=== PATIENT | male | born 1985 | race Caucasian/White ===

== ENCOUNTER → 2018-03-05 18:24 | Outpatient (CLI) | payer MEDICARE, MEDICAID, SELFPAY ==
[2018-03-05 19:29] LABS: Blood Urea Nitrogen 12 mg/dL (7-18); Creatinine,Serum 0.93 mg/dL (0.70-1.30); Estimated Glomerular Filt Rate 93 ml/min (>60); GFR (African American) 113 ML/MIN (>60)
== END ==
PROVIDERS: Visit Provider Internal Medicine
DX: C85.90 Non-Hodgkin lymphoma, unspecified, unspecified site (principal)
CPT/HCPCS: 36415; 82565; 84520

== ENCOUNTER → 2018-03-06 08:48 | Outpatient (CLI) | payer MEDICARE, MEDICAID, SELFPAY ==
--- NOTE | 2018-03-06 09:03 | CT_ITS ---
CT chest w con HISTORY: Follow-up lymphoma ITS.REASON: LYMPHOMA ORDERING PHYSICIAN: Bob Cunningham MD PATIENT AGE: 32 years COMPARISON: 03/22/2017 TECHNIQUE: Axial images obtained following the administration of 75 mL of Isovue 370 . Sagittal, and coronal reformatted images are also generated and reviewed. All CT scans at the facility use one or more dose reduction, viz: automated exposure control; ma/kV adjustment per patient size (including targeted exams where dose is matched to indication; i.e. head); or iterative reconstruction technique. FINDINGS: Right IJ Mediport catheter is in place. There are only a few small subcarinal lymph nodes are somewhat smaller when compared to the previous exam. No mediastinal or hilar mass or adenopathy is evident. No axillary adenopathy. There is mild bilateral gynecomastia. No suspicious pulmonary nodules are evident. There is a 3 mm stable nodule in the right upper lobe anteriorly may be related to a partially calcified granuloma no lobar consolidation. No infiltrates or effusions. No evidence of aortic aneurysm or central pulmonary embolus. No acute bony anomalies. IMPRESSION: Overall stable CT appearance of the chest. No CT evidence of recurrent lymphoma. Please see above for details
--- NOTE | 2018-03-06 09:04 | CT_ITS ---
CT abdomen pelvis w con CLINICAL INDICATION: Follow-up lymphoma ITS.REASON: LYMPHOMA ORDERING PHYSICIAN: Bob Cunningham MD PATIENT AGE: 32 years COMPARISON: 03/22/2017 TECHNIQUE: Axial images obtained with sagittal and coronal reformats. All CT scans at the facility use one or more dose reduction, viz: automated exposure control; ma/kV adjustment per patient size (including targeted exams where dose is matched to indication; i.e. head); or iterative reconstruction technique. PROCEDURE: Oral Contrast: Redicat IV Contrast: 75 mL's of Isovue-370. FINDINGS: The liver, spleen, adrenal glands, pancreas, gallbladder, and kidneys have an unremarkable appearance. No evidence of retroperitoneal or intraperitoneal adenopathy. No intestinal obstruction or free air. No evidence of appendicitis or diverticulitis. No pelvic mass or focal inflammatory change evident. No abnormal fluid collection. No acute bony anomalies IMPRESSION: Negative CT abdomen pelvis. No change with no evidence of recurrent lymphoma
== END ==
PROVIDERS: PCP Nurse Practitioner Family; Visit Provider Internal Medicine
DX: C85.83 Other specified types of non-Hodgkin lymphoma, intra-abdominal lymph nodes (principal)
CPT/HCPCS: 71260; 74177; Q9967

== ENCOUNTER → 2018-04-02 11:25 | Outpatient (CLI) | payer MEDICARE, MEDICAID, SELFPAY ==
[2018-04-02 11:55] LABS: Basophils % 0.6 % (0.1-2.0); Eosinophils # 0.2 K/mm3 (0.0-0.4); Eosinophils % 2.2 % (0.1-12.0); Hematocrit 45.2 % (42.0-52.0); Hemoglobin 14.5 g/dL (14.1-18.0); Lymphocytes # 1.8 K/mm3 (0.7-4.5); Mean Corpuscular HGB Conc 32.1 g/dL (31.8-35.4); Mean Corpuscular Hemoglobin 27.1 pg (27.0-31.2); Mean Corpuscular Volume 84.5 fl (80-94); Monocytes # 0.3 K/mm3 (0.1-1.0); Monocytes % 3.4 % (1.7-9.3); Neutrophils # 5.6 K/mm3 (1.8-7.8); Neutrophils % 70.8 % (37.0-80.0); Platelet Count 196 K/mm3 (142-424); Red Blood Count 5.35 M/mm3 (4.60-6.20); Red Cell Distribution Width 13.3 % (11.5-17.5); White Blood Count 7.9 K/mm3 (4.8-10.8)
[2018-04-02 13:12] LABS: Blood Urea Nitrogen 11 mg/dL (7-18); Calcium 9.2 mg/dL (8.5-10.1); Carbon Dioxide 29 mmol/L (21.0-32.0); Chloride 107 mmol/L (98-107); Creatinine,Serum 0.97 mg/dL (0.70-1.30); Estimated Glomerular Filt Rate 89 ml/min (>60); GFR (African American) 107 ML/MIN (>60); Glucose 157 mg/dL (74-106); Sodium 143 mmol/L (136-145)
== END ==
PROVIDERS: Visit Provider Surgery
DX: C85.91 Non-Hodgkin lymphoma, unspecified, lymph nodes of head, face, and neck (principal)
CPT/HCPCS: 36415; 80048; 85025

== ENCOUNTER 2018-04-16 23:18 | Observation (INO) ==
[2018-04-16 23:46] LABS: Basophils % 0.5 % (0.1-2.0); Eosinophils # 0.3 K/mm3 (0.0-0.4); Eosinophils % 2.6 % (0.1-12.0); Hematocrit 43.4 % (42.0-52.0); Hemoglobin 13.6 g/dL (14.1-18.0); Lymphocytes # 2.2 K/mm3 (0.7-4.5); Lymphocytes % 23.2 K/mm3 (10-50); Mean Corpuscular HGB Conc 31.3 g/dL (31.8-35.4); Mean Corpuscular Hemoglobin 26.4 pg (27.0-31.2); Mean Corpuscular Volume 84.2 fl (80-94); Mean Platelet Volume 6.9 fl (7.4-10.4); Monocytes # 0.3 K/mm3 (0.1-1.0); Monocytes % 3.4 % (1.7-9.3); Neutrophils # 6.7 K/mm3 (1.8-7.8); Neutrophils % 70.4 % (37.0-80.0); Platelet Count 211 K/mm3 (142-424); Red Blood Count 5.15 M/mm3 (4.60-6.20); Red Cell Distribution Width 13.6 % (11.5-17.5); White Blood Count 9.5 K/mm3 (4.8-10.8)
[2018-04-16 23:58] LABS: Albumin/Globulin Ratio 1.1 (1.1-1.8); Anion Gap 8.3 mEq/L (5-15); Bilirubin,Total 1.4 mg/dL (0.2-1.0); Calcium 9.1 mg/dL (8.5-10.1); Globulin 3.8 gm/dl (1.3-3.2); Potassium 3.3 mmoL/L (3.5-5.1); Total Protein,Serum 7.8 gm/dL (6.4-8.2)
--- NOTE | 2018-04-17 01:16 | Emergency Department Note ---
ED Disposition Clinical Impression: Abscess of skin or subcutaneous tissue Qualifiers: Site of cutaneous abscess: buttock Qualified Code(s): L02.31 - Cutaneous abscess of buttock Lymphoma Qualifiers: Lymphoma type: non-Hodgkin Non-Hodgkin lymphoma type: unspecified type Lymphoma site: unspecified region Qualified Code(s): C85.90 - Non-Hodgkin lymphoma, unspecified, unspecified site Disposition: Admitted as Observation Condition on Discharge: Good Instructions: DI for Skin Abscess Referrals: Yolette Isaac APRN [Primary Care Provider] - - Critical Care Critical Care Time: No Attestation: On 04/16/18, the high probability of a clinically significant, sudden or life threatening deterioration of the following system(s) required my full and direct attention, intervention and personal management. The time I documented below is in addition to time spent performing reported procedures but includes the following listed in this critical care notation. Medical Decision Making - Medical Records Medical records reviewed: Yes: I reviewed the patient's medical records. - [place] Inquiry Pt receiving controlled substance: No Vital Signs: 04/16/18 23:23 04/17/18 00:39 Temperature 97.5 F L Temperature Source Oral Pulse Rate [Right Radial] 92 H 94 H Respiratory Rate 20 18 Blood Pressure [Right Arm] 124/80 120/78 Blood Pressure Mean [Right Arm] 94 92 Blood Pressure Source [Right Arm] Automatic Cuff Blood Pressure Position [Right Arm] Sitting 02 Sat by Pulse Oximetry 96 96 - Lab Data Lab results reviewed: Yes: I reviewed the patient's lab results. Lab Results 04/16/18 23:35: WBC 9.5, RBC 5.15, Hgb 13.6 L, Hct 43.4, MCV 84.2, MCH 26.4 L, MCHC 31.3 L, RDW 13.6, Plt Count 211, MPV 6.9 L, Neut % (Auto) 70.4, Lymph % ( Auto) 23.2, [place] % (Auto) 3.4, Eos % (Auto) 2.6, Baso % (Auto) 0.5, Neut # (Auto ) 6.7, Lymph # (Auto) 2.2, [place] # (Auto) 0.3, Eos # (Auto) 0.3, Baso # (Auto) 0.0 04/16/18 23:35: Sodium 140, Potassium 3.3 L, Chloride 105, Carbon Dioxide 30, Anion Gap 8.3, BUN 13, Creatinine 1.20, Estimated Creat Clear 120, Estimated GFR 69, Est GFR ( Amer) 84, Glucose 146 H, Calcium 9.1, Total Bilirubin 1.4 H, AST 18, ALT 32, Alkaline Phosphatase 86, Total Protein 7.8, Albumin 4.0, Globulin 3.8 H, Albumin/Globulin Ratio 1.1 Result diagrams: 04/16/18 23:35 04/16/18 23:35 Orders (Tests/Meds): ORDERS Category Date Time Status Lactic Acid Stat Lab 04/17/18 01:12 Ordered Blood Culture Stat Micro 04/17/18 01:12 Ordered - Physician Consults Physician Consulted: eva Reason -: Admission Skin/Abscess/FB HPI - General Chief complaint: Skin/Abscess/Foreign Body Stated complaint: Abcess on back;feeling woozy Time Seen by Provider: 04/17/18 01:13 Mode of Arrival: Family Vehicle Source of Information: Patient, Significant Other, Medical Record Limitations: No Limitations Description of Symptoms (Recalled from ER Triage Doc. by RN): pt presents with possible abscess, swelling and redness, open wounds at mid lower back area. pt was seen in the ed recently for the same complaint and given antibiotics that he states he did not finish. pt states the site keeps getting worse. - History of Present Illness HPI narrative: progressive swelling and tenderness to rt upper gluteal region - pt with recent ed visit and was placed on septra - pt reports compliant- he has no fever but does c/o of pain and not feeling well - has nonhodgkins lymphoma but not on chemo but has port - complaint: abscess/boil Onset (ago): day(s) Tetanus up to date: unsure Location: buttocks Severity: moderate Context: recent antibiotic Associated symptoms: malaise Treatments prior to arrival: antibiotic - Related Data Home Medications Medication Instructions Recorded Confirmed oxycodone 5 mg capsule 5 mg PO Q6HP PRN cap 10/09/17 04/16/18 Allergies Allergy/AdvReac Type Severity Reaction Status Date / Time No Known Allergies Allergy Verified 04/16/18 23:27 [facility] History I have reviewed the patient's past medical history: Yes Medical History: Reports:: Cancer (LYMPHOMA) Denies:: Diabetes Mellitus Type 1, Diabetes Mellitus Type 2, MRSA Other Medical History: Reports: Chemotherapy, Radiation Therapy Laterality Cases: Right: Lumpectomy Other Surgeries: Yes: Other Amputation: No Fractures: No - Social History Smoking Status: Current every day smoker Tobacco Type: cigarettes # Packs/Day (cigarettes): 1 #Yrs smoked (if former smoker): 13 Alcohol Intake: never Alcohol Intake Frequency:: a few times a month Substance Use Type: denies use Occupational Status: employed Housing: house Household Members: none - Psychiatric History Expresses thoughts of harming self/others: None Suicide Plan Description: No Plan Pschychiatric History:: Reports:: Psychiatric Treatment Family Hx:: Cancer, Diabetes ROS Obtained: Yes All systems reviewed & no additional complaints - Constitutional Constitutional: Denies fever(s) - Eyes Eyes: Denies change in vision - ENT Ears, Nose, Mouth, and Throat: Denies sore throat - Cardiovascular Cardiovascular: Denies chest pain at rest - Respiratory Respiratory: No cough - Gastrointestinal Gastrointestingal: Denies: abdominal pain - Genitourinary Male Genitourinary: Denies hematuria - Musculoskeletal Musculoskeletal: Denies joint pain, Denies joint swelling - Integumentary/Breasts Skin/Breast: Reports as per HPI, Reports boil, Denies rash - Neurologic Neurologic: Denies headache(s), Denies seizure-like activity Physical Exam - General General appearance: in no apparent distress - Head Head exam: atraumatic - Eye Eye exam: Present: PERRL, EOMI - ENT ENT exam: Present: mucous membranes moist - Neck Neck exam: Present: trachea midline - Respiratory Respiratory exam: Absent: respiratory distress - Cardiovascular Cardiovascular exam: Present: regular rate - Abdominal Exam Abdominal exam: Present: soft - Extremities Exam Extremities exam: Absent: calf tenderness - Neurological Exam Neurological exam: Present: alert, oriented X3, CN II-XII intact - Psychiatric Psychiatric exam: Present: normal affect - Skin Skin exam: Present: other (tender reddened area ro gluteal area with induration and 2x3 abscess - no drainage )
[2018-04-17 06:11] LABS: Basophils % 0.5 % (0.1-2.0); Eosinophils # 0.2 K/mm3 (0.0-0.4); Eosinophils % 2.2 % (0.1-12.0); Hematocrit 41.1 % (42.0-52.0); Hemoglobin 13.1 g/dL (14.1-18.0); Lymphocytes % 22.6 K/mm3 (10-50); Mean Corpuscular HGB Conc 31.7 g/dL (31.8-35.4); Mean Corpuscular Volume 85.1 fl (80-94); Mean Platelet Volume 6.9 fl (7.4-10.4); Monocytes # 0.3 K/mm3 (0.1-1.0); Monocytes % 3.7 % (1.7-9.3); Neutrophils # 6.3 K/mm3 (1.8-7.8); Neutrophils % 70.9 % (37.0-80.0); Platelet Count 181 K/mm3 (142-424); Red Blood Count 4.84 M/mm3 (4.60-6.20); Red Cell Distribution Width 13.5 % (11.5-17.5); White Blood Count 8.8 K/mm3 (4.8-10.8)
[2018-04-17 06:54] LABS: Calcium 8.7 mg/dL (8.5-10.1)
--- NOTE | 2018-04-17 07:15 | Consult Report ---
*Admission Date: 04/17/18 *Chief complaint: abscess *History of present illness: 32yo male scheduled to undergo removal of port tomorrow. He presented overnight to the ED with complaints of increase pain/redness/swelling along the right lower back/superior buttock. Review of Systems - Constitutional Denies anorexia - Eyes Denies change in vision - ENT Denies change in voice - *Cardiovascular Denies chest pain - *Respiratory Denies cough - *Gastrointestinal Denies abdominal pain - *Neurologic Denies headache(s), Denies seizure-like activity - Hematologic/Lymphatic Denies easy bleeding H History Medical History: Reports:: Cancer (LYMPHOMA) Denies:: Diabetes Mellitus Type 1, Diabetes Mellitus Type 2, MRSA Other Medical History: Reports: Chemotherapy, Radiation Therapy Laterality Cases: Right: Lumpectomy Other Surgeries: Yes: Other Amputation: No Fractures: No - *Social History Educational Level: Attended College Smoking Status: Current every day smoker Tobacco Type: cigarettes # Packs/Day (cigarettes): 1 #Yrs smoked (if former smoker): 13 Alcohol Intake: never Alcohol Intake Frequency:: a few times a month Substance Use Type: denies use Occupational Status: employed Housing: house Household Members: none - Psychiatric History Expresses thoughts of harming self/others: None Suicide Plan Description: No Plan Pschychiatric History:: Reports:: Psychiatric Treatment *Family Hx:: Cancer, Diabetes Meds Home Medications Medication Instructions Recorded Confirmed Type oxycodone 5 mg capsule 5 mg PO Q6HP PRN cap 10/09/17 04/17/18 History Allergies Allergy/AdvReac Type Severity Reaction Status Date / Time No Known Allergies Allergy Verified 04/16/18 23:27 Exam Vital signs and Labs for Last 24 Hours: Temp Pulse Resp BP Pulse Ox 98.7 F 78 18 120/69 97 04/17/18 04:00 04/17/18 04:00 04/17/18 04:00 04/17/18 04:00 04/17/18 04:00 Laboratory Results - last 24 hr 04/16/18 23:35: WBC 9.5, RBC 5.15, Hgb 13.6 L, Hct 43.4, MCV 84.2, MCH 26.4 L, MCHC 31.3 L, RDW 13.6, Plt Count 211, MPV 6.9 L, Neut % (Auto) 70.4, Lymph % ( Auto) 23.2, [place] % (Auto) 3.4, Eos % (Auto) 2.6, Baso % (Auto) 0.5, Neut # (Auto ) 6.7, Lymph # (Auto) 2.2, [place] # (Auto) 0.3, Eos # (Auto) 0.3, Baso # (Auto) 0.0 04/16/18 23:35: Sodium 140, Potassium 3.3 L, Chloride 105, Carbon Dioxide 30, Anion Gap 8.3, BUN 13, Creatinine 1.20, Estimated Creat Clear 120, Estimated GFR 69, Est GFR ( Amer) 84, Glucose 146 H, Calcium 9.1, Total Bilirubin 1.4 H, AST 18, ALT 32, Alkaline Phosphatase 86, Total Protein 7.8, Albumin 4.0, Globulin 3.8 H, Albumin/Globulin Ratio 1.1 04/17/18 00:00: Lactic Acid 1.3 04/17/18 05:23: WBC 8.8, RBC 4.84, Hgb 13.1 L, Hct 41.1 L, MCV 85.1, MCH 27.0, MCHC 31.7 L, RDW 13.5, Plt Count 181, MPV 6.9 L, Neut % (Auto) 70.9, Lymph % ( Auto) 22.6, [place] % (Auto) 3.7, Eos % (Auto) 2.2, Baso % (Auto) 0.5, Neut # (Auto ) 6.3, Lymph # (Auto) 2.0, [place] # (Auto) 0.3, Eos # (Auto) 0.2, Baso # (Auto) 0.0 04/17/18 05:23: BUN 12, Creatinine 0.99, Estimated Creat Clear 142, Estimated GFR 87, Est GFR ( Amer) 105 D, Glucose 102 D, Calcium 8.7 I & O for Last 24 hours: Intake & Output 04/14/18 04/15/18 04/16/18 04/17/18 11:59 11:59 11:59 11:59 Intake Total 265 / 265 Balance 265 / 265 Weight 210 lb 8 oz - Constitutional no acute distress - *Routine Respiratory Exam Absent: respiratory distress - *Routine Cardiovascular Exam Present: RRR - *Routine Skin Exam Comments: right lower back/superior buttock abscess with induration and erythema Results - Labs 04/17/18 05:23 04/17/18 05:23 Laboratory Results - last 24 hr 04/16/18 23:35: WBC 9.5, RBC 5.15, Hgb 13.6 L, Hct 43.4, MCV 84.2, MCH 26.4 L, MCHC 31.3 L, RDW 13.6, Plt Count 211, MPV 6.9 L, Neut % (Auto) 70.4, Lymph % ( Auto) 23.2, [place] % (Auto) 3.4, Eos % (Auto) 2.6, Baso % (Auto) 0.5, Neut # (Auto ) 6.7, Lymph # (Auto) 2.2, [place] # (Auto) 0.3, Eos # (Auto) 0.3, Baso # (Auto) 0.0 04/16/18 23:35: Sodium 140, Potassium 3.3 L, Chloride 105, Carbon Dioxide 30, Anion Gap 8.3, BUN 13, Creatinine 1.20, Estimated Creat Clear 120, Estimated GFR 69, Est GFR ( Amer) 84, Glucose 146 H, Calcium 9.1, Total Bilirubin 1.4 H, AST 18, ALT 32, Alkaline Phosphatase 86, Total Protein 7.8, Albumin 4.0, Globulin 3.8 H, Albumin/Globulin Ratio 1.1 04/17/18 00:00: Lactic Acid 1.3 04/17/18 05:23: WBC 8.8, RBC 4.84, Hgb 13.1 L, Hct 41.1 L, MCV 85.1, MCH 27.0, MCHC 31.7 L, RDW 13.5, Plt Count 181, MPV 6.9 L, Neut % (Auto) 70.9, Lymph % ( Auto) 22.6, [place] % (Auto) 3.7, Eos % (Auto) 2.2, Baso % (Auto) 0.5, Neut # (Auto ) 6.3, Lymph # (Auto) 2.0, [place] # (Auto) 0.3, Eos # (Auto) 0.2, Baso # (Auto) 0.0 04/17/18 05:23: BUN 12, Creatinine 0.99, Estimated Creat Clear 142, Estimated GFR 87, Est GFR ( Amer) 105 D, Glucose 102 D, Calcium 8.7 Assessment and Plan (1) Abscess of skin or subcutaneous tissue Current visit: Yes Status: Acute Qualifiers: Site of cutaneous abscess: buttock Qualified Code(s): L02.31 - Cutaneous abscess of buttock Category: Medical Code(s): L02.91 - Cutaneous abscess, unspecified I&D right lower back/superior buttock abscess-I have discussed the risks and benefits and he agrees to proceed. Removal of port will be completed at time of incision and drainage.
[2018-04-17 07:18] LABS: Anion Gap 10.4 mEq/L (5-15); Potassium 3.4 mmoL/L (3.5-5.1)
--- NOTE | 2018-04-17 07:29 | Pharmacy Consult Notes ---
[facility] Pharmacy VTE Monitoring - Patient Demographics Admission date: 04/17/18 Report Date: 04/17/18 Time: 07:28 Allergies/Adverse Reactions: Patient Allergies No Known Allergies Allergy (Verified 04/16/18 23:27) Height: 1.88 m Weight: 95.481 kg Patient Problems: Current Active Problems Abscess of skin or subcutaneous tissue (Acute) Lymphoma (Acute) - VTE Risk Labs: VTE Related Lab Results Hgb 13.1 g/dL (14.1-18.0) L 04/17/18 05:23 Hct 41.1 % (42.0-52.0) L 04/17/18 05:23 Plt Count 181 K/mm3 (142-424) 04/17/18 05:23 BUN 12 mg/dL (7-18) 04/17/18 05:23 Creatinine 0.99 mg/dL (0.70-1.30) 04/17/18 05:23 Estimated Creat Clear 142 mL/min (0-300) 04/17/18 05:23 Was VTE Risk Assessment Performed: Yes VTE Score: 4 VTE Risk Level: Low Risk Clinical Trial Participant: No - Prophylaxis VTE Prophylaxis Ordered?: Yes Types of VTE Prophylaxis: TEDS Knee High
--- NOTE | 2018-04-17 08:40 | History & Physical Report ---
*Admission Date: 04/17/18 *History of present illness: Mr. Lara is a 32 yo male with a history of lymphoma who is followed by Dr. Cunningham. He was scheduled to undergo removal of his port tomorrow. Approximately a week ago he noticed what he thought was a mosquito bite on his lower right back. It became infected and he presented to the emergency room and was started on Bactrim. He states the antibiotics did not seem to work and the swelling and redness increased as did the pain. He presented to the emergency room last night and was admitted with a surgical consult. [facility] History Medical History: Reports:: Cancer (LYMPHOMA) Denies:: Diabetes Mellitus Type 1, Diabetes Mellitus Type 2, MRSA Other Medical History: Reports: Chemotherapy, Radiation Therapy Comment: Pancreatitis Laterality Cases: Right: Lumpectomy Other Surgeries: Yes: Other (Port placed, debridement of a decubitus ulcer) Amputation: No Fractures: No - *Social History Educational Level: Attended College Smoking Status: Current every day smoker Tobacco Type: cigarettes # Packs/Day (cigarettes): 1 #Yrs smoked (if former smoker): 13 Alcohol Intake: never Alcohol Intake Frequency:: a few times a month Substance Use Type: denies use Occupational Status: employed Housing: house Household Members: none - Psychiatric History Expresses thoughts of harming self/others: None Suicide Plan Description: No Plan Pschychiatric History:: Reports:: Psychiatric Treatment *Family Hx:: Cancer, Diabetes Review of Systems - Constitutional Reports fatigue, Reports fever(s), Reports weakness - Eyes Denies blurry vision, Denies double vision - ENT Denies nasal congestion, Denies sore throat - *Cardiovascular Denies chest pain, Denies shortness of breath - *Respiratory Denies chest congestion, Denies cough, Denies shortness of breath - *Gastrointestinal Denies abdominal pain, Denies loose stools, Denies nausea, Denies vomiting - *Genitourinary Denies difficulty urinating, Denies painful urination - *Musculoskeletal Denies joint pain, Denies body aches - Integumentary/Breasts Reports redness (right upper buttock) - *Neurologic Denies headache(s), Denies seizure-like activity, Denies dizziness, Denies weakness Meds Home Medications Medication Instructions Recorded Confirmed Type oxycodone 5 mg capsule 5 mg PO Q6HP PRN cap 10/09/17 04/17/18 History Allergies Allergy/AdvReac Type Severity Reaction Status Date / Time No Known Allergies Allergy Verified 04/16/18 23:27 Exam Vital signs and Labs for Last 24 Hours: Temp Pulse Resp BP Pulse Ox 99.6 F 78 18 117/59 95 04/17/18 07:37 04/17/18 07:37 04/17/18 07:37 04/17/18 07:37 04/17/18 07:37 Laboratory Results - last 24 hr 04/16/18 23:35: WBC 9.5, RBC 5.15, Hgb 13.6 L, Hct 43.4, MCV 84.2, MCH 26.4 L, MCHC 31.3 L, RDW 13.6, Plt Count 211, MPV 6.9 L, Neut % (Auto) 70.4, Lymph % ( Auto) 23.2, [place] % (Auto) 3.4, Eos % (Auto) 2.6, Baso % (Auto) 0.5, Neut # (Auto ) 6.7, Lymph # (Auto) 2.2, [place] # (Auto) 0.3, Eos # (Auto) 0.3, Baso # (Auto) 0.0 04/16/18 23:35: Sodium 140, Potassium 3.3 L, Chloride 105, Carbon Dioxide 30, Anion Gap 8.3, BUN 13, Creatinine 1.20, Estimated Creat Clear 120, Estimated GFR 69, Est GFR ( Amer) 84, Glucose 146 H, Calcium 9.1, Total Bilirubin 1.4 H, AST 18, ALT 32, Alkaline Phosphatase 86, Total Protein 7.8, Albumin 4.0, Globulin 3.8 H, Albumin/Globulin Ratio 1.1 04/17/18 00:00: Lactic Acid 1.3 04/17/18 05:23: WBC 8.8, RBC 4.84, Hgb 13.1 L, Hct 41.1 L, MCV 85.1, MCH 27.0, MCHC 31.7 L, RDW 13.5, Plt Count 181, MPV 6.9 L, Neut % (Auto) 70.9, Lymph % ( Auto) 22.6, [place] % (Auto) 3.7, Eos % (Auto) 2.2, Baso % (Auto) 0.5, Neut # (Auto ) 6.3, Lymph # (Auto) 2.0, [place] # (Auto) 0.3, Eos # (Auto) 0.2, Baso # (Auto) 0.0 04/17/18 05:23: Sodium 142, Potassium 3.4 L, Chloride 107, Carbon Dioxide 28, Anion Gap 10.4, BUN 12, Creatinine 0.99, Estimated Creat Clear 142, Estimated GFR 87, Est GFR ( Amer) 105 D, Glucose 102 D, Calcium 8.7 I & O for Last 24 hours: Intake & Output 04/14/18 04/15/18 04/16/18 04/17/18 11:59 11:59 11:59 11:59 Intake Total 265 / 265 Balance 265 / 265 Weight 210 lb 8 oz - Constitutional no acute distress - *Routine HEENT Exam Head: Present: normocephalic, atraumatic Eye: Present: EOMI, PERRL ENT: Present: mucous membranes moist - *Routine Neck Exam Present: supple, full ROM - *Routine Respiratory Exam Present: CTA bilaterally - *Routine Cardiovascular Exam Present: RRR - *Routine Abdominal Exam Present: soft, normoactive bowel sounds. Absent: tenderness - *Routine Extremities Exam Absent: edema - *Routine Skin Exam Comments: right lower back and upper buttock with an absess - no drainage, there area is hot to the touch and tender - *Routine Neurological Exam Present: alert, oriented X3 H&P: Result - Labs Labs: Assessment and Plan (1) Abscess of skin or subcutaneous tissue Current visit: Yes Status: Acute Qualifiers: Site of cutaneous abscess: buttock Qualified Code(s): L02.31 - Cutaneous abscess of buttock Category: Medical Code(s): L02.91 - Cutaneous abscess, unspecified (2) Lymphoma Current visit: Yes Status: Acute Qualifiers: Lymphoma type: non-Hodgkin Non-Hodgkin lymphoma type: unspecified type Lymphoma site: unspecified region Qualified Code(s): C85.90 - Non-Hodgkin lymphoma, unspecified, unspecified site Category: Medical Code(s): C85.90 - Non-Hodgkin lymphoma, unspecified, unspecified site - Assessment and plan all Dx Assessment and Plan for all problems:: Dr. Cunningham has seen the patient. He plans to take him to the OR to I&D the right lower back/superior buttock abscess.
--- NOTE | 2018-04-17 08:51 | Pharmacy Consult Notes ---
- Pharmacy Consult Date: 04/17/18 Time: 08:49 Referring provider: DR. BARON Reason for Consult:: VANCOMYCIN DOSING Allergies and ADEs:: Allergies Allergy/AdvReac Type Severity Reaction Status Date / Time No Known Allergies Allergy Verified 04/16/18 23:27 Home Medications:: Home Medications Medication Instructions Recorded Confirmed Type oxycodone 5 mg capsule 5 mg PO Q6HP PRN cap 10/09/17 04/17/18 History Height: 1.88 m Weight: 95.481 kg Laboratory Results:: Laboratory Results - last 24 hr 04/16/18 23:35: WBC 9.5, RBC 5.15, Hgb 13.6 L, Hct 43.4, MCV 84.2, MCH 26.4 L, MCHC 31.3 L, RDW 13.6, Plt Count 211, MPV 6.9 L, Neut % (Auto) 70.4, Lymph % ( Auto) 23.2, [place] % (Auto) 3.4, Eos % (Auto) 2.6, Baso % (Auto) 0.5, Neut # (Auto ) 6.7, Lymph # (Auto) 2.2, [place] # (Auto) 0.3, Eos # (Auto) 0.3, Baso # (Auto) 0.0 04/16/18 23:35: Sodium 140, Potassium 3.3 L, Chloride 105, Carbon Dioxide 30, Anion Gap 8.3, BUN 13, Creatinine 1.20, Estimated Creat Clear 120, Estimated GFR 69, Est GFR ( Amer) 84, Glucose 146 H, Calcium 9.1, Total Bilirubin 1.4 H, AST 18, ALT 32, Alkaline Phosphatase 86, Total Protein 7.8, Albumin 4.0, Globulin 3.8 H, Albumin/Globulin Ratio 1.1 04/17/18 00:00: Lactic Acid 1.3 04/17/18 05:23: WBC 8.8, RBC 4.84, Hgb 13.1 L, Hct 41.1 L, MCV 85.1, MCH 27.0, MCHC 31.7 L, RDW 13.5, Plt Count 181, MPV 6.9 L, Neut % (Auto) 70.9, Lymph % ( Auto) 22.6, [place] % (Auto) 3.7, Eos % (Auto) 2.2, Baso % (Auto) 0.5, Neut # (Auto ) 6.3, Lymph # (Auto) 2.0, [place] # (Auto) 0.3, Eos # (Auto) 0.2, Baso # (Auto) 0.0 04/17/18 05:23: Sodium 142, Potassium 3.4 L, Chloride 107, Carbon Dioxide 28, Anion Gap 10.4, BUN 12, Creatinine 0.99, Estimated Creat Clear 142, Estimated GFR 87, Est GFR ( Amer) 105 D, Glucose 102 D, Calcium 8.7 Medical History: Reports:: Cancer ([place]HOMA) Denies:: Diabetes Mellitus Type 1, Diabetes Mellitus Type 2, MRSA Assessment and Plan (1) Abscess of skin or subcutaneous tissue Current visit: Yes Status: Acute Qualifiers: Site of cutaneous abscess: buttock Qualified Code(s): L02.31 - Cutaneous abscess of buttock Category: Medical Code(s): L02.91 - Cutaneous abscess, unspecified (2) Lymphoma Current visit: Yes Status: Acute Qualifiers: Lymphoma type: non-Hodgkin Non-Hodgkin lymphoma type: unspecified type Lymphoma site: unspecified region Qualified Code(s): C85.90 - Non-Hodgkin lymphoma, unspecified, unspecified site Category: Medical Code(s): C85.90 - Non-Hodgkin lymphoma, unspecified, unspecified site - Assessment and plan all Dx Assessment and Plan for all problems:: BASED ON PATIENT FACTORS, RECOMMEND VANCOMYCIN 1,750MG IV Q12H. PATIENT RECEIVED 1,500MG ONCE IN ED. RENAL FUNCTION HAS IMPROVED SINCE ARRIVAL TO ED, THEREFORE WILL INCREASE DOSE. PHARMACY WILL OBTAIN TROUGH LEVEL PRIOR TO FOURTH DOSE AND WILL ADJUST DOSE APPROPRIATE. -JOSE GUADALUPE FERRER PHARMD
--- NOTE | 2018-04-17 12:41 | Progress Note ---
[facility] Anesthesia Checklist - Patient Identification Patient Identification: Arm Band, Verbal (Name & ) - Structural Data Admitted From: Home Planned Operative Procedure/s: port removal Consent for Planned Operative Procedure(s) Verified: Yes Verified Documents: Surgical Consent, History and Physical - NPO Status Verified Time NPO: 00:00 - Additional verifications Patient : No Anesthesia Reactions: No Hx Blood Transfusions: No Blood Transfusion Reaction: No Cephalosporin Allergy: No Previous Colonoscopy: No - Cardiovascular Assessment Heart Sounds: S1 & S2 Pulse Strength: Baseline Pulse Rhythm: Regular - Airway Assessment C-Spine Mobility Assessed: Yes TMJ Mobility Assessed: Yes Dentition: Good Dentition - Neurological Assessment Level of Consciousness: Awake, Alert, Appropriate Hx Seizures: No Numbness or tingling in extremities: No - Anesthesia Plan Anesthesia Risk discussed: Yes Anesthesia Plan: Verified ASA Class: II Anesthesia Type: MAC [facility] Anesthesia HX I have reviewed the patient's past medical history: Yes Medical History: Reports:: Cancer (LYMPHOMA) Denies:: Diabetes Mellitus Type 1, Diabetes Mellitus Type 2, MRSA Other Medical History: Reports: Chemotherapy, Radiation Therapy Laterality Cases: Right: Lumpectomy Other Surgeries: Yes: Other (Port placed, debridement of a decubitus ulcer) Amputation: No Fractures: No *Family Hx:: Cancer, Diabetes
--- NOTE | 2018-04-17 14:17 | Operative Note ---
Date of procedure: 04/17/18 Pre-op Diagnosis:: Right lower back/superior buttock abscess History of lymphoma Post-op Diagnosis:: Same Procedure performed:: 1) removal of Port-A-Cath (right internal jugular access) 2) incision and drainage of right lower back/superior buttock abscess Surgeon:: Bernard Cunningham MD ETHNOLOGY TEACHER:: Facundo Roxie Anesthesia: LMA Estimated blood loss (mL): 20 Operative findings:: Right chest (internal jugular access) port removed prior to incision and drainage of back abscess Incision and drainage site packed open with moistened Kerlix Operative note:: After informed consent was obtained, the patient was taken to the operating room and placed in the supine position. General anesthesia with laryngeal mask airway was achieved. The right upper chest and neck were prepped and draped in a sterile fashion. After infiltration with local anesthetic incision overlying the port was made. Combination of sharp dissection and blunt dissection was utilized to access the port hub. The port hub was elevated and careful traction revealed a small of area of catheter adhesion just superior to the clavicle. After infiltration of local anesthetic a counterincision was made at this site. The underlying tissue was carefully dissected bluntly. The catheter was freed from adherent tissue and then carefully removed without difficulty. The entire port hub with attached catheter was then easily removed. Direct pressure was utilized to achieve hemostasis. Skin was closed with interrupted 4-0 nylon and sterile dressings were applied. With sterile dressings in place the patient was transferred to a left lateral decubitus position and his lower back/superior buttock was prepped and draped in a sterile fashion. The 2.5 cm abscess was opened centrally with electrocautery. Tiny/early satellite abscesses (5) were opened with cautery. At the primary site a combination of electrocautery and blunt dissection was utilized to open up the entire abscess cavity and fluid was obtained for Gram stain and culture. Electrocautery was utilized to achieve hemostasis and the wound was packed with moistened Kerlix. 1% lidocaine was infiltrated throughout the Kerlix and dressings were applied. The patient was transferred to recovery in stable condition. Condition: stable Disposition: PACU Specimens:: Fluid for Gram stain/culture Complications:: No immediate
--- NOTE | 2018-04-17 14:18 | Progress Note ---
[facility] Anesthesia Record Part I Intake, IV Amount: 1,300 Estimated blood loss (mL): 0 Urine output (mL): 0 Blood Pressure: 134/78 SaO2: 98 Pulse Rate: 118 Respiratory Rate: 14 Temperature: 98.2 F Patient is:: Awake, Stable Stable to PACU at:: 14:15
--- NOTE | 2018-04-17 14:19 | Progress Note ---
[facility] Anesthesia Record Part II Discharge Time: 14:45 Destination: floor PACU nurse assessment reviewed?: Yes Patient Condition:: Good Anesthesia Complications:: None
--- NOTE | 2018-04-18 07:55 | Progress Note ---
Subjective Patient reports: no new complaints Exam Vital signs and Labs for Last 24 Hours: Temp Pulse Resp BP Pulse Ox 99.2 F 72 16 106/50 98 04/18/18 05:12 04/18/18 05:12 04/18/18 05:12 04/18/18 05:12 04/18/18 05:12 I & O for Last 24 hours: Intake & Output 04/15/18 04/16/18 04/17/18 04/18/18 11:59 11:59 11:59 11:59 Intake Total 265 / 265 2257 / 2257 Balance 265 / 265 2257 / 2257 Weight 210 lb 8 oz Microbiology Reports for the Last 24 Hours: Microbiology 04/17/18 Unknown Back Gram Stain - Final 04/17/18 Unknown Back Abscess Culture - Preliminary - Constitutional no acute distress - *Routine Skin Exam Comments: dressings intact Progress Note: A&P (1) Abscess of skin or subcutaneous tissue Status: Acute Assessment and plan: dressing changes Current Visit: Yes (2) Lymphoma Status: Acute Assessment and plan: stable s/p port removal Current Visit: Yes
[2018-04-18 08:20] VITALS: BP 140/72
--- NOTE | 2018-04-18 08:33 | Progress Note ---
<Lauren Cox - Last Filed: 04/18/18 08:31> Internal Medicine - PN: Subj *Date: 04/18/18 *Time: 08:31 Interval history: Patient is doing well status post I&D of his abscess. Culture is still pending. He states he has pain but it is controlled with the pain medication. He slept off and on throughout the night but was able to eat this morning. Exam Vital signs and Labs for Last 24 Hours: Temp Pulse Resp BP Pulse Ox 97.7 F 78 20 140/72 98 04/18/18 08:00 04/18/18 08:00 04/18/18 08:00 04/18/18 08:00 04/18/18 08:00 I & O for Last 24 hours: Intake & Output 04/15/18 04/16/18 04/17/18 04/18/18 11:59 11:59 11:59 11:59 Intake Total 265 / 265 2737 / 2737 Balance 265 / 265 2737 / 2737 Weight 210 lb 8 oz Microbiology Reports for the Last 24 Hours: Microbiology 04/17/18 Unknown Back Gram Stain - Final 04/17/18 Unknown Back Abscess Culture - Preliminary - Constitutional no acute distress - *Routine Respiratory Exam Present: CTA bilaterally - *Routine Cardiovascular Exam Present: RRR - *Routine Abdominal Exam Present: soft, normoactive bowel sounds. Absent: tenderness - *Routine Extremities Exam Absent: edema - *Routine Skin Exam Comments: dressing in placed on the right low back Assessment and Plan (1) Abscess of skin or subcutaneous tissue Current visit: Yes Status: Acute Qualifiers: Site of cutaneous abscess: buttock Qualified Code(s): L02.31 - Cutaneous abscess of buttock Category: Medical Code(s): L02.91 - Cutaneous abscess, unspecified (2) Lymphoma Current visit: Yes Status: Acute Qualifiers: Lymphoma type: non-Hodgkin Non-Hodgkin lymphoma type: unspecified type Lymphoma site: unspecified region Qualified Code(s): C85.90 - Non-Hodgkin lymphoma, unspecified, unspecified site Category: Medical Code(s): C85.90 - Non-Hodgkin lymphoma, unspecified, unspecified site (3) Status post incision and drainage Current visit: Yes Status: Acute Category: Surgical Code(s): Z98.890 - Other specified postprocedural states - Assessment and plan all Dx Assessment and Plan for all problems:: Will await culture results and continue antibiotics. Dressing changes are to be twice daily. <Sandee Yates - Last Filed: 04/18/18 08:58> Internal Medicine - PN: Subj *Date: 04/18/18 *Time: 08:54 Interval history: Patient doing well. No concerns this am. Prefers to go home. Exam Vital signs and Labs for Last 24 Hours: Temp Pulse Resp BP Pulse Ox 97.7 F 78 20 140/72 98 04/18/18 08:00 04/18/18 08:00 04/18/18 08:00 04/18/18 08:00 04/18/18 08:00 I & O for Last 24 hours: Intake & Output 04/15/18 04/16/18 04/17/18 04/18/18 11:59 11:59 11:59 11:59 Intake Total 265 / 265 2737 / 2737 Balance 265 / 265 2737 / 2737 Weight 210 lb 8 oz Microbiology Reports for the Last 24 Hours: Microbiology 04/17/18 Unknown Back Gram Stain - Final 04/17/18 Unknown Back Abscess Culture - Preliminary - *Routine HEENT Exam Head: Present: normocephalic - *Routine Respiratory Exam Present: accessory muscle use, CTA bilaterally - *Routine Cardiovascular Exam Present: RRR - *Routine Abdominal Exam Present: soft, normoactive bowel sounds - *Routine Skin Exam Present: intact Comments: dressing soaked with blood on the lower back, will change dressing after rounds per nursing. Dressing at upper trunk is intact and clean. Assessment and Plan (1) Abscess of skin or subcutaneous tissue Current visit: Yes Status: Acute Qualifiers: Site of cutaneous abscess: buttock Qualified Code(s): L02.31 - Cutaneous abscess of buttock Category: Medical Code(s): L02.91 - Cutaneous abscess, unspecified (2) Lymphoma Current visit: Yes Status: Acute Qualifiers: Lymphoma type: non-Hodgkin Non-Hodgkin lymphoma type: unspecified type Lymphoma site: unspecified region Qualified Code(s): C85.90 - Non-Hodgkin lymphoma, unspecified, unspecified site Category: Medical Code(s): C85.90 - Non-Hodgkin lymphoma, unspecified, unspecified site (3) Status post incision and drainage Current visit: Yes Status: Acute Category: Surgical Code(s): Z98.890 - Other specified postprocedural states - Assessment and plan all Dx Assessment and Plan for all problems:: Will start patient on PO abx, clindamycin 300 mg TID. Stop IV abx. Will follow culture outpatient in 2-3 days. Tylenol or Aleve OTC for pain control. Stop IV pain meds today. DC home today, patient is to come to hospital QD for dressing changes.
--- NOTE | 2018-04-20 22:30 | Discharge Summary ---
General - General Admission date:: 04/17/18 <Sandee Yates - 04/21/18 08:55> 04/17/18 <Lauren Cox - 04/20/18 22:30> Discharge date: 04/18/18 <Reed Coxa - 04/20/18 22:30> HPI HPI: Mr. Lara is a 32 yo male with a history of lymphoma who is followed by Dr. Cunningham. He was scheduled to undergo removal of his port tomorrow. Approximately a week ago he noticed what he thought was a mosquito bite on his lower right back. It became infected and he presented to the emergency room and was started on Bactrim. He states the antibiotics did not seem to work and the swelling and redness increased as did the pain. He presented to the emergency room last night and was admitted with a surgical consult. <BrookeReeda - 04/20/18 22:30> Hospital Course Hospital Course: Dr. Cunningham saw the patient and took him to the OR for an I&D of the abscess. He also removed his Port-A-Cath. The patient tolerated the procedure well. His pain was controlled with pain medication. The patient was stable to be discharged. He was discharged on PO abx, clindamycin 300 mg TID. His IV abx were stopped. He was instructed to change his dressing bid and take aleve or tylenol for pain. He will f/u in 2-3 day for culture results. His wound cx was positive for MRSA sensitive to clindamycin. <Lauren Cox - 04/20/18 22:30> Objective Vital signs: Temp Pulse Resp BP Pulse Ox 97.7 F 78 20 140/72 98 04/18/18 08:00 04/18/18 08:00 04/18/18 08:00 04/18/18 08:00 04/18/18 08:00 <Sandee Yates - 04/21/18 08:55> Temp Pulse Resp BP Pulse Ox 97.7 F 78 20 140/72 98 04/18/18 08:00 04/18/18 08:00 04/18/18 08:00 04/18/18 08:00 04/18/18 08:00 <BrookeReeda - 04/20/18 22:30> Narrative: - Constitutional no acute distress - *Routine HEENT Exam Head: Present: normocephalic, atraumatic Eye: Present: EOMI, PERRL ENT: Present: mucous membranes moist - *Routine Neck Exam Present: supple, full ROM - *Routine Respiratory Exam Present: CTA bilaterally - *Routine Cardiovascular Exam Present: RRR - *Routine Abdominal Exam Present: soft, normoactive bowel sounds. Absent: tenderness - *Routine Extremities Exam Absent: edema - *Routine Skin Exam Comments: right lower back and upper buttock with an absess - no drainage, there area is hot to the touch and tender - *Routine Neurological Exam Present: alert, oriented X3 <Lauren Cox 04/20/18 22:30> Results Labs on day of discharge: Preliminary micro results at discharge 04/17/18 00:00 Blood Culture - Preliminary Blood NO GROWTH AFTER 48 HOURS 04/17/18 00:00 Blood Culture - Preliminary Blood NO GROWTH AFTER 48 HOURS <Sandee Yates 04/21/18 08:55> Preliminary micro results at discharge 04/17/18 00:00 Blood Culture - Preliminary Blood NO GROWTH AFTER 48 HOURS 04/17/18 00:00 Blood Culture - Preliminary Blood NO GROWTH AFTER 48 HOURS <Lauren Cox 04/20/18 22:30> DS: Diagnosis - Discharge Diagnosis (1) Abscess of skin or subcutaneous tissue Status: Acute (2) MRSA (methicillin resistant staph aureus) culture positive Status: Acute (3) Lymphoma Status: Chronic (4) Status post incision and drainage Status: Acute <Lauren Cox 04/20/18 22:25> (1) Abscess of skin or subcutaneous tissue Status: Acute (2) MRSA (methicillin resistant staph aureus) culture positive Status: Acute (3) Lymphoma Status: Chronic (4) Status post incision and drainage Status: Acute <Sandee Yates 04/21/18 08:55> Discharge Plan - Patient Discharge Instructions ACTIVITY: Continue current activity <Lauren Cox 04/20/18 22:30> DIET: continue same diet <Lauren Cox 04/20/18 22:30> Additional Instructions: wet to dry dressing change to right lower back wound at least once per day (twice daily preferred), patient to come to hospital for dressing changes <Sandee Yates 04/21/18 08:55> Patient Instructions: Incision and Drainage of a Skin Abscess, Surgical Site Infection <Sandee Yates 04/21/18 08:55> Forms: <Sandee Yates 04/21/18 08:55> - Follow up Plan Follow up with: Sandee Yates MD [Staff Physician] - 1 week (please make an appt for 2-3 days) Bernard Cunningham MD [Staff Physician] - 04/23/18 <Sandee Yates 04/21/18 08:55> Disposition: Home, Self-Care <Sandee Yates 04/21/18 08:55> Home Medications: Home Medications Medication Instructions Recorded Confirmed Type oxycodone 5 mg capsule 5 mg PO Q6HP PRN cap 10/09/17 04/17/18 History <Sandee Yates 04/21/18 08:55> Prescriptions/Medication Reconciliation: New Nicotine [Nicoderm 21mg/24hr patch] 21 mg TD DAILY #30 patch.td24 Clindamycin HCl 300 mg PO TID #30 cap Continue oxycodone 5 mg capsule 5 mg PO Q6HP PRN cap PRN Reason: pain <Sandee Yates 04/21/18 08:55> - Additional Information Additional Information: I agree with above discharge plan of care. <Sandee Yates 04/21/18 08:55>
== END 2018-04-18 10:20 | disposition home or self-care (01) ==
LOC: 2ND 23:18 → ER 23:18 → 2ND 04-17 01:48
PROVIDERS: ADMIT Family Medicine; ATTEND Emergency Medicine

== ENCOUNTER → 2018-04-19 20:37 | Outpatient (CLI) | payer MEDICARE, MEDICAID, SELFPAY ==
[2018-04-19 21:08] VITALS: BP 145/79; PULSE 91; RESP 16; TEMP 37.3; O2SAT 96
--- NOTE | 2018-04-19 21:09 | PC.NURSE ---
Dressing changed to coccyx area. Slough noted w/ no signs of infection. Drsg packed w/ moist 4x4 gauze, covered w/ gauze and tegaderm. Pt tolerated well.
== END ==
PROVIDERS: PCP Nurse Practitioner Family; Visit Provider Surgery
DX: L02.31 Cutaneous abscess of buttock (principal); Z48.00 Encounter for change or removal of nonsurgical wound dressing
CPT/HCPCS: G0463

== ENCOUNTER → 2018-04-20 18:26 | Outpatient (CLI) | payer MEDICARE, MEDICAID, SELFPAY ==
[2018-04-20 19:17] VITALS: BP 112/70; PULSE 93; RESP 18; TEMP 36.8; O2SAT 100
== END ==
PROVIDERS: PCP Nurse Practitioner Family; Visit Provider Surgery
DX: Z48.00 Encounter for change or removal of nonsurgical wound dressing (principal); L02.31 Cutaneous abscess of buttock
CPT/HCPCS: G0463

== ENCOUNTER → 2018-04-21 20:40 | Outpatient (CLI) | payer MEDICARE, MEDICAID, SELFPAY ==
[2018-04-21 21:14] VITALS: BP 128/82; PULSE 84; RESP 18; TEMP 36.8; O2SAT 96; BMI 26.9
== END ==
PROVIDERS: PCP Nurse Practitioner Family; Visit Provider Surgery
DX: Z48.00 Encounter for change or removal of nonsurgical wound dressing (principal); L02.31 Cutaneous abscess of buttock
CPT/HCPCS: G0463

== ENCOUNTER 2018-04-22 17:54 | Outpatient (CLI) | payer MEDICARE, MEDICAID, SELFPAY ==
--- NOTE | 2018-04-22 18:23 | PC.NURSE ---
REMOVED OLD DSG. PATIENT REPORTS THAT DR. SANTORO WRAPPED AN MELL WRAP AROUND THE DSG TO HELP HOLD IT IN PLACE SINCE THE TAPE WAS IRRITATING HIS SKIN. MELL WRAP WAS FALLING OFF WHEN PATIENT ARRIVED AND HE STATED THAT HE DOESN'T WANT IT BACK ON. AREA CLEANSED WITH NS. PACKED WITH STERILE SALINE SOAKED KERLIX. COVERED WITH STERILE 4X4s AND MEDIPORE TAPE. 2 SKIN IRRITATIONS NOTED FROM TAPE - PLACED A NON ADHERANT PAD OVER THIS AREA. DSG CHANGE PERFORMED UNDER STERILE TECHNIQUE. PATIENT TOLERATED WELL.
== END 2018-04-22 18:22 | disposition home or self-care (01) ==
LOC: INF 17:56
PROVIDERS: PCP Nurse Practitioner Family; Visit Provider Surgery
DX: Z48.00 Encounter for change or removal of nonsurgical wound dressing (principal)

== ENCOUNTER 2018-04-23 11:48 | Outpatient (CLI) | payer MEDICARE, MEDICAID, SELFPAY ==
--- NOTE | 2018-04-23 12:08 | PC.NURSE ---
Right buttock has 2 areas of skin irritation from adhesive. Left open to air. Dressing packed with 1/2 of 4/4 damp with saline. Covered with large tegaderm.
== END 2018-04-23 12:00 | disposition home or self-care (01) ==
LOC: INF 11:48
PROVIDERS: PCP Nurse Practitioner Family; Visit Provider Surgery
DX: L02.31 Cutaneous abscess of buttock (principal); Z48.00 Encounter for change or removal of nonsurgical wound dressing
CPT/HCPCS: G0463

== ENCOUNTER 2018-04-25 19:15 | Outpatient (CLI) | payer MEDICARE, MEDICAID, SELFPAY ==
[2018-04-25 19:40] VITALS: BMI 26.9
[2018-04-25 19:47] VITALS: RESP 18; TEMP 36.7; O2SAT 98
--- NOTE | 2018-04-25 19:50 | PC.NURSE ---
Pt left the floor at 1945 on 04/25/18.
== END 2018-04-25 19:45 | disposition home or self-care (01) ==
LOC: INF 19:15
PROVIDERS: PCP Nurse Practitioner Family; Visit Provider Surgery
DX: L02.31 Cutaneous abscess of buttock (principal); Z48.00 Encounter for change or removal of nonsurgical wound dressing
CPT/HCPCS: G0463

== ENCOUNTER 2018-04-27 16:35 | Outpatient (CLI) | payer MEDICARE, MEDICAID, SELFPAY ==
--- NOTE | 2018-04-27 17:17 | PC.NURSE ---
Pt states to nurse that Dr Cunningham wanted them to take out his stitches from where his port was removed. Dr Cunningham was contacted and he states that it is ok to remove the 2 remaining stitches to pt upper right chest. area surrounding stitches is slightly reddened. area was cleaned with alcohol pad.
--- NOTE | 2018-04-27 17:20 | PC.NURSE ---
pt dressing to right upper buttock area was changed. pt dressing was dislodged upon arrival and no packing was noted. pt was reminded that he was scheduled daily for dressing changes. states he is aware and he had a friend change the dressing last night. wound bed at the inside edges of the wound was noted to have a generous amount of slough. pt indicated some mild discomfort during change, but tolerated well.
== END 2018-04-27 17:20 | disposition home or self-care (01) ==
LOC: INF 16:35
PROVIDERS: PCP Nurse Practitioner Family; Visit Provider Surgery
DX: L02.31 Cutaneous abscess of buttock (principal); Z48.00 Encounter for change or removal of nonsurgical wound dressing
CPT/HCPCS: G0463

== ENCOUNTER → 2018-04-30 19:33 | Outpatient (CLI) | payer MEDICARE, MEDICAID, SELFPAY ==
--- NOTE | 2018-04-30 20:15 | PC.NURSE ---
DRESSING CHANGED AT THIS TIME. SMALL AMOUNT OF YELLOW SLOUGH NOTED. TISSUE INSIDE WOUND IS BEEFY. PATIENT DIES ANY PAIN, HOWEVER STATES THAT HE HAS HAD SOME NAUSEA AND MALAISE TODAY. VSS.
[2018-04-30 20:59] VITALS: BP 123/76; PULSE 67; RESP 20; TEMP 36.7; O2SAT 96
== END ==
PROVIDERS: PCP Nurse Practitioner Family; Visit Provider Surgery
DX: L02.31 Cutaneous abscess of buttock (principal); Z48.00 Encounter for change or removal of nonsurgical wound dressing
CPT/HCPCS: 80053; 82150; 83690; 85025; 96365; 96366; 96375; 99283; G0463; J2405

== ENCOUNTER → 2018-05-04 14:57 | Outpatient (CLI) | payer MEDICARE, MEDICAID, SELFPAY ==
[2018-05-04 17:05] VITALS: BP 130/86; PULSE 89; RESP 18; TEMP 36.6; O2SAT 100
== END ==
PROVIDERS: PCP Nurse Practitioner Family; Visit Provider Surgery
DX: Z48.00 Encounter for change or removal of nonsurgical wound dressing (principal); L02.31 Cutaneous abscess of buttock
CPT/HCPCS: G0463

== ENCOUNTER → 2018-05-07 20:33 | Outpatient (CLI) | payer MEDICARE, MEDICAID, SELFPAY ==
[2018-05-07 20:50] VITALS: BP 125/82; PULSE 105; RESP 18; TEMP 36.6; O2SAT 96
== END ==
PROVIDERS: PCP Nurse Practitioner Family; Visit Provider Surgery
DX: L02.91 Cutaneous abscess, unspecified (principal); Z48.00 Encounter for change or removal of nonsurgical wound dressing

== ENCOUNTER 2018-05-14 11:45 | Outpatient (CLI) | payer MEDICARE, MEDICAID, SELFPAY | END 2018-05-14 12:40 | disposition home or self-care (01) | LOC: INF 11:45 | PROVIDERS: PCP Nurse Practitioner Family; Visit Provider Surgery | DX: Z48.00 Encounter for change or removal of nonsurgical wound dressing (principal); L02.31 Cutaneous abscess of buttock | CPT/HCPCS: G0463 ==

== ENCOUNTER 2020-07-18 22:14 | Observation (INO) | payer MEDICARE, MEDICAID, SELFPAY ==
[2020-07-18 22:56] VITALS: BP 143/83; PULSE 108; RESP 17; TEMP 37.1; O2SAT 98; BMI 28.2
[2020-07-18 23:07] VITALS: BP 124/81; PULSE 104; RESP 18; O2SAT 93
[2020-07-19] VITALS (24 sets, daily range): BP systolic 96–127; BP diastolic 54–78; PULSE 57–105; RESP 16–20; TEMP 36.2–37.1; O2SAT 92–99; BMI 27.1
--- NOTE | 2020-07-19 01:03 | HMH.EDSKAF ---
ED Disposition Clinical Impression: Perirectal abscess Diabetes mellitus Qualifiers: Diabetes mellitus type: type 1 Diabetes mellitus complication status: with other specified complication Qualified Code(s): E10.69 - Type 1 diabetes mellitus with other specified complication Disposition: Admitted as Observation Condition on Discharge: Good Instructions: DI for Skin Abscess Referrals: Anastacio Castillo [Primary Care Provider] - - Critical Care Critical Care Time: No Attestation: On 07/18/20, the high probability of a clinically significant, sudden or life threatening deterioration of the following system(s) required my full and direct attention, intervention and personal management. The time I documented below is in addition to time spent performing reported procedures but includes the following listed in this critical care notation. Medical Decision Making - Medical Records Medical records reviewed: Yes: I reviewed the patient's medical records. - Dylon Inquiry Pt receiving controlled substance: No Vital Signs: 07/18/20 22:56 07/18/20 23:07 07/19/20 00:08 Temperature 98.7 F Temperature Source Oral Pulse Rate [Right Brachial] 108 H 104 H 101 H Respiratory Rate 17 18 18 Blood Pressure [Right Arm] 143/83 H 124/81 121/66 Blood Pressure Mean [Right Arm] 103 95 84 Blood Pressure Source [Right Arm] Automatic Cuff Blood Pressure Position [Right Arm] Sitting 02 Sat by Pulse Oximetry 98 93 L 95 Oxygen Delivery Method Room Air Room Air Room Air 07/19/20 01:14 Temperature Temperature Source Pulse Rate [Right Brachial] 96 H Respiratory Rate 18 Blood Pressure [Right Arm] 127/72 Blood Pressure Mean [Right Arm] 90 Blood Pressure Source [Right Arm] Blood Pressure Position [Right Arm] 02 Sat by Pulse Oximetry 96 Oxygen Delivery Method Room Air - Lab Data Lab results reviewed: Yes: I reviewed the patient's lab results. Lab Results 07/19/20 01:15: SARS-CoV-2 IgG Ab (Rapid) Negative, SARS-CoV-2 IgM Ab (Rapid) Negative 07/19/20 01:15: WBC 8.7, RBC 4.82, Hgb 12.9 L, Hct 42.2, MCV 87.5, MCH 26.7 L, MCHC 30.5 L, RDW 14.9, Plt Count 251, MPV 6.9 L, Neut % (Auto) 68.6, Lymph % (Auto) 25.1, Sterling % (Auto) 3.3, Eos % (Auto) 2.2, Baso % (Auto) 0.8, Neut # (Auto) 6.0, Lymph # (Auto) 2.2, Sterling # (Auto) 0.3, Eos # (Auto) 0.2, Baso # (Auto) 0.1 07/19/20 01:15: Sodium 135 L, Potassium 3.9, Chloride 94 L, Carbon Dioxide 31 H, Anion Gap 13.9, BUN 14, Creatinine 1.00, Estimated Creat Clear 143, Estimated GFR 84, Est GFR ( Amer) 102, Glucose 470 H*, Calcium 9.9, Total Bilirubin 1.8 H, AST 27, ALT 31, Alkaline Phosphatase 158 H, Total Protein 8.2, Albumin 4.4, Globulin 3.8 H, Albumin/Globulin Ratio 1.2 07/19/20 01:15: Lactate 1.6 Result diagrams: 07/19/20 01:15 07/19/20 01:15 Orders (Tests/Meds): ED MEDICATIONS Generic Name Dose Route Start Last Admin Trade Name Freq PRN Reason Stop Dose Admin Vancomycin HCl 1,500 mg/ 250 mls @ 125 mls/hr 07/19/20 02:00 Sodium Chloride IV 08/02/20 01:59 Q24H TAMAR Protocol Vancomycin HCl 2,000 mg/ 250 mls @ 125 mls/hr 07/19/20 01:54 Sodium Chloride IV 07/19/20 03:49 ONCE ONE Protocol Miscellaneous 1 each 07/19/20 01:30 Vancomycin Consult Request * 08/18/20 01:29 CONSULT PHARMACY TAMAR Discontinued Medications Generic Name Dose Route Start Last Admin Trade Name Freq PRN Reason Stop Dose Admin Vancomycin HCl 2,000 mg/ 250 mls @ 125 mls/hr 07/19/20 02:00 Sodium Chloride IV 08/02/20 01:59 Q24H TAMAR Protocol ORDERS Category Date Time Status Blood Culture Stat Micro 07/19/20 01:15 Received - Physician Consults Physician Consulted: lexy Reason -: Admission Skin/Abscess/FB HPI - General Chief complaint: Skin/Abscess/Foreign Body Stated complaint: spot on lower back Time Seen by Provider: 07/19/20 00:00 Mode of Arrival: Ambulatory Source of Information: Patient, Medical Record Limitations:
[2020-07-19 01:30] LABS: Basophils # 0.1 K/mm3 (0-0.2); Basophils % 0.8 % (0.1-2.0); Eosinophils # 0.2 K/mm3 (0.0-0.4); Eosinophils % 2.2 % (0.1-12.0); Hematocrit 42.2 % (42.0-52.0); Hemoglobin 12.9 g/dL (14.1-18.0); Lymphocytes # 2.2 K/mm3 (0.7-4.5); Lymphocytes % 25.1 % (10-50); Mean Corpuscular HGB Conc 30.5 g/dL (31.8-35.4); Mean Corpuscular Hemoglobin 26.7 pg (27.0-31.2); Mean Corpuscular Volume 87.5 fl (80-94); Mean Platelet Volume 6.9 fl (7.4-10.4); Monocytes # 0.3 K/mm3 (0.1-1.0); Monocytes % 3.3 % (1.7-9.3); Neutrophils % 68.6 % (37.0-80.0); Platelet Count 251 K/mm3 (142-424); Red Blood Count 4.82 M/mm3 (4.60-6.20); Red Cell Distribution Width 14.9 % (11.5-17.5); White Blood Count 8.7 K/mm3 (4.8-10.8)
[2020-07-19 01:37] LABS: Lactic Acid 1.6 mmol/L (0.7-2.1)
[2020-07-19 01:38] LABS: Alanine Aminotransferase 31 U/L (12-78); Albumin Level 4.4 g/dl (3.5-5.0); Albumin/Globulin Ratio 1.2 (1.1-1.8); Alkaline Phosphatase 158 U/L (38-126); Anion Gap 13.9 mEq/L (5-15); Aspartate Amino Transferase 27 U/L (17-59); Bilirubin,Total 1.8 mg/dl (0.2-1.3); Blood Urea Nitrogen 14 mg/dl (9-20); Calcium 9.9 mg/dl (8.4-10.2); Carbon Dioxide 31 mmol/L (22.0-30.0); Chloride 94 mmol/L (98-107); Creatinine Clearance Estimated 143 mL/min (50-200); Estimated Glomerular Filt Rate 84 ml/min (>60); GFR (African American) 102 ML/MIN (>60); Globulin 3.8 g/dL (1.3-3.2); Potassium 3.9 mmoL/L (3.5-5.1); Sodium 135 mmol/L (136-145); Total Protein,Serum 8.2 g/dl (6.3-8.2)
[2020-07-19 01:42] LABS: Glucose 470 mg/dl (74-100)
[2020-07-19 01:54] LABS: Coronavirus 19 IgG Antibody Negative (Negative); Coronavirus 19 IgM Antibody Negative (Negative)
--- NOTE | 2020-07-19 02:37 | PC.NURSE ---
patient up to floor via wheelchair.
[2020-07-19 04:37] LABS: POC Glucose,Bedside 296 (70-110)
--- NOTE | 2020-07-19 04:42 | PC.NURSE ---
pt states that he ran out of metformin, but doctor is in [place] and they wouldn't call it in without him being seen
[2020-07-19 05:23] LABS: POC Glucose,Bedside 317 (70-110)
--- NOTE | 2020-07-19 06:14 | PC.NURSE ---
left buttocks, 1 cm x 1 cm, bloody and purulent drainage
[2020-07-19 06:20] LABS: Basophils # 0.1 K/mm3 (0-0.2); Basophils % 0.6 % (0.1-2.0); Eosinophils # 0.2 K/mm3 (0.0-0.4); Eosinophils % 2.2 % (0.1-12.0); Hemoglobin 12.7 g/dL (14.1-18.0); Lymphocytes # 2.9 K/mm3 (0.7-4.5); Lymphocytes % 29.5 % (10-50); Mean Corpuscular Hemoglobin 27.1 pg (27.0-31.2); Mean Corpuscular Volume 87.4 fl (80-94); Monocytes # 0.4 K/mm3 (0.1-1.0); Monocytes % 3.9 % (1.7-9.3); Neutrophils # 6.3 K/mm3 (1.8-7.8); Neutrophils % 63.9 % (37.0-80.0); Platelet Count 247 K/mm3 (142-424); Red Blood Count 4.69 M/mm3 (4.60-6.20); Red Cell Distribution Width 14.7 % (11.5-17.5); White Blood Count 9.8 K/mm3 (4.8-10.8)
--- NOTE | 2020-07-19 06:26 | PC.NURSE ---
shift summary, no acute changes since prior assessment, when pictures were taken of abscess, abscess started oozing blood and purulent drainage, culture of drainage sent to lab, and will be held for culture if needed
[2020-07-19 06:38] LABS: Chloride 99 mmol/L (98-107); Potassium 4.1 mmoL/L (3.5-5.1); Sodium 138 mmol/L (136-145)
[2020-07-19 06:41] LABS: Anion Gap 11.1 mEq/L (5-15); Blood Urea Nitrogen 13 mg/dl (9-20); Calcium 9.7 mg/dl (8.4-10.2); Carbon Dioxide 32 mmol/L (22.0-30.0); Creatinine Clearance Estimated 137 mL/min (50-200); Estimated Glomerular Filt Rate 84 ml/min (>60); GFR (African American) 102 ML/MIN (>60); Glucose 302 mg/dl (74-100)
--- NOTE | 2020-07-19 07:14 | PC.NURSE ---
Dr. Hughes notified about consult.
--- NOTE | 2020-07-19 07:54 | P.CONPHA_ITS ---
[facility] Pharmacy VTE Monitoring - Patient Demographics Admission date: 07/19/20 Report Date: 07/19/20 Time: 07:55 Allergies/Adverse Reactions: Patient Allergies No Known Allergies Allergy (Verified 07/19/20 04:40) Height: 1.88 m Weight: 95.821 kg Patient Problems: Current Active Problems Perirectal abscess (Acute) Diabetes mellitus (Acute) - VTE Risk Labs: VTE Related Lab Results Hgb 12.7 g/dL (14.1-18.0) L 07/19/20 06:05 Hct 41.0 % (42.0-52.0) L 07/19/20 06:05 Plt Count 247 K/mm3 (142-424) 07/19/20 06:05 BUN 13 mg/dl (9-20) 07/19/20 06:05 Creatinine 1.00 mg/dl (0.66-1.25) 07/19/20 06:05 Estimated Creat Clear 137 mL/min (50-200) 07/19/20 06:05 Was VTE Risk Assessment Performed: Yes VTE Score: 5 VTE Risk Level: Low Risk Clinical Trial Participant: No - Prophylaxis VTE Prophylaxis Ordered?: Yes Types of VTE Prophylaxis: TEDS Knee High
--- NOTE | 2020-07-19 08:12 | HMH.PHACONS ---
- Pharmacy Consult Date: 07/19/20 Time: 08:12 Referring provider: DR. SEPULVEDA Reason for Consult:: VANCOMYCIN DOSING Allergies and ADEs:: Allergies Allergy/AdvReac Type Severity Reaction Status Date / Time No Known Allergies Allergy Verified 07/19/20 04:40 Home Medications:: Home Medications Medication Instructions Recorded Confirmed Type Insulin Glargine,Hum.rec.anlog 15 units SQ DAILY 07/18/20 07/19/20 History [Lantus Insulin 100units/mL 10mL vial] Metformin HCl [Metformin 1000mg 1,000 mg PO BID 07/19/20 07/19/20 History Tablets] Height: 1.88 m Weight: 95.821 kg Laboratory Results:: Laboratory Results - last 24 hr 07/19/20 01:15: SARS-CoV-2 IgG Ab (Rapid) Negative, SARS-CoV-2 IgM Ab (Rapid) Negative 07/19/20 01:15: WBC 8.7, RBC 4.82, Hgb 12.9 L, Hct 42.2, MCV 87.5, MCH 26.7 L, MCHC 30.5 L, RDW 14.9, Plt Count 251, MPV 6.9 L, Neut % (Auto) 68.6, Lymph % (Auto) 25.1, [place] % (Auto) 3.3, Eos % (Auto) 2.2, Baso % (Auto) 0.8, Neut # (Auto) 6.0, Lymph # (Auto) 2.2, [place] # (Auto) 0.3, Eos # (Auto) 0.2, Baso # (Auto) 0.1 07/19/20 01:15: Sodium 135 L, Potassium 3.9, Chloride 94 L, Carbon Dioxide 31 H, Anion Gap 13.9, BUN 14, Creatinine 1.00, Estimated Creat Clear 143, Estimated GFR 84, Est GFR ( Amer) 102, Glucose 470 H*, Calcium 9.9, Total Bilirubin 1.8 H, AST 27, ALT 31, Alkaline Phosphatase 158 H, Total Protein 8.2, Albumin 4.4, Globulin 3.8 H, Albumin/Globulin Ratio 1.2 07/19/20 01:15: Lactate 1.6 07/19/20 04:24: POC Glucose 296 H 07/19/20 05:14: POC Glucose 317 H* 07/19/20 06:05: WBC 9.8, RBC 4.69, Hgb 12.7 L, Hct 41.0 L, MCV 87.4, MCH 27.1, MCHC 31.0 L, RDW 14.7, Plt Count 247, MPV 7.0 L, Neut % (Auto) 63.9, Lymph % (Auto) 29.5, [place] % (Auto) 3.9, Eos % (Auto) 2.2, Baso % (Auto) 0.6, Neut # (Auto) 6.3, Lymph # (Auto) 2.9, [place] # (Auto) 0.4, Eos # (Auto) 0.2, Baso # (Auto) 0.1 07/19/20 06:05: Sodium 138, Potassium 4.1, Chloride 99, Carbon Dioxide 32 H, Anion Gap 11.1, BUN 13, Creatinine 1.00, Estimated Creat Clear 137, Estimated GFR 84, Est GFR ( Amer) 102, Glucose 302 H D, Calcium 9.7 Medical History: Reports:: Cancer, Diabetes Mellitus Type 2 Denies:: Diabetes Mellitus Type 1, Internal Pacemaker, MRSA, Seizures Assessment and Plan - Assessment and plan all Dx Assessment and Plan for all problems:: BASED ON PATIENT FACTORS, RECOMMEND VANCOMYCIN 2 GM IV ONCE, FOLLOWED BY VANCOMYCIN 1500 MG IV Q8H. WILL OBTAIN VANCOMYCIN TROUGH LEVEL PRIOR TO 4TH DOSE. PHARMACY WILL FOLLOW DAILY AND ADJUST APPROPRIATE.
--- NOTE | 2020-07-19 08:27 | HMH.HP ---
*Admission Date: 07/19/20 <PhelpsInnaMarcia 07/19/20 08:49> *Chief complaint: Buttock pain <Marcia Phelps 07/19/20 08:49> *History of present illness: Mr. Lara is a 35-year-old male with a history of non-Hodgkin's lymphoma in remission, and diabetes mellitus who presented to [facility] emergency room with increased pain in the buttock area. He states he was unable to sit on his left side and thought he might have a fever. He describes problems for about a week. He states he noticed the place in the left buttock which was tender. He states it did drain very little. Patient does have a history of diabetes mellitus. He has been out of his metformin for a week. He was unable to see his physician in order to get refills. He has recently moved from [place], [place] and is now living in [place]. He does not have a PCP. He has had previous skin infections and has had a toe removed from the left foot. CBC with normal white blood cell count. Electrolytes are satisfactory. Blood sugars have run high and covered with sliding scale insulin. Kidney function is good. Franky is a little elevated at 1.8 and alkaline phosphatase elevated at 158. Patient continues to have some pain in the buttock area and has received morphine for this. Was up and took a shower earlier this a.m. and noted some drainage from this area. <Marcia Phelps 07/19/20 08:49> [facility] History Medical History: Reports:: Cancer (Non-Hodgkin's lymphoma), Diabetes Mellitus Type 2 Denies:: Diabetes Mellitus Type 1, Internal Pacemaker, MRSA, Seizures <Marcia Phelps 07/19/20 08:49> *Have you ever received a pneumonia vaccine?: No <Marcia Phelps 07/19/20 08:49> *Have you received a flu vaccine this season?: No <Marcia Phelps 07/19/20 08:49> Other Medical History: Reports: Chemotherapy, Radiation Therapy. Denies: Blood Transfusion Reaction <Marcia Phelps 07/19/20 08:49> Laterality Cases: Right: Lumpectomy, Other <Marcia Phelps 07/19/20 08:49> Other Surgeries: Yes: Other (4th toe amputation). No: Pacemaker <Marcia Phelps 07/19/20 08:49> Amputation: Yes (4th toe amputation) <Marcia Phelps 07/19/20 08:49> Fractures: No <Marcia Phelps 07/19/20 08:49> - *Social History Last grade of school completed: Some college <Marcia Phelps 07/19/20 08:49> Smoking Status: Current every day smoker <Marcia Phelps 07/19/20 08:49> Tobacco Type: cigarettes <Marcia Phelps 07/19/20 08:49> # Packs/Day (cigarettes): 1 <Marcia Phelps 07/19/20 08:49> #Yrs smoked (if former smoker): 13 <Marcia Phelps 07/19/20 08:49> Alcohol Intake: never <Marcia Phelps 07/19/20 08:49> Alcohol Intake Frequency:: holidays/special occasions only <Marcia Phelps 07/19/20 08:49> Substance Use Type: denies use <LeninMarcia 07/19/20 08:49> *Occupational Status:: disabled <Marcia Phelps 07/19/20 08:49> Housing: house <Marcia Phelps 07/19/20 08:49> Household Members: friend(s) <PhelpsMarcia stark 07/19/20 08:49> *Travel in the last 8 weeks: None <Marcia Phelps 07/19/20 08:49> - Psychiatric History Pschychiatric History:: Reports:: Psychiatric Treatment <Marcia Phelps 07/19/20 08:49> Family Hx:: Cancer, Coronary Artery Disease, Diabetes, Hypertension <Marcia Phelps 07/19/20 08:49> Review of Systems - Constitutional Denies chills, Denies headache(s), Denies weakness <Marcia Phelps 07/19/20 08:49> - Eyes Denies change in vision <Marcia Phelps 07/19/20 08:49> - ENT Denies abnormal hearing, Denies ear pain, Denies nasal congestion, Denies post nasal drip, Denies sore throat <Marcia Phelps 07/19/20 08:49> - *Cardiovascular Denies chest pain <Marcia Phelps 07/19/20 08:49> - *Respiratory Reports cough (Cigarette cough), Denies chest congestion, Denies shortness of breath <Marcia Phelps 07/19/20 08:49> - *Gastrointestinal Denies abdominal pain, Denies loose stools, Denies heartburn, Denies vomiting blood, Denies nausea, Denie
[2020-07-19 10:33] LABS: POC Glucose,Bedside 203 (70-110)
--- NOTE | 2020-07-19 10:40 | HMH.GSCON ---
*Admission Date: 07/19/20 *Reason for consult:: Abscess *History of present illness: Patient is a 35-year-old male with reported history of non-Hodgkin's lymphoma. He has diabetes. He has no primary care physician. He recently relocated to the area from [place]. He has had a several day history of a painful knot on the left upper gluteal region. Is become progressively more severe and he presented to the emergency department in the middle of the night. He was diagnosed with abscess and admitted for inpatient management. Surgical consultation was obtained today. He has had some drainage. Of note, he did present with blood sugar of 470. Patient gives a previous history of pancreatitis requiring hospitalization and he underwent debridement of post coccygeal tissue during that hospitalization. Is also had previous infection on his back requiring incision and drainage and healing by secondary intention. Review of Systems - Review of Systems Review of systems:: pertinent systems reviewed and negative unless documented below - *Neurologic Denies abnormal walking, Denies abnormal hearing, Denies localized weakness, Denies headache(s), Denies weakness [facility] History I have reviewed the patient's past medical history: Yes Medical History: Reports:: Cancer (Non-Hodgkin's lymphoma), Diabetes Mellitus Type 2 Denies:: Diabetes Mellitus Type 1, Internal Pacemaker, MRSA, Seizures *Have you ever received a pneumonia vaccine?: No *Have you received a flu vaccine this season?: No Other Medical History: Reports: Chemotherapy, Radiation Therapy. Denies: Blood Transfusion Reaction Laterality Cases: Right: Lumpectomy, Other Other Surgeries: Yes: Other (4th toe amputation). No: Pacemaker Amputation: Yes (4th toe amputation) Fractures: No - *Social History Last grade of school completed: Some college Smoking Status: Current every day smoker Tobacco Type: cigarettes # Packs/Day (cigarettes): 1 #Yrs smoked (if former smoker): 13 Alcohol Intake: never Alcohol Intake Frequency:: holidays/special occasions only Substance Use Type: denies use *Occupational Status:: disabled Housing: house Household Members: friend(s) *Travel in the last 8 weeks: None - Psychiatric History Pschychiatric History:: Reports:: Psychiatric Treatment Family Hx:: Cancer, Coronary Artery Disease, Diabetes, Hypertension Meds Home Medications Medication Instructions Recorded Confirmed Type Insulin Glargine,Hum.rec.anlog 15 units SQ HS 07/18/20 07/19/20 History [Lantus Insulin 100units/mL 10mL vial] Metformin HCl [Metformin 1000mg 1,000 mg PO BID 07/19/20 07/19/20 History Tablets] Allergies Allergy/AdvReac Type Severity Reaction Status Date / Time No Known Allergies Allergy Verified 07/19/20 04:40 Exam Vital signs and Labs for Last 24 Hours: Temp Pulse Resp BP Pulse Ox 97.8 F 85 17 104/77 L 95 07/19/20 07:56 07/19/20 07:56 07/19/20 07:56 07/19/20 07:56 07/19/20 07:56 Laboratory Results - last 24 hr 07/19/20 01:15: SARS-CoV-2 IgG Ab (Rapid) Negative, SARS-CoV-2 IgM Ab (Rapid) Negative 07/19/20 01:15: WBC 8.7, RBC 4.82, Hgb 12.9 L, Hct 42.2, MCV 87.5, MCH 26.7 L, MCHC 30.5 L, RDW 14.9, Plt Count 251, MPV 6.9 L, Neut % (Auto) 68.6, Lymph % (Auto) 25.1, [place] % (Auto) 3.3, Eos % (Auto) 2.2, Baso % (Auto) 0.8, Neut # (Auto) 6.0, Lymph # (Auto) 2.2, [place] # (Auto) 0.3, Eos # (Auto) 0.2, Baso # (Auto) 0.1 07/19/20 01:15: Sodium 135 L, Potassium 3.9, Chloride 94 L, Carbon Dioxide 31 H, Anion Gap 13.9, BUN 14, Creatinine 1.00, Estimated Creat Clear 143, Estimated GFR 84, Est GFR ( Amer) 102, Glucose 470 H*, Calcium 9.9, Total Bilirubin 1.8 H, AST 27, ALT 31, Alkaline Phosphatase 158 H, Total Protein 8.2, Albumin 4.4, Globulin 3.8 H, Albumin/Globulin Ratio 1.2 07/19/20 01:15: Lactate 1.6 07/19/20 04:24: POC Glucose 296 H 07/19/20 05:14: POC Glucose 317 H* 07/19/20 06:05: WBC 9.8, RBC 4.69, Hgb 12.7 L, Hct 41.0 L, MCV 87.4, MCH 2
--- NOTE | 2020-07-19 12:09 | PC.NURSE ---
Pt alert and oriented and able to make needs known. ACHS FS- SSI. CB in reach. VSS thus far. Went down for surgery at 1200 approx for perirectal abscess I&D. BS x 4. Lungs cta, s1,s2. PRN morphine per dec.
--- NOTE | 2020-07-19 13:03 | HMH.OPNOTE ---
Date of procedure: 07/19/20 Pre-op Diagnosis:: Gluteal abscess Post-op Diagnosis:: Same Procedure performed:: Incision and drainage of left gluteal abscess Surgeon:: Ezequiel Hughes MD ROADABILITY MACHINE OPERATOR:: Angel Smart Anesthesia: LMA Estimated blood loss (mL): 10 Operative findings:: He had subcutaneous abscess with some thick pus and some debris with minimal clotted blood Operative note:: Patient was taken to the operating room. He was positioned in a supine position. General anesthesia was induced via LMA. He was positioned in right lateral decubitus position. The area was prepped and draped in the standard surgical fashion. There is an area of exudative necrosis with some minor purulent drainage. This was probed with a hemostat. There was thick pus with some blood clots which exuded from the wound. This was sent for aerobic and anaerobic cultures. The wound was probed. There is abscess cavity tracking inferiorly. This was opened with electrocautery evacuating some purulence and somewhat necrotic material. This appeared less likely that it was a perirectal abscess and more of a soft tissue infection. Overall length of the incision was approximately 4 cm. Wound was thoroughly irrigated. Local anesthetic was infiltrated. Wound was packed with a saline moistened gauze and covered with clean dry sterile dressing. Condition: stable Disposition: PACU Specimens:: Cultures sent Complications:: None immediately apparent
--- NOTE | 2020-07-19 13:09 | HMH.ANESCL ---
[facility] Anesthesia Checklist - Patient Identification Patient Identification: Arm Band - Structural Data Admitted From: Home Planned Operative Procedure/s: I&D perirectal abscess Consent for Planned Operative Procedure(s) Verified: Yes Verified Documents: Surgical Consent, History and Physical - NPO Status Verified Time NPO: 00:00 - Additional verifications Anesthesia Reactions: No Hx Blood Transfusions: No Blood Transfusion Reaction: No - Airway Assessment C-Spine Mobility Assessed: Yes (mp2) TMJ Mobility Assessed: Yes Dentition: Good Dentition - Neurological Assessment Level of Consciousness: Awake, Alert - Anesthesia Plan Anesthesia Risk discussed: Yes Anesthesia Plan: Verified ASA Class: III Anesthesia Type: General [facility] History I have reviewed the patient's past medical history: Yes Medical History: Reports:: Cancer (Non-Hodgkin's lymphoma), Diabetes Mellitus Type 2 Denies:: Diabetes Mellitus Type 1, Internal Pacemaker, MRSA, Seizures *Have you ever received a pneumonia vaccine?: No *Have you received a flu vaccine this season?: No Other Medical History: Reports: Chemotherapy, Radiation Therapy. Denies: Blood Transfusion Reaction Anesthesia experience/problems:: nac Laterality Cases: Right: Lumpectomy, Other Other Surgeries: Yes: Other (4th toe amputation). No: Pacemaker Amputation: Yes (4th toe amputation) Fractures: No - *Social History Last grade of school completed: Some college Smoking Status: Current every day smoker Tobacco Type: cigarettes # Packs/Day (cigarettes): 1 #Yrs smoked (if former smoker): 13 Alcohol Intake: never Alcohol Intake Frequency:: holidays/special occasions only Substance Use Type: denies use *Occupational Status:: disabled Housing: house Household Members: friend(s) *Travel in the last 8 weeks: None - Psychiatric History Pschychiatric History:: Reports:: Psychiatric Treatment Family Hx:: Cancer, Coronary Artery Disease, Diabetes, Hypertension
--- NOTE | 2020-07-19 13:10 | P.PN_ITS ---
[facility] Anesthesia Record Part I Intake, IV Amount: 600 Estimated blood loss (mL): 10 Urine output (mL): 0 Blood Pressure: 103/54 SaO2: 92 Pulse Rate: 74 Respiratory Rate: 16 Temperature: 98.1 F Patient is:: Drowsy, Stable Stable to PACU at:: 13:05
[2020-07-19 13:28] LABS: POC Glucose,Bedside 189 (70-110)
--- NOTE | 2020-07-19 15:59 | PC.NURSE ---
1321-fsbs 189, notified Luz,[employer] 1334-detailed report given to TimothyRN 1337-pt transported to 2nd floor room 209 via hospital bed with jorge rails up per SHANIQUA Becker and SHANIQUA Kohler, vss, pt stable upon discharge from PACU
[2020-07-19 16:25] LABS: POC Glucose,Bedside 427 (70-110)
--- NOTE | 2020-07-19 16:30 | PC.NURSE ---
REASSESSMENT DONE AT THIS TIME. PT REPORTS PAIN A 5/10 IN BUTTOCKS. DRESSED NOTED TO BE C/D/I. LUNGS CTA AND BOWELS SOUNDS HYPOACTIVE X4. PT REPORTS NO BOWEL MOVEMENT OR PASSING GAS. ALERT ORIENTED X4. VITALS REMAIN STABLE. IV INFUSING WITHOUT DIFFICULTY. WILL CONTINUE TO MONITOR
[2020-07-19 23:35] LABS: POC Glucose,Bedside 436 (70-110)
[2020-07-20] VITALS (7 sets, daily range): BP systolic 108–133; BP diastolic 59–79; PULSE 65–83; RESP 16–20; TEMP 36.2–36.7; O2SAT 94–96; BMI 27.6; BMI 27.7
--- NOTE | 2020-07-20 00:26 | PC.NURSE ---
He is A&OX4. Has received PRN medication for pain. DSG on edu-rectum area is C/D/I. He refuses TEDS. States his last BM was on 07/18 but states that every other day is normal for him. Continues on RA. Ambulates independently to BR with steady gait.
--- NOTE | 2020-07-20 02:08 | PC.NURSE ---
IV changed per his request. Received PRN medication for pain. States he is going to attempt to go sleep at this time.
[2020-07-20 05:23] LABS: POC Glucose,Bedside 213 (70-110)
--- NOTE | 2020-07-20 08:04 | PC.NURSE ---
dr. raygoza office notified of lab order for anaerobic culture. dr. raygoza in OR.
--- NOTE | 2020-07-20 08:08 | PC.NURSE ---
dr. raygoza office notified of anaerobic culture order. he is in the OR at this time. message left with office.
--- NOTE | 2020-07-20 08:59 | HMH.GSPN ---
Subjective Patient reports: no new complaints Progress Note: A&P (1) Abscess of skin or subcutaneous tissue Status: Acute (2) History of non-Hodgkin's lymphoma Status: Chronic (3) Diabetes mellitus Status: Chronic Assessment and Plan for All Diagnoses:: Ultimately will need outpatient wound care and oral antibiotics. Exam Vital signs and Labs for Last 24 Hours: Temp Pulse Resp BP Pulse Ox 98.1 F 65 20 123/69 95 07/20/20 08:00 07/20/20 08:00 07/20/20 08:00 07/20/20 08:00 07/20/20 08:00 Laboratory Results - last 24 hr 07/19/20 10:26: POC Glucose 203 H 07/19/20 13:21: POC Glucose 189 H 07/19/20 16:17: POC Glucose 427 H* 07/19/20 20:13: POC Glucose 436 H* 07/20/20 05:13: POC Glucose 213 H I & O for Last 24 hours: Intake & Output 07/17/20 07/18/20 07/19/20 07/20/20 11:59 11:59 11:59 11:59 Intake Total 0 / 0 1992 Balance 0 / 0 1992 Weight 211 lb 4 oz 215 lb 3 oz Microbiology Reports for the Last 24 Hours: Microbiology 07/19/20 04:35 Anus Gram Stain - Final 07/19/20 04:35 Anus Wound Culture - Preliminary - *Routine Skin Exam Comments: Wound relatively clean with some serous drainage.
--- NOTE | 2020-07-20 10:18 | P.PN_ITS ---
[facility] Anesthesia Record Part II Discharge Time: 13:35 Destination: Medical Surgical Department PACU nurse assessment reviewed?: Yes Patient Condition:: Good Anesthesia Complications:: None Swallowing reflex intact?: Yes Cyanosis?: No Blood Pressure: 108/63 Pulse Rate: 72 Temperature: 97.2 F Mental Status: Alert & Oriented Pain level:: 0 Nausea and/or vomitting:: None Intake, IV Amount: 0
[2020-07-20 10:21] LABS: Vancomycin,Trough 12.3 ug/mL (5.0-10.0)
--- NOTE | 2020-07-20 10:24 | P.PN_ITS ---
Internal Medicine - PN: Subj *Date: 07/20/20 *Time: 10:24 Interval history: Rested better last night. Incision is sore . Exam Vital signs and Labs for Last 24 Hours: Temp Pulse Resp BP Pulse Ox 97.2 F L 72 20 108/63 L 95 07/20/20 10:19 07/20/20 10:19 07/20/20 08:00 07/20/20 10:19 07/20/20 08:00 Laboratory Results - last 24 hr 07/19/20 10:26: POC Glucose 203 H 07/19/20 13:21: POC Glucose 189 H 07/19/20 16:17: POC Glucose 427 H* 07/19/20 20:13: POC Glucose 436 H* 07/20/20 05:13: POC Glucose 213 H 07/20/20 09:28: Vancomycin Trough 12.3 H I & O for Last 24 hours: Intake & Output 07/17/20 07/18/20 07/19/20 07/20/20 11:59 11:59 11:59 11:59 Intake Total 0 / 0 2513 / 2513 Balance 0 / 0 2513 / 2513 Weight 211 lb 4 oz 215 lb 3 oz Microbiology Reports for the Last 24 Hours: Microbiology 07/19/20 04:35 Anus Gram Stain - Final 07/19/20 04:35 Anus Wound Culture - Preliminary - *Routine Respiratory Exam Present: CTA bilaterally - *Routine Cardiovascular Exam Present: RRR Assessment and Plan (1) Abscess of skin or subcutaneous tissue Status: Acute Qualifiers: Site of cutaneous abscess: trunk Site of cutaneous abscess of trunk: back Qualified Code(s): L02.212 - Cutaneous abscess of back [any part, except buttock] Category: Medical Code(s): L02.91 - Cutaneous abscess, unspecified (2) History of non-Hodgkin's lymphoma Status: Chronic Category: Medical Code(s): Z85.72 - Personal history of non- Hodgkin lymphomas (3) Diabetes mellitus Status: Chronic Qualifiers: Diabetes mellitus type: type 1 Diabetes mellitus complication status: with other specified complication Qualified Code(s): E10.69 - Type 1 diabetes mellitus with other specified complication Category: Medical Code(s): E11.9 - Type 2 diabetes mellitus without complications - Assessment and plan all Dx Assessment and Plan for all problems:: Continue current antibiotics pending OR cultures. Resumed on Lantus and Metformin.
--- NOTE | 2020-07-20 10:36 | P.CONPHA_ITS ---
- Pharmacy Consult Date: 07/20/20 Time: 10:36 Referring provider: DR. SEPULVEDA Reason for Consult:: VANCOMYCIN TROUGH LEVEL Allergies and ADEs:: Allergies Allergy/AdvReac Type Severity Reaction Status Date / Time No Known Allergies Allergy Verified 07/19/20 04:40 Home Medications:: Home Medications Medication Instructions Recorded Confirmed Type Insulin Glargine,Hum.rec.anlog 15 units SQ HS 07/18/20 07/19/20 History [Lantus Insulin 100units/mL 10mL vial] Metformin HCl [Metformin 1000mg 1,000 mg PO BID 07/19/20 07/19/20 History Tablets] Height: 1.88 m Weight: 97.607 kg Laboratory Results:: Laboratory Results - last 24 hr 07/19/20 13:21: POC Glucose 189 H 07/19/20 16:17: POC Glucose 427 H* 07/19/20 20:13: POC Glucose 436 H* 07/20/20 05:13: POC Glucose 213 H 07/20/20 09:28: Vancomycin Trough 12.3 H Medical History: Reports:: Cancer (Non-Hodgkin's lymphoma), Diabetes Mellitus Type 2 Denies:: Diabetes Mellitus Type 1, Internal Pacemaker, MRSA, Seizures Assessment and Plan (1) Abscess of skin or subcutaneous tissue Status: Acute Qualifiers: Site of cutaneous abscess: trunk Site of cutaneous abscess of trunk: back Qualified Code(s): L02.212 - Cutaneous abscess of back [any part, except buttock] Category: Medical Code(s): L02.91 - Cutaneous abscess, unspecified (2) History of non-Hodgkin's lymphoma Status: Chronic Category: Medical Code(s): Z85.72 - Personal history of non- Hodgkin lymphomas (3) Diabetes mellitus Status: Chronic Qualifiers: Diabetes mellitus type: type 1 Diabetes mellitus complication status: with other specified complication Qualified Code(s): E10.69 - Type 1 diabetes mellitus with other specified complication Category: Medical Code(s): E11.9 - Type 2 diabetes mellitus without complications - Assessment and plan all Dx Assessment and Plan for all problems:: BASED ON PATIENT FACTORS AND VANCOMYCIN TROUGH LEVEL, RECOMMEND CONTINUING VANCOMYCIN 1500 MG IV Q8H. PHARMACY WILL CONTINUE TO MONITOR DAILY AND ADJUST APPROPRIATE.
[2020-07-20 11:14] LABS: POC Glucose,Bedside 281 (70-110)
--- NOTE | 2020-07-20 11:50 | PC.NURSE ---
Pt alert and oriented. VSS. have given prn pain meds per dec. SSI per achs protocol. CB in reach. Lungs cta. Dr. Hughes in this am and changed dsg to perirectal abscess. Mx continues, pt remains safe.
[2020-07-20 12:58] LABS: Hep A Ab, IgM Negative (Negative); Hepatitis B Core Antibody IgM Negative (Negative); Hepatitis B Surface Antigen Negative (Negative)
[2020-07-20 15:39] LABS: POC Glucose,Bedside 236 (70-110)
--- NOTE | 2020-07-20 17:46 | PC.NURSE ---
New IV placed in MAC, fluids infusing as ordered per dec. RR even and unlabored. NAD. No complaints at this time. Has been sitting up in bed eating super. ACHS with ssi coverage. Pt has ambulated in clar[place] with sba and tolarated well this shift. Dsg in place to perirectal abscess.
--- NOTE | 2020-07-20 18:54 | PC.NURSE ---
Have paged Dr. Jackson in RE to ask for a nicotine patch. Awaiting cb at this time.
--- NOTE | 2020-07-20 19:04 | PC.NURSE ---
21 mg nicotine patch applied, received order from Dr. Jackson.
--- NOTE | 2020-07-20 19:17 | PC.NURSE ---
report given to etienne
[2020-07-20 21:43] LABS: POC Glucose,Bedside 262 (70-110)
[2020-07-21] VITALS (7 sets, daily range): BP systolic 122–140; BP diastolic 57–85; PULSE 64–72; RESP 14–22; TEMP 36.5–36.9; O2SAT 93–97
--- NOTE | 2020-07-21 03:09 | PC.NURSE ---
Perirectaal abscess noted on Lt buttocks, dressing change completed at 0300 see wound care intervention, Pt reported mild pain during dressing change, but did not want PRN pain meds at this time, Pt complained of pain 7/10 x1 this shift, Pt medicated per DEC, Effectiveness noted, No complaints of N/V/D, No complaints of SOA or dizziness, ambulated by self independently in room and tolerates well.
[2020-07-21 06:11] LABS: POC Glucose,Bedside 264 (70-110)
--- NOTE | 2020-07-21 06:26 | HMH.GSPN ---
Subjective Patient reports: feels better Progress Note: A&P (1) Abscess of skin or subcutaneous tissue Status: Acute Assessment and plan: Overall, doing well status post incision and drainage. Okay from surgical standpoint for discharge home with outpatient follow-up. Completion of course of PO antibiotics. Continue dressing changes. (2) History of non-Hodgkin's lymphoma Status: Chronic (3) Diabetes mellitus Status: Chronic Exam Vital signs and Labs for Last 24 Hours: Temp Pulse Resp BP Pulse Ox 98.3 F 68 16 132/79 94 L 07/21/20 04:00 07/21/20 04:00 07/21/20 04:00 07/21/20 04:00 07/21/20 04:00 Laboratory Results - last 24 hr 07/20/20 09:28: Vancomycin Trough 12.3 H 07/20/20 11:07: POC Glucose 281 H 07/20/20 15:30: POC Glucose 236 H 07/20/20 20:40: POC Glucose 262 H 07/21/20 06:04: POC Glucose 264 H I & O for Last 24 hours: Intake & Output 07/18/20 07/19/20 07/20/20 07/21/20 11:59 11:59 11:59 11:59 Intake Total 0 / 0 2513 / 2513 2778 / 2778 Balance 0 / 0 2513 / 2513 2778 / 2778 Weight 211 lb 4 oz 215 lb 3 oz 216 lb 0.848 oz Microbiology Reports for the Last 24 Hours: Microbiology 07/19/20 01:15 Blood Blood Culture - Preliminary NO GROWTH AFTER 48 HOURS 07/19/20 01:15 Blood Blood Culture - Preliminary NO GROWTH AFTER 48 HOURS 07/19/20 04:35 Anus Gram Stain - Final 07/19/20 04:35 Anus Wound Culture - Preliminary - Constitutional no acute distress - *Routine Respiratory Exam Absent: respiratory distress - *Routine Cardiovascular Exam Present: RRR - *Routine Skin Exam Comments: Dressing intact. Wound margin without spreading cellulitis.
--- NOTE | 2020-07-21 08:48 | HMH.ACPN2 ---
<Miriam Schultz - Last Filed: 07/21/20 08:48> Internal Medicine - PN: Subj *Date: 07/21/20 *Time: 07:45 Interval history: Pt rested well overnight. He reports pain after dressing changes and with repositioning. He is eating well and voiding qshift. Exam Vital signs and Labs for Last 24 Hours: Temp Pulse Resp BP Pulse Ox 98.4 F 69 18 139/57 L 95 07/21/20 07:30 07/21/20 07:30 07/21/20 07:30 07/21/20 07:30 07/21/20 07:30 Laboratory Results - last 24 hr 07/20/20 09:28: Vancomycin Trough 12.3 H 07/20/20 11:07: POC Glucose 281 H 07/20/20 15:30: POC Glucose 236 H 07/20/20 20:40: POC Glucose 262 H 07/21/20 06:04: POC Glucose 264 H I & O for Last 24 hours: Intake & Output 07/18/20 07/19/20 07/20/20 07/21/20 11:59 11:59 11:59 11:59 Intake Total 0 / 0 2513 / 2513 2778 / 2778 Balance 0 / 0 2513 / 2513 2778 / 2778 Weight 211 lb 4 oz 215 lb 3 oz 216 lb 0.848 oz Microbiology Reports for the Last 24 Hours: Microbiology 07/19/20 04:35 Anus Gram Stain - Final 07/19/20 04:35 Anus Wound Culture - Preliminary 07/19/20 01:15 Blood Blood Culture - Preliminary NO GROWTH AFTER 48 HOURS 07/19/20 01:15 Blood Blood Culture - Preliminary NO GROWTH AFTER 48 HOURS - Constitutional no acute distress - *Routine HEENT Exam Head: Present: normocephalic ENT: Present: mucous membranes moist - *Routine Respiratory Exam Present: CTA bilaterally - *Routine Cardiovascular Exam Present: RRR - *Routine Abdominal Exam Present: soft, normoactive bowel sounds. Absent: tenderness, distended, guarding, firm, rigid - *Routine Extremities Exam Present: full ROM, pulses intact. Absent: edema, calf tenderness - *Routine Neurological Exam Present: alert, oriented X3, normal speech Assessment and Plan (1) Abscess of skin or subcutaneous tissue Status: Acute Qualifiers: Site of cutaneous abscess: trunk Site of cutaneous abscess of trunk: back Qualified Code(s): L02.212 - Cutaneous abscess of back [any part, except buttock] Category: Medical Code(s): L02.91 - Cutaneous abscess, unspecified (2) History of non-Hodgkin's lymphoma Status: Chronic Category: Medical Code(s): Z85.72 - Personal history of non-Hodgkin lymphomas (3) Diabetes mellitus Status: Chronic Qualifiers: Diabetes mellitus type: type 1 Diabetes mellitus complication status: with other specified complication Qualified Code(s): E10.69 - Type 1 diabetes mellitus with other specified complication Category: Medical Code(s): E11.9 - Type 2 diabetes mellitus without complications - Assessment and plan all Dx Assessment and Plan for all problems:: Per Dr. Martinez. <Sriram Martinez - Last Filed: 07/21/20 13:47> Internal Medicine - PN: Subj *Date: 07/21/20 *Time: 13:46 Exam Vital signs and Labs for Last 24 Hours: Temp Pulse Resp BP Pulse Ox 97.7 F 68 20 123/66 96 07/21/20 12:00 07/21/20 12:00 07/21/20 12:00 07/21/20 12:00 07/21/20 12:00 Laboratory Results - last 24 hr 07/19/20 06:05: Hepatitis A IgM Ab Negative, Hep Bs Antigen Negative, Hep B Core IgM Ab Negative, Hepatitis C Antibody 0.1 07/20/20 15:30: POC Glucose 236 H 07/20/20 20:40: POC Glucose 262 H 07/21/20 06:04: POC Glucose 264 H 07/21/20 11:34: POC Glucose 337 H* I & O for Last 24 hours: Intake & Output 07/19/20 07/20/20 07/21/20 07/22/20 11:59 11:59 11:59 11:59 Intake Total 0 / 0 2513 / 2513 3258 / 3258 Balance 0 / 0 2512 / 2512 3258 / 3258 Weight 211 lb 4 oz 215 lb 3 oz 216 lb 0.848 oz Microbiology Reports for the Last 24 Hours: Microbiology 07/19/20 04:35 Anus Gram Stain - Final 07/19/20 04:35 Anus Wound Culture - Preliminary Gram Positive Cocci Gram Positive Cocci#2 Gram Positive Cocci#3 07/19/20 01:15 Blood Blood
[2020-07-21 10:17] LABS: Hepatitis C Antibody 0.1 s/co ratio (0.0-0.9)
--- NOTE | 2020-07-21 10:42 | SW/DCPLANNER ---
Addendum entered by Raisa Ferraro 07/22/20 11:07: Patient will return to [facility] outpatient for dressing changes. Patient will discharge home today. Original Note: I have spoke with this patient regarding dressing changes at time of discharge. This patient will need daily dressing changes at time of discharge. I have explained options of home health vs outpatient dressing changes at [facility]. Patient has stated that he would prefer to return back to [facility] for daily dressing changes. Patient stated that he will have transportation at time of discharge for dressing changes. Patient could potentially discharge home tomorrow.
[2020-07-21 11:47] LABS: POC Glucose,Bedside 337 (70-110)
--- NOTE | 2020-07-21 14:43 | PC.NURSE ---
left buttock dressing changed. Wet to dry 2x2 gauze, covered with 1 4x4 folded in half and then perforated tape.
[2020-07-21 17:08] LABS: POC Glucose,Bedside 197 (70-110)
--- NOTE | 2020-07-21 18:48 | PC.NURSE ---
Pt has done well this shift. He has requested Morphine x2 for pain. Dressing changed to left buttock. NO s/s infection noted. Pt is ambulatory in room without assistance.
[2020-07-21 21:18] LABS: POC Glucose,Bedside 273 (70-110)
[2020-07-22 04:00] VITALS: BP 131/75; PULSE 65; RESP 21; TEMP 36.5; O2SAT 95
[2020-07-22 05:18] VITALS: BMI 28.5
--- NOTE | 2020-07-22 06:13 | PC.NURSE ---
Addendum entered by Yolette Sanchez RN 07/22/20 06:16: no acute changes since prior assessment Original Note: shift summary, pt has rested well t/o shift, has remained afebrile, dressing change done at 0130, pt has requested morphine 3 X this shift, pt has ambulated to bathroom independently this shift
[2020-07-22 06:19] LABS: POC Glucose,Bedside 188 (70-110)
--- NOTE | 2020-07-22 06:43 | HMH.GSPN ---
Subjective Narrative: Resting without complaint this morning. He states that his dressing change was done around 1:00 in the morning . Per nursing staff the patient's wound and surrounding tissue looked fine . Progress Note: A&P (1) Abscess of skin or subcutaneous tissue Status: Acute Assessment and plan: Overall, doing well status post incision and drainage Continue dressing changes Reevaluate wound prior to discharge Likely discharge soon (awaiting cultures to tailor antibiotics) (2) History of non-Hodgkin's lymphoma Status: Chronic (3) Diabetes mellitus Status: Chronic Exam Vital signs and Labs for Last 24 Hours: Temp Pulse Resp BP Pulse Ox 97.7 F 65 21 131/75 95 07/22/20 04:00 07/22/20 04:00 07/22/20 04:00 07/22/20 04:00 07/22/20 04:00 Laboratory Results - last 24 hr 07/19/20 06:05: Hepatitis A IgM Ab Negative, Hep Bs Antigen Negative, Hep B Core IgM Ab Negative, Hepatitis C Antibody 0.1 07/21/20 11:34: POC Glucose 337 H* 07/21/20 16:45: POC Glucose 197 H 07/21/20 20:54: POC Glucose 273 H 07/22/20 05:46: POC Glucose 188 H I & O for Last 24 hours: Intake & Output 07/19/20 07/20/20 07/21/20 07/22/20 11:59 11:59 11:59 11:59 Intake Total 0 / 0 2513 / 2513 3258 / 3258 2152 / 2152 Balance 0 / 0 2513 / 2513 3258 / 3258 2152 / 2152 Weight 211 lb 4 oz 215 lb 3 oz 216 lb 0.848 oz 222 lb 0.005 oz Microbiology Reports for the Last 24 Hours: Microbiology 07/19/20 12:50 Buttock - Abscess Gram Stain - Final 07/19/20 04:35 Anus Gram Stain - Final 07/19/20 04:35 Anus Wound Culture - Preliminary Gram Positive Cocci Gram Positive Cocci#2 Gram Positive Cocci#3 - Constitutional no acute distress - *Routine Respiratory Exam Absent: respiratory distress - *Routine Cardiovascular Exam Present: RRR - *Routine Skin Exam Comments: Dressing intact. No cellulitis noted outside of the dressing margin. Patient requests to not pull everything down now .
--- NOTE | 2020-07-22 07:57 | P.PN_ITS ---
Internal Medicine - PN: Subj *Date: 07/22/20 *Time: 07:57 Exam Vital signs and Labs for Last 24 Hours: Temp Pulse Resp BP Pulse Ox 97.7 F 65 21 131/75 95 07/22/20 04:00 07/22/20 04:00 07/22/20 04:00 07/22/20 04:00 07/22/20 04:00 Laboratory Results - last 24 hr 07/19/20 06:05: Hepatitis A IgM Ab Negative, Hep Bs Antigen Negative, Hep B Core IgM Ab Negative, Hepatitis C Antibody 0.1 07/21/20 11:34: POC Glucose 337 H* 07/21/20 16:45: POC Glucose 197 H 07/21/20 20:54: POC Glucose 273 H 07/22/20 05:46: POC Glucose 188 H I & O for Last 24 hours: Intake & Output 07/19/20 07/20/20 07/21/20 07/22/20 23:59 23:59 23:59 23:59 Intake Total 960 / 970 2933 / 2933 3670 / 4030 360 / 360 Balance 960 / 970 2933 / 2933 3670 / 4030 360 / 360 Weight 95.821 kg 98 kg 100.698 kg Microbiology Reports for the Last 24 Hours: Microbiology 07/19/20 04:35 Anus Gram Stain - Final 07/19/20 04:35 Anus Wound Culture - Preliminary Staphylococcus aureus Staphylococcus capitis Streptococcus anginosus 07/19/20 12:50 Buttock - Abscess Gram Stain - Final Assessment and Plan (1) Abscess of skin or subcutaneous tissue Status: Acute Qualifiers: Site of cutaneous abscess: trunk Site of cutaneous abscess of trunk: back Qualified Code(s): L02.212 - Cutaneous abscess of back [any part, except buttock] Category: Medical Code(s): L02.91 - Cutaneous abscess, unspecified (2) History of non-Hodgkin's lymphoma Status: Chronic Category: Medical Code(s): Z85.72 - Personal history of non- Hodgkin lymphomas (3) Diabetes mellitus Status: Chronic Qualifiers: Diabetes mellitus type: type 1 Diabetes mellitus complication status: with other specified complication Qualified Code(s): E10.69 - Type 1 diabetes mellitus with other specified complication Category: Medical Code(s): E11.9 - Type 2 diabetes mellitus without complications The patient's infection will respond to the chosen ABx?: Yes Is the patient receiving the right drug, dose, and route?: Yes Could a more targeted ABx be ordered?: No (WOUND-MRSA, STAPH CAPITIS, AND STREP ANGINOSUS. ALL SENSITVE TO VANCOMYCIN)
[2020-07-22 08:00] VITALS: BP 130/71; PULSE 72; RESP 18; TEMP 36.9; O2SAT 96
--- NOTE | 2020-07-22 08:54 | HMH.ACPN2 ---
<Miriam Schultz - Last Filed: 07/22/20 08:54> Internal Medicine - PN: Subj *Date: 07/22/20 *Time: 07:45 Interval history: Patient is doing well this morning. He is eating well and voiding qshift. He reports discomfort with dressing changes and position changes which seems to be improving overall. Exam Vital signs and Labs for Last 24 Hours: Temp Pulse Resp BP Pulse Ox 98.4 F 72 18 130/71 96 07/22/20 08:00 07/22/20 08:00 07/22/20 08:00 07/22/20 08:00 07/22/20 08:00 Laboratory Results - last 24 hr 07/19/20 06:05: Hepatitis A IgM Ab Negative, Hep Bs Antigen Negative, Hep B Core IgM Ab Negative, Hepatitis C Antibody 0.1 07/21/20 11:34: POC Glucose 337 H* 07/21/20 16:45: POC Glucose 197 H 07/21/20 20:54: POC Glucose 273 H 07/22/20 05:46: POC Glucose 188 H I & O for Last 24 hours: Intake & Output 07/19/20 07/20/20 07/21/20 07/22/20 11:59 11:59 11:59 11:59 Intake Total 0 / 0 2513 / 2513 3258 / 3258 2512 / 2512 Balance 0 / 0 2513 / 2513 3258 / 3258 2512 / 2512 Weight 211 lb 4 oz 215 lb 3 oz 216 lb 0.848 oz 222 lb 0.005 oz Microbiology Reports for the Last 24 Hours: Microbiology 07/19/20 04:35 Anus Gram Stain - Final 07/19/20 04:35 Anus Wound Culture - Preliminary Staphylococcus aureus Staphylococcus capitis Streptococcus anginosus 07/19/20 12:50 Buttock - Abscess Gram Stain - Final - Constitutional no acute distress - *Routine HEENT Exam Head: Present: normocephalic ENT: Present: mucous membranes moist - *Routine Respiratory Exam Present: CTA bilaterally - *Routine Cardiovascular Exam Present: RRR - *Routine Abdominal Exam Present: soft, normoactive bowel sounds. Absent: tenderness, distended, guarding, firm, rigid - *Routine Extremities Exam Present: full ROM, pulses intact. Absent: edema, calf tenderness - *Routine Neurological Exam Present: alert, oriented X3, normal speech Assessment and Plan (1) Abscess of skin or subcutaneous tissue Status: Acute Qualifiers: Site of cutaneous abscess: trunk Site of cutaneous abscess of trunk: back Qualified Code(s): L02.212 - Cutaneous abscess of back [any part, except buttock] Category: Medical Code(s): L02.91 - Cutaneous abscess, unspecified (2) History of non-Hodgkin's lymphoma Status: Chronic Category: Medical Code(s): Z85.72 - Personal history of non-Hodgkin lymphomas (3) Diabetes mellitus Status: Chronic Qualifiers: Diabetes mellitus type: type 1 Diabetes mellitus complication status: with other specified complication Qualified Code(s): E10.69 - Type 1 diabetes mellitus with other specified complication Category: Medical Code(s): E11.9 - Type 2 diabetes mellitus without complications - Assessment and plan all Dx Assessment and Plan for all problems:: Plan for discharge home today. <Sriram Martinez - Last Filed: 07/22/20 13:24> Internal Medicine - PN: Subj *Date: 07/22/20 *Time: 13:23 Exam Vital signs and Labs for Last 24 Hours: Temp Pulse Resp BP Pulse Ox 98.4 F 72 18 130/71 96 07/22/20 08:00 07/22/20 08:00 07/22/20 08:00 07/22/20 08:00 07/22/20 08:00 Laboratory Results - last 24 hr 07/21/20 16:45: POC Glucose 197 H 07/21/20 20:54: POC Glucose 273 H 07/22/20 05:46: POC Glucose 188 H I & O for Last 24 hours: Intake & Output 07/20/20 07/21/20 07/22/20 07/23/20 11:59 11:59 11:59 11:59 Intake Total 3 / 3 3258 / 3258 2512 / 2512 Balance 2513 / 2513 3258 / 3258 2512 / 2512 Weight 215 lb 3 oz 216 lb 0.848 oz 222 lb 0.005 oz Microbiology Reports for the Last 24 Hours: Microbiology 07/19/20 04:35 Anus Gram Stain - Final 07/19/20 04:35 Anus Wound Culture - Final Staphylococcus aureus Staphylococcus capitis Streptococcus anginosus
[2020-07-22 09:00] VITALS: O2SAT 96
--- NOTE | 2020-07-22 11:40 | PC.NURSE ---
A&OX4. PT TOLERATED ROOM AIR WELL THROUGHOUT SHIFT. RESPIRATIONS REGULAR AND UNLABORED. LUNG SOUNDS BILTERALLY CLEAR. NO COUGH NOTED. NO EDEMA NOTED. +2 PULSES NOTED THROUGHOUT. PT REPORTED PAIN TWICE THIS SHIFT. HE RECEIVED TYLENOL ONCE AND 4MG MORPHINE ONCE. DRESSING CHANGE WAS DONE ONCE THIS SHIFT AND PT TOLERATED FAIRLY WELL. DRESSING NOTED TO BUTTOCK AREA. CDI. ACTIVE BOWEL SOUNDS HEARD IN ALL 4 QUADRANTS. SOFT AND NONTENDER ABDOMEN. NO BM THUS FAR. PT VOIDS INDEPENDENTLY PER BATHROOM. PT IS BEING DISCHARGED. PRESCRIPTIONS GIVEN TO PATIENT. IV REMOVED W CATHETER INTACT. KOBAN AND 4X4S APPLIED. PHARMACY EDUCATED PT ON MEDICATIONS. PT GIVEN DISCHARGE INSTRUCTIONS. TOLD TO COME BACK EVERY DAY AT 10AM FOR DRESSING CHANGES. PT VERBALIZED UNDERSTANDING. PT CURRENTLY GETTING DRESSED AND GETTING READY TO LEAVE. BED IN LOWEST POSITION. CALL LIGHT WITHIN REACH. VSS. WILL CONTINUE TO MONITOR.
--- NOTE | 2020-07-28 07:38 | HMH.DCSUM ---
General - General Admission date:: 07/19/20 <Sriram Martinez - 07/30/20 08:56> 07/19/20 <LeninMarcia - 07/28/20 08:03> Discharge date: 07/22/20 <LeninMarcia - 07/28/20 08:03> HPI HPI: Mr. Lara is a 35-year-old male with a history of non-Hodgkin's lymphoma in remission, and diabetes mellitus who presented to [facility] emergency room with increased pain in the buttock area. He stated he was unable to sit on his left side and thought he might have a fever. He described problems for about a week. He stated he noticed the place in the left buttock which was tender. He stated it did drain very little. Patient was noted to have a history of diabetes mellitus. He had been out of his metformin for a week. He was unable to see his physician in order to get refills. He recently moved from [place], [place] to [place]. He stated that he did not have a PCP. He noted previous skin infections and had a toe removed from the left foot. CBC with normal white blood cell count. Electrolytes were satisfactory. Blood sugar were high and covered with sliding scale insulin. Kidney function was good. Totalilirubin was a little elevated at 1.8 and alkaline phosphatase elevated at 158. Patient continued to have some pain in the buttock area and received morphine for this. He was able to take a shower earlier in AM and noted some drainage from this area. <Marcia Phelps - 07/28/20 08:03> Hospital Course Hospital Course: Patient was seen by surgeon, Dr. Hughes, who took patient to surgery on 07/19/2020 and performed an I&D of the gluteal abscess. Patient was placed on vancomycin and Zosyn. He received morphine for pain. Patient had incisional soreness. He had dressing changes with wound packing daily. Patient was resting well. He was eating well and voiding without difficulty. Wound cultures eventually grew 3 species of staph, one of which was MRSA. On 07/22/2020 patient was stable to be discharged home on antibiotic, Zyvox. Arrangements were made for patient to return to [facility] for daily dressing changes. He was to follow-up with Dr. Hughes on 07/29/2020. Activity was to be limited. <LeninMarcia - 07/28/20 08:03> Objective Vital signs: Temp Pulse Resp BP Pulse Ox 98.4 F 72 18 130/71 96 07/22/20 08:00 07/22/20 08:00 07/22/20 08:00 07/22/20 08:00 07/22/20 09:00 <Sriram Martinez - 07/30/20 08:56> Temp Pulse Resp BP Pulse Ox 98.4 F 72 18 130/71 96 07/22/20 08:00 07/22/20 08:00 07/22/20 08:00 07/22/20 08:00 07/22/20 09:00 <Marcia Phelps - 07/28/20 08:03> Narrative: Exam Vital signs and Labs for Last 24 Hours: Temp Pulse Resp BP Pulse Ox 98.4 F 72 18 130/71 96 07/22/20 08:00 07/22/20 08:00 07/22/20 08:00 07/22/20 08:00 07/22/20 08:00 Laboratory Results - last 24 hr 07/19/20 06:05: Hepatitis A IgM Ab Negative, Hep Bs Antigen Negative, Hep B Core IgM Ab Negative, Hepatitis C Antibody 0.1 07/21/20 11:34: POC Glucose 337 H* 07/21/20 16:45: POC Glucose 197 H 07/21/20 20:54: POC Glucose 273 H 07/22/20 05:46: POC Glucose 188 H I & O for Last 24 hours: Intake & Output 07/19/20 07/20/20 07/21/20 07/22/20 11:59 11:59 11:59 11:59 Intake Total 0 / 0 2513 / 2513 3258 / 3258 2512 / 2512 Balance 0 / 0 2513 / 2513 3258 / 3258 2512 / 2512 Weight 211 lb 4 oz 215 lb 3 oz 216 lb 0.848 oz 222 lb 0.005 oz Microbiology Reports for the Last 24 Hours: Microbiology 07/19/20 04:35 Anus Gram Stain - Final 07/19/20 04:35 Anus Wound Culture - Preliminary Staphylococcus aureus Staphylococcus capitis Streptococcus anginosus 07/19/20 12:50 Buttock - Abscess Gram Stain - Final - Constitutional no acute distress - *Routine HEENT Exam Head: Present: normocephalic ENT: Present: mucous membranes moist
== END 2020-07-22 11:43 | disposition home or self-care (01) ==
LOC: ER 07-19 01:14 → 2ND 07-19 02:56
PROVIDERS: Surgery; Admitting Provider Family Medicine; Emergency Provider Emergency Medicine; PCP Family Medicine; Visit Provider Family Medicine
PROC: (CPT 10061; principal; 2020-07-19 12:30)
DX: L02.31 Cutaneous abscess of buttock (principal); B95.62 Methicillin resistant Staphylococcus aureus infection as the cause of diseases classified elsewhere; E11.9 Type 2 diabetes mellitus without complications; Z72.0 Tobacco use; C85.90 Non-Hodgkin lymphoma, unspecified, unspecified site; Z79.4 Long term (current) use of insulin; R94.5 Abnormal results of liver function studies
CPT/HCPCS: 10061; 36415; 80048; 80053; 80074; 80202; 82962; 83605; 85025; 86328; 87040; 87070; 87077; 87186; 87205; 96365; 96375; 99284; G0378; J2405; J2543; J3370

== ENCOUNTER 2020-07-25 10:25 | Outpatient (CLI) | payer MEDICARE, MEDICAID, SELFPAY | END 2020-07-25 10:45 | disposition home or self-care (01) | LOC: INF 10:41 | PROVIDERS: Visit Provider Family Medicine | DX: K61.1 Rectal abscess (principal); Z48.00 Encounter for change or removal of nonsurgical wound dressing | CPT/HCPCS: G0463 ==

== ENCOUNTER 2020-07-26 09:59 | Outpatient (CLI) | payer MEDICARE, MEDICAID, SELFPAY | END 2020-07-26 10:15 | disposition home or self-care (01) | LOC: INF 09:59 | PROVIDERS: Visit Provider Family Medicine | DX: K61.1 Rectal abscess (principal) | CPT/HCPCS: G0463 ==

== ENCOUNTER 2020-07-27 12:45 | Outpatient (CLI) | payer MEDICARE, MEDICAID, SELFPAY | END 2020-07-27 12:55 | disposition home or self-care (01) | LOC: INF 12:45 | PROVIDERS: PCP Family Medicine; Visit Provider Family Medicine | DX: K61.1 Rectal abscess (principal); Z48.00 Encounter for change or removal of nonsurgical wound dressing | CPT/HCPCS: G0463 ==

== ENCOUNTER 2020-07-28 13:32 | Outpatient (CLI) | payer MEDICARE, MEDICAID, SELFPAY | END 2020-07-28 13:35 | disposition home or self-care (01) | LOC: INF 13:32 | PROVIDERS: Visit Provider Family Medicine | DX: K61.1 Rectal abscess (principal); Z48.00 Encounter for change or removal of nonsurgical wound dressing | CPT/HCPCS: G0463 ==

== ENCOUNTER → 2020-07-31 12:10 | Outpatient (CLI) | payer MEDICARE, MEDICAID, SELFPAY ==
[2020-07-31 12:10] VITALS: BP 133/78; PULSE 99; RESP 16; TEMP 37; O2SAT 100
== END ==
PROVIDERS: PCP Family Medicine; Visit Provider Family Medicine
DX: K61.1 Rectal abscess (principal); Z48.00 Encounter for change or removal of nonsurgical wound dressing
CPT/HCPCS: G0463

== ENCOUNTER 2020-08-01 13:10 | Outpatient (CLI) | payer MEDICARE, MEDICAID, SELFPAY | END 2020-08-01 13:30 | disposition home or self-care (01) | LOC: INF 13:10 | PROVIDERS: Visit Provider Family Medicine | DX: K61.1 Rectal abscess (principal); Z48.00 Encounter for change or removal of nonsurgical wound dressing | CPT/HCPCS: G0463 ==

== ENCOUNTER 2020-08-02 12:52 | Outpatient (CLI) | payer MEDICARE, MEDICAID, SELFPAY | END 2020-08-02 13:09 | disposition home or self-care (01) | LOC: INF 12:52 | PROVIDERS: Visit Provider Surgery | DX: K61.1 Rectal abscess (principal); Z48.00 Encounter for change or removal of nonsurgical wound dressing | CPT/HCPCS: G0463 ==

== ENCOUNTER 2020-08-03 12:39 | Outpatient (CLI) | payer MEDICARE, MEDICAID, SELFPAY | END 2020-08-03 12:49 | disposition home or self-care (01) | LOC: INF 12:39 | PROVIDERS: Visit Provider Family Medicine | DX: K61.1 Rectal abscess (principal); Z48.00 Encounter for change or removal of nonsurgical wound dressing | CPT/HCPCS: G0463 ==

== ENCOUNTER 2020-08-04 13:20 | Outpatient (CLI) | payer MEDICARE, MEDICAID, SELFPAY | END 2020-08-04 13:30 | disposition home or self-care (01) | LOC: INF 13:23 | PROVIDERS: Visit Provider Family Medicine | DX: K61.1 Rectal abscess (principal); Z48.00 Encounter for change or removal of nonsurgical wound dressing | CPT/HCPCS: G0463 ==

== ENCOUNTER 2020-08-05 13:10 | Outpatient (CLI) | payer MEDICARE, MEDICAID, SELFPAY | END 2020-08-05 15:15 | disposition home or self-care (01) | LOC: INF 13:23 | PROVIDERS: Visit Provider Family Medicine | DX: K61.1 Rectal abscess (principal); Z45.2 Encounter for adjustment and management of vascular access device | CPT/HCPCS: G0463 ==

== ENCOUNTER → 2020-08-06 11:36 | Outpatient (CLI) | payer MEDICARE, MEDICAID, SELFPAY ==
[2020-08-06 11:42] VITALS: BP 136/82; PULSE 84; RESP 16; TEMP 36.7; O2SAT 95
== END ==
PROVIDERS: PCP Family Medicine; Visit Provider Family Medicine
DX: K61.1 Rectal abscess (principal); Z48.00 Encounter for change or removal of nonsurgical wound dressing
CPT/HCPCS: G0463

== ENCOUNTER → 2020-08-07 12:18 | Outpatient (CLI) | payer MEDICARE, MEDICAID, SELFPAY ==
[2020-08-07 13:20] VITALS: BP 116/69; PULSE 70; RESP 16; TEMP 36.7; O2SAT 99
== END ==
PROVIDERS: PCP Family Medicine; Visit Provider Family Medicine
DX: K61.1 Rectal abscess (principal); Z48.00 Encounter for change or removal of nonsurgical wound dressing
CPT/HCPCS: G0463

== ENCOUNTER 2020-08-09 11:55 | Outpatient (CLI) | payer MEDICARE, MEDICAID, SELFPAY | END 2020-08-09 12:03 | disposition home or self-care (01) | LOC: INF 11:56 | PROVIDERS: Visit Provider Family Medicine | DX: K61.1 Rectal abscess (principal); Z48.00 Encounter for change or removal of nonsurgical wound dressing | CPT/HCPCS: G0463 ==

== ENCOUNTER 2020-08-10 10:54 | Outpatient (CLI) | payer MEDICARE, MEDICAID, SELFPAY | END 2020-08-10 11:05 | disposition home or self-care (01) | LOC: INF 10:55 | PROVIDERS: Visit Provider Family Medicine | DX: K61.1 Rectal abscess (principal); Z48.00 Encounter for change or removal of nonsurgical wound dressing | CPT/HCPCS: G0463 ==

== ENCOUNTER 2020-08-11 14:03 | Outpatient (CLI) | payer MEDICARE, MEDICAID, SELFPAY | END 2020-08-11 14:20 | disposition home or self-care (01) | LOC: INF 14:03 | PROVIDERS: Visit Provider Family Medicine | DX: K61.1 Rectal abscess (principal); Z48.00 Encounter for change or removal of nonsurgical wound dressing | CPT/HCPCS: G0463 ==

== ENCOUNTER 2020-08-12 13:22 | Outpatient (CLI) | payer MEDICARE, MEDICAID, SELFPAY | END 2020-08-12 13:32 | disposition home or self-care (01) | LOC: INF 13:22 | PROVIDERS: Visit Provider Family Medicine | DX: K61.1 Rectal abscess (principal); Z48.00 Encounter for change or removal of nonsurgical wound dressing | CPT/HCPCS: G0463 ==

== ENCOUNTER 2020-08-13 13:04 | Outpatient (CLI) | payer MEDICARE, MEDICAID, SELFPAY ==
[2020-08-13 13:30] VITALS: BP 127/73; PULSE 76; RESP 18; TEMP 36.8; O2SAT 97
== END 2020-08-13 13:33 | disposition home or self-care (01) ==
LOC: INF 13:05
PROVIDERS: PCP Family Medicine; Visit Provider Family Medicine
DX: K61.1 Rectal abscess (principal); Z48.00 Encounter for change or removal of nonsurgical wound dressing
CPT/HCPCS: G0463

== ENCOUNTER 2020-08-15 10:36 | Outpatient (CLI) | payer MEDICARE, MEDICAID, SELFPAY | END 2020-08-15 10:45 | disposition home or self-care (01) | LOC: INF 10:36 | PROVIDERS: Visit Provider Family Medicine | DX: K61.1 Rectal abscess (principal); Z48.00 Encounter for change or removal of nonsurgical wound dressing | CPT/HCPCS: G0463 ==

== ENCOUNTER 2020-08-16 12:10 | Outpatient (CLI) | payer MEDICARE, MEDICAID, SELFPAY | END 2020-08-16 12:26 | disposition home or self-care (01) | LOC: INF 12:10 | PROVIDERS: Visit Provider Family Medicine | DX: K61.1 Rectal abscess (principal); Z48.00 Encounter for change or removal of nonsurgical wound dressing | CPT/HCPCS: G0463 ==

== ENCOUNTER 2020-08-17 11:00 | Outpatient (CLI) | payer MEDICARE, MEDICAID, SELFPAY | END 2020-08-17 11:10 | disposition home or self-care (01) | LOC: INF 11:01 | PROVIDERS: Visit Provider Family Medicine | DX: K61.1 Rectal abscess (principal); Z48.00 Encounter for change or removal of nonsurgical wound dressing | CPT/HCPCS: G0463 ==

== ENCOUNTER 2020-08-18 12:25 | Outpatient (CLI) | payer MEDICARE, MEDICAID, SELFPAY | END 2020-08-18 12:40 | disposition home or self-care (01) | LOC: INF 12:25 | PROVIDERS: Visit Provider Surgery | DX: K61.1 Rectal abscess (principal); Z48.00 Encounter for change or removal of nonsurgical wound dressing | CPT/HCPCS: G0463 ==

== ENCOUNTER 2020-09-05 20:51 | Emergency (ER) | payer MEDICARE, MEDICAID, SELFPAY ==
[2020-09-05 20:58] VITALS: BP 136/96; PULSE 116; RESP 18; TEMP 36.6; O2SAT 98; BMI 28.2
[2020-09-05 21:28] LABS: Basophils # 0.1 K/mm3 (0-0.2); Basophils % 0.6 % (0.1-2.0); Eosinophils # 0.2 K/mm3 (0.0-0.4); Eosinophils % 1.6 % (0.1-12.0); Hematocrit 48.4 % (42.0-52.0); Hemoglobin 15.7 g/dL (14.1-18.0); Lymphocytes # 2.7 K/mm3 (0.7-4.5); Lymphocytes % 26.7 % (10-50); Mean Corpuscular HGB Conc 32.5 g/dL (31.8-35.4); Mean Corpuscular Hemoglobin 26.9 pg (27.0-31.2); Mean Corpuscular Volume 82.9 fl (80-94); Mean Platelet Volume 9.9 fl (7.4-10.4); Monocytes # 0.4 K/mm3 (0.1-1.0); Monocytes % 3.9 % (1.7-9.3); Neutrophils # 6.7 K/mm3 (1.8-7.8); Neutrophils % 67.2 % (37.0-80.0); Platelet Count 209 K/mm3 (142-424); Red Blood Count 5.84 M/mm3 (4.60-6.20); Red Cell Distribution Width 15.4 % (11.5-17.5)
[2020-09-05 21:29] LABS: Chloride 97 mmol/L (98-107); Potassium 4.2 mmoL/L (3.5-5.1); Sodium 133 mmol/L (136-145)
[2020-09-05 21:32] LABS: Alanine Aminotransferase 36 U/L (12-78); Albumin Level 4.5 g/dl (3.5-5.0); Albumin/Globulin Ratio 1.3 (1.1-1.8); Alkaline Phosphatase 117 U/L (38-126); Anion Gap 15.2 mEq/L (5-15); Aspartate Amino Transferase 28 U/L (17-59); Bilirubin,Total 0.9 mg/dl (0.2-1.3); Blood Urea Nitrogen 15 mg/dl (9-20); Carbon Dioxide 25 mmol/L (22.0-30.0); Creatinine Clearance Estimated 119 mL/min (50-200); Estimated Glomerular Filt Rate 68 ml/min (>60); GFR (African American) 82 ML/MIN (>60); Globulin 3.6 g/dL (1.3-3.2); Total Protein,Serum 8.1 g/dl (6.3-8.2)
[2020-09-05 21:33] LABS: Calcium 9.8 mg/dl (8.4-10.2)
[2020-09-05 21:35] LABS: Glucose 459 mg/dl (74-100)
[2020-09-05 21:38] LABS: C-Reactive Protein 30.4 mg/L (0-4)
[2020-09-05 21:39] LABS: Lactic Acid 1.9 mmol/L (0.7-2.1)
[2020-09-05 22:00] LABS: Procalcitonin 0.142 ng/mL (0.0-2.0)
[2020-09-05 22:01] LABS: Erythrocyte Sedimentation Rate 23 mm/hr (0-15)
[2020-09-05 22:09] LABS: Acetone, Serum (Rapid) None Detected (None Detect)
[2020-09-05 22:24] LABS: Hemoglobin A1C 11.1 % (4.0-6.0)
--- NOTE | 2020-09-05 22:35 | HMH.EDSKAF ---
ED Disposition Clinical Impression: Facial cellulitis Diabetes mellitus Qualifiers: Diabetes mellitus type: type 2 Diabetes mellitus long filler cigar roller machine insulin use: unspecified long filler cigar roller machine insulin use status Diabetes mellitus complication status: with other specified complication Qualified Code(s): E11.69 - Type 2 diabetes mellitus with other specified complication Disposition: Home, Self-Care Condition on Discharge: Good Instructions: DI for Skin Abscess Additional Instructions: warm compresses and use meds and see pcp this week Prescriptions: Minocycline HCl [Minocycline HCl 100mg Tab*] 100 mg PO BID #20 tab Transmission Status: Pending to [facility] #[id number] Referrals: Clive Ward APRN [Primary Care Provider] - - Critical Care Critical Care Time: No Attestation: On 09/05/20, the high probability of a clinically significant, sudden or life threatening deterioration of the following system(s) required my full and direct attention, intervention and personal management. The time I documented below is in addition to time spent performing reported procedures but includes the following listed in this critical care notation. Medical Decision Making - Medical Records Medical records reviewed: Yes: I reviewed the patient's medical records. - [place] Inquiry Pt receiving controlled substance: No Vital Signs: 09/05/20 20:58 Temperature 97.9 F Temperature Source Oral Pulse Rate [Right] 116 H Respiratory Rate 18 Blood Pressure [Right Arm] 136/96 H Blood Pressure Mean [Right Arm] 109 Blood Pressure Source [Right Arm] Automatic Cuff Blood Pressure Position [Right Arm] Sitting 02 Sat by Pulse Oximetry 98 Oxygen Delivery Method Room Air - Lab Data Lab results reviewed: Yes: I reviewed the patient's lab results. Lab Results 09/05/20 21:10: WBC 10.0, RBC 5.84, Hgb 15.7, Hct 48.4, MCV 82.9, MCH 26.9 L, MCHC 32.5, RDW 15.4, Plt Count 209, MPV 9.9, Neut % (Auto) 67.2, Lymph % (Auto) 26.7, Gordon % (Auto) 3.9, Eos % (Auto) 1.6, Baso % (Auto) 0.6, Neut # (Auto) 6.7, Lymph # (Auto) 2.7, Gordon # (Auto) 0.4, Eos # (Auto) 0.2, Baso # (Auto) 0.1, ESR 23 H 09/05/20 21:10: Sodium 133 L, Potassium 4.2, Chloride 97 L, Carbon Dioxide 25, Anion Gap 15.2 H, BUN 15, Creatinine 1.20, Estimated Creat Clear 119, Estimated GFR 68, Est GFR ( Amer) 82, Glucose 459 H*, Calcium 9.8, Total Bilirubin 0.9, AST 28, ALT 36, Alkaline Phosphatase 117, C-Reactive Protein 30.4 H, Total Protein 8.1, Albumin 4.5, Globulin 3.6 H, Albumin/Globulin Ratio 1.3 09/05/20 21:10: Lactate 1.9 09/05/20 21:10: Procalcitonin 0.142 09/05/20 21:10: Hemoglobin A1c 11.1 H 09/05/20 21:10: Acetone Level None detected Result diagrams: 09/05/20 21:10 09/05/20 21:10 Orders (Tests/Meds): ED MEDICATIONS Generic Name Dose Route Start Last Admin Trade Name Freq PRN Reason Stop Dose Admin Sodium Chloride 1,000 mls @ 999 mls/hr 09/05/20 21:15 09/05/20 21:15 Sod Chlor 0.9% 1000ml Bag IV 09/05/20 22:15 999 mls/hr .[id number] TAMAR Administration Discontinued Medications Generic Name Dose Route Start Last Admin Trade Name Freq PRN Reason Stop Dose Admin Ketorolac Tromethamine 30 mg 09/05/20 21:07 09/05/20 21:16 Ketorolac 30mg/Ml Vial IV 09/05/20 21:08 30 mg ONCE ONE Administration ORDERS Category Date Time Status Blood Culture Stat Micro 09/05/20 21:10 Received Skin/Abscess/FB HPI - General Chief complaint: Skin/Abscess/Foreign Body Stated complaint: redness/swelling on R side of face Time Seen by Provider: 09/05/20 21:15 Mode of Arrival: Ambulatory Source of Information: Patient, Medical Record Limitations: No Limitations Description of Symptoms (Recalled from ER Triage Doc. by RN): Pt has a red swollen area to the right upper lip area for 4-5 days. - History of Present Illness HPI narrative: pt is diabetic and has rt facial lesion over the last few days - has hx of mrsa - MD complaint: abscess/boil Onset (ag
[2020-09-05 23:34] VITALS: BP 132/84; PULSE 94; RESP 16; TEMP 36.6; O2SAT 99
== END 2020-09-05 23:38 | disposition home or self-care (01) ==
PROVIDERS: Emergency Provider Emergency Medicine; PCP Nurse Practitioner Family
DX: L03.211 Cellulitis of face (principal); E11.65 Type 2 diabetes mellitus with hyperglycemia; F17.210 Nicotine dependence, cigarettes, uncomplicated; F12.10 Cannabis abuse, uncomplicated
CPT/HCPCS: 80053; 82009; 83036; 83605; 84145; 85025; 85651; 86140; 87040; 96365; 96367; 96375; 99283

== ENCOUNTER 2020-10-10 20:47 | Inpatient (IN) | payer MEDICARE, MEDICAID, SELFPAY ==
[2020-10-10 21:00] VITALS: BP 122/81; PULSE 119; RESP 20; TEMP 37.7; O2SAT 97; BMI 28.5
--- NOTE | 2020-10-10 21:21 | HMH.EDGENADL ---
ED Disposition Clinical Impression: Hyperglycemia Cellulitis Qualifiers: Site of cellulitis: extremity Site of cellulitis of extremity: lower extremity Laterality: left Qualified Code(s): L03.116 - Cellulitis of left lower limb Disposition: Admitted As Inpatient Condition on Discharge: Fair - Critical Care Critical Care Time: No Attestation: On , the high probability of a clinically significant, sudden or life threatening deterioration of the following system(s) required my full and direct attention, intervention and personal management. The time I documented below is in addition to time spent performing reported procedures but includes the following listed in this critical care notation. Medical Decision Making - Medical Records Medical records reviewed: Yes: I reviewed the patient's medical records. - Dylon Inquiry Pt receiving controlled substance: No Vital Signs: 10/10/20 21:00 Temperature 99.8 F H Temperature Source Oral Pulse Rate [Left Brachial] 119 H Respiratory Rate 20 Blood Pressure [Left Arm] 122/81 Blood Pressure Mean [Left Arm] 94 Blood Pressure Source [Left Arm] Automatic Cuff Blood Pressure Position [Left Arm] Sitting 02 Sat by Pulse Oximetry 97 Oxygen Delivery Method Room Air - Lab Data Lab Results 10/10/20 21:15: VBG pH 7.31, VBG pCO2 59.6 H, VBG pO2 33.1, VBG HCO3 29.0, VBG Total CO2 30.8 H, VBG O2 Saturation 65.1, VBG Base Excess 2.7 H 10/10/20 21:30: WBC 13.1 H, RBC 5.66, Hgb 15.2, Hct 45.9, MCV 81.0, MCH 26.9 L, MCHC 33.2, RDW 15.8, Plt Count 224, MPV 7.4, Neut % (Auto) 83.3 H, Lymph % (Auto) 12.5, [place] % (Auto) 2.5, Eos % (Auto) 1.5, Baso % (Auto) 0.3, Neut # (Auto) 10.9 H, Lymph # (Auto) 1.6, [place] # (Auto) 0.3, Eos # (Auto) 0.2, Baso # (Auto) 0.0 10/10/20 21:30: Sodium 138, Potassium 4.4, Chloride 97 L, Carbon Dioxide 31 H, Anion Gap 14.4, BUN 19, Creatinine 1.20, Estimated Creat Clear 122, Estimated GFR 68, Est GFR ( Amer) 82, Glucose 432 H*, Calcium 10.7 H, Total Bilirubin 1.3, AST 35, ALT 56, Alkaline Phosphatase 125, Total Protein 8.8 H, Albumin 4.8, Globulin 4.0 H, Albumin/Globulin Ratio 1.2, Lipase 98 10/10/20 21:30: Lactate 2.4 H 10/10/20 21:30: Acetone Level None detected 10/10/20 21:30: SARS-CoV-2 IgG Ab (Rapid) Negative, SARS-CoV-2 IgM Ab (Rapid) Negative Result diagrams: 10/10/20 21:30 10/10/20 21:30 Orders (Tests/Meds): ED MEDICATIONS Generic Name Dose Route Start Last Admin Trade Name Freq PRN Reason Stop Dose Admin Lactated Ringer's 1,000 mls @ 999 mls/hr 10/10/20 21:15 10/10/20 21:36 Lactated Ringer's 1000 Ml Bag IV 10/10/20 22:15 999 mls/hr .Q1H1M TAMAR Administration Vancomycin HCl 2,000 mg/ 250 mls @ 125 mls/hr 10/10/20 22:15 10/10/20 22:58 Sodium Chloride IV 10/24/20 22:14 Not Given Q24H TAMAR Protocol Vancomycin HCl 2,000 mg/ 250 mls @ 125 mls/hr 10/10/20 22:56 10/10/20 23:14 Sodium Chloride IV 10/11/20 00:55 125 mls/hr ONCE ONE Administration Protocol Vancomycin HCl 1,500 mg/ 250 mls @ 125 mls/hr 10/11/20 09:00 Sodium Chloride IV 10/25/20 08:59 Q12 TAMRA Protocol Nicotine 14 mg 10/11/20 09:00 Nicotine 14mg/24hrs Patch TD 11/10/20 08:59 DAILY TAMAR Discontinued Medications Generic Name Dose Route Start Last Admin Trade Name Freq PRN Reason Stop Dose Admin Insulin Human Lispro 0 unit 10/10/20 22:10 10/10/20 23:01 Humalog 100 Units/Ml 3ml Vial (Ssi) SQ 10/10/20 22:11 15 unit ONCE ONE Administration Protocol Ondansetron HCl 4 mg 10/10/20 21:15 10/10/20 21:37 Ondansetron 4mg/2ml Vial IV 10/10/20 21:16 4 mg ONCE ONE Administration ORDERS Category Date Time Status US extremity LT limited Stat Exams 10/10/20 22:07 Ordered Urinalysis and Microscopic Stat Lab 10/10/20 21:15 Ordered ECG Request by /Jacob Stat Y 10/10/20 21:15 Ordered Medical Decision Narrative: The patient is a 35 year old male who presents to the ED with left leg pain
[2020-10-10 21:38] LABS: Basophils % 0.3 % (0.1-2.0); Eosinophils # 0.2 K/mm3 (0.0-0.4); Eosinophils % 1.5 % (0.1-12.0); Hematocrit 45.9 % (42.0-52.0); Hemoglobin 15.2 g/dL (14.1-18.0); Lymphocytes # 1.6 K/mm3 (0.7-4.5); Lymphocytes % 12.5 % (10-50); Mean Corpuscular HGB Conc 33.2 g/dL (31.8-35.4); Mean Corpuscular Hemoglobin 26.9 pg (27.0-31.2); Mean Platelet Volume 7.4 fl (7.4-10.4); Monocytes # 0.3 K/mm3 (0.1-1.0); Monocytes % 2.5 % (1.7-9.3); Neutrophils # 10.9 K/mm3 (1.8-7.8); Neutrophils % 83.3 % (37.0-80.0); Platelet Count 224 K/mm3 (142-424); Red Blood Count 5.66 M/mm3 (4.60-6.20); Red Cell Distribution Width 15.8 % (11.5-17.5); White Blood Count 13.1 K/mm3 (4.8-10.8)
[2020-10-10 21:41] LABS: VBG Base Excess 2.7 mmol/L (-2.4-2.3); VBG Oxygen Saturation 65.1 % (50-70); VBG PCO2 59.6 mmol/L (35-51); VBG PH 7.31 mmol/L (7.31-7.41); VBG PO2 33.1 mmol/L (28-40); VBG Total CO2 30.8 mmol/L (23-27)
[2020-10-10 21:44] LABS: Chloride 97 mmol/L (98-107); Potassium 4.4 mmoL/L (3.5-5.1); Sodium 138 mmol/L (136-145)
[2020-10-10 21:47] LABS: Alanine Aminotransferase 56 U/L (12-78); Albumin Level 4.8 g/dl (3.5-5.0); Alkaline Phosphatase 125 U/L (38-126); Anion Gap 14.4 mEq/L (5-15); Aspartate Amino Transferase 35 U/L (17-59); Bilirubin,Total 1.3 mg/dl (0.2-1.3); Blood Urea Nitrogen 19 mg/dl (9-20); Calcium 10.7 mg/dl (8.4-10.2); Carbon Dioxide 31 mmol/L (22.0-30.0); Creatinine Clearance Estimated 122 mL/min (50-200); Estimated Glomerular Filt Rate 68 ml/min (>60); GFR (African American) 82 ML/MIN (>60); Lipase 98 U/L (23-300)
[2020-10-10 21:48] LABS: Albumin/Globulin Ratio 1.2 (1.1-1.8); Lactic Acid 2.4 mmol/L (0.7-2.1); Total Protein,Serum 8.8 g/dl (6.3-8.2)
[2020-10-10 21:49] LABS: Glucose 432 mg/dl (74-100)
[2020-10-10 21:52] LABS: Acetone, Serum (Rapid) None Detected (None Detect)
[2020-10-10 22:19] VITALS: BP 123/73; PULSE 121; RESP 16; O2SAT 98
--- NOTE | 2020-10-10 22:45 | PC.NURSE ---
Patient assigned to [id number]
--- NOTE | 2020-10-10 22:52 | PC.NURSE ---
[facility]; VERNON,RN; GAVE FOLLOWING INFO: OBS, CELLULITIS, ANITA
--- NOTE | 2020-10-10 22:55 | PC.NURSE ---
KRISTIRN SPEAKING WITH ZONIA VALDIVIAD; [facility]
--- NOTE | 2020-10-10 22:58 | PC.NURSE ---
per Mervin pt vanc dose should be 2G now and 1500mg Q12h on admission
[2020-10-10 23:19] VITALS: BP 117/79; PULSE 119; RESP 15; O2SAT 97
[2020-10-10 23:20] LABS: Coronavirus 19 IgG Antibody Negative (Negative); Coronavirus 19 IgM Antibody Negative (Negative)
--- NOTE | 2020-10-10 23:27 | PC.NURSE ---
CALLED AND ADVISED 2ND [id number] ARE READY TO ADMIT THIS PATIENT. STATES SHE WILL LET RECEIVING NURSE KNOW.
[2020-10-11] VITALS (23 sets, daily range): BP systolic 108–157; BP diastolic 67–84; PULSE 69–126; RESP 12–18; TEMP 36.4–37.7; O2SAT 94–100; BMI 29.4
--- NOTE | 2020-10-11 00:19 | PC.NURSE ---
PT ARRIVED TO THE FLOOR VIA WHEELCHAIR @ [id number]
[2020-10-11 00:56] LABS: POC Glucose,Bedside 350 (70-110)
[2020-10-11 01:34] LABS: Reflex Lactic Add Lactic Reflex
[2020-10-11 02:02] LABS: Lactic Acid Follow Up (RFLX 1) 1.7 mmol/L (0.7-2.1)
--- NOTE | 2020-10-11 02:13 | PC.WOUNDNOTE ---
Wound Location: Length: 1.5 cm Width: 1 cm Depth: Undermining Y/N: n Tunneling cm: Granulation %: Slough/necrotic tissue %: Inflammation/swelling Y/N:n Pain and/or tenderness Y/N:y Exudate: Serosanguinous Sanguinous Serosanguinous Seropurulent Purulent Color: Clear [place] Cloudy/milky [place] y Red y Green Yellow y Brown [place]rig[place] Blue Consistency: Thick Thin Amount: None y Scant Small Moderate Large Odor Y/N: n ulcer on bottom left foot, no drainage noted
--- NOTE | 2020-10-11 04:48 | PC.NURSE ---
no acute changes since pt arrived to floor, has complained of pain one time and was treated per DEC, pt was tachy when arriving to floor, HR at 0400 was 69, has had no complaints of chest pain or SOA
[2020-10-11 05:55] LABS: POC Glucose,Bedside 295 (70-110)
--- NOTE | 2020-10-11 06:00 | CA_ITS ---
APPROVED REPORT Left Lower Extremity Venous Study for DVT. [employer]: MARINA Indications Lower Extremity Pain: Left Lower Extremity Edema: Left Current Smoker Left leg swelling and redness, evaluate for DVT. History of lymphoma x 2 years. Risk Factors Current Smoker Vein Imaging CFV (L): compressive, spontaneous, phasic, augmentation FEM (L): compressive, spontaneous, phasic, augmentation POP (L): compressive, spontaneous, phasic, augmentation PTV (L): Compressible GSV (L): compressive, spontaneous, phasic, augmentation SSV (L): Compressible Peroneals (L):Compressible GAS (L): Compressible Findings No evidence of DVT or superficial thrombophlebitis in the veins scanned of the left lower extremity. B-Mode imaging of the left groin suggests prominent lymph nodes measuring approximately 5 x 1.3 cm. Conclusion No evidence of DVT or superficial thrombophlebitis in the veins scanned of the left lower extremity. B-Mode imaging of the left groin suggests prominent lymph nodes measuring approximately 5 x 1.3 cm. Electronically signed by : Brayan Welch MD 10/11/2020 18:48:50
[2020-10-11 06:21] LABS: Basophils % 0.2 % (0.1-2.0); Eosinophils # 0.1 K/mm3 (0.0-0.4); Eosinophils % 0.6 % (0.1-12.0); Hematocrit 38.8 % (42.0-52.0); Lymphocytes # 1.5 K/mm3 (0.7-4.5); Mean Corpuscular HGB Conc 34.5 g/dL (31.8-35.4); Mean Corpuscular Hemoglobin 28.2 pg (27.0-31.2); Mean Corpuscular Volume 81.8 fl (80-94); Mean Platelet Volume 7.4 fl (7.4-10.4); Monocytes # 0.6 K/mm3 (0.1-1.0); Monocytes % 3.8 % (1.7-9.3); Neutrophils # 12.5 K/mm3 (1.8-7.8); Neutrophils % 85.3 % (37.0-80.0); Platelet Count 189 K/mm3 (142-424); Red Blood Count 4.74 M/mm3 (4.60-6.20); Red Cell Distribution Width 16.2 % (11.5-17.5); White Blood Count 14.6 K/mm3 (4.8-10.8)
[2020-10-11 06:29] LABS: Anion Gap 11.5 mEq/L (5-15); Blood Urea Nitrogen 16 mg/dl (9-20); Calcium 9.9 mg/dl (8.4-10.2); Carbon Dioxide 29 mmol/L (22.0-30.0); Chloride 99 mmol/L (98-107); Creatinine Clearance Estimated 135 mL/min (50-200); Estimated Glomerular Filt Rate 75 ml/min (>60); GFR (African American) 91 ML/MIN (>60); Glucose 301 mg/dl (74-100); Potassium 4.5 mmoL/L (3.5-5.1); Sodium 135 mmol/L (136-145)
[2020-10-11 06:44] LABS: MANUAL DIFFERENTIAL MANUAL DIFFERENTIAL (MANUAL DIFF)
[2020-10-11 06:46] LABS: Hemoglobin 13.4 g/dL (14.1-18.0)
--- NOTE | 2020-10-11 08:37 | HMH.PHACONS ---
- Pharmacy Consult Date: 10/11/20 Time: 08:37 Referring provider: DR. MESA Reason for Consult:: VANCOMYCIN DOSING Allergies and ADEs:: Allergies Allergy/AdvReac Type Severity Reaction Status Date / Time No Known Allergies Allergy Verified 10/11/20 00:18 Home Medications:: Home Medications Medication Instructions Recorded Confirmed Type Insulin Glargine,Hum.rec.anlog 25 units SQ HS #0 07/22/20 10/11/20 Rx [Lantus Insulin 100units/mL 10mL vial] Metformin HCl [Glucophage] 1,000 mg PO BID 10/11/20 10/11/20 History Height: 1.88 m Weight: 103.958 kg Laboratory Results:: Laboratory Results - last 24 hr 10/10/20 21:15: VBG pH 7.31, VBG pCO2 59.6 H, VBG pO2 33.1, VBG HCO3 29.0, VBG Total CO2 30.8 H, VBG O2 Saturation 65.1, VBG Base Excess 2.7 H 10/10/20 21:30: WBC 13.1 H, RBC 5.66, Hgb 15.2, Hct 45.9, MCV 81.0, MCH 26.9 L, MCHC 33.2, RDW 15.8, Plt Count 224, MPV 7.4, Neut % (Auto) 83.3 H, Lymph % (Auto) 12.5, [place] % (Auto) 2.5, Eos % (Auto) 1.5, Baso % (Auto) 0.3, Neut # (Auto) 10.9 H, Lymph # (Auto) 1.6, [place] # (Auto) 0.3, Eos # (Auto) 0.2, Baso # (Auto) 0.0 10/10/20 21:30: Sodium 138, Potassium 4.4, Chloride 97 L, Carbon Dioxide 31 H, Anion Gap 14.4, BUN 19, Creatinine 1.20, Estimated Creat Clear 122, Estimated GFR 68, Est GFR ( Amer) 82, Glucose 432 H*, Calcium 10.7 H, Total Bilirubin 1.3, AST 35, ALT 56, Alkaline Phosphatase 125, Total Protein 8.8 H, Albumin 4.8, Globulin 4.0 H, Albumin/Globulin Ratio 1.2, Lipase 98 10/10/20 21:30: Lactate 2.4 H 10/10/20 21:30: Acetone Level None detected 10/10/20 21:30: SARS-CoV-2 IgG Ab (Rapid) Negative, SARS-CoV-2 IgM Ab (Rapid) Negative 10/11/20 00:41: POC Glucose 350 H* 10/11/20 01:45: Lactate 1.7 10/11/20 05:45: POC Glucose 295 H 10/11/20 06:05: WBC 14.6 H, RBC 4.74, Hgb 13.4 L D, Hct 38.8 L, MCV 81.8, MCH 28.2, MCHC 34.5, RDW 16.2, Plt Count 189, MPV 7.4, Neut % (Auto) 85.3 H, Lymph % (Auto) 10.0, [place] % (Auto) 3.8, Eos % (Auto) 0.6, Baso % (Auto) 0.2, Neut # (Auto) 12.5 H, Lymph # (Auto) 1.5, [place] # (Auto) 0.6, Eos # (Auto) 0.1, Baso # (Auto) 0.0 10/11/20 06:05: Sodium 135 L, Potassium 4.5, Chloride 99, Carbon Dioxide 29, Anion Gap 11.5, BUN 16, Creatinine 1.10, Estimated Creat Clear 135, Estimated GFR 75, Est GFR ( Amer) 91, Glucose 301 H D, Calcium 9.9 Medical History: Reports:: Cancer, Diabetes Mellitus Type 2, MRSA Denies:: Diabetes Mellitus Type 1, Internal Pacemaker, Seizures Assessment and Plan - Assessment and plan all Dx Assessment and Plan for all problems:: BASED ON PATIENT FACTORS, RECOMMEND VANCOMYCIN 2 GM IV Q12H. PHARMACY WILL FOLLOW DAILY AND ADJUST APPROPRIATE.
[2020-10-11 09:02] LABS: Lymphocytes % 17 % (10-50); Monocytes % 3 % (2-9); Neutrophils % 77 % (42-76); Platelet Estimate Normal; RBC Morphology Normal; Total Cells Counted 100
--- NOTE | 2020-10-11 09:51 | HMH.HP ---
*Admission Date: 10/10/20 *Chief complaint: lower leg infection /pain *History of present illness: this patient presented to [facility] with reddness and pain to lt foot and lower leg with hx of diabetes mellitus -e patient is a 35 year old male with a history of poorly controlled diabetes and remote non hodgkins lymphoma who presents to the ED with nausea, vomiting and left leg pain. Patient states his left thigh started hurting today and it radiates down to his foot. He has poor sensation in his feet due to neuropathy. He also notes this evening he developed nausea and vomiting. Denies any abdominal pain. No dysuria or hematuria. No recent travel or immobilization. he patient is a 35 year old male who presents to the ED with left leg pain, erythema and swelling. On arrival he is normotensive but tachycardic to the 140s. He appears uncomfortable. Abdomen is benign. He has tenderness to the medial left thigh without obvious abnormality but does have swelling, erythema and warmth to the medial left foot and ankle. No concern for septic joint in the ankle. Labs including CBC, CMP, lipase, lactate, VBG, serum acetone, UA were obtained. WBC 13. glucose in the 400s however pH is normal as well as anion gap - no concern for DKA just hyperglycemia. Discussed with Dr. Atkinson who will admit for Dr. Christopher for lower leg cellulitis in the setting of uncontrolled diabetes and neuropathy. Due to pain radiating to thigh and mild swelling with history of lymphoma, US DVT was ordered as well however not performed on admission. pt admitted for ivf and abx and podiatry eval [facility] History I have reviewed the patient's past medical history: Yes Medical History: Reports:: Cancer, Diabetes Mellitus Type 2, MRSA Denies:: Diabetes Mellitus Type 1, Internal Pacemaker, Seizures *Have you ever received a pneumonia vaccine?: No *Have you received a flu vaccine this season?: No Other Medical History: Reports: Chemotherapy, Radiation Therapy. Denies: Blood Transfusion Reaction Laterality Cases: Right: Lumpectomy, Other Other Surgeries: Yes: Other. No: Pacemaker Amputation: Yes (lrft foot fourth toe) Fractures: No - *Social History Last grade of school completed: High school graduate Smoking Status: Current every day smoker Tobacco Type: cigarettes # Packs/Day (cigarettes): 1 #Yrs smoked (if former smoker): 13 Alcohol Intake: never Alcohol Intake Frequency:: 0-2 drinks per day Substance Use Type: marijuana *Occupational Status:: unemployed Housing: house Household Members: friend(s) *Travel in the last 8 weeks: None - Psychiatric History Pschychiatric History:: Reports:: Psychiatric Treatment Family Hx:: Cancer, Coronary Artery Disease, Diabetes, Kidney Disease Review of Systems - Review of Systems Review of systems:: pertinent systems reviewed and negative unless documented below - Constitutional Denies fatigue, Denies fever(s) - Eyes Denies change in vision - ENT Denies sore throat - *Cardiovascular Denies chest pain at rest - *Respiratory Denies cough - *Gastrointestinal Denies abdominal pain - *Genitourinary Denies blood in urine - *Musculoskeletal Denies joint pain - Integumentary/Breasts Reports other (tender lower ext ), Denies rash - *Neurologic Denies seizure-like activity - Psychiatric Denies confusion Meds Home Medications Medication Instructions Recorded Confirmed Type Insulin Glargine,Hum.rec.anlog 25 units SQ HS #0 07/22/20 10/11/20 Rx [Lantus Insulin 100units/mL 10mL vial] Metformin HCl [Glucophage] 1,000 mg PO BID 10/11/20 10/11/20 History Allergies Allergy/AdvReac Type Severity Reaction Status Date / Time No Known Allergies Allergy Verified 10/11/20 00:18 Exam Vital signs and Labs for Last 24 Hours: Temp Pulse Resp BP Pulse Ox 98.5 F 109 H 18 113/67 98 10/11/20 08:00 10/11/20 08:00 10/11/20 08:00 10/11/20 08:00 10/11/20 08:00 Laboratory Results - last 24 hr
--- NOTE | 2020-10-11 10:03 | XR_ITS ---
PROCEDURE: XR FOOT LT MIN 3V CLINICAL INDICATION: cellulitis Pain and swelling COMPARISON: No exams were available for comparison FINDINGS: There are no previous exams available for comparison. There has been amputation at the distal aspect of the 4th metatarsal. Soft tissue swelling with soft tissue gas is present at the 5th metatarsophalangeal junction along the plantar surface of the foot. No underlying bony destruction evident. Other findings:None. IMPRESSION: 1. 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 2. Soft tissue swelling with focal soft tissue gas which may be within a soft tissue ulcer at the lateral and plantar aspect of the 5th metatarsophalangeal junction without obvious bony erosive change. Dictated by: Brayan Welch MD 10/11/2020 12:05 Brayan Welch MD in [place] 10/11/2020 12:05
--- NOTE | 2020-10-11 10:31 | HMH.ORTHOCON ---
*Admission Date: 10/10/20 <Yisel Mcghee - 10/11/20 10:41> *Reason for consult:: Left sub 5th callus/ DM ulcer and cellulitis <Yisel Mcghee - 10/11/20 10:41> *History of present illness: *Admission Date: 10/10/20 *Chief complaint: lower leg infection /pain *History of present illness: This patient presented to [facility] ed with reddness and pain to lt foot and lower leg with hx of diabetes mellitus -e patient is a 35 year old male with a history of poorly controlled diabetes and remote non hodgkins lymphoma who presents to the ED with nausea, vomiting and left leg pain. Patient states his left thigh started hurting today and it radiates down to his foot. He has poor sensation in his feet due to neuropathy. He also notes this evening he developed nausea and vomiting. Denies any abdominal pain. No dysuria or hematuria. No recent travel or immobilization. he patient is a 35 year old male who presents to the ED with left leg pain, erythema and swelling. On arrival he is normotensive but tachycardic to the 140s. He appears uncomfortable. Abdomen is benign. He has tenderness to the medial left thigh without obvious abnormality but does have swelling, erythema and warmth to the medial left foot and ankle. No concern for septic joint in the ankle. Labs including CBC, CMP, lipase, lactate, VBG, serum acetone, UA were obtained. WBC 13. glucose in the 400s however pH is normal as well as anion gap - no concern for DKA just hyperglycemia. Discussed with Dr. Atkinson who will admit for Dr. Christopher for lower leg cellulitis in the setting of uncontrolled diabetes and neuropathy. Due to pain radiating to thigh and mild swelling with history of lymphoma, US DVT was ordered as well however not performed on admission. pt admitted for ivf and abx and podiatry eval. *Podiatry consult 35-year-old male patient resting in bed was admitted with a lower leg infection. Patient appears to have a left subfifth callus on the plantar surface of the foot that has resulted from pressure from the metatarsal heads creating which could be a diabetic ulcer once we get in and debride the area. There is dark shadowing around the callus. There appears to be no drainage at the present time. The patient has a fourth amputated toe patient states has been a couple years ago did not mention the surgeon who did the operation. The patient does have long nails 1 through 9 on both feet he has calluses on the right foot as well on the plantar surface that appears from pressure again from the metatarsal heads does not appear to be any infection on the right foot. The foot is warm to touch, the patient does have good bounding pulses bilaterally DP/PT noted. The color appears to be normal limits pink in color. Patient does have what looked like a red streak running from the calf up through the thigh to mid groin area he has a swollen lymph node he stated PCP Dr. Christopher is already assessed the swollen lymph node area. There is warmth on the entire leg and tenderness noted at the swollen lymph node. Patient did have a DVT scan and Doppler was negative for any DVT. Patient states he is a type II diabetic but as of here lately he has been using insulin at home. He is not controlled with his diabetes. The last recorded A1c was 11%. Sugars were in the upper 400s when he was admitted. His ESR and CRP appear to be elevated as well. We will order new labs and trend the infection panel as well as get a stat left foot 3 view weightbearing x-ray to evaluate for underlying osteomyelitis. We will make the patient n.p.o. at current time will be back up at lunch to do debridement and reevaluate the wound and dress the site. Once the x-rays are read will then determine if he needs to go to the operating room for I&D today. [facility] History I have reviewed the patient's past medical history: Yes Medical History: Reports:: Cancer, Diabetes Mellitus Type 2, MRSA Denies:: Diabetes Mellitus Type 1, Internal Pacemaker, Seizures *Have you
[2020-10-11 10:50] LABS: C-Reactive Protein 55.2 mg/L (0-4)
[2020-10-11 11:19] LABS: Hemoglobin A1C 11.2 % (4.0-6.0)
[2020-10-11 11:48] LABS: Erythrocyte Sedimentation Rate 47 mm/hr (0-15)
--- NOTE | 2020-10-11 12:25 | ECG_ITS ---
APPROVED REPORT Exam: Resting ECG HR:114 bpm ECG Measurements Heart Rate 114 AXES MI 164 P 47 QRSd 82 QRS -3 QT 320 T 60 QTc 441 Conclusion Sinus tachycardia Otherwise normal ECG Electronically signed by : Facundo Ponce, 10/11/2020 19:54:55
--- NOTE | 2020-10-11 13:49 | HMH.PHAINT ---
MEDICATION RECONCILIATION COMPLETED ON PATIENT USING EXTERNAL FILL HISTORY FROM PHARMACY AND LIST FROM MD OFFICE. -ZONIA CAMEJOD
[2020-10-11 15:12] LABS: POC Glucose,Bedside 294 (70-110)
--- NOTE | 2020-10-11 16:00 | P.PN_ITS ---
[facility] Anesthesia Checklist - Structural Data Admitted From: Inpatient Planned Operative Procedure/s: i/d foot abcess Consent for Planned Operative Procedure(s) Verified: Yes - Additional verifications Anesthesia Reactions: No Hx Blood Transfusions: No Blood Transfusion Reaction: No - Airway Assessment C-Spine Mobility Assessed: Yes TMJ Mobility Assessed: Yes Dentition: Poor Dentition - Neurological Assessment Level of Consciousness: Awake, Alert, Appropriate - Anesthesia Plan Anesthesia Risk discussed: Yes Anesthesia Plan: Verified ASA Class: III Anesthesia Type: General [facility] History I have reviewed the patient's past medical history: Yes Medical History: Reports:: Cancer, Diabetes Mellitus Type 2, MRSA Denies:: Diabetes Mellitus Type 1, Internal Pacemaker, Seizures *Have you ever received a pneumonia vaccine?: No *Have you received a flu vaccine this season?: No Other Medical History: Reports: Chemotherapy, Radiation Therapy. Denies: Blood Transfusion Reaction Anesthesia experience/problems:: none Laterality Cases: Right: Lumpectomy, Other Other Surgeries: Yes: Other. No: Pacemaker Amputation: Yes (lrft foot fourth toe) Fractures: No - *Social History Last grade of school completed: High school graduate Smoking Status: Current every day smoker Tobacco Type: cigarettes # Packs/Day (cigarettes): 1 #Yrs smoked (if former smoker): 13 Alcohol Intake: never Alcohol Intake Frequency:: 0-2 drinks per day Substance Use Type: marijuana *Occupational Status:: unemployed Housing: house Household Members: friend(s) *Travel in the last 8 weeks: None - Psychiatric History Pschychiatric History:: Reports:: Psychiatric Treatment Family Hx:: Cancer, Coronary Artery Disease, Diabetes, Kidney Disease
--- NOTE | 2020-10-11 16:42 | P.PN_ITS ---
[facility] Anesthesia Record Part I Intake, IV Amount: 1,000 Estimated blood loss (mL): 0 Urine output (mL): 0 Blood Pressure: 117/74 SaO2: 94 Pulse Rate: 94 Respiratory Rate: 12 Temperature: 98.1 F Patient is:: Awake, Stable Stable to PACU at:: 16:40
--- NOTE | 2020-10-11 16:44 | HMH.OPNOTE ---
Date of procedure: 10/11/20 Pre-op Diagnosis:: 1. Left foot gas gangrene 2. Left foot diabetic ulcer 3. Left diabetic foot infection Post-op Diagnosis:: Same Procedure performed:: 1. Left foot incision and drainage 2. Left subfifth metatarsal ulcer debridement/excision with delayed primary closure Surgeon:: Essence Benavides DPM CANVAS CUTTER MACHINE:: Chava Knight Anesthesia: GETA Estimated blood loss (mL): 10 Clinical Note:: Patient is a 35-year-old diabetic male who was admitted 10/10/2020 for left lower extremity cellulitis. Patient had a subfifth metatarsal ulcer with periwound callus and gangrenous changes localized to the plantar lateral foot. Erythema with palpable lymph node to the groin. X-rays 3 views left foot taken 10/11/2020 evaluated by myself. Report noted. FINDINGS: There are no previous exams available for comparison. There has been amputation at the distal aspect of the 4th metatarsal. Soft tissue swelling with soft tissue gas is present at the 5th metatarsophalangeal junction along the plantar surface of the foot. No underlying bony destruction evident. Other findings: None. IMPRESSION: 1. 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 2. Soft tissue swelling with focal soft tissue gas which may be within a soft tissue ulcer at the lateral and plantar aspect of the 5th metatarsophalangeal junction without obvious bony erosive change. We discussed conservative versus surgical treatment options. Conservative treatment options include local wound care, oral and IV antibiotics, change in shoe wear, taping/padding, and off-loading. We discussed surgical intervention for incision and drainage of gas with ulcer debridement. Patient understands there is a chance he may need an amputation in the future. Patient also understands that they could have wound healing complications including delayed healing and infection. We discussed that if the wound does not heal, it is possible that they may need a more proximal amputation and could result in further loss of digits, loss of partial foot or loss of leg. We discussed the risks and benefits in great detail. Other surgical risks include: prolonged pain and swelling, further infection requiring oral or IV antibiotics, delay in healing of soft tissue or bone, nerve or blood vessel damage, CRPS/RSD, DVT, anesthesia complications, and even . All questions answered. Patient verbalized understanding. Consent obtained. Pre-op labs: WBC 14.6, ESR 47, CRP 55.2, Ha1c 11.2%, glucose 301. Operative findings:: Left foot plantar subfifth metatarsal ulcer with gangrenous changes. Upon initial incision 5cc of thick creamy yellow purulent drainage expressed, wound culture taken. Ulcer debrided, there was gangrenous tissue which was sharply excisionally debrided with a 15 blade and forceps. Periwound maceration noted. The nonviable tissue was debrided. There was some tunneling noted. Wound did not probe to the bone fifth metatarsal. There was no tracking noted. Operative note:: On this date and time the patient was deemed an appropriate surgical candidate. With informed consent time patient was transferred from the preoperative holding area to the operating theater placed on table in a normal supine position. Left lower extremities prepped and draped in normal sterile fashion. No tourniquet utilized. Left foot incision and drainage: Attention was directed to the left plantar foot where edema and erythema was noted along with a diabetic sub 5th metatarsal ulcer wound. Utilizing a 15 blade, a linear incision was made over the proximal extending distally over wound site. There was creamy thick milky purulent drainage noted, 5cc expressed. Rhvu-or-yucc pressure was applied to the incision and immediately 2-3 more cc of purulent drainage was expressed. Wound culture taken. Next hemostat used to explore the area. There was some tunneling noted to the soft periwound macerated and gangrenous tissue areas. Left wound/ulcer debridement with excisio
[2020-10-11 16:55] LABS: POC Glucose,Bedside 241 (70-110)
--- NOTE | 2020-10-11 16:59 | PC.NURSE ---
1644-checked fsbs with results of 241, notified farshad mathis , no further orders
--- NOTE | 2020-10-11 17:33 | PC.NURSE ---
171-detailed report called to SHANIQUA Aguirre 171-pt transported to 2nd floor room 214 via hospital bed and left in care of SHANIQUA Aguirre with bed locked in lowest position, vss, pt stable
--- NOTE | 2020-10-11 19:25 | PC.NURSE ---
PT HAS DONE WELL SINCE ARRIVAL TO FLOOR/POST OP. PT HAS NOT C/O ANY PAIN SINCE ARRIVING TO FLOOR. VITALS HAVE REMAINED WNL. DRESSING TO LLE IS CDI. WILL CONT. TO MONITOR.
[2020-10-11 21:59] LABS: POC Glucose,Bedside 292 (70-110)
[2020-10-12] VITALS: BP 125/75; PULSE 112; RESP 16; TEMP 37.3; O2SAT 95
[2020-10-12 04:00] VITALS: BP 139/79; PULSE 100; RESP 16; TEMP 36.7; O2SAT 96
[2020-10-12 05:29] VITALS: BMI 30.2
--- NOTE | 2020-10-12 06:35 | PC.NURSE ---
pt has rested well this shift, has complained of pain 3 times this shift and was treated per MAR, remains on room air with O2 sats 97-100%, lungs remain CTA, IS at bedside and pt has been educated on the use of it, pt has been tachycardic with rates 92-112, using urinal independently with clear dark yellow urine noted
--- NOTE | 2020-10-12 07:14 | HMH.PHAVTE ---
[facility] Pharmacy VTE Monitoring - Patient Demographics Admission date: 10/11/20 Report Date: 10/12/20 Time: 07:14 Allergies/Adverse Reactions: Patient Allergies No Known Allergies Allergy (Verified 10/11/20 00:18) Height: 1.88 m Weight: 106.708 kg Patient Problems: Current Active Problems Cellulitis (Acute) Diabetes mellitus (Chronic) History of non-Hodgkin's lymphoma (Chronic) Hyperglycemia (Acute) Overweight (BMI 25.0-29.9) (Acute) Severe sepsis with acute organ dysfunction (Acute) Ulcer of left foot due to type 2 diabetes mellitus (Acute) Gas gangrene (Acute) - VTE Risk Labs: VTE Related Lab Results Hgb 13.4 g/dL (14.1-18.0) L D 10/11/20 06:05 Hct 38.8 % (42.0-52.0) L 10/11/20 06:05 Plt Count 189 K/mm3 (142-424) 10/11/20 06:05 BUN 16 mg/dl (9-20) 10/11/20 06:05 Creatinine 1.10 mg/dl (0.66-1.25) 10/11/20 06:05 Estimated Creat Clear 135 mL/min (50-200) 10/11/20 06:05 Was VTE Risk Assessment Performed: Yes VTE Score: 5 VTE Risk Level: Low Risk Clinical Trial Participant: No - Prophylaxis VTE Prophylaxis Ordered?: Yes Types of VTE Prophylaxis: TEDS Knee High, Pharmacological Pharmacologic Type: Enoxaparin
[2020-10-12 07:52] LABS: Basophils % 0.3 % (0.1-2.0); Eosinophils # 0.1 K/mm3 (0.0-0.4); Eosinophils % 0.9 % (0.1-12.0); Hematocrit 35.1 % (42.0-52.0); Hemoglobin 11.6 g/dL (14.1-18.0); Lymphocytes # 1.8 K/mm3 (0.7-4.5); Lymphocytes % 23.2 % (10-50); Mean Corpuscular HGB Conc 32.9 g/dL (31.8-35.4); Mean Corpuscular Hemoglobin 27.3 pg (27.0-31.2); Mean Corpuscular Volume 82.7 fl (80-94); Mean Platelet Volume 7.8 fl (7.4-10.4); Monocytes # 0.3 K/mm3 (0.1-1.0); Monocytes % 4.3 % (1.7-9.3); Neutrophils # 5.6 K/mm3 (1.8-7.8); Neutrophils % 71.3 % (37.0-80.0); Platelet Count 157 K/mm3 (142-424); Red Blood Count 4.25 M/mm3 (4.60-6.20); Red Cell Distribution Width 15.6 % (11.5-17.5); White Blood Count 7.8 K/mm3 (4.8-10.8)
[2020-10-12 08:00] VITALS: BP 135/80; PULSE 90; RESP 18; TEMP 36.8; O2SAT 95
[2020-10-12 08:00] LABS: Alanine Aminotransferase 33 U/L (12-78); Albumin Level 3.3 g/dl (3.5-5.0); Alkaline Phosphatase 87 U/L (38-126); Anion Gap 9.2 mEq/L (5-15); Aspartate Amino Transferase 32 U/L (17-59); Bilirubin,Total 1.4 mg/dl (0.2-1.3); Blood Urea Nitrogen 14 mg/dl (9-20); Calcium 9.1 mg/dl (8.4-10.2); Carbon Dioxide 29 mmol/L (22.0-30.0); Chloride 100 mmol/L (98-107); Creatinine Clearance Estimated 139 mL/min (50-200); Estimated Glomerular Filt Rate 75 ml/min (>60); GFR (African American) 91 ML/MIN (>60); Globulin 3.2 g/dL (1.3-3.2); Glucose 383 mg/dl (74-100); Potassium 4.2 mmoL/L (3.5-5.1); Sodium 134 mmol/L (136-145); Total Protein,Serum 6.5 g/dl (6.3-8.2)
[2020-10-12 08:05] LABS: C-Reactive Protein 120.6 mg/L (0-4)
[2020-10-12 08:08] LABS: Erythrocyte Sedimentation Rate 91 mm/hr (0-15)
--- NOTE | 2020-10-12 08:12 | P.PN_ITS ---
[facility] Anesthesia Record Part II Discharge Time: 17:10 Destination: Medical Surgical Department PACU nurse assessment reviewed?: Yes Patient Condition:: Good Anesthesia Complications:: None Swallowing reflex intact?: Yes Cyanosis?: No Blood Pressure: 132/77 Pulse Rate: 91 Temperature: 97.6 F Mental Status: Alert & Oriented Pain level:: 4 Nausea and/or vomitting:: None Intake, IV Amount: 0
[2020-10-12 08:13] VITALS: BP 132/77; PULSE 91; TEMP 36.4
--- NOTE | 2020-10-12 09:21 | HMH.ORTHPN ---
Subjective Date: 10/12/20 <Yisel Mcghee - 10/12/20 09:29> Time: 07:55 <Yisel Mcghee - 10/12/20 09:29> Principal diagnosis: Left sub 5th DM ulcer, S/P I&D <Yisel Mcghee - 10/12/20 09:29> Interval history: Patient is resting in bed and doing well, states he had a good night. Patient had Left foot gas gangrene, Left foot diabetic ulcer, Left diabetic foot infection and was taken to the OR for I&D. Patient is POD # 1 Date of procedure: 10/11/20 for Procedure performed:: 1. Left foot incision and drainage 2. Left subfifth metatarsal ulcer debridement/excision with delayed primary closure Dressing was clean dry,and intact. I will change this dressing with Xeroform to the sutures and cover with 4x4's and tramaine wrap and memo bandage. The patient will not need to change his dressing until we see him in the office on Saturday10/18/20@ 1:20pm. We have brought the patient up a short fracture boot for him to use on the surgical site with crutches or a walker. Patient is still to remain nonweightbearing. Patient's labs were drawn this morning 10/12/2020; WBC 7.8, ESR 91, CRP 120.6 glucose 383, hemoglobin 11.6. The recommendation is if the patient is discharged today that he be discharged with Clinda 300mg po tid and Cipro 500mg po bid for 2 weeks, the wound culture is still pending. We would like for the PCP to prescribe the antibiotics on discharge when he is ready to go home. <Yisel Mcghee - 10/12/20 12:08> PN: Obj Ex Vital signs: Temp Pulse Resp BP Pulse Ox 97.6 F 91 H 18 132/77 95 10/12/20 08:13 10/12/20 08:13 10/12/20 08:00 10/12/20 08:13 10/12/20 08:00 <Essence Benavides - 10/14/20 07:24> Temp Pulse Resp BP Pulse Ox 97.6 F 91 H 16 132/77 96 10/12/20 08:13 10/12/20 08:13 10/12/20 04:00 10/12/20 08:13 10/12/20 04:00 <Yisel Mcghee 10/12/20 09:29> - Constitutional no acute distress <Yisel Mcghee 10/12/20 12:06> - Routine HEENT Exam Head: Present: normocephalic <Yisel Mcghee 10/12/20 12:06> Eye: Present: EOMI <Yisel Mcghee 10/12/20 12:06> ENT: Present: mucous membranes moist <Yisel Mcghee 10/12/20 12:06> - Routine Neck Exam Present: supple, full ROM, trachea midline <Yisel Mcghee 10/12/20 12:06> - Routine Chest/Breast/Axilla Exam Chest wall: Absent: tenderness <Yisel Mcghee 10/12/20 12:06> - Routine Respiratory Exam Absent: accessory muscle use, respiratory distress <Yisel Mcghee 10/12/20 12:06> - Routine Cardiovascular Exam Present: RRR <Yisel Mcghee 10/12/20 12:06> - Routine Abdominal Exam Present: soft <Yisel Mcghee 10/12/20 12:06> - Routine Extremities Exam Present: pulses intact, normal capillary refill. Absent: calf tenderness <Yisel Mcghee 10/12/20 12:06> - Detailed Lower Extremity Exam Foot/Toes: Left amputation (4th toe previous amp.site 2 yrs. ago. ) <Yisel Mcghee 10/12/20 12:06> Bottom foot image: 1 - s/p Left wound/ulcer debridement with excision and delayed primary closure POD#1, sutures are in place without any drainage or signs of dehiscence. Area cleaned with normal saline then dressed with Xeroform over the suture line, dry 4 x 4, Tramaine wrap, Memo wrap. <Yisel Mcghee 10/12/20 12:06> - Routine Back/Spine/Pelvis Exam Back/Spine: Present: full ROM <Yisel Mcghee 10/12/20 12:06> - Routine Skin Exam Present: intact, dry, wounds <Yisel Mcghee 10/12/20 12:06> - Routine Neurological Exam Present: oriented X3, vision grossly intact, hearing grossly intact, normal speech <Yisel Mcghee 10/12/20 12:06> - Routine Psychiatric Exam Present: normal affect, cooperative <Yisel Mcghee 10/12/20 12:06> Progress Note: A&P (1) Cellulitis Status: Acute (2) Diabetes mellitus Status: Chronic (3) History of non-Hodgkin's lymphoma Status: Chronic (4) Overweigh
--- NOTE | 2020-10-12 09:36 | HMH.DCSUM ---
General - General Admission date:: 10/11/20 Discharge date: 10/12/20 HPI HPI: this patient presented to [facility] ed with reddness and pain to lt foot and lower leg with hx of diabetes mellitus -e patient is a 35 year old male with a history of poorly controlled diabetes and remote non hodgkins lymphoma who presents to the ED with nausea, vomiting and left leg pain. Patient states his left thigh started hurting today and it radiates down to his foot. He has poor sensation in his feet due to neuropathy. He also notes this evening he developed nausea and vomiting. Denies any abdominal pain. No dysuria or hematuria. No recent travel or immobilization. he patient is a 35 year old male who presents to the ED with left leg pain, erythema and swelling. On arrival he is normotensive but tachycardic to the 140s. He appears uncomfortable. Abdomen is benign. He has tenderness to the medial left thigh without obvious abnormality but does have swelling, erythema and warmth to the medial left foot and ankle. No concern for septic joint in the ankle. Labs including CBC, CMP, lipase, lactate, VBG, serum acetone, UA were obtained. WBC 13. glucose in the 400s however pH is normal as well as anion gap - no concern for DKA just hyperglycemia. Discussed with Dr. Atkinson who will admit for Dr. Christopher for lower leg cellulitis in the setting of uncontrolled diabetes and neuropathy. Due to pain radiating to thigh and mild swelling with history of lymphoma, US DVT was ordered as well however not performed on admission. pt admitted for ivf and abx and podiatry eval Hospital Course Hospital Course: 35-year-old male patient presents to the emergency department with complaints of nausea/vomiting and left leg pain. He does have a history of poorly controlled diabetes and none Hodgkin's lymphoma in the past. He reports his left lower extremity began hurting in his thigh and radiated down to his foot he also reports decreased sensation due to neuropathy he denies fever/chills/body aches, abdominal pain, or recent travel. He does have redness, edema, and warmth, to his medial left foot and ankle White blood cell count was 13.1, blood glucose was 432, pH was normal, ion gap was normal, lactate was 2.4. pt admitted for ivf and abx and podiatry eval 10/11/20 L Foot XR: IMPRESSION: 1. 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 2. Soft tissue swelling with focal soft tissue gas which may be within a soft tissue ulcer at the lateral and plantar aspect of the 5th metatarsophalangeal junction without obvious bony erosive change. Dictated by: Yuri, 10/11/20 Venous Dop[pler: Findings No evidence of DVT or superficial thrombophlebitis in the veins scanned of the left lower extremity. B-Mode imaging of the left groin suggests prominent lymph nodes measuring approximately 5 x 1.3 cm. Conclusion No evidence of DVT or superficial thrombophlebitis in the veins scanned of the left lower extremity. B-Mode imaging of the left groin suggests prominent lymph nodes measuring approximately 5 x 1.3 cm. Electronically signed by : Brayan Welch 10/11/20 Podiatry Surgery: 1. Left foot incision and drainage 2. Left subfifth metatarsal ulcer debridement/excision with delayed primary closure Operative findings:: Left foot plantar subfifth metatarsal ulcer with gangrenous changes. Upon initial incision 5cc of thick creamy yellow purulent drainage expressed, wound culture taken. Ulcer debrided, there was gangrenous tissue which was sharply excisionally debrided with a 15 blade and forceps. Periwound maceration noted. The nonviable tissue was debrided. There was some tunneling noted. Wound did not probe to the bone fifth metatarsal. There was no tracking noted. Operative note:: On this date and time the patient was deemed an appropriate surgical candidate. With informed consent time patient was transferred from the preoperative holding area to the operating theater placed on
[2020-10-12 10:05] VITALS: BMI 30.2
--- NOTE | 2020-10-12 12:00 | SW/DCPLANNER ---
RECEIVED REFERRAL FOR SHORT FRACTURE BOOT AND CRUTCHES.... FRACTURE BOOT WAS PROVIDED BY DR VELASQUEZ'S OFFICE AND I ORDERED CRUTCHES AND THEY HAVE BEEN FITTED PRIOR TO DISCHARGE...PATIENT IS LEAVING ONCE SOMEONE IS HERE TO PICK HIM UP..
[2020-10-12 12:42] LABS: Vancomycin,Trough 8.7 ug/mL (5.0-10.0)
--- NOTE | 2020-10-12 14:51 | HMH.PHACONS ---
- Pharmacy Consult Date: 10/12/20 Time: 11:00 Referring provider: DR. MESA Reason for Consult:: VANCOMYCIN TROUGH LEVEL Allergies and ADEs:: Allergies Allergy/AdvReac Type Severity Reaction Status Date / Time No Known Allergies Allergy Verified 10/11/20 00:18 Home Medications:: Home Medications Medication Instructions Recorded Confirmed Type Insulin Glargine,Hum.rec.anlog 25 units SQ HS #0 07/22/20 10/11/20 Rx [Lantus Insulin 100units/mL 10mL vial] Metformin HCl [Glucophage] 1,000 mg PO BID 10/11/20 10/11/20 History Ciprofloxacin HCl [Cipro 500mg 500 mg PO BID 14 Days #28 tab 10/12/20 Rx Tab] Hydrocodone/Acetaminophen [[place] 1 each PO Q6 PRN 3 Days #12 tab 10/12/20 Rx 5-325 Tablet] clindamycin HCL [Clindamycin HCl] 300 mg PO TID 14 Days #42 cap 10/12/20 Rx Height: 1.88 m Weight: 106.7 kg Laboratory Results:: Laboratory Results - last 24 hr 10/11/20 15:05: POC Glucose 294 H 10/11/20 16:44: POC Glucose 241 H 10/11/20 21:08: POC Glucose 292 H 10/12/20 06:12: ESR 91 H 10/12/20 06:12: C-Reactive Protein 120.6 H 10/12/20 06:12: WBC 7.8 D, RBC 4.25 L, Hgb 11.6 L, Hct 35.1 L, MCV 82.7, MCH 27.3, MCHC 32.9, RDW 15.6, Plt Count 157, MPV 7.8, Neut % (Auto) 71.3, Lymph % (Auto) 23.2, Allen % (Auto) 4.3, Eos % (Auto) 0.9, Baso % (Auto) 0.3, Neut # (Auto) 5.6, Lymph # (Auto) 1.8, Allen # (Auto) 0.3, Eos # (Auto) 0.1, Baso # (Auto) 0.0 10/12/20 06:12: Sodium 134 L, Potassium 4.2, Chloride 100, Carbon Dioxide 29, Anion Gap 9.2, BUN 14, Creatinine 1.10, Estimated Creat Clear 139, Estimated GFR 75, Est GFR ( Amer) 91, Glucose 383 H, Calcium 9.1, Total Bilirubin 1.4 H, AST 32, ALT 33 D, Alkaline Phosphatase 87, Total Protein 6.5 D, Albumin 3.3 L D, Globulin 3.2, Albumin/Globulin Ratio 1.0 L 10/12/20 10:25: Vancomycin Trough 8.7 Medical History: Reports:: Cancer, Diabetes Mellitus Type 2, MRSA Denies:: Diabetes Mellitus Type 1, Internal Pacemaker, Seizures Assessment and Plan (1) Cellulitis Start date: 10/11/20 Status: Acute Qualifiers: Site of cellulitis: extremity Site of cellulitis of extremity: lower extremity Laterality: left Qualified Code(s): L03.116 - Cellulitis of left lower limb Category: Medical Code(s): L03.90 - Cellulitis, unspecified (2) Diabetes mellitus Start date: 10/11/20 Status: Chronic Qualifiers: Diabetes mellitus type: type 2 Diabetes mellitus intermodal dispatcher insulin use: unspecified intermodal dispatcher insulin use status Diabetes mellitus complication status: with other specified complication Qualified Code(s): E11.69 - Type 2 diabetes mellitus with other specified complication Category: Medical Code(s): E11.9 - Type 2 diabetes mellitus without complications (3) History of non-Hodgkin's lymphoma Start date: 10/11/20 Status: Chronic Category: Medical Code(s): Z85.72 - Personal history of non-Hodgkin lymphomas (4) Overweight (BMI 25.0-29.9) Start date: 10/11/20 Status: Acute Category: Medical Code(s): E66.3 - Overweight (5) Severe sepsis with acute organ dysfunction Start date: 10/11/20 Status: Acute Category: Medical Code(s): A41.9 - Sepsis, unspecified organism; R65.20 - Severe sepsis without septic shock (6) Ulcer of left foot due to type 2 diabetes mellitus Start date: 10/11/20 Status: Acute Category: Medical Code(s): E11.621 - Type 2 diabetes mellitus with foot ulcer; L97.529 - Non-pressure chronic ulcer of other part of left foot with unspecified severity (7) Gas gangrene Start date: 10/11/20 Status: Acute Category: Medical Code(s): A48.0 - Gas gangrene - Assessment and plan all Dx Assessment and Plan for all problems:: BASED ON VANCOMYCIN TROUGH LEVEL AND PATIENT FACTORS, RECOMMEND CHANGING DOSE AND INTERVAL OF VANCOMYCIN. HOWEVER, PATIENT WILL BE DISCHARGED HOME TODAY ON CLINDAMYCIN AND CIPROFLOXACIN.
== END 2020-10-12 13:05 | disposition home or self-care (01) | DRG 622 ==
LOC: ER 22:16 → 2ND 23:25
PROVIDERS: Podiatrist; Admitting Provider Family Medicine; Emergency Provider Emergency Medicine; PCP Emergency Medicine; Visit Provider Emergency Medicine
PROC: 0JBR0ZZ Excision of Left Foot Subcutaneous Tissue and Fascia, Open Approach (ICD-10-PCS; CPT 11042; principal; 2020-10-11 15:00)
DX: E11.621 Type 2 diabetes mellitus with foot ulcer (principal); A48.0 Gas gangrene; L03.116 Cellulitis of left lower limb; E11.52 Type 2 diabetes mellitus with diabetic peripheral angiopathy with gangrene; L97.422 Non-pressure chronic ulcer of left heel and midfoot with fat layer exposed; C85.90 Non-Hodgkin lymphoma, unspecified, unspecified site; E11.65 Type 2 diabetes mellitus with hyperglycemia; Z72.0 Tobacco use; Z79.4 Long term (current) use of insulin; B95.62 Methicillin resistant Staphylococcus aureus infection as the cause of diseases classified elsewhere
CPT/HCPCS: 11042; 36415; 73630; 80048; 80053; 80202; 82009; 82803; 82962; 83036; 83605; 83690; 85007; 85025; 85651; 86140; 86328; 87070; 87075; 87077; 87186; 87205; 93005; 93971; 96365; 96367; 96372; 96375; 97760; 99284; J2405; J3370

== ENCOUNTER → 2020-10-18 20:31 | Outpatient (CLI) | payer MEDICAID, SELFPAY | PROVIDERS: Visit Provider Podiatrist | DX: L03.116 Cellulitis of left lower limb (principal); E11.69 Type 2 diabetes mellitus with other specified complication; Z98.890 Other specified postprocedural states | CPT/HCPCS: 87070; 87077; 87186; 87205 ==

== ENCOUNTER → 2020-10-27 13:03 | Outpatient (CLI) | payer MEDICARE, MEDICAID, SELFPAY ==
[2020-10-27 13:23] LABS: Basophils # 0.1 K/mm3 (0-0.2); Basophils % 0.7 % (0.1-2.0); Eosinophils # 0.2 K/mm3 (0.0-0.4); Eosinophils % 2.8 % (0.1-12.0); Hematocrit 42.5 % (42.0-52.0); Hemoglobin 14.1 g/dL (14.1-18.0); Lymphocytes # 2.4 K/mm3 (0.7-4.5); Lymphocytes % 32.3 % (10-50); Mean Corpuscular HGB Conc 33.1 g/dL (31.8-35.4); Mean Corpuscular Hemoglobin 27.1 pg (27.0-31.2); Mean Corpuscular Volume 81.9 fl (80-94); Mean Platelet Volume 7.3 fl (7.4-10.4); Monocytes # 0.3 K/mm3 (0.1-1.0); Monocytes % 4.7 % (1.7-9.3); Neutrophils # 4.4 K/mm3 (1.8-7.8); Neutrophils % 59.6 % (37.0-80.0); Platelet Count 281 K/mm3 (142-424); Red Blood Count 5.19 M/mm3 (4.60-6.20); Red Cell Distribution Width 15.5 % (11.5-17.5); White Blood Count 7.3 K/mm3 (4.8-10.8)
[2020-10-27 14:20] LABS: Chloride 101 mmol/L (98-107)
[2020-10-27 14:21] LABS: Erythrocyte Sedimentation Rate 55 mm/hr (0-15); Potassium 4.9 mmoL/L (3.5-5.1); Sodium 139 mmol/L (136-145)
[2020-10-27 14:23] LABS: Alanine Aminotransferase 30 U/L (12-78); Aspartate Amino Transferase 25 U/L (17-59); Bilirubin,Total 0.8 mg/dl (0.2-1.3); Blood Urea Nitrogen 21 mg/dl (9-20); Estimated Glomerular Filt Rate 84 ml/min (>60); GFR (African American) 102 ML/MIN (>60)
[2020-10-27 14:24] LABS: Albumin Level 4.4 g/dl (3.5-5.0); Albumin/Globulin Ratio 1.3 (1.1-1.8); Alkaline Phosphatase 142 U/L (38-126); Anion Gap 13.9 mEq/L (5-15); Calcium 11.1 mg/dl (8.4-10.2); Carbon Dioxide 29 mmol/L (22.0-30.0); Globulin 3.4 g/dL (1.3-3.2); Glucose 311 mg/dl (74-100); Total Protein,Serum 7.8 g/dl (6.3-8.2)
[2020-10-27 14:29] LABS: C-Reactive Protein 12.1 mg/L (0-4)
[2020-10-27 15:27] LABS: Hemoglobin A1C 10.7 % (4.0-6.0)
== END ==
PROVIDERS: Visit Provider Nurse Practitioner
DX: Z98.890 Other specified postprocedural states; M25.559 Pain in unspecified hip; E11.621 Type 2 diabetes mellitus with foot ulcer; L97.529 Non-pressure chronic ulcer of other part of left foot with unspecified severity; Z79.4 Long term (current) use of insulin
CPT/HCPCS: 36415; 80053; 83036; 85025; 85651; 86140; 87070; 87077; 87186; 87205

== ENCOUNTER → 2020-10-28 18:00 | Outpatient (CLI) | payer MEDICARE, MEDICAID, SELFPAY ==
[2020-10-28 18:26] LABS: Creatinine,Urine Random 88 mg/dL (Not Estab.)
[2020-10-28 18:49] LABS: Microalbumin/Creatinine Ratio 234.2
[2020-10-28 19:58] LABS: Chol/HDL Ratio 7.7 (1-3.5); Cholesterol 193 mg/dl (140-200); HDL Cholesterol 25 mg/dl (40-60)
[2020-10-28 20:09] LABS: Direct LDL Cholesterol 65.69 mg/dL (100-129)
[2020-10-28 20:11] LABS: Triglycerides 753 mg/dl (30-150)
[2020-10-31 11:14] LABS: C-Peptide 5.6 ng/mL (1.1-4.4)
== END ==
PROVIDERS: Visit Provider Nurse Practitioner Family
DX: E11.9 Type 2 diabetes mellitus without complications (principal); Z79.4 Long term (current) use of insulin
CPT/HCPCS: 80061; 82043; 82570; 84681

== ENCOUNTER → 2020-11-29 10:51 | Outpatient (CLI) | payer MEDICARE, MEDICAID, SELFPAY ==
[2020-11-29 11:41] LABS: Basophils % 0.4 % (0.1-2.0); Eosinophils # 0.2 K/mm3 (0.0-0.4); Eosinophils % 2.9 % (0.1-12.0); Hemoglobin 13.4 g/dL (14.1-18.0); Lymphocytes # 2.4 K/mm3 (0.7-4.5); Lymphocytes % 40.6 % (10-50); Mean Corpuscular HGB Conc 32.6 g/dL (31.8-35.4); Mean Corpuscular Hemoglobin 26.9 pg (27.0-31.2); Mean Corpuscular Volume 82.6 fl (80-94); Mean Platelet Volume 7.2 fl (7.4-10.4); Monocytes # 0.2 K/mm3 (0.1-1.0); Monocytes % 4.1 % (1.7-9.3); Neutrophils # 3.1 K/mm3 (1.8-7.8); Neutrophils % 51.9 % (37.0-80.0); Platelet Count 195 K/mm3 (142-424); Red Blood Count 4.96 M/mm3 (4.60-6.20); Red Cell Distribution Width 15.8 % (11.5-17.5); White Blood Count 5.9 K/mm3 (4.8-10.8)
[2020-11-29 12:05] LABS: Chloride 104 mmol/L (98-107)
[2020-11-29 12:06] LABS: Potassium 4.6 mmoL/L (3.5-5.1); Sodium 140 mmol/L (136-145)
[2020-11-29 12:08] LABS: Alanine Aminotransferase 62 U/L (12-78); Anion Gap 10.6 mEq/L (5-15); Aspartate Amino Transferase 41 U/L (17-59); Blood Urea Nitrogen 14 mg/dl (9-20); Carbon Dioxide 30 mmol/L (22.0-30.0); Estimated Glomerular Filt Rate 84 ml/min (>60); GFR (African American) 102 ML/MIN (>60)
[2020-11-29 12:09] LABS: Albumin Level 4.4 g/dl (3.5-5.0); Albumin/Globulin Ratio 1.2 (1.1-1.8); Alkaline Phosphatase 108 U/L (38-126); Bilirubin,Total 0.9 mg/dl (0.2-1.3); Globulin 3.7 g/dL (1.3-3.2); Glucose 239 mg/dl (74-100); Total Protein,Serum 8.1 g/dl (6.3-8.2)
[2020-11-29 12:14] LABS: C-Reactive Protein 3.5 mg/L (0-4)
[2020-11-29 12:27] LABS: Erythrocyte Sedimentation Rate 19 mm/hr (0-15)
== END ==
PROVIDERS: Visit Provider Podiatrist
DX: Z98.890 Other specified postprocedural states (principal); M25.559 Pain in unspecified hip
CPT/HCPCS: 36415; 80053; 85025; 85651; 86140

== ENCOUNTER → 2020-12-15 11:38 | Outpatient (CLI) | payer MEDICARE, MEDICAID, SELFPAY ==
--- NOTE | 2020-12-15 11:46 | XR_ITS ---
PROCEDURE: XR FOOT WT BEARING LT 3V CLINICAL INDICATION: wounds, pain COMPARISON: CR XR FOOT LT MIN 3V from 10/11/2020 FINDINGS: Prior amputation at the distal aspect of the 4th metatarsal. Bony margins are sharp at the amputation site. Bandage artifact is present at the 1st 2nd and 3rd toes. No obvious bony erosive process evident. The joint spaces are well-preserved. No significant degenerative/arthritic changes. No erosive changes evident. Other findings:None. IMPRESSION: No acute findings. Dictated by: Brayan Welch MD 12/15/2020 16:57 Brayan Welch MD in [place] 12/15/2020 16:57
--- NOTE | 2020-12-15 11:46 | XR_ITS ---
PROCEDURE: XR FOOT WT BEARING RT 3V CLINICAL INDICATION: pain, wounds COMPARISON: CR XR FOOT LT MIN 3V from 10/11/2020 FINDINGS: No fracture or dislocation. No lytic or blastic change. There is normal mineralization. The joint spaces are well-preserved. No significant degenerative/arthritic changes. No erosive changes evident. Other findings:Bandage artifact is present at the tarsal metatarsal junction medially. No bony erosive process. Mild hypertrophic changes are present at the dorsal aspect of the navicular IMPRESSION: No acute findings. Dictated by: Brayan Welch MD 12/15/2020 16:56 Brayan Welch MD in [place] 12/15/2020 16:56
[2020-12-15 12:33] LABS: Basophils % 0.4 % (0.1-2.0); Eosinophils # 0.2 K/mm3 (0.0-0.4); Hematocrit 43.8 % (42.0-52.0); Hemoglobin 13.4 g/dL (14.1-18.0); Lymphocytes # 2.2 K/mm3 (0.7-4.5); Mean Corpuscular HGB Conc 30.5 g/dL (31.8-35.4); Mean Corpuscular Hemoglobin 26.9 pg (27.0-31.2); Mean Platelet Volume 7.2 fl (7.4-10.4); Monocytes # 0.3 K/mm3 (0.1-1.0); Monocytes % 3.3 % (1.7-9.3); Neutrophils # 5.3 K/mm3 (1.8-7.8); Neutrophils % 66.4 % (37.0-80.0); Platelet Count 222 K/mm3 (142-424); Red Blood Count 4.98 M/mm3 (4.60-6.20); Red Cell Distribution Width 16.4 % (11.5-17.5)
[2020-12-15 13:18] LABS: Alanine Aminotransferase 43 U/L (12-78); Albumin Level 4.4 g/dl (3.5-5.0); Albumin/Globulin Ratio 1.2 (1.1-1.8); Alkaline Phosphatase 107 U/L (38-126); Anion Gap 13.9 mEq/L (5-15); Aspartate Amino Transferase 28 U/L (17-59); Blood Urea Nitrogen 16 mg/dl (9-20); Calcium 10.6 mg/dl (8.4-10.2); Carbon Dioxide 28 mmol/L (22.0-30.0); Chloride 101 mmol/L (98-107); Estimated Glomerular Filt Rate 84 ml/min (>60); GFR (African American) 102 ML/MIN (>60); Globulin 3.6 g/dL (1.3-3.2); Glucose 349 mg/dl (74-100); Potassium 4.9 mmoL/L (3.5-5.1); Sodium 138 mmol/L (136-145)
[2020-12-15 13:22] LABS: Hemoglobin A1C 10.4 % (4.0-6.0)
[2020-12-15 13:24] LABS: C-Reactive Protein 5.3 mg/L (0-4)
[2020-12-15 14:45] LABS: Erythrocyte Sedimentation Rate 16 mm/hr (0-15)
== END ==
PROVIDERS: PCP Nurse Practitioner Family; Visit Provider Podiatrist
DX: E11.42 Type 2 diabetes mellitus with diabetic polyneuropathy (principal); E11.621 Type 2 diabetes mellitus with foot ulcer; L97.509 Non-pressure chronic ulcer of other part of unspecified foot with unspecified severity; Z98.890 Other specified postprocedural states; Z79.4 Long term (current) use of insulin
CPT/HCPCS: 36415; 73630; 80053; 83036; 85025; 85651; 86140; 87070; 87077; 87186; 87205

== ENCOUNTER 2020-12-26 15:00 | Outpatient (RCR) | payer MEDICARE, MEDICAID, SELFPAY ==
--- NOTE | 2020-12-20 18:02 | HMH.PTOPWND ---
Rehab Outpt Wound Evaluation Rehab OP Wound Evaluation Start: 12/20/20 16:01 Freq: Status: Active Protocol: Document 12/20/20 17:37 [email or web address] (Rec: 12/20/20 18:02 [email or web address] [id number]) Electronically Signed By Bob Hernández PT 12/20/20 17:37 Subjective/History History History This is the initial physical therapy wound care clinic evaluation for Wyatt Lara. Pt is a 35 y/o male referrred to PT wound clinic for non- healing diabetic foot ulcers. PT reports original wound began in January of 2019 as pinhole in bottom of L foot . Pt reports unable to heal wound and eventual infection set up. Pt reports he went to ED in Oct 2020 for infxn and eventually had 4th toe amputation. Pt reprots healing well and he decided to go to [facility] to [facility] . Pt reports when he came home he had blisters on R and L feet Subjective Subjective Pt reports diabetic w/ BS in 150-200 range, and neuropathy in B feet Wound Eval Wound Left Distal Toe - 3rd Digit Wound Type Diabetic Foot Ulcer Is This a Chronic Wound Yes Wound Length (cm) 1.5 Wound Width (cm) 1.5 Wound Bed Appearance Beefy Red,Eschar Percentage Granulated (%) 50 Percentage of Eschar (Black) (%) 50 Wound Margins Description Indistinct Drainage Description Serosanguineous Drainage Amount Small Drainage Odor No Odor Dressing Status Dry & Intact,Soiled Wound Topical Solution/Irrigant Saline Irrigant Primary Dressing Non-Adherent Gauze Pad Comment medihoney Wound Secondary Dressing Type Gauze Roll/Wrap Wound Debridement Method Sharps Wound Debridement Amount of Tissue Minimal Removed Wound Debridement Result Healthy Tissue Revealed Left Distal Toe - 2nd Digit Wound Type Diabetic Foot Ulcer Wound Length (cm) 2.0 Wound Width (cm) 2.0 Wound Bed Appearance Beefy Red,Eschar Percentage Granulated (%) 50 Percentage of Eschar (Black) (%) 50 Wound Margins Description Indistinct Surrounding Tiss
== END 2020-12-26 15:05 | disposition home or self-care (01) ==
LOC: PT 15:00
PROVIDERS: PCP Nurse Practitioner Family; Visit Provider Podiatrist
DX: E11.621 Type 2 diabetes mellitus with foot ulcer (principal); L97.529 Non-pressure chronic ulcer of other part of left foot with unspecified severity; L97.519 Non-pressure chronic ulcer of other part of right foot with unspecified severity; Z98.890 Other specified postprocedural states
CPT/HCPCS: 97161; 97597

== ENCOUNTER → 2020-12-29 12:20 | Outpatient (CLI) | payer MEDICARE, MEDICAID, SELFPAY ==
--- NOTE | 2020-12-29 | ECG_ITS ---
APPROVED REPORT Exam: Resting ECG HR:85 bpm ECG Measurements Heart Rate 85 AXES AZ 152 P 69 QRSd 82 QRS 88 QT 366 T 32 QTc 435 Conclusion Normal sinus rhythm Normal ECG Electronically signed by : Facundo Ponce, 12/29/2020 17:38:29
[2020-12-29 12:37] LABS: Basophils # 0.1 K/mm3 (0-0.2); Basophils % 0.6 % (0.1-2.0); Eosinophils # 0.3 K/mm3 (0.0-0.4); Eosinophils % 2.4 % (0.1-12.0); Hematocrit 42.4 % (42.0-52.0); Hemoglobin 13.6 g/dL (14.1-18.0); Lymphocytes # 2.9 K/mm3 (0.7-4.5); Lymphocytes % 28.1 % (10-50); Mean Corpuscular HGB Conc 32.1 g/dL (31.8-35.4); Mean Corpuscular Hemoglobin 26.8 pg (27.0-31.2); Mean Corpuscular Volume 83.5 fl (80-94); Mean Platelet Volume 7.5 fl (7.4-10.4); Monocytes # 0.3 K/mm3 (0.1-1.0); Monocytes % 3.1 % (1.7-9.3); Neutrophils # 6.8 K/mm3 (1.8-7.8); Neutrophils % 65.7 % (37.0-80.0); Platelet Count 281 K/mm3 (142-424); Red Blood Count 5.08 M/mm3 (4.60-6.20); Red Cell Distribution Width 16.2 % (11.5-17.5); White Blood Count 10.4 K/mm3 (4.8-10.8)
--- NOTE | 2020-12-29 12:38 | XR_ITS ---
PROCEDURE: XR FOOT WT BEARING LT 3V CLINICAL INDICATION: ulcer of left 3rd toe with bone exposure COMPARISON: CR XR FOOT LT MIN 3V from 10/11/2020 CR XR FOOT WT BEARING LT 3V from 12/15/2020 CR XR FOOT WT BEARING RT 3V from 12/15/2020 FINDINGS: Bandage artifact at the distal aspect the distal phalanges of the 2nd and 3rd toe. This does obscure bony detail this region. Cannot confirm the presence of a lytic process. There has been prior amputation at the distal shaft of the 4th metatarsal. The joint spaces are well-preserved. No significant degenerative/arthritic changes. No erosive changes evident. Other findings:None. IMPRESSION: Artifact at the distal aspect of the 2nd and 3rd toes. Cannot confirm the presence of the lytic lesion. Prior amputation distal aspect 4th metatarsal Dictated by: Brayan Welch MD 12/29/2020 14:13 Brayan Welch MD in [place] 12/29/2020 14:13
[2020-12-29 13:07] LABS: Erythrocyte Sedimentation Rate 15 mm/hr (0-15)
[2020-12-29 13:16] LABS: Chloride 103 mmol/L (98-107)
[2020-12-29 13:17] LABS: Potassium 5.1 mmoL/L (3.5-5.1); Sodium 139 mmol/L (136-145)
[2020-12-29 13:19] LABS: Alanine Aminotransferase 31 U/L (12-78); Aspartate Amino Transferase 29 U/L (17-59); Blood Urea Nitrogen 33 mg/dl (9-20); Estimated Glomerular Filt Rate 46 ml/min (>60); GFR (African American) 55 ML/MIN (>60)
[2020-12-29 13:20] LABS: Albumin Level 4.8 g/dl (3.5-5.0); Albumin/Globulin Ratio 1.4 (1.1-1.8); Alkaline Phosphatase 101 U/L (38-126); Anion Gap 16.1 mEq/L (5-15); Bilirubin,Total 1.1 mg/dl (0.2-1.3); Carbon Dioxide 25 mmol/L (22.0-30.0); Globulin 3.5 g/dL (1.3-3.2); Glucose 279 mg/dl (74-100); Total Protein,Serum 8.3 g/dl (6.3-8.2)
[2020-12-29 13:27] LABS: C-Reactive Protein 4.5 mg/L (0-4)
== END ==
PROVIDERS: Visit Provider Nurse Practitioner
DX: Z51.89 Encounter for other specified aftercare (principal); E11.621 Type 2 diabetes mellitus with foot ulcer; L97.529 Non-pressure chronic ulcer of other part of left foot with unspecified severity; L97.519 Non-pressure chronic ulcer of other part of right foot with unspecified severity; Z79.4 Long term (current) use of insulin
CPT/HCPCS: 36415; 73630; 80053; 85025; 85651; 86140; 87070; 87077; 87186; 87205; 93005

== ENCOUNTER → 2021-01-02 12:45 | Outpatient (CLI) | payer MEDICARE, MEDICAID, SELFPAY ==
--- NOTE | 2021-01-02 12:45 | MR_ITS ---
PROCEDURE: MR FOOT LT WO/W CON CLINICAL INDICATION: Diabetic ulcer COMPARISON: CR XR FOOT WT BEARING LT 3V from 12/15/2020 TECHNIQUE: Routine multiplanar multi echo sequences are performed without gadolinium enhancement. FINDINGS: Slightly limited study due to inadequate fat suppression. Amputation of the proximal phalanx of the 4th digit is noted. There is evidence of associated soft tissue T2 hyperintensity noted at the site of amputation. Post-contrast images demonstrate minor heterogeneous enhancement at the surgical site. There is minor T2 and STIR hyperintensity noted in the distal phalanges of the 2nd and 3rd digits. Post-contrast images demonstrate enhancement of the distal phalanx of the 3rd digit, raises the concern for osteomyelitis. There is no significant enhancement of the 2nd distal phalanx is noted. There is evidence of heterogeneous soft tissue density noted on the dorsal aspect of the distal phalanges of the no focal rim enhancing collections are noted. 2nd and 3rd digits. IMPRESSION: Findings are suggestive of osteomyelitis of the distal phalanx of the 3rd digit. T2 and STIR hyperintensity of the distal phalanx of the 2nd digit is noted without significant enhancement. This may be reactive in nature. Fourth digit amputation is noted. Minor heterogeneous soft tissue signal intensity is noted at the surgical site likely postsurgical. No focal fluid collections are noted. Dictated by: Radha Garg 01/03/2021 08:00 Radha Garg in OV 01/03/2021 08:00
== END ==
PROVIDERS: PCP Nurse Practitioner Family; Visit Provider Podiatrist
DX: E11.621 Type 2 diabetes mellitus with foot ulcer (principal); L97.529 Non-pressure chronic ulcer of other part of left foot with unspecified severity; Z79.84 Long term (current) use of oral hypoglycemic drugs
CPT/HCPCS: 73720; A9576

== ENCOUNTER 2021-01-03 13:37 | Emergency (ER) | payer MEDICARE, MEDICAID, SELFPAY ==
[2021-01-03 13:44] VITALS: BP 124/79; PULSE 102; RESP 18; TEMP 36.7; O2SAT 96; BMI 28.2
[2021-01-03 13:49] VITALS: BP 124/79; PULSE 60; RESP 20; O2SAT 100
--- NOTE | 2021-01-03 14:21 | HMH.EDGENADL ---
ED Disposition Clinical Impression: Osteomyelitis due to secondary diabetes, Hyperglycemia due to diabetes mellitus, Diabetic foot infection Disposition: Home, Self-Care Condition on Discharge: Fair Instructions: DI for Osteomyelitis, DI for Hyperglycemia -- Adult Additional Instructions: Please take all your medications as prescribed and follow-up for surgery tomorrow as scheduled. Referrals: Clive Ward APRN [Primary Care Provider] - - Critical Care Critical Care Time: No Attestation: On 01/03/21, the high probability of a clinically significant, sudden or life threatening deterioration of the following system(s) required my full and direct attention, intervention and personal management. The time I documented below is in addition to time spent performing reported procedures but includes the following listed in this critical care notation. Medical Decision Making - Dylon Inquiry Pt receiving controlled substance: No Vital Signs: 01/03/21 13:44 01/03/21 13:49 Temperature 98.1 F Temperature Source Oral Pulse Rate 60 Pulse Rate [Right Brachial] 102 H Respiratory Rate 18 20 Blood Pressure 124/79 Blood Pressure [Right Arm] 124/79 Blood Pressure Mean [Right Arm] 94 Blood Pressure Source [Right Arm] Automatic Cuff Blood Pressure Position [Right Arm] Sitting 02 Sat by Pulse Oximetry 96 100 Oxygen Delivery Method Room Air Room Air - Lab Data Lab Results 01/03/21 14:25: WBC 7.8, RBC 4.55 L, Hgb 12.2 L, Hct 38.2 L, MCV 83.9, MCH 26.9 L, MCHC 32.1, RDW 16.7, Plt Count 245, MPV 7.6, Neut % (Auto) 64.9, Lymph % (Auto) 29.6, [place] % (Auto) 3.6, Eos % (Auto) 1.5, Baso % (Auto) 0.4, Neut # (Auto) 5.0, Lymph # (Auto) 2.3, [place] # (Auto) 0.3, Eos # (Auto) 0.1, Baso # (Auto) 0.0 01/03/21 14:25: Sodium 132 L, Potassium 4.5, Chloride 97 L, Carbon Dioxide 22, Anion Gap 17.5 H, BUN 21 H, Creatinine 1.20, Estimated Creat Clear 119, Estimated GFR 68, Est GFR ( Amer) 82, Glucose 474 H*, Calcium 9.2 01/03/21 16:36: POC Glucose 431 H* Result diagrams: 01/03/21 14:25 01/03/21 14:25 Orders (Tests/Meds): ED MEDICATIONS Discontinued Medications Generic Name Dose Route Start Last Admin Trade Name Kelley PRN Reason Stop Dose Admin Insulin Human Regular 15 unit 01/03/21 15:14 01/03/21 15:22 Insulin Human Regular 100 Units/Ml 10ml Vial SQ 01/03/21 15:15 15 unit ONCE ONE Administration Medical Decision Narrative: The patient presents to the emergency department complaining of general malaise. He has known osteomyelitis of his left foot secondary to a diabetic foot infection. He had an MRI performed yesterday and is scheduled for surgery tomorrow. He was advised to come to the emergency department should he feel bad. When I asked the patient whether he took his medications today he answered that he did not take any of his diabetic medications because he woke up late. On physical examination the patient has obvious foot ulcers on the distal toes. There is no evidence of ischemic foot. There is no lymphangina. There is no extensive erythema consistent with severe cellulitis. The patient is afebrile. The patient's white blood cell count is only mildly elevated. The patient does take antibiotics for his osteomyelitis. The patient's glucose was significantly elevated. Therefore, subcutaneous regular insulin was administered. The patient's glucose will be rechecked 1 hour after his insulin dose and as long as the glucose level is closer to 300 he will be discharged with instructions to follow-up for his surgery appointment as scheduled tomorrow. The patient's work-up in the emergency department not reveal any life-threatening or dangerous causes requiring admission at this time. General Adult HPI - General Chief complaint: Weakness Stated complaint: possible Lt toe infection, third digit Time Seen by Provider: 01/03/21 14:26 Mode of Arrival: Ambulatory Source of Information: Patient Limita
[2021-01-03 14:44] LABS: Basophils % 0.4 % (0.1-2.0); Eosinophils # 0.1 K/mm3 (0.0-0.4); Eosinophils % 1.5 % (0.1-12.0); Hematocrit 38.2 % (42.0-52.0); Hemoglobin 12.2 g/dL (14.1-18.0); Lymphocytes # 2.3 K/mm3 (0.7-4.5); Lymphocytes % 29.6 % (10-50); Mean Corpuscular HGB Conc 32.1 g/dL (31.8-35.4); Mean Corpuscular Hemoglobin 26.9 pg (27.0-31.2); Mean Corpuscular Volume 83.9 fl (80-94); Mean Platelet Volume 7.6 fl (7.4-10.4); Monocytes # 0.3 K/mm3 (0.1-1.0); Monocytes % 3.6 % (1.7-9.3); Neutrophils % 64.9 % (37.0-80.0); Platelet Count 245 K/mm3 (142-424); Red Blood Count 4.55 M/mm3 (4.60-6.20); Red Cell Distribution Width 16.7 % (11.5-17.5); White Blood Count 7.8 K/mm3 (4.8-10.8)
[2021-01-03 15:08] LABS: Anion Gap 17.5 mEq/L (5-15); Blood Urea Nitrogen 21 mg/dl (9-20); Calcium 9.2 mg/dl (8.4-10.2); Carbon Dioxide 22 mmol/L (22.0-30.0); Chloride 97 mmol/L (98-107); Creatinine Clearance Estimated 119 mL/min (50-200); Estimated Glomerular Filt Rate 68 ml/min (>60); GFR (African American) 82 ML/MIN (>60); Potassium 4.5 mmoL/L (3.5-5.1); Sodium 132 mmol/L (136-145)
[2021-01-03 15:14] LABS: Glucose 474 mg/dl (74-100)
[2021-01-03 16:43] LABS: POC Glucose,Bedside 431 (70-110)
[2021-01-03 17:08] VITALS: BP 124/79; PULSE 102; RESP 20; TEMP 36.7; O2SAT 100
== END 2021-01-03 17:10 | disposition home or self-care (01) ==
PROVIDERS: Emergency Provider Emergency Medicine; PCP Nurse Practitioner Family
DX: E13.69 Other specified diabetes mellitus with other specified complication (principal); E11.65 Type 2 diabetes mellitus with hyperglycemia; M86.172 Other acute osteomyelitis, left ankle and foot; Z79.899 Other long term (current) drug therapy; Z79.84 Long term (current) use of oral hypoglycemic drugs; Z79.4 Long term (current) use of insulin; Z89.422 Acquired absence of other left toe(s); F17.210 Nicotine dependence, cigarettes, uncomplicated
CPT/HCPCS: 36415; 80048; 82962; 85025; 86328; 96372; 99282

== ENCOUNTER → 2021-01-03 17:25 | Outpatient (CLI) | payer MEDICARE, MEDICAID, SELFPAY ==
[2021-01-03 19:22] LABS: Coronavirus 19 IgG Antibody Negative (Negative); Coronavirus 19 IgM Antibody Negative (Negative)
== END ==
PROVIDERS: Visit Provider Nurse Practitioner
DX: L97.511 Non-pressure chronic ulcer of other part of right foot limited to breakdown of skin (principal)
CPT/HCPCS: 36415; 86328

== ENCOUNTER 2021-01-04 09:14 | Day surgery (SDC) | payer MEDICARE, MEDICAID, SELFPAY ==
[2021-01-04] VITALS (10 sets, daily range): BP systolic 107–127; BP diastolic 67–88; PULSE 74–96; RESP 12–18; TEMP 36.2–42.7; O2SAT 91–96; BMI 27.6
[2021-01-04 09:47] LABS: POC Glucose,Bedside 231 (70-110)
--- NOTE | 2021-01-04 12:17 | P.PN_ITS ---
[facility] Anesthesia Checklist - Structural Data Admitted From: Home Planned Operative Procedure/s: l foot amp Consent for Planned Operative Procedure(s) Verified: Yes - Additional verifications Anesthesia Reactions: No Hx Blood Transfusions: Yes Blood Transfusion Reaction: No - Airway Assessment C-Spine Mobility Assessed: Yes TMJ Mobility Assessed: Yes Dentition: Poor Dentition - Neurological Assessment Level of Consciousness: Awake, Alert, Appropriate - Anesthesia Plan Anesthesia Risk discussed: Yes Anesthesia Plan: Verified ASA Class: III Anesthesia Type: General [facility] History I have reviewed the patient's past medical history: Yes Medical History: Reports:: Cancer (nonhodgkins lymphoma), Diabetes Mellitus Type 2 Denies:: Diabetes Mellitus Type 1, Internal Pacemaker, MRSA, Seizures *Have you ever received a pneumonia vaccine?: No *Have you received a flu vaccine this season?: No Other Medical History: Reports: Chemotherapy, Radiation Therapy. Denies: Blood Transfusion Reaction Anesthesia experience/problems:: none Laterality Cases: Right: Lumpectomy, Other Other Surgeries: Yes: Other. No: Pacemaker Amputation: Yes (lrft foot fourth toe) Fractures: No - *Social History Smoking Status: Current every day smoker Tobacco Type: cigarettes # Packs/Day (cigarettes): 1 #Yrs smoked (if former smoker): 13 Alcohol Intake: never Alcohol Intake Frequency:: 0-2 drinks per day Substance Use Type: marijuana *Occupational Status:: disabled Housing: house Household Members: friend(s) *Travel in the last 8 weeks: None - Psychiatric History Pschychiatric History:: Reports:: Psychiatric Treatment Family Hx:: Cancer, Coronary Artery Disease, Diabetes, Kidney Disease
[2021-01-04 13:55] LABS: Adenovirus,PCR Not Detected (NotDetected); Bordetella Pertussis Not Detected (NotDetected); Chlamydophila Pneumoniae, PCR Not Detected (NotDetected); Coronavirus 19, PCR Not Detected (NotDetected); Coronavirus 229E Not Detected (NotDetected); Coronavirus NL63 Not Detected (NotDetected); Coronavirus OC43 Not Detected (NotDetected); Coronovirus HKU1,PCR Not Detected (NotDetected); Human Metapneumovirus Not Detected (NotDetected); Influenza A, PCR Not Detected (NotDetected); Influenza AH1, 2009 Not Detected (NotDetected); Influenza AH1, PCR Not Detected (NotDetected); Influenza AH3,PCR Not Detected (NotDetected); Influenza B, PCR Not Detected (NotDetected); Mycoplasma Pneumoniae, PCR Not Detected (NotDetected); Parainfluenza 1, PCR Not Detected (NotDetected); Parainfluenza 2, PCR Not Detected (NotDetected); Parainfluenza 3, PCR Not Detected (NotDetected); Parainfluenza 4, PCR Not Detected (NotDetected); Respiratory Syncytial Virus Not Detected (NotDetected); Rhinovirus/Enterovirus Not Detected (NotDetected)
--- NOTE | 2021-01-04 14:38 | P.PN_ITS ---
[facility] Anesthesia Checklist - Patient Identification Patient Identification: Arm Band - Structural Data Admitted From: Home Planned Operative Procedure/s: Left metatarsal amputation Consent for Planned Operative Procedure(s) Verified: Yes Verified Documents: Surgical Consent, History and Physical - Additional verifications Anesthesia Reactions: No Hx Blood Transfusions: Yes Blood Transfusion Reaction: No - Airway Assessment C-Spine Mobility Assessed: Yes TMJ Mobility Assessed: Yes Dentition: Good Dentition - Anesthesia Plan Anesthesia Risk discussed: Yes Anesthesia Plan: Verified ASA Class: II Anesthesia Type: General [facility] History Medical History: Reports:: Cancer (nonhodgkins lymphoma), Diabetes Mellitus Type 2 Denies:: Diabetes Mellitus Type 1, Internal Pacemaker, MRSA, Seizures *Have you ever received a pneumonia vaccine?: No *Have you received a flu vaccine this season?: No Other Medical History: Reports: Chemotherapy, Radiation Therapy. Denies: Blood Transfusion Reaction Anesthesia experience/problems:: none Laterality Cases: Right: Lumpectomy, Other Other Surgeries: Yes: Other. No: Pacemaker Amputation: Yes (lrft foot fourth toe) Fractures: No - *Social History Smoking Status: Current every day smoker Tobacco Type: cigarettes # Packs/Day (cigarettes): 1 #Yrs smoked (if former smoker): 13 Alcohol Intake: never Alcohol Intake Frequency:: 0-2 drinks per day Substance Use Type: marijuana *Occupational Status:: disabled Housing: house Household Members: friend(s) *Travel in the last 8 weeks: None - Psychiatric History Pschychiatric History:: Reports:: Psychiatric Treatment Family Hx:: Cancer, Coronary Artery Disease, Diabetes, Kidney Disease
--- NOTE | 2021-01-04 15:24 | XR_ITS ---
PROCEDURE: XR FOOT LT MIN 3V CLINICAL INDICATION: Post op amp COMPARISON: CR XR FOOT LT MIN 3V from 10/11/2020 CR XR FOOT WT BEARING LT 3V from 12/15/2020 CR XR FOOT WT BEARING RT 3V from 12/15/2020 CR XR FOOT WT BEARING LT 3V from 12/29/2020 FINDINGS: Transmetatarsal amputation is noted. Presence of drain is noted at the site of amputation. Multiple foci of air are noted within the soft tissues consistent with recent surgery. The visualized tarsals, and ankle joint are unremarkable. IMPRESSION: Transmetatarsal amputation. Postsurgical changes. Dictated by: Radha Garg 01/04/2021 16:55 Radha Garg in [place] 01/04/2021 16:55
--- NOTE | 2021-01-04 15:26 | HMH.OPNOTE ---
Date of procedure: 01/04/21 Pre-op Diagnosis:: 1. Left foot osteomyelitis 2. Left foot diabetic infection 3. Left equinus contracture Post-op Diagnosis:: Same Procedure performed:: 1. Left transmetatarsal amputation 2. Left tendo Achilles lengthening 3. Left foot irrigation and debridement Surgeon:: Essence Benavides DPM DISTILLATION OPERATOR HELPER:: Other (Shravan Bower) Anesthesia: GETA, local (30cc 0.5% marcaine plain) Estimated blood loss (mL): 20 Clinical Note:: Patient is a 35-year-old uncontrolled diabetic male who went hiking in an appropriate shoe gear and developed blisters and new diabetic foot ulcers. Patient was given antibiotics. He admits to not picking up the Levaquin. He did take minocycline and Bactrim in the past. Patient had an MRI 01/02/2021 which showed osteomyelitis. Patient presented to the [facility] ED 01/03/2021 due to general malaise and glucose of 484. He admits to not taking his insulin and DM medications. He was given insulin stabilized and discharged home. Patient has a history of diabetic foot infection, cellulitis and osteomyelitis. We discussed in detail compliance. He does not live alone. He has a roommate who drives him to appts and does assist with dressing changes. He was set up with [facility] wound care clinic, but no showed/missed several wound care/office visits. We discussed conservative versus surgical treatment options. Conservative treatment options include local wound care, oral and IV antibiotics, change in shoe wear, taping/padding, and off-loading. Discussed that patient would benefit from a wider and deeper shoe wear to accommodate the deformity. Discussed compliance with shoe gear. We discussed surgical intervention for amputation of the toes vs transmetatarsal area due to osteomyelitis. We discussed trying to recreate a normal parabola so we can obtain a custom toe filler. Patient understands that there is a chance that the toes can migrate to fill the gap or the foot may change shape after surgery. Patient also understands that they could have wound healing complications including delayed healing and infection. We discussed that if the wound does not heal, it is possible that they may need a more proximal amputation and could result in further loss of partial foot or loss of leg. We discussed the risks and benefits in great detail. Other surgical risks include: prolonged pain and swelling, further infection requiring oral or IV antibiotics, delay in healing of soft tissue or bone, nerve or blood vessel damage, CRPS/RSD, DVT/PE, anesthesia complications, and even . All questions answered. Patient verbalized understanding. Consent obtained. Medical clearance per Dr. Christopher. Patient has a follow-up outpatient with his PCP for his diabetic management. Operative findings:: Left foot dirty with animal hair, dried blood and skin blistered with some sloughing noted. There was a callus noted to the subfourth metatarsal area. The left distal phalanx hallux was soft and crumbly. There is purulent drainage from the soft tissue and bone of the left second and third toes. Cellulitis noted to the distal toes. There was some malodor noted to the second and third toes. The fifth toe had fluid around the joint, likely from the previous fourth metatarsal ray partial amputation surgery. There was scar tissue and synovitis noted around the fourth ray amp site. Adequate bleeding noted. The metatarsals 1-2 did have cortical erosions. There was no evidence of osteomyelitis extending to the proximal metatarsals. No tracking up the extensor or flexor tendons. Poor to fair prognosis, given the patient's history of infection, amputation and non-compliance. Operative note:: On this date and time patient was deemed an appropriate surgical candidate. With informed consent signed, the patient was taken to the operating theater. The patient was positioned supine. General anesthesia was induced. Left mid-calf tourniquet used @225mmHg. Pre-op
[2021-01-04 15:39] LABS: POC Glucose,Bedside 191 (70-110)
--- NOTE | 2021-01-04 15:41 | HMH.ANESI ---
[facility] Anesthesia Record Part I Intake, IV Amount: 1,000 Estimated blood loss (mL): 5 Urine output (mL): 0 Blood Products used (#): none Blood Pressure: 123/79 SaO2: 93 Pulse Rate: 89 Respiratory Rate: 12 Temperature: 98.8 F Patient is:: Drowsy, Stable Stable to PACU at:: 15:33
--- NOTE | 2021-01-05 13:12 | HMH.ANESII ---
[facility] Anesthesia Record Part II Discharge Time: 15:53 Destination: [facility] PACU nurse assessment reviewed?: Yes Patient Condition:: Good Anesthesia Complications:: None Swallowing reflex intact?: Yes Cyanosis?: No Blood Pressure: 124/68 Pulse Rate: 89 Temperature: 97.5 F Mental Status: Alert & Oriented Pain level:: 0 Nausea and/or vomitting:: None Intake, IV Amount: 1,000
[2021-01-05 13:14] VITALS: BP 124/68; PULSE 89; TEMP 36.4
== END 2021-01-04 16:45 | disposition home or self-care (01) ==
PROVIDERS: PCP Nurse Practitioner Family; Visit Provider Podiatrist
DX: E11.621 Type 2 diabetes mellitus with foot ulcer (principal); L97.526 Non-pressure chronic ulcer of other part of left foot with bone involvement without evidence of necrosis; Z89.422 Acquired absence of other left toe(s); E11.42 Type 2 diabetes mellitus with diabetic polyneuropathy; M67.02 Short Achilles tendon (acquired), left ankle; M24.572 Contracture, left ankle; E11.65 Type 2 diabetes mellitus with hyperglycemia; Z91.19 Patient's noncompliance with other medical treatment and regimen; Z72.0 Tobacco use; Z79.4 Long term (current) use of insulin
CPT/HCPCS: 28805; 27606; 73630; 82962; 87070; 87077; 87186; 87205; 87581; 87633; 87798; 88305; 88311; 96374; J0692; J2405; J3370

== ENCOUNTER → 2021-01-24 12:10 | Outpatient (CLI) | payer MEDICARE, MEDICAID, SELFPAY ==
[2021-01-24 13:05] LABS: Basophils % 0.4 % (0.1-2.0); Eosinophils # 0.3 K/mm3 (0.0-0.4); Eosinophils % 3.4 % (0.1-12.0); Hematocrit 34.3 % (42.0-52.0); Hemoglobin 10.6 g/dL (14.1-18.0); Lymphocytes # 2.7 K/mm3 (0.7-4.5); Lymphocytes % 36.4 % (10-50); Mean Corpuscular HGB Conc 30.9 g/dL (31.8-35.4); Mean Corpuscular Hemoglobin 26.6 pg (27.0-31.2); Mean Platelet Volume 6.9 fl (7.4-10.4); Monocytes # 0.3 K/mm3 (0.1-1.0); Monocytes % 3.4 % (1.7-9.3); Neutrophils # 4.2 K/mm3 (1.8-7.8); Neutrophils % 56.5 % (37.0-80.0); Platelet Count 246 K/mm3 (142-424); Red Blood Count 3.99 M/mm3 (4.60-6.20); Red Cell Distribution Width 15.9 % (11.5-17.5); White Blood Count 7.4 K/mm3 (4.8-10.8)
[2021-01-24 13:11] LABS: Hemoglobin A1C 7.5 % (4.0-6.0)
[2021-01-24 13:29] LABS: Chloride 108 mmol/L (98-107); Sodium 141 mmol/L (136-145)
[2021-01-24 13:31] LABS: Blood Urea Nitrogen 16 mg/dl (9-20); Estimated Glomerular Filt Rate 84 ml/min (>60); GFR (African American) 102 ML/MIN (>60)
[2021-01-24 13:32] LABS: Alanine Aminotransferase 26 U/L (12-78); Albumin Level 4.4 g/dl (3.5-5.0); Albumin/Globulin Ratio 1.5 (1.1-1.8); Alkaline Phosphatase 84 U/L (38-126); Aspartate Amino Transferase 25 U/L (17-59); Bilirubin,Total 0.5 mg/dl (0.2-1.3); Calcium 10.1 mg/dl (8.4-10.2); Carbon Dioxide 25 mmol/L (22.0-30.0); Glucose 180 mg/dl (74-100); Total Protein,Serum 7.4 g/dl (6.3-8.2)
[2021-01-24 13:43] LABS: C-Reactive Protein 1.4 mg/L (0-4)
[2021-01-24 15:35] LABS: Erythrocyte Sedimentation Rate 66 mm/hr (0-15)
== END ==
PROVIDERS: Visit Provider Nurse Practitioner
DX: Z98.890 Other specified postprocedural states (principal); M25.559 Pain in unspecified hip; E11.9 Type 2 diabetes mellitus without complications
CPT/HCPCS: 36415; 80053; 83036; 85025; 85651; 86140

== ENCOUNTER 2021-02-10 08:00 | Outpatient (RCR) | payer MEDICARE, MEDICAID, SELFPAY ==
--- NOTE | 2021-01-16 11:51 | HMH.PTOPWND ---
Rehab Outpt Wound Evaluation Rehab OP Wound Evaluation Start: 01/16/21 11:30 Freq: Status: Active Protocol: Document 01/16/21 11:30 [email or web address] (Rec: 01/16/21 11:51 [email or web address] [id number]) Electronically Signed By Bobarnol Hernández, PT 01/16/21 11:30 Subjective/History History History This is the initial wound clinic evaluation for Wyatt Lara. Pt is a 35 y/o male referred to wound clinic s/p L TMA and R 1st met head wound, for wound care. Pt originally began having issues w/ L foot in January of 2019. Pt had wound that would not heal, which eventually caaused a blister w/ infxn. Pt ended up having L foot 4th toe removed. Pt continued to ambulate on foot and decreased healing allowing new infxn and osteomylitis. Pt had L TMA 01/04/21. Wound Eval Wound Left Distal Foot Wound Type Incision Wound Length (cm) 12 Wound Width (cm) 1.0 Number of Sutures 12 Percentage Granulated (%) 100 Wound Margins Description Well Defined Drainage Description Sanguineous Drainage Amount Moderate Drainage Odor No Odor Dressing Status Dry & Intact Primary Dressing vaseline gauze Wound Secondary Dressing Type Medicated Gauze Pad Comment iodophore Wound Debridement Amount of Tissue None Removed Dressing Change Date 01/16/21 Dressing Change Patient Tolerance Tolerated Well Right Medial Distal Foot Wound Type Diabetic Foot Ulcer Wound Length (cm) 1.5 Wound Width (cm) 1.0 Wound Bed Appearance [place] Percentage Granulated (%) 100 Primary Dressing medihoney Wound Secondary Dressing Type Absorbant Pad Comment optifoam lite Wound Debridement Method Sharps Wound Debridement Amount of Tissue Minimal Removed Wound Debridement Result Healthy Tissue Revealed, Stopped Due to Bleeding Wound Problems/Impairments Impairments Problems/Impairmments Impaired Gait Pattern,Impaired Walking,Impaired Standing, Impaired Household Care, Impaired Stair
== END 2021-04-19 14:37 | disposition home or self-care (01) ==
LOC: PT 08:00
PROVIDERS: PCP Nurse Practitioner Family; Visit Provider Podiatrist
DX: E11.621 Type 2 diabetes mellitus with foot ulcer (principal); L97.529 Non-pressure chronic ulcer of other part of left foot with unspecified severity; L97.519 Non-pressure chronic ulcer of other part of right foot with unspecified severity; E11.628 Type 2 diabetes mellitus with other skin complications; L08.9 Local infection of the skin and subcutaneous tissue, unspecified; Z79.4 Long term (current) use of insulin
CPT/HCPCS: 29580; 97162; 97597

== ENCOUNTER 2021-02-13 20:33 | Inpatient (IN) | payer MEDICARE, MEDICAID, SELFPAY ==
[2021-02-13 20:37] VITALS: BP 121/79; PULSE 110; RESP 16; TEMP 37.1; O2SAT 97; BMI 27.6
--- NOTE | 2021-02-13 20:55 | CT_ITS ---
PROCEDURE INFORMATION: Exam: CT Left Lower Extremity Without Contrast, Foot Exam date and time: 02/13/2021 8:55 PM Age: 35 years old Clinical indication: Prior surgery; Surgery date: 1-6 months; Surgery type: Left toes amputated 01/04/2021, missed wound care visit. Pain in remaining part of foot. TECHNIQUE: Imaging protocol: CT of the Left lower extremity without contrast was performed. Exam focused on the foot. 3D rendering (Not supervised by radiologist): MIP and/or 3D reconstructed images were created by the technologist. Radiation optimization: All CT scans at this facility use at least one of these dose optimization techniques: automated exposure control; mA and/or kV adjustment per patient size (includes targeted exams where dose is matched to clinical indication); or iterative reconstruction. COMPARISON: MR FOOT LT WO/W CON 01/02/2021 12:59 PM FINDINGS: Bones/joints: Transmetatarsal head amputation. The resected end of the distal 1st metatarsal is mildly indistinct compared to the other levels with small areas of bony resorption suspicious for osteomyelitis. Soft tissues: Infiltration and swelling soft tissues distal to the amputation, most pronounced around the 1st metatarsal head, probably active inflammation and infection. IMPRESSION: 1. Transmetatarsal head amputation. The resected end of the distal 1st metatarsal is mildly indistinct compared to the other levels with small areas of bony resorption suspicious for osteomyelitis. 2. Infiltration and swelling soft tissues distal to the amputation, most pronounced around the 1st metatarsal head, probably active inflammation and infection.
--- NOTE | 2021-02-13 21:09 | HMH.EDSKAF ---
ED Disposition Clinical Impression: Overweight (BMI 25.0-29.9), Tobacco use Osteomyelitis Qualifiers: Osteomyelitis type: unspecified type Osteomyelitis location: foot Laterality: left Qualified Code(s): M86.9 - Osteomyelitis, unspecified Type 2 diabetes mellitus Qualifiers: Diabetes mellitus parts counterman insulin use: with snf use Diabetes mellitus complication status: with other specified complication Qualified Code(s): E11.69 - Type 2 diabetes mellitus with other specified complication; Z79.4 - alf (current) use of insulin Disposition: Admitted as Observation Condition on Discharge: Serious - Critical Care Critical Care Time: No Attestation: On 02/13/21, the high probability of a clinically significant, sudden or life threatening deterioration of the following system(s) required my full and direct attention, intervention and personal management. The time I documented below is in addition to time spent performing reported procedures but includes the following listed in this critical care notation. Medical Decision Making - Medical Records Medical records reviewed: Yes: I reviewed the patient's medical records. - Dylon Inquiry Pt receiving controlled substance: No Vital Signs: 02/13/21 20:37 Temperature 98.7 F Temperature Source Oral Pulse Rate [Right] 110 H Respiratory Rate 16 Blood Pressure [Right Arm] 121/79 Blood Pressure Mean [Right Arm] 93 02 Sat by Pulse Oximetry 97 - Lab Data Lab results reviewed: Yes: I reviewed the patient's lab results. Lab Results 02/13/21 21:32: WBC 5.5, RBC 4.39 L, Hgb 11.6 L, Hct 36.7 L, MCV 83.7, MCH 26.5 L, MCHC 31.7 L, RDW 14.9, Plt Count 194, MPV 7.5, Neut % (Auto) 53.9, Lymph % (Auto) 37.9, [place] % (Auto) 4.7, Eos % (Auto) 3.1, Baso % (Auto) 0.5, Neut # (Auto) 2.9, Lymph # (Auto) 2.1, [place] # (Auto) 0.3, Eos # (Auto) 0.2, Baso # (Auto) 0.0, ESR 38 H 02/13/21 21:32: Sodium 136, Potassium 4.2, Chloride 101, Carbon Dioxide 31 H, Anion Gap 8.2, BUN 11, Creatinine 1.00, Estimated Creat Clear 140, Estimated GFR 84, Est GFR ( Amer) 102, Glucose 311 H, Calcium 9.6, Total Bilirubin 1.0, AST 33, ALT 28, Alkaline Phosphatase 108, C-Reactive Protein 6.0 H, Total Protein 7.4, Albumin 4.1, Globulin 3.3 H, Albumin/Globulin Ratio 1.2, Procalcitonin 0.079 02/13/21 21:32: Hemoglobin A1c 7.5 H Result diagrams: 02/13/21 21:32 02/13/21 21:32 Orders (Tests/Meds): ED MEDICATIONS Generic Name Dose Route Start Last Admin Trade Name Freq PRN Reason Stop Dose Admin Vancomycin HCl 1,500 mg/ 250 mls @ 125 mls/hr 02/13/21 22:30 02/13/21 22:35 Sodium Chloride IV 02/27/21 22:29 125 mls/hr Q12 TAMAR Administration Protocol ORDERS Category Date Time Status Full Resp Panel w/COVID ([facility]) Routine Lab 02/13/21 22:22 Received Lactic Acid Stat Lab 02/13/21 22:36 Received Blood Culture Stat Micro 02/13/21 22:36 Received - CT Data CT Scan: Other (foot ) Time Received: 22:[address] Reviewed: Yes: I have viewed the radiologist's interpretation Preliminary Findings: Abnormal (see report ) Medical Decision Narrative: will need iv abx and admit for infection and podiatry eval Skin/Abscess/FB HPI - General Chief complaint: Wound/Laceration Stated complaint: Surg L foot alot of pain Time Seen by Provider: 02/13/21 20:45 Mode of Arrival: Ambulatory Source of Information: Patient, Medical Record Limitations: No Limitations Description of Symptoms (Recalled from ER Triage Doc. by RN): pt have surgery on january 04 to remove remaining 4 toes on lt foot. pt states he went out of town and missed 2 wound care appointments. pt c/o of foot pain - History of Present Illness HPI narrative: pt has hx of lt foot surg -0n 01/04/21-pt has been followed by podiatry but missed op appts for wd care - pt reports he has been compliant with abx - over the last few days has reddness and inc pain to lt foot MD complaint: abscess/boil Onset (ago): day(s) Tetanus up to da
[2021-02-13 21:41] LABS: Basophils % 0.5 % (0.1-2.0); Eosinophils # 0.2 K/mm3 (0.0-0.4); Eosinophils % 3.1 % (0.1-12.0); Hematocrit 36.7 % (42.0-52.0); Hemoglobin 11.6 g/dL (14.1-18.0); Lymphocytes # 2.1 K/mm3 (0.7-4.5); Lymphocytes % 37.9 % (10-50); Mean Corpuscular HGB Conc 31.7 g/dL (31.8-35.4); Mean Corpuscular Hemoglobin 26.5 pg (27.0-31.2); Mean Corpuscular Volume 83.7 fl (80-94); Mean Platelet Volume 7.5 fl (7.4-10.4); Monocytes # 0.3 K/mm3 (0.1-1.0); Monocytes % 4.7 % (1.7-9.3); Neutrophils # 2.9 K/mm3 (1.8-7.8); Neutrophils % 53.9 % (37.0-80.0); Platelet Count 194 K/mm3 (142-424); Red Blood Count 4.39 M/mm3 (4.60-6.20); Red Cell Distribution Width 14.9 % (11.5-17.5); White Blood Count 5.5 K/mm3 (4.8-10.8)
[2021-02-13 21:55] LABS: Alanine Aminotransferase 28 U/L (12-78); Albumin Level 4.1 g/dl (3.5-5.0); Albumin/Globulin Ratio 1.2 (1.1-1.8); Alkaline Phosphatase 108 U/L (38-126); Anion Gap 8.2 mEq/L (5-15); Aspartate Amino Transferase 33 U/L (17-59); Blood Urea Nitrogen 11 mg/dl (9-20); Calcium 9.6 mg/dl (8.4-10.2); Carbon Dioxide 31 mmol/L (22.0-30.0); Chloride 101 mmol/L (98-107); Creatinine Clearance Estimated 140 mL/min (50-200); Estimated Glomerular Filt Rate 84 ml/min (>60); GFR (African American) 102 ML/MIN (>60); Globulin 3.3 g/dL (1.3-3.2); Glucose 311 mg/dl (74-100); Potassium 4.2 mmoL/L (3.5-5.1); Sodium 136 mmol/L (136-145); Total Protein,Serum 7.4 g/dl (6.3-8.2)
[2021-02-13 21:59] LABS: Hemoglobin A1C 7.5 % (4.0-6.0)
[2021-02-13 22:08] LABS: Erythrocyte Sedimentation Rate 38 mm/hr (0-15)
[2021-02-13 22:14] LABS: Procalcitonin 0.079 ng/mL (0.0-2.0)
[2021-02-13 22:26] LABS: Adenovirus,PCR Not Detected (NotDetected); Bordetella Pertussis Not Detected (NotDetected); Chlamydophila Pneumoniae, PCR Not Detected (NotDetected); Coronavirus 19, PCR Not Detected (NotDetected); Coronavirus 229E Not Detected (NotDetected); Coronavirus NL63 Not Detected (NotDetected); Coronavirus OC43 Not Detected (NotDetected); Coronovirus HKU1,PCR Not Detected (NotDetected); Human Metapneumovirus Not Detected (NotDetected); Influenza A, PCR Not Detected (NotDetected); Influenza AH1, 2009 Not Detected (NotDetected); Influenza AH1, PCR Not Detected (NotDetected); Influenza AH3,PCR Not Detected (NotDetected); Influenza B, PCR Not Detected (NotDetected); Mycoplasma Pneumoniae, PCR Not Detected (NotDetected); Parainfluenza 1, PCR Not Detected (NotDetected); Parainfluenza 2, PCR Not Detected (NotDetected); Parainfluenza 3, PCR Not Detected (NotDetected); Parainfluenza 4, PCR Not Detected (NotDetected); Respiratory Syncytial Virus Not Detected (NotDetected); Rhinovirus/Enterovirus Not Detected (NotDetected)
--- NOTE | 2021-02-13 22:28 | PC.NURSE ---
call placed nightwatch for vancomycin dosage secondary to dx: osteomyelitis. verbally received vancomycin 1500 q12h. notified.
[2021-02-13 22:52] LABS: Lactic Acid 1.9 mmol/L (0.7-2.1)
[2021-02-13 23:37] VITALS: BP 127/85; PULSE 87; O2SAT 98
[2021-02-14] VITALS (23 sets, daily range): BP systolic 106–143; BP diastolic 57–86; PULSE 75–95; RESP 15–18; TEMP 36.3–43; O2SAT 94–100; BMI 28.8
--- NOTE | 2021-02-14 01:32 | PC.NURSE ---
patient arrived to floor @ 01:03am.
--- NOTE | 2021-02-14 01:54 | PC.NURSE ---
pt does not know home meds and dosages, unable to do med rec at this time.
--- NOTE | 2021-02-14 01:54 | PC.WOUNDNOTE ---
Left foot, no drainage or odor.
--- NOTE | 2021-02-14 01:56 | PC.WOUNDNOTE ---
back of left foot, no drainage noted.
--- NOTE | 2021-02-14 01:56 | PC.WOUNDNOTE ---
Right foot, no drainage noted.
[2021-02-14 05:41] LABS: POC Glucose,Bedside 246 (70-110)
--- NOTE | 2021-02-14 06:07 | XR_ITS ---
PROCEDURE: XR FOOT RT MIN 3V CLINICAL INDICATION: DM ulcer COMPARISON: CR XR FOOT WT BEARING LT 3V from 12/15/2020 CR XR FOOT WT BEARING RT 3V from 12/15/2020 CR XR FOOT WT BEARING LT 3V from 12/29/2020 CR XR FOOT LT MIN 3V from 01/04/2021 FINDINGS: No acute fractures or dislocations. Bone density is normal. The tarsals, metatarsals and phalanges are unremarkable. There is minimal lucency noted on at the head of the proximal phalanx of the 1st digit. There is evidence of soft tissue swelling on the plantar aspect of the foot, predominantly at 1st and 2nd digits. No other focal erosive changes are noted. IMPRESSION: Soft tissue swelling adjacent to the 1st and 2nd metatarsophalangeal joints. Cellulitis is suspected. Minor lucency noted at the medial aspect of the head of the proximal phalanx of the 1st digit. Osteomyelitis should be considered. If clinically indicated, nuclear medicine bone scan or MRI of the foot without and with contrast should be considered for further evaluation. Dictated by: Radha Garg 02/14/2021 09:11 Radha Garg in OV 02/14/2021 09:11
[2021-02-14 06:40] LABS: Basophils % 0.4 % (0.1-2.0); Eosinophils # 0.2 K/mm3 (0.0-0.4); Eosinophils % 3.1 % (0.1-12.0); Hematocrit 33.7 % (42.0-52.0); Hemoglobin 10.7 g/dL (14.1-18.0); Lymphocytes # 2.3 K/mm3 (0.7-4.5); Lymphocytes % 42.6 % (10-50); Mean Corpuscular HGB Conc 31.9 g/dL (31.8-35.4); Mean Corpuscular Hemoglobin 26.7 pg (27.0-31.2); Mean Corpuscular Volume 83.7 fl (80-94); Mean Platelet Volume 7.4 fl (7.4-10.4); Monocytes # 0.2 K/mm3 (0.1-1.0); Monocytes % 4.3 % (1.7-9.3); Neutrophils # 2.6 K/mm3 (1.8-7.8); Neutrophils % 49.5 % (37.0-80.0); Platelet Count 198 K/mm3 (142-424); Red Blood Count 4.02 M/mm3 (4.60-6.20); Red Cell Distribution Width 14.8 % (11.5-17.5); White Blood Count 5.3 K/mm3 (4.8-10.8)
[2021-02-14 06:54] LABS: Anion Gap 5.4 mEq/L (5-15); Blood Urea Nitrogen 9 mg/dl (9-20); Carbon Dioxide 33 mmol/L (22.0-30.0); Chloride 104 mmol/L (98-107); Creatinine Clearance Estimated 162 mL/min (50-200); Estimated Glomerular Filt Rate 95 ml/min (>60); GFR (African American) 115 ML/MIN (>60); Glucose 192 mg/dl (74-100); Potassium 4.4 mmoL/L (3.5-5.1); Sodium 138 mmol/L (136-145)
--- NOTE | 2021-02-14 07:26 | P.CONPHA_ITS ---
[facility] Pharmacy VTE Monitoring - Patient Demographics Admission date: 02/14/21 Report Date: 02/14/21 Time: 07:26 Allergies/Adverse Reactions: Patient Allergies No Known Allergies Allergy (Verified 01/30/21 09:16) Height: 1.88 m Weight: 101.605 kg Patient Problems: Current Active Problems Overweight (BMI 25.0-29.9) (Acute) Osteomyelitis (Acute) Tobacco use (Acute) Type 2 diabetes mellitus (Acute) - VTE Risk Labs: VTE Related Lab Results Hgb 10.7 g/dL (14.1-18.0) L 02/14/21 06:07 Hct 33.7 % (42.0-52.0) L 02/14/21 06:07 Plt Count 198 K/mm3 (142-424) 02/14/21 06:07 BUN 9 mg/dl (9-20) 02/14/21 06:07 Creatinine 0.90 mg/dl (0.66-1.25) 02/14/21 06:07 Estimated Creat Clear 162 mL/min (50-200) 02/14/21 06:07 VTE Score: 2 VTE Risk Level: Low Risk - Prophylaxis VTE Prophylaxis Ordered?: Yes Types of VTE Prophylaxis: TEDS Knee High Location of Applied Device: Right Leg
--- NOTE | 2021-02-14 08:18 | HMH.PHACONS ---
- Pharmacy Consult Date: 02/14/21 Time: 08:18 Referring provider: DR. MESA Reason for Consult:: VANCOMYCIN DOSING Allergies and ADEs:: Allergies Allergy/AdvReac Type Severity Reaction Status Date / Time No Known Allergies Allergy Verified 01/30/21 09:16 Home Medications:: Home Medications Medication Instructions Recorded Confirmed Type insulin glargine 100 unit/mL 20 unit SQ HS ml 10/18/20 02/13/21 History subcutaneous solution Aspirin [Low Dose Aspirin EC] 81 mg PO DAILY 01/03/21 02/13/21 History minocycline 100 mg capsule 100 mg PO BID 14 Days #28 cap 01/04/21 02/13/21 Rx metformin 1,000 mg tablet 1,000 mg PO BID #180 tab 01/23/21 02/13/21 Rx clindamycin HCl 300 mg capsule 300 mg PO TID 14 Days #42 cap 01/27/21 02/13/21 Rx Simvastatin See Rx Instructions .ROUTE .COMPLEX 02/13/21 02/13/21 History glipiZIDE [Glucotrol 5mg tablet] See Rx Instructions .ROUTE BID 02/13/21 02/14/21 History lisinopriL [Lisinopril 2.5mg Tab] See Rx Instructions .ROUTE .COMPLEX 02/13/21 02/13/21 History Height: 1.88 m Weight: 101.605 kg Laboratory Results:: Laboratory Results - last 24 hr 02/13/21 21:32: WBC 5.5, RBC 4.39 L, Hgb 11.6 L, Hct 36.7 L, MCV 83.7, MCH 26.5 L, MCHC 31.7 L, RDW 14.9, Plt Count 194, MPV 7.5, Neut % (Auto) 53.9, Lymph % (Auto) 37.9, [place] % (Auto) 4.7, Eos % (Auto) 3.1, Baso % (Auto) 0.5, Neut # (Auto) 2.9, Lymph # (Auto) 2.1, [place] # (Auto) 0.3, Eos # (Auto) 0.2, Baso # (Auto) 0.0, ESR 38 H 02/13/21 21:32: Sodium 136, Potassium 4.2, Chloride 101, Carbon Dioxide 31 H, Anion Gap 8.2, BUN 11, Creatinine 1.00, Estimated Creat Clear 140, Estimated GFR 84, Est GFR ( Amer) 102, Glucose 311 H, Calcium 9.6, Total Bilirubin 1.0, AST 33, ALT 28, Alkaline Phosphatase 108, C-Reactive Protein 6.0 H, Total Protein 7.4, Albumin 4.1, Globulin 3.3 H, Albumin/Globulin Ratio 1.2, Procalcitonin 0.079 02/13/21 21:32: Hemoglobin A1c 7.5 H 02/13/21 22:22: Chlamy pneumoniae PCR Not detected, Adenovirus (PCR) Not detected, B. pertussis DNA (PCR) Not detected, Coronavirus OC43 (PCR) Not detected, Coronavirus HKU1 (PCR) Not detected, Coronavirus 229E (PCR) Not detected, SARS-CoV-2 (PCR) Not detected, Coronavirus NL63 (PCR) Not detected, Human Metapneumovir PCR Not detected, Influenza A (H1) PCR Not detected, Influ A (H1N1/09) PCR Not detected, Influenza A (H3) PCR Not detected, Influenza Type A (PCR) Not detected, Influenza Type B (PCR) Not detected, M. pneumoniae (PCR) Not detected, Parainfluenza 1 (PCR) Not detected, Parainfluenza 2 (PCR) Not detected, Parainfluenza 3 (PCR) Not detected, Parainfluenza 4 (PCR) Not detected, RSV (PCR) Not detected, Entero/Rhino (PCR) Not detected 02/13/21 22:36: Lactate 1.9 02/14/21 05:24: POC Glucose 246 H 02/14/21 06:07: WBC 5.3, RBC 4.02 L, Hgb 10.7 L, Hct 33.7 L, MCV 83.7, MCH 26.7 L, MCHC 31.9, RDW 14.8, Plt Count 198, MPV 7.4, Neut % (Auto) 49.5, Lymph % (Auto) 42.6, [place] % (Auto) 4.3, Eos % (Auto) 3.1, Baso % (Auto) 0.4, Neut # (Auto) 2.6, Lymph # (Auto) 2.3, [place] # (Auto) 0.2, Eos # (Auto) 0.2, Baso # (Auto) 0.0 02/14/21 06:07: Sodium 138, Potassium 4.4, Chloride 104, Carbon Dioxide 33 H, Anion Gap 5.4, BUN 9, Creatinine 0.90, Estimated Creat Clear 162, Estimated GFR 95, Est GFR ( Amer) 115, Glucose 192 H D, Calcium 9.0 Medical History: Reports:: Cancer, Diabetes Mellitus Type 2 Denies:: Diabetes Mellitus Type 1, Internal Pacemaker, MRSA, Seizures Assessment and Plan - Assessment and plan all Dx Assessment and Plan for all problems:: Age: 35 yo Serum creatinine: 0.9 mg/dL Height: 74.0 Inches Weight (kg): 101.6 Assessment: IBW (kg): 82.20 Dosing wt(kg): 101.6 Estimated Creatinine clearance (ml/min): 130 Clearance limited to 130 ml/min to reduce risk of overdosing. CRCL method: Cockcroft and Gault using ibw(default). Drug selected: Vancomycin Loading dose (mg): 0 Vd (liters): 81.3 (factor used: 0.8 L/kg) Cody (hr-1): 0.112 Half life (
--- NOTE | 2021-02-14 08:31 | HMH.ORTHOCON ---
*Admission Date: 02/14/21 *Reason for consult:: Left foot osteomyelitis *History of present illness: Patient is a 35-year-old diabetic male who underwent a left transmetatarsal amputation on 01/04/2021. Patient went out of town this past week and missed several wound care appointments. He reports swelling. States he did not change the dressing and over week. He presented to the ED 02/13/2021 with complaints of increased swelling and concern of infection. Patient denies nausea vomiting, fever chills, shortness of breath or chest pain. [facility] History I have reviewed the patient's past medical history: Yes Medical History: Reports:: Cancer, Diabetes Mellitus Type 2 Denies:: Diabetes Mellitus Type 1, Internal Pacemaker, MRSA, Seizures *Have you ever received a pneumonia vaccine?: No *Have you received a flu vaccine this season?: No Other Medical History: Reports: Chemotherapy, Radiation Therapy. Denies: Blood Transfusion Reaction Laterality Cases: Right: Lumpectomy, Other Other Surgeries: Yes: Other. No: Pacemaker Amputation: Yes (lrft foot fourth toe) Fractures: No - *Social History Last grade of school completed: Some college Smoking Status: Current every day smoker Tobacco Type: cigarettes # Packs/Day (cigarettes): 1 #Yrs smoked (if former smoker): 13 Alcohol Intake: current Alcohol Intake Frequency:: holidays/special occasions only Substance Use Type: marijuana *Occupational Status:: disabled Housing: house Household Members: friend(s) *Travel in the last 8 weeks: Inside the [facility] ([place]) - Psychiatric History Pschychiatric History:: Reports:: Psychiatric Treatment Family Hx:: Coronary Artery Disease Review of Systems - Review of Systems Review of systems:: pertinent systems reviewed and negative unless documented below - Constitutional Denies chills, Denies fever(s) - Eyes Denies blurry vision - ENT Reports dry mouth - *Cardiovascular Denies chest pain, Denies shortness of breath - *Respiratory Denies shortness of breath - *Gastrointestinal Denies nausea, Denies vomiting - *Musculoskeletal Reports joint swelling, Reports numbness, Reports tingling - Integumentary/Breasts Reports hair loss, Reports nail changes, Reports dry skin, Reports skin ulcer, Reports wounds - *Neurologic Reports tingling/numbness/burning sensations, Denies abnormal walking - Psychiatric Denies abnormal sleep pattern - Endocrine Reports cold intolerance - Hematologic/Lymphatic Reports easy bruising - Allergic/Immunologic Reports GI upset with certain foods Meds Home Medications Medication Instructions Recorded Confirmed Type insulin glargine 100 unit/mL 20 unit SQ HS ml 10/18/20 02/13/21 History subcutaneous solution Aspirin [Low Dose Aspirin EC] 81 mg PO DAILY 01/03/21 02/13/21 History minocycline 100 mg capsule 100 mg PO BID 14 Days #28 cap 01/04/21 02/13/21 Rx metformin 1,000 mg tablet 1,000 mg PO BID #180 tab 01/23/21 02/13/21 Rx clindamycin HCl 300 mg capsule 300 mg PO TID 14 Days #42 cap 01/27/21 02/13/21 Rx Simvastatin See Rx Instructions .ROUTE .COMPLEX 02/13/21 02/13/21 History glipiZIDE [Glucotrol 5mg tablet] See Rx Instructions .ROUTE BID 02/13/21 02/14/21 History lisinopriL [Lisinopril 2.5mg Tab] See Rx Instructions .ROUTE .COMPLEX 02/13/21 02/13/21 History Allergies Allergy/AdvReac Type Severity Reaction Status Date / Time No Known Allergies Allergy Verified 01/30/21 09:16 Exam Vital signs and Labs for Last 24 Hours: Temp Pulse Resp BP Pulse Ox 98.1 F 83 18 120/70 99 02/14/21 07:31 02/14/21 07:31 02/14/21 07:31 02/14/21 07:31 02/14/21 07:31 Laboratory Results - last 24 hr 02/13/21 21:32: WBC 5.5, RBC 4.39 L, Hgb 11.6 L, Hct 36.7 L, MCV 83.7, MCH 26.5 L, MCHC 31.7 L, RDW 14.9, Plt Count 194, MPV 7.5, Neut % (Auto) 53.9, Lymph % (Auto) 37.9, [place] % (Auto) 4.7, Eos % (Auto) 3.1, Baso % (Auto) 0.5, Neut # (Auto) 2.9, Lymph # (Auto) 2.1, [place] # (Auto) 0.3, Eos #
--- NOTE | 2021-02-14 09:42 | CT_ITS ---
PROCEDURE: CT FOOT RT WO CON CLINICAL HISTORY: DM ulcer, r/o Osteomyelitis 1st metatarsal COMPARISON: X-ray of the right foot dated January 05, 2012. TECHNIQUE: Axial images obtained with sagittal and coronal reformats. All CT scans at the facility use one or more dose reduction, viz: automated exposure control, ma/kV adjustment per patient size (including targeted exams where dose is matched to indication, i.e. head), or iterative reconstruction technique. FINDINGS: Significant plantar soft tissue edema and skin thickening is noted at the 1st, 2nd and 3rd MTP joints, worse at the 1st MTP joint. There is minor cortical irregularity without evidence of disruption at the head of the 1st metatarsal. No evidence of bony erosive changes noted in the metatarsal heads or proximal phalanges. There is minor sclerosis of the ossicles noted at the head of the 1st metatarsal. Soft tissue swelling of the 1st digit is noted. There is a subcutaneous soft tissue and skin defect noted at the plantar soft tissues of the 1st MTP joint, consistent with known ulcer. Soft tissue swelling encases the flexor hallucis longus. Otherwise the rest of the flexor tendons are unremarkable. The extensor tendons appear unremarkable. There is minor heterogeneous soft tissue edema is noted on the plantar and lateral aspect of the 5th MTP joint. IMPRESSION: Findings are consistent with cellulitis, predominantly at the 1st MTP joint. There is minimal cortical thinning with irregularity of base of the 1st metatarsal. No evidence of erosions or destruction. This may be reactive secondary to cellulitis but early osteomyelitis should be considered. Dictated by: Radha Garg 02/14/2021 10:46 Radha Garg in OV 02/14/2021 10:46
--- NOTE | 2021-02-14 11:10 | HMH.HP ---
*Admission Date: 02/14/21 *Chief complaint: foot pain *History of present illness: 35-year-old male presented to ed with c/o of increase in swelling and concerns of infection. Pt states he had a left transmetatarsal amputation on 01/04/2021. Patient states he was out of town this past week and missed several wound care appointments. Patient states he did not change the dressing and over week. Patient denies nausea vomiting, fever chills, shortness of breath or chest pain. Pt admitted for eval, iv antibiotics and podiotry consult [facility] History I have reviewed the patient's past medical history: Yes Medical History: Reports:: Cancer, Diabetes Mellitus Type 2 Denies:: Diabetes Mellitus Type 1, Internal Pacemaker, MRSA, Seizures *Have you ever received a pneumonia vaccine?: No *Have you received a flu vaccine this season?: No Other Medical History: Reports: Chemotherapy, Radiation Therapy. Denies: Blood Transfusion Reaction Laterality Cases: Right: Lumpectomy, Other Other Surgeries: Yes: Other. No: Pacemaker Amputation: Yes (lrft foot fourth toe) Fractures: No - *Social History Last grade of school completed: Some college Smoking Status: Current every day smoker Tobacco Type: cigarettes # Packs/Day (cigarettes): 1 #Yrs smoked (if former smoker): 13 Alcohol Intake: current Alcohol Intake Frequency:: holidays/special occasions only Substance Use Type: marijuana *Occupational Status:: disabled Housing: house Household Members: friend(s) *Travel in the last 8 weeks: Inside the [facility] ([place]) - Psychiatric History Pschychiatric History:: Reports:: Psychiatric Treatment Family Hx:: Coronary Artery Disease Review of Systems - Review of Systems Review of systems:: pertinent systems reviewed and negative unless documented below - Constitutional Denies body ache(s), Denies fever(s) - Eyes Denies change in vision, Denies pain - ENT Denies nasal discharge - *Cardiovascular Denies chest pain at rest - *Respiratory Denies chest congestion - *Gastrointestinal Denies nausea, Denies vomiting - *Genitourinary Denies urinary frequency - *Musculoskeletal Denies joint pain, Denies back pain - Integumentary/Breasts Reports sores, Reports other - *Neurologic Reports numbness, Reports tingling/numbness/burning sensations, Reports tingling, Denies abnormal walking - Psychiatric Denies lack of enjoyment, Denies hopelessness - Endocrine Denies flushing - Hematologic/Lymphatic Denies enlarged lymph nodes - Allergic/Immunologic Denies lip swelling Meds Home Medications Medication Instructions Recorded Confirmed Type insulin glargine 100 unit/mL 20 unit SQ HS ml 10/18/20 02/13/21 History subcutaneous solution Aspirin [Low Dose Aspirin EC] 81 mg PO DAILY 01/03/21 02/13/21 History metformin 1,000 mg tablet 1,000 mg PO BID #180 tab 01/23/21 02/13/21 Rx Simvastatin 5 mg PO HS 02/13/21 02/14/21 History glipiZIDE [Glucotrol 5mg tablet] 5 mg PO DAILY 02/13/21 02/14/21 History lisinopriL [Lisinopril 2.5mg Tab] 2.5 mg PO DAILY 02/13/21 02/14/21 History clindamycin HCL [Clindamycin HCl] 300 mg PO TID 02/14/21 02/14/21 History Allergies Allergy/AdvReac Type Severity Reaction Status Date / Time No Known Allergies Allergy Verified 01/30/21 09:16 Exam Vital signs and Labs for Last 24 Hours: Temp Pulse Resp BP Pulse Ox 98.1 F 83 18 120/70 99 02/14/21 07:31 02/14/21 07:31 02/14/21 07:31 02/14/21 07:31 02/14/21 07:31 Laboratory Results - last 24 hr 02/13/21 21:32: WBC 5.5, RBC 4.39 L, Hgb 11.6 L, Hct 36.7 L, MCV 83.7, MCH 26.5 L, MCHC 31.7 L, RDW 14.9, Plt Count 194, MPV 7.5, Neut % (Auto) 53.9, Lymph % (Auto) 37.9, [place] % (Auto) 4.7, Eos % (Auto) 3.1, Baso % (Auto) 0.5, Neut # (Auto) 2.9, Lymph # (Auto) 2.1, [place] # (Auto) 0.3, Eos # (Auto) 0.2, Baso # (Auto) 0.0, ESR 38 H 02/13/21 21:32: Sodium 136, Potassium 4.2, Chloride 101, Carbon Dioxide 31 H, Anion Gap 8.2, BUN 11, Creatinine 1.
[2021-02-14 11:57] LABS: POC Glucose,Bedside 121 (70-110)
--- NOTE | 2021-02-14 13:20 | HMH.PHAINT ---
MEDICATION RECONCILIATION COMPLETED ON PATIENT USING EXTERNAL FILL HISTORY FROM PHARMACY AND LIST FROM MD OFFICE. -ZONIA CAMEJOD
--- NOTE | 2021-02-14 14:19 | P.PN_ITS ---
[facility] Anesthesia Checklist - Patient Identification Patient Identification: Arm Band - Structural Data Admitted From: Home Planned Operative Procedure/s: Left Revision of Transmetatarsal Amputation, Right Foot Ulcer Debridement Consent for Planned Operative Procedure(s) Verified: Yes Verified Documents: Surgical Consent, History and Physical - NPO Status Verified Time NPO: 00:00 - Additional verifications Anesthesia Reactions: No Hx Blood Transfusions: Yes Blood Transfusion Reaction: No - Airway Assessment C-Spine Mobility Assessed: Yes (mp2) TMJ Mobility Assessed: Yes Dentition: Good Dentition - Neurological Assessment Level of Consciousness: Awake, Alert - Anesthesia Plan Anesthesia Risk discussed: Yes Anesthesia Plan: Verified ASA Class: III Anesthesia Type: General [facility] History I have reviewed the patient's past medical history: Yes Medical History: Reports:: Cancer, Diabetes Mellitus Type 2 Denies:: Diabetes Mellitus Type 1, Internal Pacemaker, MRSA, Seizures *Have you ever received a pneumonia vaccine?: No *Have you received a flu vaccine this season?: No Other Medical History: Reports: Chemotherapy, Radiation Therapy. Denies: Blood Transfusion Reaction Anesthesia experience/problems:: nac Laterality Cases: Right: Lumpectomy, Other Other Surgeries: Yes: Other. No: Pacemaker Amputation: Yes (lrft foot fourth toe) Fractures: No - *Social History Last grade of school completed: Some college Smoking Status: Current every day smoker Tobacco Type: cigarettes # Packs/Day (cigarettes): 1 #Yrs smoked (if former smoker): 13 Alcohol Intake: current Alcohol Intake Frequency:: holidays/special occasions only Substance Use Type: marijuana *Occupational Status:: disabled Housing: house Household Members: friend(s) *Travel in the last 8 weeks: Inside the [facility] ([place]) - Psychiatric History Pschychiatric History:: Reports:: Psychiatric Treatment Family Hx:: Coronary Artery Disease
--- NOTE | 2021-02-14 15:40 | P.PN_ITS ---
[facility] Anesthesia Record Part I Intake, IV Amount: 1,000 Estimated blood loss (mL): 10 Urine output (mL): 0 Blood Pressure: 124/70 SaO2: 94 Pulse Rate: 95 Respiratory Rate: 16 Temperature: 98.7 F Patient is:: Drowsy, Stable Stable to PACU at:: 15:35
--- NOTE | 2021-02-14 15:44 | XR_ITS ---
PROCEDURE: XR FOOT RT MIN 3V CLINICAL INDICATION: Post op biospy COMPARISON: CR XR FOOT WT BEARING LT 3V from 12/15/2020 CR XR FOOT WT BEARING LT 3V from 12/29/2020 CR XR FOOT LT MIN 3V from 01/04/2021 CR XR FOOT RT MIN 3V from 02/14/2021 FINDINGS: No acute fractures or dislocations. Bone density is normal. The tarsals, metatarsals and phalanges are unremarkable. Soft tissue soft tissue swelling on the plantar aspect of the foot. IMPRESSION: Soft tissue swelling on the plantar aspect of the right foot adjacent to the 1st MTP joint. Dictated by: Radha Garg 02/14/2021 16:45 Radha Garg in OV 02/14/2021 16:45
--- NOTE | 2021-02-14 15:44 | XR_ITS ---
PROCEDURE: XR FOOT LT MIN 3V CLINICAL INDICATION: Post op TMA COMPARISON: CR XR FOOT WT BEARING LT 3V from 12/15/2020 CR XR FOOT WT BEARING LT 3V from 12/29/2020 CR XR FOOT LT MIN 3V from 01/04/2021 CR XR FOOT RT MIN 3V from 02/14/2021 FINDINGS: Transmetatarsal amputation of the left foot is noted with multiple surgical janie and drain placement. Bone density is normal. The visualized tarsals are unremarkable. Soft tissue swelling adjacent to the surgical site, likely postsurgical changes. IMPRESSION: Postsurgical changes with transmetatarsal amputation. Dictated by: Radha Garg 02/14/2021 16:46 Radha Garg in OV 02/14/2021 16:46
--- NOTE | 2021-02-14 15:48 | HMH.OPNOTE ---
Date of procedure: 02/14/21 Pre-op Diagnosis:: 1. Left foot osteomyelitis 2. Left TMA on 01/04/21 with wound dehiscence 3. Right foot/sub 1st metatarsal diabetic ulcer 4. Right foot osteomyelitis 5. Right toenail dystrophy, onychomycosis Post-op Diagnosis:: Same Procedure performed:: 1. Left foot revision of TMA 2. Left foot irrigation and debridement 3. Left foot/metatarsal bone biopsy 4. Left foot application of VIDHYA drain 5. Right excision of ulcer, delayed primary closure 6. Right 1st metatarsal bone biospy 7. Right toenail debridement x5 Surgeon:: Essence Benavides DPM CHAIRMAN & [employer]IE[employer] EXECUTIVE OFFICER:: Angel Smart Anesthesia: GETA, local (30cc 0.5% marcaine plain) Estimated blood loss (mL): 30 Clinical Note:: LEFT TMA on 01/04/21, Recurrent OM, RIGHT DM sub 1st metatarsal ulcer: Patient is a 35-year-old male who was admitted 02/13/2021 for left foot osteomyelitis. Patient was out of town and no showed several wound care and office visits. Patient has a history of noncompliance with multiple surgeries and amputations. New imaging of the left foot showed osteomyelitis. New right foot x-rays and a CT scan was obtained 02/14/2021 which showed some cellulitis but consider early osteomyelitis. We discussed conservative versus surgical treatment options. We discussed compliance with antibiotics and showing up to appointments. We discussed surgical intervention for revision of the left transmetatarsal amputation site and debridement of the right diabetic ulcer. Patient understands that there is a chance that the foot may change shape after surgery. Patient also understands that they could have wound healing complications including delayed healing and infection. We discussed that if the wound does not heal, it is possible that they may need a more proximal amputation and could result in further loss of digits, loss of partial foot or loss of leg. We discussed the risks and benefits in great detail. Other surgical risks include: prolonged pain and swelling, further infection requiring oral or IV antibiotics, delay in healing of soft tissue or bone, nerve or blood vessel damage, CRPS/RSD, DVT, anesthesia complications, and even . All questions answered. Patient verbalized understanding. Consent obtained. PCP Dr. Christopher granted medical clearance. 10/11/20, s/p left foot incision and drainage, left sub 5th metatarsal ulcer debridement/excision with delayed primary closure WCx, right sub 1st met 12/15/20: Staph epi WCx, left hallux 12/15/20: Enterobacter cloacae Left 3rd toe bone culture, 12/29/20: Pseudomonas aeruginosa, Enterobacter cloacae Intra-op specimens: 01/04/21, left TMA, SHILO, I&D Left toes bone culture: Bacillus cereus, metatarsal bone culture: Pseudomonas aeruginosa Left toes pathology: Grossly necrotic soft tissue with focal ulcer and underlying bone without acute osteomyelitis. Skin and soft tissue margins viable Left metatarsal proximal margin pathology: Viable soft tissue and bone without acute osteomyelitis. Operative findings:: Both feet were dirty with some questionable animal hair noted to the plantar aspect of the feet. The right subfirst metatarsal had a diabetic ulcer which was sharply excisionally debrided with a 15 blade and forceps. Post debridement wound was 100% granular and extended from skin into/involving subcutaneous tissue. It did not extend into the deep fascia or to the bone. Post debridement the wound was 100% granular and measured 1.0 x 0.6 x 0.1 cm, healthy bleeding noted. No purulence malodor or signs of infection to the right ulcer. Right first metatarsal was soft but no obvious evidence of purulence from the metatarsal biopsy site. Previous left transmetatarsal amputation with central TMA wound dehiscence. The wound dehiscence was 100% fibrotic and measured 0.5 x 0.5 x 0.2 cm. Wound excised full thickness thru skin, subq, deep fascia down to the level of the bone, 1.5cm deep. There was scar tissue and synovitis noted around the first metatarsal amp site
[2021-02-14 16:00] LABS: POC Glucose,Bedside 164 (70-110)
[2021-02-14 17:00] LABS: POC Glucose,Bedside 175 (70-110)
--- NOTE | 2021-02-14 17:54 | PC.NURSE ---
THIS RN RECEIVED A PHONE CALL FROM CRISSY IN LAB. PER CRISSY, ORDERS FOR WOUND CULTURES NEED TO BE CHANGED TO TISSUE CULTURES AND EACH SPECIMEN NEEDS ITS OWN ORDER. THIS RN SPOKE WITH DR. LUCAS, DR. LUCAS WILL CALL CRISSY IN LAB.
[2021-02-14 21:15] LABS: POC Glucose,Bedside 345 (70-110)
--- NOTE | 2021-02-15 03:37 | PC.NURSE ---
pt AxOx4, remains on room air, IS placed at bedside, pt educated on the use, and verbalized understanding, dressings to BLE, C/D/I, VIDHYA drain in place to LLE with sanguineous drainage noted, pt has required IV pain medications 2 x this shift
[2021-02-15 04:00] VITALS: BP 128/68; PULSE 83; RESP 16; TEMP 36.8; O2SAT 98
[2021-02-15 04:57] VITALS: BMI 29.0
[2021-02-15 05:22] LABS: POC Glucose,Bedside 219 (70-110)
[2021-02-15 06:36] LABS: Basophils % 0.3 % (0.1-2.0); Eosinophils # 0.1 K/mm3 (0.0-0.4); Eosinophils % 0.9 % (0.1-12.0); Lymphocytes # 1.9 K/mm3 (0.7-4.5); Lymphocytes % 21.8 % (10-50); Mean Corpuscular HGB Conc 31.5 g/dL (31.8-35.4); Mean Corpuscular Hemoglobin 26.5 pg (27.0-31.2); Mean Corpuscular Volume 84.1 fl (80-94); Mean Platelet Volume 7.9 fl (7.4-10.4); Monocytes # 0.3 K/mm3 (0.1-1.0); Monocytes % 3.6 % (1.7-9.3); Neutrophils # 6.4 K/mm3 (1.8-7.8); Neutrophils % 73.4 % (37.0-80.0); Platelet Count 219 K/mm3 (142-424); Red Blood Count 4.16 M/mm3 (4.60-6.20); White Blood Count 8.7 K/mm3 (4.8-10.8)
[2021-02-15 06:51] LABS: Erythrocyte Sedimentation Rate 60 mm/hr (0-15)
[2021-02-15 06:58] LABS: Alanine Aminotransferase 28 U/L (12-78); Albumin Level 3.7 g/dl (3.5-5.0); Albumin/Globulin Ratio 1.2 (1.1-1.8); Alkaline Phosphatase 98 U/L (38-126); Anion Gap 7.2 mEq/L (5-15); Aspartate Amino Transferase 29 U/L (17-59); Bilirubin,Total 0.6 mg/dl (0.2-1.3); Blood Urea Nitrogen 11 mg/dl (9-20); Calcium 9.2 mg/dl (8.4-10.2); Carbon Dioxide 29 mmol/L (22.0-30.0); Chloride 103 mmol/L (98-107); Creatinine Clearance Estimated 147 mL/min (50-200); Estimated Glomerular Filt Rate 84 ml/min (>60); GFR (African American) 102 ML/MIN (>60); Globulin 3.1 g/dL (1.3-3.2); Glucose 246 mg/dl (74-100); Potassium 4.2 mmoL/L (3.5-5.1); Sodium 135 mmol/L (136-145); Total Protein,Serum 6.8 g/dl (6.3-8.2)
[2021-02-15 07:03] LABS: C-Reactive Protein 8.8 mg/L (0-4)
[2021-02-15 08:00] VITALS: BP 134/86; PULSE 95; RESP 18; TEMP 36.8; O2SAT 97
--- NOTE | 2021-02-15 08:21 | HMH.ORTHPN ---
Subjective Date: 02/15/21 <Yisel Mcghee - 02/15/21 08:24> Time: 08:21 <Yisel Mcghee - 02/15/21 08:24> Principal diagnosis: L foot cellulitis (TMA), RF DM ulcer <Yisel Mcghee - 02/15/21 08:24> Interval history: POD#1 Date of procedure 02/14/2021 S/P::Left foot revision of TMA, Left foot irrigation and debridement, Left foot/metatarsal bone biopsy , Left foot application of VIDHYA drain Right excision of ulcer, delayed primary closure, Right 1st metatarsal bone biospy, Right toenail debridement x5. Patient resting in bed this morning, just finished breakfast doing very well denies any pain to bilateral feet denies any N/V/D/F. The edema has improved this morning as well as the erythema. Left TMA site, Sutures and janie are intact. VIDHYA draining well, RN stated that he had 20-25ml out over night. The Right foot DM ulcer has been excised and sutures are intact. No edema but mild erythema noted. I cleaned the sites well with betadine and used vaseline gauze over the sutures, Betadine soaked 4 x 4, dry 4 x 4, Kerlix and Memo wrap to both feet. Patient states he is tolerating IV antibiotics well with no GI disturbance. <Yisel Mcghee - 02/15/21 09:07> PN: Obj Ex Vital signs: Temp Pulse Resp BP Pulse Ox 98.7 F 95 H 18 138/69 97 02/15/21 10:25 02/15/21 10:25 02/15/21 08:00 02/15/21 10:25 02/15/21 08:00 <Essence Benavides - 02/15/21 11:37> Temp Pulse Resp BP Pulse Ox 98.2 F 83 16 128/68 98 02/15/21 04:00 02/15/21 04:00 02/15/21 04:00 02/15/21 04:00 02/15/21 04:00 <Yisel Mcghee - 02/15/21 08:24> - Constitutional no acute distress <Yisel Mcghee - 02/15/21 10:25> - Routine HEENT Exam Head: Present: normocephalic <Yisel Mcghee - 02/15/21 10:25> Eye: Present: EOMI <Yisel Mcghee - 02/15/21 10:25> ENT: Present: mucous membranes moist <Yisel Mcghee - 02/15/21 10:25> - Routine Neck Exam Present: supple, full ROM, trachea midline <Yisel Mcghee 02/15/21 10:25> - Routine Respiratory Exam Absent: accessory muscle use, respiratory distress <Yisel Mcghee 02/15/21 10:25> - Routine Cardiovascular Exam Present: RRR <Yisel Mcghee 02/15/21 10:25> - Routine Abdominal Exam Present: soft <Yisel Mcghee 02/15/21 10:25> - Routine Extremities Exam Present: pulses intact, normal capillary refill, amputation (Left TMA). Absent: calf tenderness <Yisel Mcghee 02/15/21 10:25> - Detailed Lower Extremity Exam Bottom foot image: 1 - S/P Right excision of ulcer, delayed primary closure, Right 1st metatarsal bone biospy, Right toenail debridement x5. POD#1- sutures are intact, no drainage noted today. No edema, mild erythema noted. Site was cleaned with Betadine, dressed with Vaseline gauze over the sutures, Betadine soaked 4 x 4, dry 4 x 4 and Memo wrap. 2 - S/P 02/14/21- Left TMA revision, foot irrigation and debridement, Left foot/metatarsal bone biopsy, Left foot application of VIDHYA drain. Site has less edema and erythema today. Sutures and janie are intact. Small amount of bloody drainage noted to site when compressed. Site cleaned with Betadine, Vaseline gauze applied to suture and janie and suture line, Betadine soaked 4 x 4, dry 4 x 4, Kerlix and Memo wrap was then applied to the site. <Yisel Mcghee 02/15/21 10:25> - Routine Back/Spine/Pelvis Exam Back/Spine: Present: full ROM <Yisel Mcghee 02/15/21 10:25> - Routine Psychiatric Exam Present: normal affect, cooperative <Yisel Mcghee 02/15/21 10:25> Progress Note: A&P (1) Chronic osteomyelitis of left foot Status: Acute (2) Pseudomonas aeruginosa infection Status: Acute (3) Infection due to Bacillus cereus Status: Acute (4) Type 2 diabetes mellitus Status: Acute (5) Cellulitis of left foot Status: Acute (6) Diabetic foot infection Status: Acute (7) Edema
[2021-02-15 09:10] LABS: Anion Gap 10.5 mEq/L (5-15); Blood Urea Nitrogen 11 mg/dl (9-20); Calcium 9.1 mg/dl (8.4-10.2); Carbon Dioxide 29 mmol/L (22.0-30.0); Chloride 101 mmol/L (98-107); Creatinine Clearance Estimated 147 mL/min (50-200); Estimated Glomerular Filt Rate 84 ml/min (>60); GFR (African American) 102 ML/MIN (>60); Glucose 299 mg/dl (74-100); Potassium 4.5 mmoL/L (3.5-5.1); Sodium 136 mmol/L (136-145)
[2021-02-15 09:17] LABS: Vancomycin,Trough 17.1 ug/mL (5.0-10.0)
--- NOTE | 2021-02-15 09:59 | HMH.PTEV ---
Physical Therapy Evaluation Rehab PT IP Evaluation Start: 02/14/21 15:37 Freq: ONCE Status: Active Protocol: Document 02/15/21 09:54 PHOLISA (Rec: 02/15/21 09:59 PHORSTALIN [id number]) Subjective/History History History 35 yowm adm with B foot wounds now S/P L TMA revision with I &D, I&D to R great toe as well . He is independent with all mobility prior to adm. Subjective Subjective Pt reports pain increased after wound care this am. Rehab PT IP Eval Objective Appearance Patient Behavior Appropriate Patient Orientation Person,Place,Time Difficulty following instructions none Speech Pattern Clear Ambulation Patient Able to Ambulate Yes Ambulation Observation IP General Gait Pattern Observation Antalgic Gait,Decrease Weight Bear (R),Decrease Weight Bear (L) Ambulation Distance (feet) 10 Ambulation Assistive Device Standard Walker Ambulation Ability Supervision/Stand by Balance Ability to Arise Able, w/o using arms Sitting Balance Steady, safe Standing Balance Steady, wide stance Dynamic Sitting Balance Ability Good Dynamic Standing Balance Ability Good Transfers Bed Transfer Ability Supervision/Stand by Chair Transfer Ability Supervision/Stand by Sit to Stand Bed Transfer Ability Supervision/Stand by Sit to Stand Chair Transfer Ability Supervision/Stand by ROM All Extremities PT ROM Status WFL MMT LLE PT MMT WFL Rehab PT IP prob,goals,plan Problems Date of Evaluation: 02/15/21 PT IP Problems Transfers,Gait,Balance,Self care Rehab Potential Rehab Potential Good Plan PT Intervention Plan Bed Mobility,Transfers,Gait, Balance,Self care,Therapeutic Exercise PT Plan Frequency BID Duration LOS Discharge Goals Bed Transfer Ability Independent Sit to Stand Chair Transfer Ability Independent Ambulation Assistive Device Standard Walker Ambulation Distance (feet) 20 Discharge Plan PT Discharge Plan Pt is appropriate for rehab placement, but could return home if transport available for return to hospital for infusion of abx. He requires cues to maintain his WB status c
--- NOTE | 2021-02-15 10:24 | HMH.ANESII ---
[facility] Anesthesia Record Part II Discharge Time: 16:05 Destination: Medical Surgical Department PACU nurse assessment reviewed?: Yes Patient Condition:: Good Anesthesia Complications:: None Swallowing reflex intact?: Yes Cyanosis?: No Blood Pressure: 138/69 Pulse Rate: 95 Temperature: 98.7 F Mental Status: Alert & Oriented Pain level:: 0 Nausea and/or vomitting:: None Intake, IV Amount: 0
[2021-02-15 10:25] VITALS: BP 138/69; PULSE 95; TEMP 37.1
--- NOTE | 2021-02-15 10:47 | HMH.PHACONS ---
- Pharmacy Consult Date: 02/15/21 Time: 10:47 Referring provider: DR. MESA Reason for Consult:: VANCOMYCIN TROUGH LEVEL Allergies and ADEs:: Allergies Allergy/AdvReac Type Severity Reaction Status Date / Time No Known Allergies Allergy Verified 01/30/21 09:16 Home Medications:: Home Medications Medication Instructions Recorded Confirmed Type insulin glargine 100 unit/mL 20 unit SQ HS ml 10/18/20 02/13/21 History subcutaneous solution Aspirin [Low Dose Aspirin EC] 81 mg PO DAILY 01/03/21 02/13/21 History metformin 1,000 mg tablet 1,000 mg PO BID #180 tab 01/23/21 02/13/21 Rx Simvastatin 5 mg PO HS 02/13/21 02/14/21 History glipiZIDE [Glucotrol 5mg tablet] 5 mg PO DAILY 02/13/21 02/14/21 History lisinopriL [Lisinopril 2.5mg Tab] 2.5 mg PO DAILY 02/13/21 02/14/21 History clindamycin HCL [Clindamycin HCl] 300 mg PO TID 02/14/21 02/14/21 History Height: 1.88 m Weight: 102.512 kg Laboratory Results:: Laboratory Results - last 24 hr 02/14/21 11:44: POC Glucose 121 H 02/14/21 15:53: POC Glucose 164 H 02/14/21 16:49: POC Glucose 175 H 02/14/21 21:07: POC Glucose 345 H* 02/15/21 05:11: POC Glucose 219 H 02/15/21 06:14: WBC 8.7 D, RBC 4.16 L, Hgb 11.0 L, Hct 35.0 L, MCV 84.1, MCH 26.5 L, MCHC 31.5 L, RDW 15.0, Plt Count 219, MPV 7.9, Neut % (Auto) 73.4, Lymph % (Auto) 21.8, [place] % (Auto) 3.6, Eos % (Auto) 0.9, Baso % (Auto) 0.3, Neut # (Auto) 6.4, Lymph # (Auto) 1.9, [place] # (Auto) 0.3, Eos # (Auto) 0.1, Baso # (Auto) 0.0 02/15/21 06:14: Sodium 135 L, Potassium 4.2, Chloride 103, Carbon Dioxide 29, Anion Gap 7.2, BUN 11, Creatinine 1.00, Estimated Creat Clear 147, Estimated GFR 84, Est GFR ( Amer) 102, Glucose 246 H, Calcium 9.2, Total Bilirubin 0.6, AST 29, ALT 28, Alkaline Phosphatase 98, C-Reactive Protein 8.8 H D, Total Protein 6.8, Albumin 3.7, Globulin 3.1, Albumin/Globulin Ratio 1.2 02/15/21 06:14: ESR 60 H 02/15/21 08:43: Vancomycin Trough 17.1 H 02/15/21 08:43: Sodium 136, Potassium 4.5, Chloride 101, Carbon Dioxide 29, Anion Gap 10.5, BUN 11, Creatinine 1.00, Estimated Creat Clear 147, Estimated GFR 84, Est GFR ( Amer) 102, Glucose 299 H D, Calcium 9.1 Medical History: Reports:: Cancer, Diabetes Mellitus Type 2 Denies:: Diabetes Mellitus Type 1, Internal Pacemaker, MRSA, Seizures Assessment and Plan (1) Chronic osteomyelitis of left foot Status: Acute Category: Medical Code(s): M86.672 - Other chronic osteomyelitis, left ankle and foot (2) Pseudomonas aeruginosa infection Status: Acute Category: Medical Code(s): A49.8 - Other bacterial infections of unspecified site (3) Infection due to Bacillus cereus Status: Acute Category: Medical Code(s): A49.8 - Other bacterial infections of unspecified site (4) Type 2 diabetes mellitus Status: Acute Qualifiers: 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 Diabetes mellitus complication status: with other specified complication Qualified Code(s): E11.69 - Type 2 diabetes mellitus with other specified complication; Z79.4 - nursing home (current) use of insulin Category: Medical Code(s): E11.9 - Type 2 diabetes mellitus without complications (5) Cellulitis of left foot Status: Acute Category: Medical Code(s): L03.116 - Cellulitis of left lower limb (6) Diabetic foot infection Status: Acute Category: Medical Code(s): E11.628 - Type 2 diabetes mellitus with other skin complications; L08.9 - Local infection of the skin and subcutaneous tissue, unspecified (7) Edema of left foot Status: Acute Category: Medical Code(s): R60.0 - Localized edema (8) Ulcer of right foot due to type 2 diabetes mellitus Status: Acute Category: Medical Code(s): E11.621 - Type 2 diabetes mellitus with foot ulcer; L97.519 - Non-pressure chronic ulcer of other part of right foot with unspecified severity (9) MRSA infection Status: Acute Category: Medical Code(s): A49.02 - Methicillin resistant Staphylo
--- NOTE | 2021-02-15 10:53 | SW/DCPLANNER ---
I have received a referral for this patient regarding: evaluation for SNF level of care/DME/post op shoe. I spoke with patient regarding the need for IV antibiotics daily for a prolong period of time. Patient stated that he has had a PICC line in the past for IV antibiotics and returned to [facility] outpatient. I spoke with patient regarding non-compliance in past and the need for SNF level of care/swingbed. Patient is agreeable to swingbed placement and understands that he will need to stay in swingbed until IV antibiotics are completed. Patient will discharge to swingbed once medically stable to discharge from acute care/once authorization is received from patients insurance. Patient has no further questions/needs at this time.
[2021-02-15 11:54] LABS: POC Glucose,Bedside 250 (70-110)
[2021-02-15 12:34] VITALS: BMI 29.1
--- NOTE | 2021-02-15 13:05 | HMH.ACPN2 ---
Internal Medicine - PN: Subj *Date: 02/15/21 *Time: 13:05 Interval history: 35-year-old male patient sitting up in bed resting quietly, he denies any distress during the night, reports pain is at a tolerable level. Dressings to bilateral feet clean dry and intact. Discussed possible discharge to snf for IV antibiotics and dressing care. Patient reports he will think about snf transfer if local, does not want to leave [facility]. Discussed importance of making all appointments medical and podiatry as well as taking all medication per instruction. 02/14/21 Podiatry performed Left foot revision of TMA, Left foot irrigation and debridement, Left foot/metatarsal bone biopsy , Left foot application of VIDHYA drain Right excision of ulcer, delayed primary closure, Right 1st metatarsal bone biospy, Right toenail debridement x5. Exam Vital signs and Labs for Last 24 Hours: Temp Pulse Resp BP Pulse Ox 98.7 F 95 H 18 138/69 97 02/15/21 10:25 02/15/21 10:25 02/15/21 08:00 02/15/21 10:25 02/15/21 08:00 Laboratory Results - last 24 hr 02/14/21 15:53: POC Glucose 164 H 02/14/21 16:49: POC Glucose 175 H 02/14/21 21:07: POC Glucose 345 H* 02/15/21 05:11: POC Glucose 219 H 02/15/21 06:14: WBC 8.7 D, RBC 4.16 L, Hgb 11.0 L, Hct 35.0 L, MCV 84.1, MCH 26.5 L, MCHC 31.5 L, RDW 15.0, Plt Count 219, MPV 7.9, Neut % (Auto) 73.4, Lymph % (Auto) 21.8, [place] % (Auto) 3.6, Eos % (Auto) 0.9, Baso % (Auto) 0.3, Neut # (Auto) 6.4, Lymph # (Auto) 1.9, [place] # (Auto) 0.3, Eos # (Auto) 0.1, Baso # (Auto) 0.0 02/15/21 06:14: Sodium 135 L, Potassium 4.2, Chloride 103, Carbon Dioxide 29, Anion Gap 7.2, BUN 11, Creatinine 1.00, Estimated Creat Clear 147, Estimated GFR 84, Est GFR ( Amer) 102, Glucose 246 H, Calcium 9.2, Total Bilirubin 0.6, AST 29, ALT 28, Alkaline Phosphatase 98, C-Reactive Protein 8.8 H D, Total Protein 6.8, Albumin 3.7, Globulin 3.1, Albumin/Globulin Ratio 1.2 02/15/21 06:14: ESR 60 H 02/15/21 08:43: Vancomycin Trough 17.1 H 02/15/21 08:43: Sodium 136, Potassium 4.5, Chloride 101, Carbon Dioxide 29, Anion Gap 10.5, BUN 11, Creatinine 1.00, Estimated Creat Clear 147, Estimated GFR 84, Est GFR ( Amer) 102, Glucose 299 H D, Calcium 9.1 02/15/21 11:42: POC Glucose 250 H I & O for Last 24 hours: Intake & Output 02/12/21 02/13/21 02/14/21 02/15/21 23:59 23:59 23:59 23:59 Intake Total 1610 / 1610 1922 / 1922 Output Total 1645 / 1645 Balance 1610 / 1610 277 / 277 Weight 215 lb 224 lb 227 lb 1.218 oz Microbiology Reports for the Last 24 Hours: Microbiology 02/14/21 08:13 Foot,Left - Drainage Gram Stain - Final 02/14/21 08:13 Foot,Left - Drainage Wound Culture - Preliminary - Constitutional no acute distress - *Routine HEENT Exam Head: Present: normocephalic Eye: Present: EOMI ENT: Present: mucous membranes moist - *Routine Neck Exam Present: trachea midline. Absent: tracheal deviation - *Routine Respiratory Exam Present: CTA bilaterally. Absent: accessory muscle use - *Routine Cardiovascular Exam Present: RRR - *Routine Abdominal Exam Present: soft, normoactive bowel sounds. Absent: tenderness, firm - *Routine Extremities Exam Present: edema, pulses intact. Absent: cyanosis, clubbing, full ROM, calf tenderness - *Routine Skin Exam Present: dry, warm, wounds. Absent: intact, cyanosis Comments: Drsg to BLE C/D/I - *Routine Neurological Exam Present: alert, oriented X3. Absent: motor deficit, pronator drift - Routine Psychiatric Exam Present: normal affect, normal thought process. Absent: auditory hallucinations, visual hallucinations Assessment and Plan (1) Chronic osteomyelitis of left foot Status: Acute Category: Medical Code(s): M86.672 - Other chronic osteomyelitis, left ankle and foot (2) Pseudomonas aeruginosa infection Status: Acute Category: Medical Code(s): A49.8 - Other bacterial infections of unspecified site (3) Infectio
[2021-02-15 15:23] VITALS: BP 138/79; PULSE 89; RESP 16; TEMP 36.8; O2SAT 99
[2021-02-15 16:09] LABS: POC Glucose,Bedside 228 (70-110)
[2021-02-15 20:00] VITALS: BP 120/75; PULSE 84; RESP 16; TEMP 36.7; O2SAT 98
[2021-02-15 20:30] LABS: POC Glucose,Bedside 284 (70-110)
--- NOTE | 2021-02-16 03:14 | PC.NURSE ---
No acute changes overnight. A&O. [place] and morphine given per mar x3. Pt reports throbbing pain in left foot. BLE drsgs CDI, VIDHYA drain in place on left foot, draining sanguineous fluid. Lungs CTA, on room air. Pt uses walker with stand by assist from chair to bed. IV patent, NS @ 100. VSS, call light in reach, no concerns at this time.
[2021-02-16 04:00] VITALS: BP 116/69; PULSE 75; RESP 17; TEMP 36.6; O2SAT 98
[2021-02-16 05:04] VITALS: BMI 29.1
[2021-02-16 06:00] LABS: POC Glucose,Bedside 219 (70-110)
[2021-02-16 06:50] LABS: Basophils % 0.5 % (0.1-2.0); Eosinophils # 0.1 K/mm3 (0.0-0.4); Eosinophils % 1.8 % (0.1-12.0); Hemoglobin 10.6 g/dL (14.1-18.0); Lymphocytes # 2.7 K/mm3 (0.7-4.5); Lymphocytes % 36.5 % (10-50); Mean Corpuscular Volume 84.1 fl (80-94); Monocytes # 0.3 K/mm3 (0.1-1.0); Monocytes % 3.8 % (1.7-9.3); Neutrophils # 4.2 K/mm3 (1.8-7.8); Neutrophils % 57.5 % (37.0-80.0); Platelet Count 227 K/mm3 (142-424); Red Blood Count 4.05 M/mm3 (4.60-6.20); Red Cell Distribution Width 15.1 % (11.5-17.5); White Blood Count 7.3 K/mm3 (4.8-10.8)
[2021-02-16 07:00] LABS: Alanine Aminotransferase 24 U/L (12-78); Albumin Level 3.8 g/dl (3.5-5.0); Anion Gap 8.5 mEq/L (5-15); Aspartate Amino Transferase 23 U/L (17-59); Bilirubin,Total 0.7 mg/dl (0.2-1.3); Blood Urea Nitrogen 10 mg/dl (9-20); Calcium 9.4 mg/dl (8.4-10.2); Carbon Dioxide 30 mmol/L (22.0-30.0); Chloride 103 mmol/L (98-107); Creatinine Clearance Estimated 164 mL/min (50-200); Estimated Glomerular Filt Rate 95 ml/min (>60); GFR (African American) 115 ML/MIN (>60); Glucose 225 mg/dl (74-100); Potassium 4.5 mmoL/L (3.5-5.1); Sodium 137 mmol/L (136-145); Total Protein,Serum 6.8 g/dl (6.3-8.2)
[2021-02-16 07:01] LABS: Albumin/Globulin Ratio 1.3 (1.1-1.8); Alkaline Phosphatase 79 U/L (38-126)
[2021-02-16 07:37] VITALS: BP 130/72; PULSE 71; RESP 18; TEMP 36.6; O2SAT 97
--- NOTE | 2021-02-16 08:12 | HMH.ORTHPN ---
Subjective Date: 02/16/21 <Essence Benavides 02/16/21 08:13> Time: 07:45 <Essence Benavides 02/16/21 08:13> Principal diagnosis: L foot cellulitis (TMA), RF DM ulcer <Essence Benavides 02/16/21 08:13> Interval history: Patient is resting comfortably at the bedside. He denies nausea vomiting fever chills shortness of breath and chest pain. He reports minimal pain to the feet. VIDHYA drain intact to the left leg. Patient agreeable to swing bed status and IV antibiotics. <Essence Benavides 02/16/21 08:13> PN: Obj Ex Vital signs: Temp Pulse Resp BP Pulse Ox 97.9 F 71 18 130/72 97 02/16/21 07:37 02/16/21 07:37 02/16/21 07:37 02/16/21 07:37 02/16/21 07:37 <Yisel Mcghee 02/16/21 09:59> Temp Pulse Resp BP Pulse Ox 97.9 F 71 18 130/72 97 02/16/21 07:37 02/16/21 07:37 02/16/21 07:37 02/16/21 07:37 02/16/21 07:37 <Essence Benavides 02/16/21 08:13> - Constitutional no acute distress <Yisel Mcghee 02/16/21 08:47> - Routine HEENT Exam Head: Present: normocephalic <Yisel Mcghee 02/16/21 08:47> Eye: Present: EOMI <Yisel Mcghee 02/16/21 08:47> ENT: Present: mucous membranes moist <Yisel Mcghee 02/16/21 09:59> - Routine Neck Exam Present: supple, trachea midline <Yisel Mcghee 02/16/21 09:59> - Routine Chest/Breast/Axilla Exam Chest wall: Absent: tenderness <Yisel Mcghee 02/16/21 09:59> - Routine Respiratory Exam Absent: accessory muscle use, respiratory distress <Yisel Mcghee 02/16/21 09:59> - Routine Cardiovascular Exam Present: RRR <Yisel Mcghee - 02/16/21 09:59> - Routine Abdominal Exam Present: soft <Yisel Mcghee 02/16/21 09:59> - Routine Extremities Exam Present: full ROM, pulses intact, normal capillary refill, amputation (Left TMA) <Yisel Mcghee 02/16/21 09:59> - Detailed Lower Extremity Exam Bottom foot image: 1 - S/P Right excision of ulcer, delayed primary closure, Right 1st metatarsal bone biospy, Right toenail debridement x5. POD#2- sutures are intact, no drainage noted today. No edema, mild erythema noted. Site was cleaned with Betadine, dressed with Vaseline gauze over the sutures, Betadine soaked 4 x 4, dry 4 x 4 and Memo wrap. 2 - S/P 02/14/21- Left TMA revision, foot irrigation and debridement, Left foot/metatarsal bone biopsy, Left foot application of VIDHYA drain. Site has less edema and erythema today. Sutures and janie are intact. There was no drainage noted to site when compressed. Site cleaned with Betadine, Vaseline gauze applied to suture and janie and suture line, Betadine soaked 4 x 4, dry 4 x 4, Kerlix and Memo wrap was then applied to the site. <Yisel Mcghee 02/16/21 09:59> - Routine Back/Spine/Pelvis Exam Back/Spine: Present: full ROM <Yisel Mcghee 02/16/21 09:59> - Routine Skin Exam Present: dry, wounds (S/P Right excision of ulcer, sutures intact, Left TMA revision, VIDHYA drain intact, sutures/janie intact. ) <Yisel Mcghee 02/16/21 09:59> - Routine Neurological Exam Present: alert, oriented X3, vision grossly intact, hearing grossly intact, normal speech <Yisel Mcghee 02/16/21 09:59> - Routine Psychiatric Exam Present: normal affect, cooperative <LitzyYisel L - 02/16/21 09:59> Progress Note: A&P (1) Chronic osteomyelitis of left foot Status: Acute (2) Pseudomonas aeruginosa infection Status: Acute (3) Infection due to Bacillus cereus Status: Acute (4) Type 2 diabetes mellitus Status: Acute (5) Cellulitis of left foot Status: Acute (6) Diabetic foot infection Status: Acute (7) Edema of left foot Status: Acute (8) Ulcer of right foot due to type 2 diabetes mellitus Status: Acute (9) MRSA infection Status: Acute <Yisel Mcghee - 02/16/21 09:59> (1) Chronic osteomyelitis of left foot Status: Acute (2) Pseudomonas
--- NOTE | 2021-02-16 08:31 | HMH.ACPN2 ---
Internal Medicine - PN: Subj *Date: 02/16/21 *Time: 08:31 Interval history: Patient sitting up in bed resting quietly, he denies any respiratory distress or chest pain during the night. Reports bilateral feet pain is under control. Discussed again discharge options, patient is agreeable to staying in hospital, being discharged to local correction, and is adamantly against being [facility]. Reason for correction discharge discussed patient verbalizes understanding. Bone culture x2 no growth in 24 hours, blood cultures x2 no growth in 48 hours, preliminary left foot wound culture no growth in 24 hours Exam Vital signs and Labs for Last 24 Hours: Temp Pulse Resp BP Pulse Ox 97.9 F 71 18 130/72 97 02/16/21 07:37 02/16/21 07:37 02/16/21 07:37 02/16/21 07:37 02/16/21 07:37 Laboratory Results - last 24 hr 02/15/21 08:43: Vancomycin Trough 17.1 H 02/15/21 08:43: Sodium 136, Potassium 4.5, Chloride 101, Carbon Dioxide 29, Anion Gap 10.5, BUN 11, Creatinine 1.00, Estimated Creat Clear 147, Estimated GFR 84, Est GFR ( Amer) 102, Glucose 299 H D, Calcium 9.1 02/15/21 11:42: POC Glucose 250 H 02/15/21 15:34: POC Glucose 228 H 02/15/21 19:55: POC Glucose 284 H 02/16/21 05:44: POC Glucose 219 H 02/16/21 05:47: WBC 7.3, RBC 4.05 L, Hgb 10.6 L, Hct 34.0 L, MCV 84.1, MCH 26.0 L, MCHC 31.0 L, RDW 15.1, Plt Count 227, MPV 7.0 L, Neut % (Auto) 57.5, Lymph % (Auto) 36.5, [place] % (Auto) 3.8, Eos % (Auto) 1.8, Baso % (Auto) 0.5, Neut # (Auto) 4.2, Lymph # (Auto) 2.7, [place] # (Auto) 0.3, Eos # (Auto) 0.1, Baso # (Auto) 0.0 02/16/21 05:52: Sodium 137, Potassium 4.5, Chloride 103, Carbon Dioxide 30, Anion Gap 8.5, BUN 10, Creatinine 0.90, Estimated Creat Clear 164, Estimated GFR 95, Est GFR ( Amer) 115, Glucose 225 H D, Calcium 9.4, Total Bilirubin 0.7, AST 23, ALT 24, Alkaline Phosphatase 79, Total Protein 6.8, Albumin 3.8, Globulin 3.0, Albumin/Globulin Ratio 1.3 I & O for Last 24 hours: Intake & Output 02/13/21 02/14/21 02/15/21 02/16/21 23:59 23:59 23:59 23:59 Intake Total 1610 / 1610 3447 / 3447 480 / 480 Output Total 2325 / 2325 1400 / 1400 Balance 1610 / 1610 1122 / 1122 -920 / -920 Weight 215 lb 224 lb 227 lb 1.218 oz 227 lb Microbiology Reports for the Last 24 Hours: Microbiology 02/13/21 22:36 Blood Blood Culture - Preliminary NO GROWTH AFTER 48 HOURS 02/13/21 22:36 Blood Blood Culture - Preliminary NO GROWTH AFTER 48 HOURS 02/14/21 14:50 Bone Gram Stain - Final 02/14/21 14:50 Bone Surgical Biopsy Culture - Preliminary NO GROWTH AFTER 24 HOURS 02/14/21 14:50 Bone Gram Stain - Final 02/14/21 14:50 Bone Surgical Biopsy Culture - Preliminary NO GROWTH AFTER 24 HOURS 02/14/21 08:13 Foot,Left - Drainage Gram Stain - Final 02/14/21 08:13 Foot,Left - Drainage Wound Culture - Preliminary - Constitutional no acute distress - *Routine HEENT Exam Head: Present: normocephalic Eye: Present: EOMI ENT: Present: mucous membranes moist - *Routine Neck Exam Present: trachea midline. Absent: tracheal deviation - *Routine Respiratory Exam Present: CTA bilaterally. Absent: accessory muscle use - *Routine Cardiovascular Exam Present: RRR - *Routine Abdominal Exam Present: soft, normoactive bowel sounds. Absent: tenderness, rigid - *Routine Extremities Exam Present: edema. Absent: cyanosis, full ROM, calf tenderness - *Routine Skin Exam Present: dry, warm, wounds. Absent: intact, cyanosis Comments: Dressings to bilateral feet clean/dry/intact VIDHYA drain intact to left foot - *Routine Neurological Exam Present: alert, oriented X3. Absent: sensory deficit, motor deficit - Routine Psychiatric Exam Present: normal affect, normal thought process. Absent: auditory hallucinations, visual hallucinations Assessment and Plan (
[2021-02-16 12:27] LABS: POC Glucose,Bedside 252 (70-110)
--- NOTE | 2021-02-16 14:13 | PC.NURSE ---
Alert and oriented x4. Lungs are clear, he remains on RA. Dressings to bilateral feet were changed by Ahsan Mcghee APRN this AM. They are currently clean, dry and intact. VIDHYA drain in place to left foot draining sanguineous drainage. Post op shoes are at bedside. PRN pain meds requested around the clock with patient reporting relief on reassessment. No acute changes noted. Will continue to monitor.
[2021-02-16 15:09] VITALS: BP 114/61; PULSE 80; RESP 18; TEMP 36.6; O2SAT 96
[2021-02-16 17:01] LABS: POC Glucose,Bedside 262 (70-110)
[2021-02-16 20:00] VITALS: BP 123/74; PULSE 65; RESP 16; TEMP 36.6; O2SAT 100
[2021-02-16 22:10] LABS: POC Glucose,Bedside 280 (70-110)
--- NOTE | 2021-02-17 03:00 | PC.NURSE ---
No acute changes overnight, A&O. Pt c/o pain in left foot relieved by norco and morphine q4h per dec. VIDHYA drain in place with sanguineous drainage. Lungs CTA, on room air. Pt using urinal independently. Bowel sounds x4, and soft and nontender. IV patent, NS @ 100. BLE drsgs CDI. VSS, Call light in reach, no concerns at this time.
[2021-02-17 04:00] VITALS: BP 144/83; PULSE 79; RESP 17; TEMP 36.6; O2SAT 98
[2021-02-17 05:00] VITALS: BMI 29.1
[2021-02-17 05:49] LABS: POC Glucose,Bedside 211 (70-110)
[2021-02-17 06:31] LABS: Basophils % 0.4 % (0.1-2.0); Eosinophils # 0.1 K/mm3 (0.0-0.4); Eosinophils % 1.6 % (0.1-12.0); Hematocrit 32.4 % (42.0-52.0); Hemoglobin 10.2 g/dL (14.1-18.0); Lymphocytes # 2.2 K/mm3 (0.7-4.5); Lymphocytes % 38.1 % (10-50); Mean Corpuscular HGB Conc 31.6 g/dL (31.8-35.4); Mean Corpuscular Hemoglobin 26.2 pg (27.0-31.2); Mean Corpuscular Volume 83.2 fl (80-94); Mean Platelet Volume 7.5 fl (7.4-10.4); Monocytes # 0.2 K/mm3 (0.1-1.0); Monocytes % 4.3 % (1.7-9.3); Neutrophils # 3.1 K/mm3 (1.8-7.8); Neutrophils % 55.6 % (37.0-80.0); Platelet Count 210 K/mm3 (142-424); Red Blood Count 3.89 M/mm3 (4.60-6.20); Red Cell Distribution Width 15.1 % (11.5-17.5); White Blood Count 5.7 K/mm3 (4.8-10.8)
[2021-02-17 06:49] LABS: Alanine Aminotransferase 23 U/L (12-78); Albumin Level 3.5 g/dl (3.5-5.0); Albumin/Globulin Ratio 1.1 (1.1-1.8); Alkaline Phosphatase 73 U/L (38-126); Anion Gap 4.5 mEq/L (5-15); Aspartate Amino Transferase 24 U/L (17-59); Bilirubin,Total 0.7 mg/dl (0.2-1.3); Blood Urea Nitrogen 10 mg/dl (9-20); Calcium 9.2 mg/dl (8.4-10.2); Carbon Dioxide 33 mmol/L (22.0-30.0); Chloride 102 mmol/L (98-107); Creatinine Clearance Estimated 164 mL/min (50-200); Estimated Glomerular Filt Rate 95 ml/min (>60); GFR (African American) 115 ML/MIN (>60); Globulin 3.1 g/dL (1.3-3.2); Glucose 209 mg/dl (74-100); Potassium 4.5 mmoL/L (3.5-5.1); Sodium 135 mmol/L (136-145); Total Protein,Serum 6.6 g/dl (6.3-8.2)
[2021-02-17 08:00] VITALS: BP 149/84; PULSE 79; RESP 19; TEMP 36.9; O2SAT 98
--- NOTE | 2021-02-17 08:41 | HMH.SWING2 ---
*Admission Date: 02/14/21 *Reason for consult:: pt/ot and wound care *History of present illness: Patient is a 35-year-old diabetic male who underwent a left transmetatarsal amputation on 01/04/2021. Patient went out of town this past week and missed several wound care appointments. He reports swelling. States he did not change the dressing and over week. He presented to the ED 02/13/2021 with complaints of increased swelling and concern of infection. Patient denies nausea vomiting, fever chills, shortness of breath or chest pain. Hospital Course Hospital Course: Laboratory Tests 02/13/21 02/13/21 02/13/21 21:32 21:32 21:32 WBC 5.5 RBC 4.39 L Hgb 11.6 L Hct 36.7 L MCV 83.7 MCH 26.5 L MCHC 31.7 L RDW 14.9 Plt Count 194 MPV 7.5 Neut % (Auto) 53.9 Lymph % (Auto) 37.9 [place] % (Auto) 4.7 Eos % (Auto) 3.1 Baso % (Auto) 0.5 Neut # (Auto) 2.9 Lymph # (Auto) 2.1 [place] # (Auto) 0.3 Eos # (Auto) 0.2 Baso # (Auto) 0.0 ESR 38 H Sodium 136 Potassium 4.2 Chloride 101 Carbon Dioxide 31 H Anion Gap 8.2 BUN 11 Creatinine 1.00 Estimated Creat Clear 140 Estimated GFR 84 Est GFR ( Amer) 102 Glucose 311 H POC Glucose Hemoglobin A1c 7.5 H Lactate Calcium 9.6 Total Bilirubin 1.0 AST 33 ALT 28 Alkaline Phosphatase 108 C-Reactive Protein 6.0 H Total Protein 7.4 Albumin 4.1 Globulin 3.3 H Albumin/Globulin Ratio 1.2 Procalcitonin 0.079 Vancomycin Trough Chlamy pneumoniae PCR Adenovirus (PCR) B. pertussis DNA (PCR) Coronavirus OC43 (PCR) Coronavirus HKU1 (PCR) Coronavirus 229E (PCR) SARS-CoV-2 (PCR) Coronavirus NL63 (PCR) Human Metapneumovir PCR Influenza A (H1) PCR Influ A (H1N1/09) PCR Influenza A (H3) PCR Influenza Type A (PCR) Influenza Type B (PCR) M. pneumoniae (PCR) Parainfluenza 1 (PCR) Parainfluenza 2 (PCR) Parainfluenza 3 (PCR) Parainfluenza 4 (PCR) RSV (PCR) Entero/Rhino (PCR) 02/13/21 02/13/21 02/14/21 22:22 22:36 05:24 WBC RBC Hgb Hct MCV MCH MCHC RDW Plt Count MPV Neut % (Auto) Lymph % (Auto) [place] % (Auto) Eos % (Auto) Baso % (Auto) Neut # (Auto) Lymph # (Auto) [place] # (Auto) Eos # (Auto) Baso # (Auto) ESR Sodium Potassium Chloride Carbon Dioxide Anion Gap BUN Creatinine Estimated Creat Clear Estimated GFR Est GFR ( Amer) Glucose POC Glucose 246 H Hemoglobin A1c Lactate 1.9 Calcium Total Bilirubin AST ALT Alkaline Phosphatase C-Reactive Protein Total Protein Albumin Globulin Albumin/Globulin Ratio Procalcitonin Vancomycin Trough Chlamy pneumoniae PCR Not detected Adenovirus (PCR) Not detected B. pertussis DNA (PCR) Not detected Coronavirus OC43 (PCR) Not detected Coronavirus HKU1 (PCR) Not detected Coronavirus 229E (PCR) Not detected SARS-CoV-2 (PCR) Not detected Coronavirus NL63 (PCR) Not detected Human Metapneumovir PCR Not detected Influenza A (H1) PCR Not detected Influ A (H1N1/09) PCR Not detected Influenza A (H3) PCR Not detected Influenza Type A (PCR) Not detected Influenza Type B (PCR) Not detected M. pneumoniae (PCR) Not detected Parainfluenza 1 (PCR) Not detected Parainfluenza 2 (PCR) Not detected Parainfluenza 3 (PCR) Not detected Parainfluenza 4 (PCR) Not detected RSV (PCR) Not detected Entero/Rhino (PCR) Not detected 02/14/21 02/14/21 02/14/21 06:07 06:07 11:44 WBC 5.3 RBC 4.02 L Hgb 10.7 L Hct 33.7 L MCV 83.7 MCH 26.7 L MCHC 31.9 RDW 14.8 Plt Count 198 MPV 7.4 Neut % (Auto) 49.5 Lymph % (Auto) 42.6 [place] % (Auto) 4.3 Eos % (Auto) 3.1 Baso % (Auto) 0.4 Neut # (Auto) 2.6 Lymph #
--- NOTE | 2021-02-17 09:20 | HMH.ACPN ---
Internal Medicine - PN: Subj *Date: 02/17/21 *Time: 09:20 Exam Vital signs and Labs for Last 24 Hours: Temp Pulse Resp BP Pulse Ox 98.4 F 79 19 149/84 H 98 02/17/21 08:00 02/17/21 08:00 02/17/21 08:00 02/17/21 08:00 02/17/21 08:00 Laboratory Results - last 24 hr 02/16/21 11:43: POC Glucose 252 H 02/16/21 16:39: POC Glucose 262 H 02/16/21 19:42: POC Glucose 280 H 02/17/21 05:32: POC Glucose 211 H 02/17/21 05:34: WBC 5.7, RBC 3.89 L, Hgb 10.2 L, Hct 32.4 L, MCV 83.2, MCH 26.2 L, MCHC 31.6 L, RDW 15.1, Plt Count 210, MPV 7.5, Neut % (Auto) 55.6, Lymph % (Auto) 38.1, [place] % (Auto) 4.3, Eos % (Auto) 1.6, Baso % (Auto) 0.4, Neut # (Auto) 3.1, Lymph # (Auto) 2.2, [place] # (Auto) 0.2, Eos # (Auto) 0.1, Baso # (Auto) 0.0 02/17/21 05:34: Sodium 135 L, Potassium 4.5, Chloride 102, Carbon Dioxide 33 H, Anion Gap 4.5 L, BUN 10, Creatinine 0.90, Estimated Creat Clear 164, Estimated GFR 95, Est GFR ( Amer) 115, Glucose 209 H, Calcium 9.2, Total Bilirubin 0.7, AST 24, ALT 23, Alkaline Phosphatase 73, Total Protein 6.6, Albumin 3.5, Globulin 3.1, Albumin/Globulin Ratio 1.1 I & O for Last 24 hours: Intake & Output 02/14/21 02/15/21 02/16/21 02/17/21 23:59 23:59 23:59 23:59 Intake Total 1610 / 1610 3447 / 3447 2648 / 2648 1480 / 1480 Output Total 2325 / 2325 1400 / 2400 2200 / 2200 Balance 1610 / 1610 1122 / 1122 1248 / 248 -720 / -720 Weight 101.605 kg 103 kg 102.965 kg 102.965 kg Microbiology Reports for the Last 24 Hours: Microbiology 02/14/21 08:13 Foot,Left - Drainage Gram Stain - Final 02/14/21 08:13 Foot,Left - Drainage Wound Culture - Preliminary 02/14/21 14:50 Bone Gram Stain - Final 02/14/21 14:50 Bone Surgical Biopsy Culture - Preliminary Gram Positive Cocci 02/14/21 14:50 Bone Gram Stain - Final 02/14/21 14:50 Bone Surgical Biopsy Culture - Preliminary NO GROWTH AFTER 48 HOURS Assessment and Plan (1) Chronic osteomyelitis of left foot Status: Acute Category: Medical Code(s): M86.672 - Other chronic osteomyelitis, left ankle and foot (2) Pseudomonas aeruginosa infection Status: Acute Category: Medical Code(s): A49.8 - Other bacterial infections of unspecified site (3) Infection due to Bacillus cereus Status: Acute Category: Medical Code(s): A49.8 - Other bacterial infections of unspecified site (4) Type 2 diabetes mellitus Status: Acute Qualifiers: Diabetes mellitus intermediate insulin use: with intermediate use Diabetes mellitus complication status: with other specified complication Qualified Code(s): E11.69 - Type 2 diabetes mellitus with other specified complication; Z79.4 - shelter (current) use of insulin Category: Medical Code(s): E11.9 - Type 2 diabetes mellitus without complications (5) Cellulitis of left foot Status: Acute Category: Medical Code(s): L03.116 - Cellulitis of left lower limb (6) Diabetic foot infection Status: Acute Category: Medical Code(s): E11.628 - Type 2 diabetes mellitus with other skin complications; L08.9 - Local infection of the skin and subcutaneous tissue, unspecified (7) Edema of left foot Status: Acute Category: Medical Code(s): R60.0 - Localized edema (8) Ulcer of right foot due to type 2 diabetes mellitus Status: Acute Category: Medical Code(s): E11.621 - Type 2 diabetes mellitus with foot ulcer; L97.519 - Non-pressure chronic ulcer of other part of right foot with unspecified severity (9) MRSA infection Status: Acute Category: Medical Code(s): A49.02 - Methicillin resistant Staphylococcus aureus infection, unspecified site The patient's infection will respond to the chosen ABx?: Yes Is the patient receiving the right drug, dose, and route?: Yes Could a more targeted ABx be ordered?: No (GRAM + COCCI IN BONE CX, WBC WNL, AFEBRILE)
[2021-02-17 09:26] LABS: Vancomycin,Trough 19.1 ug/mL (5.0-10.0)
--- NOTE | 2021-02-17 10:26 | HMH.ORTHPN ---
Subjective Date: 02/17/21 <Yisel Mcghee - 02/17/21 10:40> Time: 08:30 <Yisel Mcghee - 02/17/21 10:40> Principal diagnosis: L foot cellulitis (TMA), RF DM ulcer <Yisel Mcghee - 02/17/21 10:40> Interval history: Patient is doing very well today resting in bed. Patient finished breakfast and denies any nausea vomiting, fever, chills or shortness of breath. Patient denied any pain with bilateral feet this morning. VIDHYA drain remains intact to the left lateral foot. Patient stated he will be going to swing bed status at some point today. <Yisel Mcghee - 02/17/21 10:40> PN: Obj Ex Vital signs: Temp Pulse Resp BP Pulse Ox 98.4 F 79 19 149/84 H 98 02/17/21 08:00 02/17/21 08:00 02/17/21 08:00 02/17/21 08:00 02/17/21 08:00 <Essence Benavides - 02/17/21 13:10> Temp Pulse Resp BP Pulse Ox 98.4 F 79 19 149/84 H 98 02/17/21 08:00 02/17/21 08:00 02/17/21 08:00 02/17/21 08:00 02/17/21 08:00 <Yisel Mcghee - 02/17/21 10:40> - Constitutional no acute distress <Yisel Mcghee - 02/17/21 10:40> - Routine HEENT Exam Head: Present: normocephalic <Yisel Mcghee - 02/17/21 10:40> Eye: Present: EOMI <Yisel Mcghee - 02/17/21 10:40> ENT: Present: mucous membranes moist <LitzyYisel Young - 02/17/21 10:40> - Routine Neck Exam Present: full ROM, trachea midline <SchuylermichaelYisel L 02/17/21 10:40> - Routine Respiratory Exam Absent: accessory muscle use, respiratory distress <SchuylermichaelYisel Hannah 02/17/21 10:40> - Routine Cardiovascular Exam Present: RRR <Yisel Mcghee - 02/17/21 10:40> - Routine Abdominal Exam Present: soft <Yisel Mcghee 02/17/21 10:40> - Routine Extremities Exam Present: full ROM, pulses intact, amputation (left TMA) <Yisel Mcghee - 02/17/21 10:40> - Detailed Lower Extremity Exam Bottom foot image: 1 - S/P Right excision of ulcer, delayed primary closure, Right 1st metatarsal bone biospy, Right toenail debridement x5. POD#3- sutures are intact, no drainage noted today. No edema, mild erythema noted. Site was cleaned with Betadine, dressed with Vaseline gauze over the sutures, Betadine soaked 4 x 4, dry 4 x 4 and Memo wrap. 2 - S/P 02/14/21- Left TMA revision, foot irrigation and debridement, Left foot/metatarsal bone biopsy, Left foot application of VIDHYA drain. Site has less edema and erythema today. Sutures and janie are intact. There was no drainage noted to site when compressed. Site cleaned with Betadine, Vaseline gauze applied to suture and janie and suture line, Betadine soaked 4 x 4, dry 4 x 4, Kerlix and Memo wrap was then applied to the site. <Shayneana lauraYisel - 02/17/21 10:40> - Routine Back/Spine/Pelvis Exam Back/Spine: Present: full ROM <Yisel Mcghee 02/17/21 10:40> - Routine Skin Exam Present: dry, wounds (S/P Right excision of ulcer, sutures intact, Left TMA revision, VIDHYA drain intact, sutures/janie intact) <LitzyYisel Young 02/17/21 10:40> - Routine Neurological Exam Present: alert, oriented X3, vision grossly intact, hearing grossly intact, normal speech <SchuylermichaelYisel Young 02/17/21 10:40> - Routine Psychiatric Exam Present: normal affect, cooperative <Yisel Mcghee 02/17/21 10:40> Progress Note: A&P (1) Chronic osteomyelitis of left foot Status: Acute (2) Pseudomonas aeruginosa infection Status: Acute (3) Infection due to Bacillus cereus Status: Acute (4) Type 2 diabetes mellitus Status: Acute (5) Cellulitis of left foot Status: Acute (6) Diabetic foot infection Status: Acute (7) Edema of left foot Status: Acute (8) Ulcer of right foot due to type 2 diabetes mellitus Status: Acute (9) MRSA infection Status: Acute <Yisel Mcghee 02/17/21 10:26> (1) Chronic osteomyelitis of left foot Status: Acute (2) Pseudomonas aeruginosa infection Status: Acute
--- NOTE | 2021-02-17 10:30 | HMH.OTEV ---
OT Inpatient Evaluation Rehab OT IP Evaluation Start: 02/17/21 08:49 Freq: ONCE Status: Complete Protocol: Document 02/17/21 10:18 ALIZE (Rec: 02/17/21 10:30 ALIZE [id number]) Rehab OT IP Assessment Subjective History Patient is a 35-year-old male who was admitted 02/13/2021 for left foot osteomyelitis. Patient was out of town and no showed several wound care and office visits. Patient has a history of noncompliance with multiple surgeries and amputations. New imaging of the left foot showed osteomyelitis. New right foot x-rays and a CT scan was obtained 02/14/2021 which showed some cellulitis but consider early osteomyelitis. We discussed conservative versus surgical treatment options. We discussed compliance with antibiotics and showing up to appointments . We discussed surgical intervention for revision of the left transmetatarsal amputation site and debridement of the right diabetic ulcer. Patient understands that there is a chance that the foot may change shape after surgery. Patient also understands that they could have wound healing complications including delayed healing and infection. We discussed that if the wound does not heal, it is possible that they may need a more proximal amputation and could result in further loss of digits, loss of partial foot or loss of leg. We discussed the risks and benefits in great detail. Other surgical risks include: prolonged pain and swelling, further infection requiring oral or IV antibiotics, delay
[2021-02-21 23:11] LABS: POC Glucose,Bedside 190 (70-110)
== END 2021-02-17 10:29 | disposition swing bed (61) | DRG 464 ==
LOC: ER 20:45 → 2ND 22:40
PROVIDERS: Podiatrist; Admitting Provider Emergency Medicine; Emergency Provider Emergency Medicine; PCP Nurse Practitioner Family; Visit Provider Emergency Medicine
PROC: 0JBQ0ZZ Excision of Right Foot Subcutaneous Tissue and Fascia, Open Approach (ICD-10-PCS; principal; 2021-02-14 13:30)
DX: T87.81 Dehiscence of amputation stump (principal); M86.672 Other chronic osteomyelitis, left ankle and foot; L03.116 Cellulitis of left lower limb; M86.9 Osteomyelitis, unspecified; Z20.822 Contact with and (suspected) exposure to COVID-19; E11.621 Type 2 diabetes mellitus with foot ulcer; L97.511 Non-pressure chronic ulcer of other part of right foot limited to breakdown of skin; E11.69 Type 2 diabetes mellitus with other specified complication; B96.5 Pseudomonas (aeruginosa) (mallei) (pseudomallei) as the cause of diseases classified elsewhere; Z79.4 Long term (current) use of insulin; F17.210 Nicotine dependence, cigarettes, uncomplicated; A49.02 Methicillin resistant Staphylococcus aureus infection, unspecified site; E11.628 Type 2 diabetes mellitus with other skin complications; B96.89 Other specified bacterial agents as the cause of diseases classified elsewhere; Z91.19 Patient's noncompliance with other medical treatment and regimen
CPT/HCPCS: 11042; 20240; 28810 ×5; 36415; 73630; 73700; 80048; 80053; 80202; 82962; 83036; 83605; 84145; 85025; 85651; 86140; 87040; 87070; 87077; 87186; 87205; 87581; 87633; 87798; 88305; 88307; 88311; 96365; 97110; 97162; 97165; 97530; 99284; J0692; J2405; J3370

== ENCOUNTER 2021-02-17 10:29 | Inpatient (IN) | payer MEDICARE, MEDICAID, SELFPAY ==
[2021-02-17 10:41] VITALS: BMI 29.1
--- NOTE | 2021-02-17 10:43 | XR_ITS ---
PROCEDURE: XR CHEST PORTABLE PICC PLAC CLINICAL HISTORY: Confirm PICC line placement COMPARISON: CR CXR CHEST(2 VIEWS-NOT PORTABLE) from 06/06/[address] chest w con from 03/06/2018 FINDINGS: The cardiomediastinal silhouette and pulmonary vascularity are within normal limits. The lungs are clear without infiltrates, suspicious nodules, or pleural effusions. Right subclavian PICC line with its tip in the distal SVC is, low in position. Visualized osseous structures are unremarkable. IMPRESSION: PICC line is low in position. Withdrawing the PICC line 4-5 centimeters is recommended. Dictated by: Radha Garg 02/17/2021 15:57 Radha Garg in OV 02/17/2021 15:57
--- NOTE | 2021-02-17 11:04 | PC.NURSE ---
let pharmacy know patient vanc this morning would be late. patient iv had gone bad when attempting to administer. picc line will be placed soon
--- NOTE | 2021-02-17 11:14 | SW/DCPLANNER ---
Addendum entered by [facility] 02/28/21 14:17: Whitney with [facility] called and stated that patient information/order has been reviewed and services will begin tomorrow for this patient. Patient will discharge home today. Addendum entered by [facility] 02/28/21 10:15: The plan is for this patient to discharge home today. Patient has requested home health services from [facility] rather than returning to [facility] wound care clinic. Patient has stated the days that home health can not complete dressing changes that his roommate would be able to assist him. PICC line will be removed prior to discharge and changed to PO antibiotics. Patient concurs with this plan and has no further needs at this time. I will follow up with [facility] once home health order is reviewed. Addendum entered by [facility] 02/27/21 15:04: [facility] has delivered rolling walker to this patient. I have also informed this patient the plan will be for him to discharge home tomorrow pending no setbacks. Addendum entered by [facility] 02/27/21 10:30: I spoke with this swingbed patient this morning. Patient could potentially discharge home later today. Patient stated that he prefer to use home health ([facility]) for dressing changes and states that his roommate can assist with dressing changes. Patient also stated that he will need a rolling walker at time of discharge. I will send patient information/order to [facility] for a rolling walker today. [facility] and [facility] at time of discharge. Patient had no further needs at this time. Addendum entered by [facility] 02/24/21 11:22: I followed up with this swingbed patient this morning. Patient was resting stating that he was up most of the night because he could not sleep. Patient stated that he is doing well and does not have any needs at this time. I have informed patient again today that pending no setbacks the plan is to discharge home on Saturday if not further approved for swingbed days. Patient has no further needs/questions at this time. Addendum entered by [facility] 02/23/21 10:15: I spoke with this swingbed patient this morning. [facility] has approved this patient till Saturday the for swingbed. I informed patient that pending no significant changes he would be stable for discharge on Saturday. Patient understands that discharge should be Saturday and has no further needs at home at this time. I will continue to follow up with this patient regarding discharge/needs/new orders. Addendum entered by Raisa Ferraro 02/22/21 11:16: I have followed up with this swingbed patient today regarding any needs/new orders. Patient was sitting up in bed doing well during rounds. Patient did voice that he had some paperwork that he needed assistance completing. Patient did have packets available and all questions were answered. Patient stated that he would send in paperwork himself once returning home. Patient continues in a swingbed at this time for IV antibiotics. I will continue to follow up with this patient to assist with any needs/new orders during swingbed stay. Addendum entered by Raisa Ferraro 02/20/21 09:31: I followed up with this swingbed patient this morning regarding any needs/new orders. Patient is currently receiving IV antibiotics, PT/OT and wound care services. Patient stated that he did have a good weekend. Patient did not have any needs at time of my visit. I will continue to follow up with this patient during swingbed stay. Original Note: I have completely psycho-social swingbed assessment for this patient today. Patient was admitted to [facility] on 02/17/21 for IV antibiotics and PT/OT due to osteomyelitis. Prior to admission patient resided at home in [place] with roommates and their children. Patient stated that there are several stairs to get into home but has railings and DME to help him navigate. Patient does have running water, electric and air/heat. Patient has use
--- NOTE | 2021-02-17 11:28 | HMH.PTSBEV ---
Physical Therapy Swing Bed Evaluation Rehab PT IP Swing Eval Start: 02/17/21 10:51 Freq: Status: Active Protocol: Document 02/17/21 11:25 PHORSTALIN (Rec: 02/17/21 11:28 PHORNE [id number]) Rehab PT Swing Bed Eval Objective Appearance Patient Behavior Appropriate Patient Orientation Person,Place,Time Difficulty following instructions none Speech Pattern Clear Ambulation Patient Able to Ambulate Yes Can Patient Ambulate 50' with 2 Turns yes Can Patient Ambulate 150' with 2 Turns no Does Pt use W/C or Scooter? No Ambulation Observation IP General Gait Pattern Observation Decrease Weight Bear (R), Decrease Weight Bear (L), Decrease Stride Lngth (R), Decrease Stride Lngth (L) Ambulation Distance (feet) 30 Ambulation Assistive Device Standard Walker Balance Ability to Arise Able, w/o using arms Sitting Balance Steady, safe Standing Balance Narrow stance w/o support Dynamic Sitting Balance Ability Normal Dynamic Standing Balance Ability Good Transfers Bed Transfer Ability Independent Chair Transfer Ability Supervision/Stand by Sit to Stand Bed Transfer Ability Supervision/Stand by Sit to Stand Chair Transfer Ability Supervision/Stand by Rehab PT IP prob,goals,plan Problems Date of Evaluation: 02/17/21 PT IP Problems Transfers,Gait,Self care Rehab Potential Rehab Potential Good Plan PT Intervention Plan Transfers,Gait,Self care, Therapeutic Exercise PT Plan Frequency BID Duration LOS Discharge Goals Bed Transfer Ability Independent Sit to Stand Chair Transfer Ability Independent Ambulation Assistive Device Standard Walker Ambulation Distance (feet) 50 Discharge Plan PT Discharge Plan Pt is appropriate to return home once medically stable. G -code Required No Eval Complexity Eval Charge Codes 99633 - Moderate Complexity PHYSICIAN CERTIFICATION: I certify the specified therapy services for Wyatt Lara are required, authorized, and reviewed every 30 days.
[2021-02-17 11:50] LABS: POC Glucose,Bedside 262 (70-110)
--- NOTE | 2021-02-17 13:23 | SW/DCPLANNER ---
COLLABORATED WITH THIS PATIENT AND ACTIVITY ASSESSMENT WAS COMPLETED...PATIENT WAS ADMITTED TO THE SWING BED UNIT FOR IV ANTIBIOTICS, WOUND CARE AND PHYSICAL THERAPY...PATIENT RESIDES AT HOME WITH FRIENDS AND PLANS TO RETURN BACK THERE ONCE HE HAS COMPLETED HIS SWING BED STAY...PATIENT STATED HE WAS BORN AND RAISED IN [facility], HAS A STEP DAUGHTER AND HAS BEEN DISABLED SINCE HE WAS 18 YRS OLD..HE SAID HIS BLOOD SUGARS ARE ERRATIC AND HE OPENLY ADMITS HE IS NONCOMPLIANT WITH HIS DIET. HE UNDERSTANDS THAT THIS IS MAINLY THE REASON HIS FEET ARE IN THE SHAPE THEY ARE IN..HE HAS AGREED TO STAY FOR A COUPLE OF WEEKS TO TRY AND GET HIS INFECTION UNDER CONTROL AND MORE THAN LIKELY HAVE TO DISCHARGE ON PO ANTIBIOTICS.. HE SAID HE IS HOME MOST OF THE DAY AND HE DOESN'T GET OUT TOO MUCH..HE DOES HAVE A CAR BUT DOESN'T DRIVE AT THIS TIME, HE WEARS GLASSES AND STATED HE DOES NOT HAVE ANY ASSISTIVE DEVICE BUT STATED HE WOULD LIKE TO HAVE A CANE.. DURING HIS STAY, ACTIVITY VISITS WILL BE MADE DAILY AND WILL OFFER ANY ACTIVITY OF INTEREST.. HE WAS GIVEN AN ACTIVITY CALENDAR AND HAS BEEN ORIENTED TO THE ROOM, TV IN ROOM...PATIENT HAS HIS OWN CELL PHONE TO KEEP UP WITH FAMILY AND FRIENDS.. PROJECTED TIME IN A SWING BED IS 7-10 DAYS...
--- NOTE | 2021-02-17 13:24 | HMH.PHACONS ---
- Pharmacy Consult Date: 02/17/21 Time: 13:26 Referring provider: LIVAN Reason for Consult:: CHRONIC OSTEOMYELITIS OF LEFT FOOT Allergies and ADEs:: Allergies Allergy/AdvReac Type Severity Reaction Status Date / Time No Known Allergies Allergy Verified 01/30/21 09:16 Home Medications:: Home Medications Medication Instructions Recorded Confirmed Type insulin glargine 100 unit/mL 20 unit SQ HS ml 10/18/20 02/17/21 History subcutaneous solution Aspirin [Low Dose Aspirin EC] 81 mg PO DAILY 01/03/21 02/17/21 History metformin 1,000 mg tablet 1,000 mg PO BID #180 tab 01/23/21 02/17/21 Rx glipiZIDE [Glucotrol 5mg tablet] 5 mg PO DAILY 02/13/21 02/17/21 History lisinopriL [Lisinopril 2.5mg Tab] 2.5 mg PO DAILY 02/13/21 02/17/21 History Pravastatin Sodium [Pravachol 20mg 10 mg PO HS 02/17/21 02/17/21 History Tablet] Height: 1.88 m Weight: 102.965 kg Laboratory Results:: Laboratory Results - last 24 hr 02/17/21 11:43: POC Glucose 262 H Medical History: Reports:: Diabetes Mellitus Type 2, Hyperlipidemia Denies:: Diabetes Mellitus Type 1, Internal Pacemaker, MRSA, Seizures Comment Only: Cancer (NON [place] LYMPHOMA) Assessment and Plan - Assessment and plan all Dx Assessment and Plan for all problems:: Pt on day 5 of vancomycin + cefepime therapy for chronic osteomyelitis. Surgical bone biopsy from 02/14/21 still pending, preliminary results show gram positive cocci. Trough level drawn 02/17/21 @ 0830 before dose = 19.1. Pt then lost IV access, holding dose until PICC line placed. Will restart vancomycin 1500mg (decreased from 1750mg) every 12 hours (previously every 8 hours) to avoid accumulation and higher trough levels. Will follow pt daily while in swing bed and adjust as necessary. Thanks
--- NOTE | 2021-02-17 13:35 | P.CONPHA_ITS ---
[facility] Pharmacy VTE Monitoring - Patient Demographics Admission date: 02/17/21 Report Date: 02/17/21 Time: 13:35 Allergies/Adverse Reactions: Patient Allergies No Known Allergies Allergy (Verified 01/30/21 09:16) Height: 1.88 m Weight: 102.965 kg - VTE Risk Was VTE Risk Assessment Performed: Yes VTE Score: 6 VTE Risk Level: Moderate Risk Clinical Trial Participant: No - Prophylaxis VTE Prophylaxis Ordered?: Yes Types of VTE Prophylaxis: TEDS Knee High (TO UNAFFECTED FOOT)
[2021-02-17 14:00] VITALS: O2SAT 98
--- NOTE | 2021-02-17 15:10 | HMH.SBHP ---
[facility] Swing Bed H&P Swing Bed History and Physical: *Admission Date: 02/14/21 *Reason for consult:: pt/ot and wound care *History of present illness: Patient is a 35-year-old diabetic male who underwent a left transmetatarsal amputation on 01/04/2021. Patient went out of town this past week and missed several wound care appointments. He reports swelling. States he did not change the dressing and over week. He presented to the ED 02/13/2021 with complaints of increased swelling and concern of infection. Patient denies nausea vomiting, fever chills, shortness of breath or chest pain. Hospital Course Hospital Course: Laboratory Tests 02/13/21 02/13/21 02/13/21 21:32 21:32 21:32 WBC 5.5 RBC 4.39 L Hgb 11.6 L Hct 36.7 L MCV 83.7 MCH 26.5 L MCHC 31.7 L RDW 14.9 Plt Count 194 MPV 7.5 Neut % (Auto) 53.9 Lymph % (Auto) 37.9 [place] % (Auto) 4.7 Eos % (Auto) 3.1 Baso % (Auto) 0.5 Neut # (Auto) 2.9 Lymph # (Auto) 2.1 [place] # (Auto) 0.3 Eos # (Auto) 0.2 Baso # (Auto) 0.0 ESR 38 H Sodium 136 Potassium 4.2 Chloride 101 Carbon Dioxide 31 H Anion Gap 8.2 BUN 11 Creatinine 1.00 Estimated Creat Clear 140 Estimated GFR 84 Est GFR ( Amer) 102 Glucose 311 H POC Glucose Hemoglobin A1c 7.5 H Lactate Calcium 9.6 Total Bilirubin 1.0 AST 33 ALT 28 Alkaline Phosphatase 108 C-Reactive Protein 6.0 H Total Protein 7.4 Albumin 4.1 Globulin 3.3 H Albumin/Globulin Ratio 1.2 Procalcitonin 0.079 Vancomycin Trough Chlamy pneumoniae PCR Adenovirus (PCR) B. pertussis DNA (PCR) Coronavirus OC43 (PCR) Coronavirus HKU1 (PCR) Coronavirus 229E (PCR) SARS-CoV-2 (PCR) Coronavirus NL63 (PCR) Human Metapneumovir PCR Influenza A (H1) PCR Influ A (H1N1/09) PCR Influenza A (H3) PCR Influenza Type A (PCR) Influenza Type B (PCR) M. pneumoniae (PCR) Parainfluenza 1 (PCR) Parainfluenza 2 (PCR) Parainfluenza 3 (PCR) Parainfluenza 4 (PCR) RSV (PCR) Entero/Rhino (PCR) 02/13/21 02/13/21 02/14/21 22:22 22:36 05:24 WBC RBC Hgb Hct MCV MCH MCHC RDW Plt Count MPV Neut % (Auto) Lymph % (Auto) [place] % (Auto) Eos % (Auto) Baso % (Auto) Neut # (Auto) Lymph # (Auto) [place] # (Auto) Eos # (Auto) Baso # (Auto) ESR Sodium Potassium Chloride Carbon Dioxide Anion Gap BUN Creatinine Estimated Creat Clear Estimated GFR Est GFR ( Amer) Glucose POC Glucose 246 H Hemoglobin A1c Lactate 1.9 Calcium Total Bilirubin AST ALT Alkaline Phosphatase C-Reactive Protein Total Protein Albumin Globulin Albumin/Globulin Ratio Procalcitonin Vancomycin Trough Chlamy pneumoniae PCR Not detected Adenovirus (PCR) Not detected B. pertussis DNA (PCR) Not detected Coronavirus OC43 (PCR) Not detected Coronavirus HKU1 (PCR) Not detected Coronavirus 229E (PCR) Not detected SARS-CoV-2 (PCR) Not detected Coronavirus NL63 (PCR) Not detected Human Metapneumovir PCR Not detected Influenza A (H1) PCR Not detected Influ A (H1N1/09) PCR Not detected Influenza A (H3) PCR Not detected Influenza Type A (PCR) Not detected Influenza Type B (PCR) Not detected M. pneumoniae (PCR) Not detected Parainfluenza 1 (PCR) Not detected Parainfluenza 2 (PCR) Not detected Parainfluenza 3 (PCR) Not detected Parainfluenza 4 (PCR) Not detected RSV (PCR) Not detected Entero/Rhino (PCR) Not detected 02/14/21 02/14/21 02/14/21 06:07 06:07 11:44 WBC 5.3 RBC 4.02 L Hgb 10.7 L Hct 33.7 L MCV 83.7 MCH 26.7 L MCHC 31.9 RDW 14.8 Plt Count 198 MPV 7.4 Neut % (Auto) 49.5 Lymph % (Auto) 42.6 [place] % (Auto) 4.3 Eos % (Auto) 3.1
--- NOTE | 2021-02-17 15:57 | HMH.OTEV ---
OT Inpatient Evaluation Rehab OT IP Evaluation Start: 02/17/21 10:43 Freq: ONCE Status: Complete Protocol: Document 02/17/21 15:54 LILLIEREYNALDO (Rec: 02/17/21 15:57 [email or web address] [id number]) Rehab OT IP Assessment Subjective History Patient is a 35-year-old male who was admitted 02/13/2021 for left foot osteomyelitis. Patient was out of town and no showed several wound care and office visits. Patient has a history of noncompliance with multiple surgeries and amputations. New imaging of the left foot showed osteomyelitis. New right foot x-rays and a CT scan was obtained 02/14/2021 which showed some cellulitis but consider early osteomyelitis. We discussed conservative versus surgical treatment options. We discussed compliance with antibiotics and showing up to appointments . We discussed surgical intervention for revision of the left transmetatarsal amputation site and debridement of the right diabetic ulcer. Patient understands that there is a chance that the foot may change shape after surgery. Patient also understands that they could have wound healing complications including delayed healing and infection. We discussed that if the wound does not heal, it is possible that they may need a more proximal amputation and could result in further loss of digits, loss of partial foot or loss of leg. We discussed the risks and benefits in great detail. Other surgical risks include: prolonged pain and swelling, further infection requiring oral or IV antibiotics, delay
[2021-02-17 16:00] VITALS: O2SAT 97
--- NOTE | 2021-02-17 17:12 | PC.NURSE ---
Pt is alert and oriented x4. Lungs are clear, bowel sounds active x4. He is on RA with O2 sats in the upper 90's. He requires pain meds around the clock for pain in the LLE. He reports relief on reassessment. He uses a walker to ambulate in his room with standby assist. Dressings to bilateral feet were changed by Ahsan Mcghee APRN this am. Pt tolerated well. He uses a urinal at the bedside. PICC placed to E. Its patent and flushes easily. Appetite is excellent with patient requesting 2 lunch trays and multiple snacks t/o the day. No acute changes from morning assessment.
[2021-02-17 17:13] LABS: POC Glucose,Bedside 213 (70-110)
[2021-02-17 17:43] VITALS: O2SAT 97
[2021-02-17 20:00] VITALS: BP 135/80; RESP 16; TEMP 36.6; O2SAT 98
[2021-02-17 20:18] LABS: POC Glucose,Bedside 225 (70-110)
[2021-02-17 22:00] VITALS: O2SAT 96
[2021-02-17 23:41] VITALS: O2SAT 96
[2021-02-18] VITALS (10 sets, daily range): BP systolic 135–157; BP diastolic 81–87; PULSE 87–89; RESP 18–20; TEMP 36.4–36.9; O2SAT 95–99
--- NOTE | 2021-02-18 02:50 | PC.NURSE ---
shift summary pts lung sounds are clear with sats maintained 95% or above on room air, with a rate ranging from 16-18. pt is alert and oriented X4. pts dressings on both feet are clean, dry, and intact. pt complained of pain once which was relieved with pain meds. pt denies nausea, vomiting, or diarrhea.
[2021-02-18 05:26] LABS: POC Glucose,Bedside 255 (70-110)
[2021-02-18 08:10] LABS: Basophils % 0.4 % (0.1-2.0); Eosinophils # 0.1 K/mm3 (0.0-0.4); Eosinophils % 1.9 % (0.1-12.0); Hematocrit 26.4 % (42.0-52.0); Hemoglobin 9.7 g/dL (14.1-18.0); Lymphocytes # 2.1 K/mm3 (0.7-4.5); Lymphocytes % 35.5 % (10-50); Mean Corpuscular HGB Conc 36.8 g/dL (31.8-35.4); Mean Corpuscular Volume 84.3 fl (80-94); Mean Platelet Volume 6.6 fl (7.4-10.4); Monocytes # 0.3 K/mm3 (0.1-1.0); Neutrophils # 3.4 K/mm3 (1.8-7.8); Neutrophils % 57.3 % (37.0-80.0); Platelet Count 216 K/mm3 (142-424); Red Blood Count 3.13 M/mm3 (4.60-6.20); Red Cell Distribution Width 14.7 % (11.5-17.5)
[2021-02-18 08:18] LABS: Anion Gap 7.2 mEq/L (5-15); Blood Urea Nitrogen 17 mg/dl (9-20); Calcium 9.4 mg/dl (8.4-10.2); Carbon Dioxide 30 mmol/L (22.0-30.0); Chloride 103 mmol/L (98-107); Creatinine Clearance Estimated 147 mL/min (50-200); Estimated Glomerular Filt Rate 84 ml/min (>60); GFR (African American) 102 ML/MIN (>60); Glucose 228 mg/dl (74-100); Potassium 4.2 mmoL/L (3.5-5.1); Sodium 136 mmol/L (136-145)
[2021-02-18 11:36] LABS: POC Glucose,Bedside 208 (70-110)
[2021-02-18 17:18] LABS: POC Glucose,Bedside 178 (70-110)
--- NOTE | 2021-02-18 18:05 | PC.NURSE ---
THIS RN REMOVED OLD DRESSING FROM RIGHT AND LEFT FOOT, CLEANED SITES WITH BETADINE. APPLIED VASELING GAUZE OVER SUTURES, COVERED WITH BETADINE SOAKED 4X4S, DRY 4X4S, KERLIX AND WRAPPED WITH AN MELL BANDAGES. PATIENT TOLERATED WELL. NO NEW CONCERNS OR NEEDS AT THIS TIME.
[2021-02-18 20:34] LABS: POC Glucose,Bedside 205 (70-110)
[2021-02-19] VITALS (7 sets, daily range): BP systolic 120; BP diastolic 76; PULSE 85; RESP 16; TEMP 36.8; O2SAT 95–99; BMI 28.8
--- NOTE | 2021-02-19 03:27 | PC.NURSE ---
shift summary pts lungs sounds are clear with sats maintained above 90% on room air, with a rate ranging from 16-18. pt is alert and oriented X4. pt only complained of pain once this shift which was relieved with meds. no new concerns or changes at this time. pt denies nausea, vomiting, or diarrhea.
[2021-02-19 05:29] LABS: POC Glucose,Bedside 246 (70-110)
[2021-02-19 08:57] LABS: Vancomycin,Trough 8.8 ug/mL (5.0-10.0)
--- NOTE | 2021-02-19 09:25 | HMH.ACPN2 ---
Internal Medicine - PN: Subj *Date: 02/20/21 *Time: 07:10 Interval history: doing better today - no specific c/o Exam Vital signs and Labs for Last 24 Hours: Temp Pulse Resp BP Pulse Ox 97.5 F L 89 20 135/87 97 02/18/21 20:00 02/18/21 20:00 02/18/21 20:00 02/18/21 20:00 02/19/21 08:00 Laboratory Results - last 24 hr 02/18/21 11:23: POC Glucose 208 H 02/18/21 17:05: POC Glucose 178 H 02/18/21 20:04: POC Glucose 205 H 02/19/21 04:58: POC Glucose 246 H 02/19/21 07:11: Vancomycin Trough 8.8 I & O for Last 24 hours: Intake & Output 02/16/21 02/17/21 02/18/21 02/19/21 11:59 11:59 11:59 11:59 Intake Total 1040 / 1040 1200 / 1200 Output Total 2009 Balance -970 / -970 1170 / 1170 Weight 226 lb 15.983 oz 226 lb 15.983 oz 225 lb - Constitutional no acute distress - *Routine HEENT Exam Head: Present: normocephalic Eye: Present: EOMI, PERRL ENT: Present: mucous membranes dry - *Routine Neck Exam Present: supple - *Routine Respiratory Exam Absent: respiratory distress - *Routine Cardiovascular Exam Present: RRR - *Routine Abdominal Exam Present: soft - *Routine Extremities Exam Present: full ROM - *Routine Skin Exam Present: intact - *Routine Neurological Exam Present: alert, CN II-XII intact
--- NOTE | 2021-02-19 11:36 | HMH.PHACONS ---
- Pharmacy Consult Date: 02/19/21 Time: 11:36 Referring provider: DR. MESA Reason for Consult:: VANCOMYCIN TROUGH LEVEL Allergies and ADEs:: Allergies Allergy/AdvReac Type Severity Reaction Status Date / Time No Known Allergies Allergy Verified 01/30/21 09:16 Home Medications:: Home Medications Medication Instructions Recorded Confirmed Type insulin glargine 100 unit/mL 20 unit SQ HS ml 10/18/20 02/17/21 History subcutaneous solution Aspirin [Low Dose Aspirin EC] 81 mg PO DAILY 01/03/21 02/17/21 History metformin 1,000 mg tablet 1,000 mg PO BID #180 tab 01/23/21 02/17/21 Rx glipiZIDE [Glucotrol 5mg tablet] 5 mg PO DAILY 02/13/21 02/17/21 History lisinopriL [Lisinopril 2.5mg Tab] 2.5 mg PO DAILY 02/13/21 02/17/21 History Pravastatin Sodium [Pravachol 20mg 10 mg PO HS 02/17/21 02/17/21 History Tablet] Height: 102.97 m Weight: 102.058 kg Laboratory Results:: Laboratory Results - last 24 hr 02/18/21 11:23: POC Glucose 208 H 02/18/21 17:05: POC Glucose 178 H 02/18/21 20:04: POC Glucose 205 H 02/19/21 04:58: POC Glucose 246 H 02/19/21 07:11: Vancomycin Trough 8.8 Medical History: Reports:: Diabetes Mellitus Type 2, Hyperlipidemia Denies:: Diabetes Mellitus Type 1, Internal Pacemaker, MRSA, Seizures Comment Only: Cancer (NON HODGKINS LYMPHOMA) Assessment and Plan - Assessment and plan all Dx Assessment and Plan for all problems:: BASED ON PATIENT FACTORS AND VANCOMYCIN TROUGH LEVEL, RECOMMEND INCREASING DOSE TO VANCOMYCIN 1750 MG IV Q12H. PHARMACY WILL CONTINUE TO MONITOR DAILY AND ADJUST APPROPRIATE.
[2021-02-19 11:37] LABS: POC Glucose,Bedside 142 (70-110)
[2021-02-19 16:34] LABS: POC Glucose,Bedside 168 (70-110)
--- NOTE | 2021-02-19 18:27 | PC.NURSE ---
PT IS RESTING IN BED. ALERT AND ORIENTED X4. DRESSINGS WERE CHANGED THIS SHIFT PER 'S ORDERS. PT TOLERATED DRESSING CHANGE WELL. PT REQUEST PAIN MEDICATION FREQUENTLY. PT RATES PAIN 8/10. PT AMBULATED TO THE BATHROOM WITH WALKER. LUNG SOUNDS CLEAR. ABDOMEN SOFT/NON TENDER WITH ACTIVE BOWEL SOUNDS. PICC LINE NOTED TO RUE. EATING AND DRINKING WELL. WILL CONTINUE TO MONITOR.
[2021-02-19 20:37] LABS: POC Glucose,Bedside 228 (70-110)
[2021-02-20] VITALS (7 sets, daily range): BP systolic 133–167; BP diastolic 76–89; PULSE 80–109; RESP 16–18; TEMP 36.4–36.8; O2SAT 95–99; BMI 35.3
--- NOTE | 2021-02-20 04:07 | PC.NURSE ---
shift summary pts lung sounds are clear with sats maintained 90% or above on room air, with a rate ranging from 16-18. pt is alert and oriented X4. pt has complained of pain multiple times but has only been able to receive meds 3 times. pt has had no other complaints. pt denies any nausea, vomiting, or diarrhea.
[2021-02-20 05:38] LABS: POC Glucose,Bedside 137 (70-110)
--- NOTE | 2021-02-20 08:10 | SW/DCPLANNER ---
ACTIVITY NOTE: PATIENT WAS ADMITTED TO THE SWING BED UNIT ON SATURDAY FOR SKILLED SERVICES..PT/OT WOUND CARE AND IV ANTIBIOTICS... MADE A VISIT THIS AM AND PATIENT WAS SITTING UP IN THE BED WHILE PODIATRY WAS WRAPPING HIS FOOT..HE STATED HE HAD A GOOD WEEKEND, WORKED WITH THERAPY, ENJOYED WATCHING TV AND CONVERSING WITH STAFF..HE HAS SOME PAPERWORK HE NEEDS ASSISTANCE WITH THAT IS RELATED TO HIS DISABILITY AND I TOLD HIM WHILE HE IS HERE AT THE HOSPITAL TO HAVE HIS FAMILY BRING IT IN AND WE WILL HELP HIM WITH IT... HE HAS AN ACTIVITY CALENDAR IN ROOM AND ANY ACTIVITY HE WISHES TO DO WILL BE OFFERED DURING HIS SHORT STAY.. DAILY ROOM VISITS WILL BE MADE...
--- NOTE | 2021-02-20 08:26 | HMH.ORTHOCON ---
*Admission Date: 02/17/21 *Reason for consult:: Swing Bed for L foot Cellulitis(TMA), RF DM ulcer *History of present illness: Patient is a 35-year-old diabetic male who underwent a left transmetatarsal amputation on 01/04/2021. Patient went out of town this past week and missed several wound care appointments. He reports swelling. States he did not change the dressing and over week. He presented to the ED 02/13/2021 with complaints of increased swelling and concern of infection. Patient denies nausea vomiting, fever chills, shortness of breath or chest pain. Patient was admitted to swing bed for PT/OT, wound care, IV antibiotics, PT for wound care and daily dressing changes on 02/17/21. Patient is doing very well this am. Patient finished breakfast and denies any nausea vomiting, fever, chills or shortness of breath. Patient denied any pain with bilateral feet this morning. VIDHYA drain remains intact to the left lateral foot. [facility] History I have reviewed the patient's past medical history: Yes Medical History: Reports:: Diabetes Mellitus Type 2, Hyperlipidemia Denies:: Diabetes Mellitus Type 1, Internal Pacemaker, MRSA, Seizures Comment Only: Cancer (NON HODGKINS LYMPHOMA) *Have you ever received a pneumonia vaccine?: No *Have you received a flu vaccine this season?: No Other Medical History: Reports: Chemotherapy, Radiation Therapy. Denies: Blood Transfusion Reaction Laterality Cases: Right: Lumpectomy, Other Other Surgeries: Yes: Angiogram, Other. No: Pacemaker Amputation: Yes (LEFT FOOT TOES) Fractures: No - *Social History Last grade of school completed: Some college Smoking Status: Current every day smoker Tobacco Type: cigarettes # Packs/Day (cigarettes): 1 #Yrs smoked (if former smoker): 13 Alcohol Intake: current Alcohol Intake Frequency:: holidays/special occasions only Substance Use Type: marijuana *Occupational Status:: disabled Housing: house Household Members: friend(s) *Travel in the last 8 weeks: None - Psychiatric History Pschychiatric History:: Reports:: Psychiatric Treatment Family Hx:: Coronary Artery Disease Review of Systems - Constitutional Denies fatigue - Eyes Denies change in vision - ENT Denies abnormal hearing, Denies difficulty swallowing - *Cardiovascular Denies chest pain, Denies shortness of breath - *Respiratory Denies cough - *Gastrointestinal Denies abdominal pain - *Genitourinary Denies difficulty urinating - *Musculoskeletal Denies abnormal walking ( NWB to his L TMA and heel touch to his RLE ) - Integumentary/Breasts Reports wounds (S/P L foot TMA revision; RF DM ulcer excision. ) - *Neurologic Denies tingling/numbness/burning sensations - Psychiatric Denies anxiety, Denies confusion - Endocrine Denies cold intolerance Meds Home Medications Medication Instructions Recorded Confirmed Type insulin glargine 100 unit/mL 20 unit SQ HS ml 10/18/20 02/17/21 History subcutaneous solution Aspirin [Low Dose Aspirin EC] 81 mg PO DAILY 01/03/21 02/17/21 History metformin 1,000 mg tablet 1,000 mg PO BID #180 tab 01/23/21 02/17/21 Rx glipiZIDE [Glucotrol 5mg tablet] 5 mg PO DAILY 02/13/21 02/17/21 History lisinopriL [Lisinopril 2.5mg Tab] 2.5 mg PO DAILY 02/13/21 02/17/21 History Pravastatin Sodium [Pravachol 20mg 10 mg PO HS 02/17/21 02/17/21 History Tablet] Allergies Allergy/AdvReac Type Severity Reaction Status Date / Time No Known Allergies Allergy Verified 01/30/21 09:16 Exam Vital signs and Labs for Last 24 Hours: Temp Pulse Resp BP Pulse Ox 98.3 F 80 18 167/89 H 99 02/20/21 07:29 02/20/21 07:29 02/20/21 07:29 02/20/21 07:29 02/20/21 07:29 Laboratory Results - last 24 hr 02/19/21 07:11: Vancomycin Trough 8.8 02/19/21 11:30: POC Glucose 142 H 02/19/21 16:19: POC Glucose 168 H 02/19/21 20:05: POC Glucose 228 H 02/20/21 05:24: POC Glucose 137 H I & O for Last 24 hours: Intake & Output 02/17/21
[2021-02-20 11:25] LABS: POC Glucose,Bedside 114 (70-110)
--- NOTE | 2021-02-20 12:08 | HMH.ACPN ---
Internal Medicine - PN: Subj *Date: 02/20/21 *Time: 12:08 Exam Vital signs and Labs for Last 24 Hours: Temp Pulse Resp BP Pulse Ox 98.3 F 80 18 167/89 H 97 02/20/21 07:29 02/20/21 07:29 02/20/21 07:29 02/20/21 07:29 02/20/21 10:00 Laboratory Results - last 24 hr 02/19/21 16:19: POC Glucose 168 H 02/19/21 20:05: POC Glucose 228 H 02/20/21 05:24: POC Glucose 137 H 02/20/21 11:14: POC Glucose 114 H I & O for Last 24 hours: Intake & Output 02/17/21 02/18/21 02/19/21 02/20/21 23:59 23:59 23:59 23:59 Intake Total 800 / 800 1080 / 1080 960 / 960 480 / 480 Output Total 1360 / 1360 680 / 680 Balance -560 / -560 400 / 400 960 / 960 480 / 480 Weight 102.965 kg 102.965 kg 102.058 kg 125 kg The patient's infection will respond to the chosen ABx?: Yes Is the patient receiving the right drug, dose, and route?: Yes Could a more targeted ABx be ordered?: No (WILL DC CEFEPIME BUT CONTINUE VANCOMYCIN FOR 2 WEEK SWING BED)
[2021-02-20 16:10] LABS: POC Glucose,Bedside 192 (70-110)
--- NOTE | 2021-02-20 17:05 | PC.NURSE ---
Addendum entered by Nalini Vale RN 02/20/21 17:47: VERBAL ORDER GIVEN PER . (DC IVF'S, DC MORPHINE, DC LORATAB [phone]) ORDERED PERCOCET 325 Q6H PRN. ORDER FAXED TO PHARMACY. Original Note: PT IS RESTING IN BED. ALERT AND ORIENTED X4. AMBULATES TO THE BATHROOM WITH WALKER. DRESSING TO BILATERAL FEET WERE CHANGED PER PODIATRY THIS SHIFT. PT HAS REQUIRED PAIN MEDICATION FREQUENTLY THIS SHIFT. PT PREFERS THE MORPHINE OVER THE LORATAB. RATES PAIN 8/10. NOTIFIED PCP TO SEE IF MORPHINE AND IVF'S COULD BE DC'D DUE TO PT BEING IN SWING BED AND HE WAS NOT GOING TO BE ABLE TO BE DISCHARGED ON MORPHINE. STAFF FROM [facility] STATED THEY WOULD TALK TO ABOUT THE IVF'S AND MORPHINE. PT'S LUNG SOUNDS CLEAR. ABDOMEN SOFT/NON TENDER WITH ACTIVE BOWEL SOUNDS. PT STATED HIS LAST BOWEL MOVEMENT WAS YESTERDAY. EATING AND DRINKING WELL. PICC NOTED TO NITESH. VSS. WILL CONTINUE TO MONITOR.
[2021-02-20 21:24] LABS: POC Glucose,Bedside 149 (70-110)
--- NOTE | 2021-02-21 02:50 | PC.NURSE ---
Patient's dressing change to BL feet is to be done daily with every other day being done by nursing staff due on 02/21/2021. Left foot has VIDHYA drain with scant amount of drainage noted. VSS, safety measures in place; will continue to monitor.
[2021-02-21 05:00] VITALS: BMI 28.7
[2021-02-21 06:39] LABS: POC Glucose,Bedside 196 (70-110)
[2021-02-21 07:21] VITALS: BP 102/59; PULSE 82; RESP 18; TEMP 36.5; O2SAT 97
--- NOTE | 2021-02-21 08:10 | HMH.ACPN2 ---
Internal Medicine - PN: Subj *Date: 02/21/21 *Time: 08:10 Exam Vital signs and Labs for Last 24 Hours: Temp Pulse Resp BP Pulse Ox 97.7 F 82 18 102/59 L 97 02/21/21 07:21 02/21/21 07:21 02/21/21 07:21 02/21/21 07:21 02/21/21 07:21 Laboratory Results - last 24 hr 02/20/21 11:14: POC Glucose 114 H 02/20/21 16:03: POC Glucose 192 H 02/20/21 21:02: POC Glucose 149 H 02/21/21 06:09: POC Glucose 196 H I & O for Last 24 hours: Intake & Output 02/18/21 02/19/21 02/20/21 02/21/21 23:59 23:59 23:59 23:59 Intake Total 1080 / 1080 960 / 960 1320 / 1570 610 / 610 Output Total 680 / 680 Balance 400 / 400 960 / 960 1320 / 1570 610 / 610 Weight 226 lb 15.983 oz 225 lb 275 lb 9.245 oz 224 lb Assessment and Plan (1) MRSA infection Start date: 02/17/21 Status: Acute Category: Medical Code(s): A49.02 - Methicillin resistant Staphylococcus aureus infection, unspecified site (2) Osteomyelitis Start date: 02/17/21 Status: Acute Qualifiers: Osteomyelitis type: unspecified type Osteomyelitis location: foot Laterality: left Qualified Code(s): M86.9 - Osteomyelitis, unspecified Category: Medical Code(s): M86.9 - Osteomyelitis, unspecified (3) Chronic osteomyelitis of left foot Status: Acute Category: Medical Code(s): M86.672 - Other chronic osteomyelitis, left ankle and foot (4) Pseudomonas aeruginosa infection Start date: 02/17/21 Status: Acute Category: Medical Code(s): A49.8 - Other bacterial infections of unspecified site (5) Infection due to Bacillus cereus Start date: 02/17/21 Status: Acute Category: Medical Code(s): A49.8 - Other bacterial infections of unspecified site (6) Cellulitis of left foot Start date: 02/17/21 Status: Acute Category: Medical Code(s): L03.116 - Cellulitis of left lower limb (7) Diabetic foot infection Start date: 02/17/21 Status: Acute Category: Medical Code(s): E11.628 - Type 2 diabetes mellitus with other skin complications; L08.9 - Local infection of the skin and subcutaneous tissue, unspecified (8) Ulcer of right foot due to type 2 diabetes mellitus Start date: 02/17/21 Status: Acute Category: Medical Code(s): E11.621 - Type 2 diabetes mellitus with foot ulcer; L97.519 - Non-pressure chronic ulcer of other part of right foot with unspecified severity (9) Encounter for wound care Start date: 02/17/21 Status: Acute Category: Medical Code(s): Z51.89 - Encounter for other specified aftercare (10) Type 2 diabetes mellitus Start date: 02/17/21 Status: Acute Qualifiers: Diabetes mellitus intermediate school teacher insulin use: with fpc use Diabetes mellitus complication status: with other specified complication Qualified Code(s): E11.69 - Type 2 diabetes mellitus with other specified complication; Z79.4 - long term care social worker (current) use of insulin Category: Medical Code(s): E11.9 - Type 2 diabetes mellitus without complications (11) Diabetic foot Start date: 02/17/21 Status: Acute Category: Medical Code(s): E11.8 - Type 2 diabetes mellitus with unspecified complications (12) History of amputation of lesser toe of left foot Start date: 02/17/21 Status: Acute Category: Surgical Code(s): Z89.422 - Acquired absence of other left toe(s) (13) Edema of left foot Start date: 02/17/21 Status: Acute Category: Medical Code(s): R60.0 - Localized edema (14) Pain in left foot Start date: 02/17/21 Status: Acute Category: Medical Code(s): M79.672 - Pain in left foot (15) Status post foot surgery Start date: 02/17/21 Status: Acute Category: Surgical Code(s): Z98.890 - Other specified postprocedural states
--- NOTE | 2021-02-21 10:07 | SW/DCPLANNER ---
ACTIVITY NOTE: WENT IN TO SEE PATIENT THIS AM, HE WAS SITTING UP IN THE BED READY TO EAT BREAKFAST... WE TALKED ABOUT HIS EVENING AND HE STATED HE DID WELL, STAFF WAS TAKING GOOD CARE OF HIM AND HIS PAIN MEDS HAS BEEN CHANGED BUT HE SAID IT IS STILL WORKING OK FOR HIM...HE HAS HIS OWN IN ROOM ACTIVITIES, TALKS ON HIS PHONE, WATCHES TV AND HAS READING MATERIALS AT BEDSIDE.. HE STATED HIS FRIEND IS COMING TO SEE HIM TONIGHT.. HE IS UP FOR REVIEW TODAY....WAITING TO HEAR TO WHETHER HE WILL GET TO STAY OR DO OUTPATIENT...HIS NONCOMPLIANCE IS HIS BIGGEST ISSUE, HOPEFUL THE ANTIBIOTIC AND WOUND CARE WILL HELP HIM TO GET BETTER AND HE CAN DISCHARGE TO HOME SOON... WILL CONTINUE WITH VISITS DAILY...
[2021-02-21 11:55] LABS: POC Glucose,Bedside 185 (70-110)
--- NOTE | 2021-02-21 14:51 | PC.NURSE ---
Pt is alert and oriented x4. Lungs are clear, bowel sounds active x4. Dressings to bilateral feet changed. Old dressings removed, wounds cleaned with betadine, vaseline gauze applied to sutures/janie, covered with betadine soaked 4x4's, then dry 4x4's, kerlix and rosendo wrap. Incisions are well approximated, no drainage, edema or erythema noted. 5ml's of bloody drainage emptied from juany drain. Pt tolerated well. Picc to E is patent and flushes easily. Pain meds administered around the clock with patient reporting relief on reassessment. No acute changes from morning assessment.
[2021-02-21 18:03] LABS: POC Glucose,Bedside 166 (70-110)
[2021-02-21 19:36] VITALS: BP 121/66; PULSE 97; RESP 18; TEMP 37; O2SAT 98
[2021-02-21 20:00] VITALS: O2SAT 98
[2021-02-22] VITALS (8 sets, daily range): BP systolic 112–123; BP diastolic 66–74; PULSE 91–104; RESP 16; TEMP 36.6; O2SAT 97–100; BMI 28.2
[2021-02-22 05:55] LABS: POC Glucose,Bedside 134 (70-110)
[2021-02-22 06:45] LABS: Vancomycin,Trough 14.5 ug/mL (5.0-10.0)
--- NOTE | 2021-02-22 08:21 | HMH.ORTHPN ---
Subjective Date: 02/22/21 Time: 07:50 Principal diagnosis: Swing bed for L foot Cellulitis (TMA), RF DM ulcer Interval history: Patient doing very well this morning denies any pain with bilateral feet. The dressings are intact there appears to be only maybe 5 cc of drainage in the VIDHYA drain. VIDHYA drain remains intact to the left lateral foot. I will proceed with dressing changes this morning. Patient finished breakfast and denies any nausea vomiting, fever, chills or shortness of breath. PN: Obj Ex Vital signs: Temp Pulse Resp BP Pulse Ox 97.8 F 91 H 16 123/74 98 02/22/21 08:00 02/22/21 08:00 02/22/21 08:00 02/22/21 08:00 02/22/21 08:00 - Constitutional no acute distress - Routine HEENT Exam Head: Present: normocephalic Eye: Present: EOMI ENT: Present: mucous membranes moist - Routine Neck Exam Present: trachea midline - Routine Chest/Breast/Axilla Exam Chest wall: Absent: tenderness - Routine Respiratory Exam Absent: accessory muscle use, respiratory distress - Routine Cardiovascular Exam Present: RRR - Routine Abdominal Exam Present: soft - Routine Extremities Exam Present: pulses intact, amputation (amputation L TMA) - Detailed Lower Extremity Exam Bottom foot image: 1 - S/P Right excision of ulcer, delayed primary closure, Right 1st metatarsal bone biospy, Right toenail debridement x5. Sutures are intact, no drainage noted today. No edema, no erythema noted. Site was cleaned with Betadine, dressed with Betadine soaked 4 x 4, dry 4 x 4 and Memo wrap. Vaseline gauze this time, but he will need to have it applied on the next time. 2 - S/P 02/14/21- Left TMA revision, foot irrigation and debridement, Left foot/metatarsal bone biopsy, Left foot application of VIDHYA drain. Site has less edema and erythema today. Sutures and janie are intact. There was no drainage noted to site when compressed. Site cleaned with Betadine, Applied vaseline gauze, Betadine soaked 4 x 4, dry 4 x 4, Kerlix and Memo wrap - Routine Back/Spine/Pelvis Exam Back/Spine: Present: full ROM - Routine Skin Exam Present: dry, wounds (L foot TMA, RF excision of ulcer.) - Routine Neurological Exam Present: alert, oriented X3, vision grossly intact, hearing grossly intact, normal speech - Routine Psychiatric Exam Present: normal affect, cooperative Progress Note: A&P (1) MRSA infection Status: Acute (2) Osteomyelitis Status: Acute (3) Chronic osteomyelitis of left foot Status: Acute (4) Pseudomonas aeruginosa infection Status: Acute (5) Infection due to Bacillus cereus Status: Acute (6) Cellulitis of left foot Status: Acute (7) Diabetic foot infection Status: Acute (8) Ulcer of right foot due to type 2 diabetes mellitus Status: Acute (9) Encounter for wound care Status: Acute (10) Type 2 diabetes mellitus Status: Acute (11) Diabetic foot Status: Acute (12) History of amputation of lesser toe of left foot Status: Acute (13) Edema of left foot Status: Acute (14) Pain in left foot Status: Acute (15) Status post foot surgery Status: Acute Assessment and Plan for All Diagnoses:: Sx: 02/14/21, s/p Left foot revision of TMA, foot irrigation and debridement, foot/metatarsal bone biopsy , application of VIDHYA drain S/p right excision of ulcer, delayed primary closure, right 1st metatarsal bone biospy, right toenail debridement x5 02/14/21, Intra-op Specimens: Cultures: Right 1st metatarsal bone culture: NG x24 Right foot ulcer, tissue culture: NG x24 Left 1st metatarsal bone culture: NG x24 Pathology: Right 1st metatarsal bone path: pending Left 1st metatarsal margin bone path Left 2-5th metatarsal bone path Left foot gross path 02/13/21, Ha1c 7.5% 02/14/21, wound culture left foot drainage from TMA site: Organism 1?Staphylococcus epidermidis 02/15/21, Labs: wbc 8.7, esr 60, c
--- NOTE | 2021-02-22 08:38 | SW/DCPLANNER ---
ACTIVITY NOTE: WENT IN TO SEE PATIENT THIS MORNING FOR AN ACTIVITY VISIT, PATIENT WAS SITTING UP IN BED AND TALKING TO HIS GIRLFRIEND ON THE PHONE....WE DISCUSSED HIS EVENING AND HE STATED OTHER THAN THE PAIN MEDS BEING CUT DOWN AND TAKEN OFF THE IV MORPHINE HE WAS OK... HE WAS PUT ON PO PAIN MEDICATION AND HE SAID ITS EVERY 6 HRS AND HE SAID AT 4 1/2 HRS HE STARTS TO HURT, I TOLD HIM UNFORTUNATELY THAT IS SOMETHING HE NEEDS TO DISCUSS WITH THE MD... HE HAS SOME PAPERWORK THAT HE NEEDS HELP WITH AND I TOLD HIM THE PENSION ADVISER OR MYSELF WILL LOOK AT IT AND HELP HIM.. HE ENJOYS HIS TV, PHONE AND TALKING WITH STAFF AND FRIENDS ON THE PHONE THAT TAKES UP MOST OF HIS WAKING TIME.. DAILY VISITS WILL BE MADE AND WILL ASSIST WITH ANY ACTIVITY OF INTEREST DURING HIS SHORT STAY....
--- NOTE | 2021-02-22 08:56 | HMH.ACPN2 ---
Internal Medicine - PN: Subj *Date: 02/22/21 *Time: 11:44 Interval history: 35-year-old male patient sitting up in bed resting quietly, he reports pain is at a tolerable level. He has been transitioned from IV to p.o. pain meds and explained that he will be on p.o. pain meds the rest of his stay. He is agreeable to this and denies any new concerns/needs Exam Vital signs and Labs for Last 24 Hours: Temp Pulse Resp BP Pulse Ox 97.8 F 91 H 16 123/74 98 02/22/21 08:00 02/22/21 08:00 02/22/21 08:00 02/22/21 08:00 02/22/21 08:00 Laboratory Results - last 24 hr 02/21/21 11:36: POC Glucose 185 H 02/21/21 16:58: POC Glucose 166 H 02/22/21 05:24: POC Glucose 134 H 02/22/21 05:30: Vancomycin Trough 14.5 H I & O for Last 24 hours: Intake & Output 02/19/21 02/20/21 02/21/21 02/22/21 23:59 23:59 23:59 23:59 Intake Total 960 / 960 1320 / 1570 1450 / 1450 240 / 240 Balance 960 / 960 1320 / 1570 1450 / 1450 240 / 240 Weight 225 lb 275 lb 9.245 oz 224 lb 220 lb - Constitutional no acute distress - *Routine Neck Exam Present: trachea midline. Absent: tracheal deviation - *Routine Respiratory Exam Present: CTA bilaterally. Absent: accessory muscle use - *Routine Cardiovascular Exam Present: RRR - *Routine Abdominal Exam Present: soft, normoactive bowel sounds. Absent: tenderness, firm - *Routine Skin Exam Present: warm, wounds. Absent: cyanosis, erythema Comments: Dressing to bilateral feet clean dry and intact VIDHYA drain intact to left foot - *Routine Neurological Exam Present: alert, oriented X3. Absent: motor deficit, pronator drift - Routine Psychiatric Exam Present: normal affect, normal thought process. Absent: auditory hallucinations, visual hallucinations Assessment and Plan (1) MRSA infection Start date: 02/17/21 Status: Acute Category: Medical Code(s): A49.02 - Methicillin resistant Staphylococcus aureus infection, unspecified site (2) Osteomyelitis Start date: 02/17/21 Status: Acute Qualifiers: Osteomyelitis type: unspecified type Osteomyelitis location: foot Laterality: left Qualified Code(s): M86.9 - Osteomyelitis, unspecified Category: Medical Code(s): M86.9 - Osteomyelitis, unspecified (3) Chronic osteomyelitis of left foot Status: Acute Category: Medical Code(s): M86.672 - Other chronic osteomyelitis, left ankle and foot (4) Pseudomonas aeruginosa infection Start date: 02/17/21 Status: Acute Category: Medical Code(s): A49.8 - Other bacterial infections of unspecified site (5) Infection due to Bacillus cereus Start date: 02/17/21 Status: Acute Category: Medical Code(s): A49.8 - Other bacterial infections of unspecified site (6) Cellulitis of left foot Start date: 02/17/21 Status: Acute Category: Medical Code(s): L03.116 - Cellulitis of left lower limb (7) Diabetic foot infection Start date: 02/17/21 Status: Acute Category: Medical Code(s): E11.628 - Type 2 diabetes mellitus with other skin complications; L08.9 - Local infection of the skin and subcutaneous tissue, unspecified (8) Ulcer of right foot due to type 2 diabetes mellitus Start date: 02/17/21 Status: Acute Category: Medical Code(s): E11.621 - Type 2 diabetes mellitus with foot ulcer; L97.519 - Non-pressure chronic ulcer of other part of right foot with unspecified severity (9) Encounter for wound care Start date: 02/17/21 Status: Acute Category: Medical Code(s): Z51.89 - Encounter for other specified aftercare (10) Type 2 diabetes mellitus Start date: 02/17/21 Status: Acute Qualifiers: Diabetes mellitus termite exterminator helper insulin use: with penitentiary use Diabetes mellitus complication status: with other specified complication Qualified Code(s): E11.69 - Type 2 diabetes mellitus with other specified complication; Z79.4 - [facility] (current) use of insulin Category: Medical Code(s): E11.9 - Typ
--- NOTE | 2021-02-22 09:14 | HMH.PHACONS ---
- Pharmacy Consult Date: 02/22/21 Time: 09:15 Referring provider: DR. MESA Reason for Consult:: VANCOMYCIN TROUGH LEVEL Allergies and ADEs:: Allergies Allergy/AdvReac Type Severity Reaction Status Date / Time No Known Allergies Allergy Verified 01/30/21 09:16 Home Medications:: Home Medications Medication Instructions Recorded Confirmed Type insulin glargine 100 unit/mL 20 unit SQ HS ml 10/18/20 02/17/21 History subcutaneous solution Aspirin [Low Dose Aspirin EC] 81 mg PO DAILY 01/03/21 02/17/21 History metformin 1,000 mg tablet 1,000 mg PO BID #180 tab 01/23/21 02/17/21 Rx glipiZIDE [Glucotrol 5mg tablet] 5 mg PO DAILY 02/13/21 02/17/21 History lisinopriL [Lisinopril 2.5mg Tab] 2.5 mg PO DAILY 02/13/21 02/17/21 History Pravastatin Sodium [Pravachol 20mg 10 mg PO HS 02/17/21 02/17/21 History Tablet] Height: 1.88 m Weight: 99.79 kg Laboratory Results:: Laboratory Results - last 24 hr 02/21/21 11:36: POC Glucose 185 H 02/21/21 16:58: POC Glucose 166 H 02/22/21 05:24: POC Glucose 134 H 02/22/21 05:30: Vancomycin Trough 14.5 H Medical History: Reports:: Diabetes Mellitus Type 2, Hyperlipidemia Denies:: Diabetes Mellitus Type 1, Internal Pacemaker, MRSA, Seizures Comment Only: Cancer (NON HODGKINS LYMPHOMA) Assessment and Plan (1) MRSA infection Start date: 02/17/21 Status: Acute Category: Medical Code(s): A49.02 - Methicillin resistant Staphylococcus aureus infection, unspecified site (2) Osteomyelitis Start date: 02/17/21 Status: Acute Qualifiers: Osteomyelitis type: unspecified type Osteomyelitis location: foot Laterality: left Qualified Code(s): M86.9 - Osteomyelitis, unspecified Category: Medical Code(s): M86.9 - Osteomyelitis, unspecified (3) Chronic osteomyelitis of left foot Status: Acute Category: Medical Code(s): M86.672 - Other chronic osteomyelitis, left ankle and foot (4) Pseudomonas aeruginosa infection Start date: 02/17/21 Status: Acute Category: Medical Code(s): A49.8 - Other bacterial infections of unspecified site (5) Infection due to Bacillus cereus Start date: 02/17/21 Status: Acute Category: Medical Code(s): A49.8 - Other bacterial infections of unspecified site (6) Cellulitis of left foot Start date: 02/17/21 Status: Acute Category: Medical Code(s): L03.116 - Cellulitis of left lower limb (7) Diabetic foot infection Start date: 02/17/21 Status: Acute Category: Medical Code(s): E11.628 - Type 2 diabetes mellitus with other skin complications; L08.9 - Local infection of the skin and subcutaneous tissue, unspecified (8) Ulcer of right foot due to type 2 diabetes mellitus Start date: 02/17/21 Status: Acute Category: Medical Code(s): E11.621 - Type 2 diabetes mellitus with foot ulcer; L97.519 - Non-pressure chronic ulcer of other part of right foot with unspecified severity (9) Encounter for wound care Start date: 02/17/21 Status: Acute Category: Medical Code(s): Z51.89 - Encounter for other specified aftercare (10) Type 2 diabetes mellitus Start date: 02/17/21 Status: Acute Qualifiers: Diabetes mellitus superintendent container terminal insulin use: with superintendent container terminal use Diabetes mellitus complication status: with other specified complication Qualified Code(s): E11.69 - Type 2 diabetes mellitus with other specified complication; Z79.4 - superintendent container terminal (current) use of insulin Category: Medical Code(s): E11.9 - Type 2 diabetes mellitus without complications (11) Diabetic foot Start date: 02/17/21 Status: Acute Category: Medical Code(s): E11.8 - Type 2 diabetes mellitus with unspecified complications (12) History of amputation of lesser toe of left foot Start date: 02/17/21 Status: Acute Category: Surgical Code(s): Z89.422 - Acquired absence of other left toe(s) (13) Edema of left foot Start date: 02/17/21 Status: Acute Category: Medical Code(s): R60
[2021-02-22 09:21] LABS: Chloride 101 mmol/L (98-107); Sodium 137 mmol/L (136-145)
[2021-02-22 09:22] LABS: Potassium 4.1 mmoL/L (3.5-5.1)
[2021-02-22 09:24] LABS: Blood Urea Nitrogen 19 mg/dl (9-20); Creatinine Clearance Estimated 159 mL/min (50-200); Estimated Glomerular Filt Rate 95 ml/min (>60); GFR (African American) 115 ML/MIN (>60)
[2021-02-22 09:25] LABS: Anion Gap 11.1 mEq/L (5-15); Calcium 9.5 mg/dl (8.4-10.2); Carbon Dioxide 29 mmol/L (22.0-30.0); Glucose 119 mg/dl (74-100)
[2021-02-22 11:42] LABS: POC Glucose,Bedside 124 (70-110)
--- NOTE | 2021-02-22 12:47 | PC.NURSE ---
Pt is alert and oriented x4. Lungs clear, bowel sounds active x4. He transports to the chair and back via walker independently. Dressings to bilateral feet changed per Ahsan Mcghee APRN and are clean, dry and intact. VIDHYA drain in place to left foot. Small amount of bloody drainage noted. No change from morning assessment.
--- NOTE | 2021-02-22 13:32 | HMH.ACPN ---
Internal Medicine - PN: Subj *Date: 02/22/21 *Time: 13:32 Exam Vital signs and Labs for Last 24 Hours: Temp Pulse Resp BP Pulse Ox 97.8 F 91 H 16 123/74 98 02/22/21 08:00 02/22/21 08:00 02/22/21 08:00 02/22/21 08:00 02/22/21 11:48 Laboratory Results - last 24 hr 02/21/21 16:58: POC Glucose 166 H 02/22/21 05:24: POC Glucose 134 H 02/22/21 05:30: Vancomycin Trough 14.5 H 02/22/21 05:30: Sodium 137, Potassium 4.1, Chloride 101, Carbon Dioxide 29, Anion Gap 11.1, BUN 19, Creatinine 0.90, Estimated Creat Clear 159, Estimated GFR 95, Est GFR ( Amer) 115, Glucose 119 H, Calcium 9.5 02/22/21 11:32: POC Glucose 124 H I & O for Last 24 hours: Intake & Output 02/19/21 02/20/21 02/21/21 02/22/21 23:59 23:59 23:59 23:59 Intake Total 960 / 960 1320 / 1570 1450 / 1450 240 / 240 Output Total 10 / 10 Balance 960 / 960 1320 / 1570 1440 / 1440 240 / 240 Weight 102.058 kg 125 kg 101.605 kg 99.79 kg Assessment and Plan (1) MRSA infection Start date: 02/17/21 Status: Acute Category: Medical Code(s): A49.02 - Methicillin resistant Staphylococcus aureus infection, unspecified site (2) Osteomyelitis Start date: 02/17/21 Status: Acute Qualifiers: Osteomyelitis type: unspecified type Osteomyelitis location: foot Laterality: left Qualified Code(s): M86.9 - Osteomyelitis, unspecified Category: Medical Code(s): M86.9 - Osteomyelitis, unspecified (3) Chronic osteomyelitis of left foot Status: Acute Category: Medical Code(s): M86.672 - Other chronic osteomyelitis, left ankle and foot (4) Pseudomonas aeruginosa infection Start date: 02/17/21 Status: Acute Category: Medical Code(s): A49.8 - Other bacterial infections of unspecified site (5) Infection due to Bacillus cereus Start date: 02/17/21 Status: Acute Category: Medical Code(s): A49.8 - Other bacterial infections of unspecified site (6) Cellulitis of left foot Start date: 02/17/21 Status: Acute Category: Medical Code(s): L03.116 - Cellulitis of left lower limb (7) Diabetic foot infection Start date: 02/17/21 Status: Acute Category: Medical Code(s): E11.628 - Type 2 diabetes mellitus with other skin complications; L08.9 - Local infection of the skin and subcutaneous tissue, unspecified (8) Ulcer of right foot due to type 2 diabetes mellitus Start date: 02/17/21 Status: Acute Category: Medical Code(s): E11.621 - Type 2 diabetes mellitus with foot ulcer; L97.519 - Non-pressure chronic ulcer of other part of right foot with unspecified severity (9) Encounter for wound care Start date: 02/17/21 Status: Acute Category: Medical Code(s): Z51.89 - Encounter for other specified aftercare (10) Type 2 diabetes mellitus Start date: 02/17/21 Status: Acute Qualifiers: Diabetes mellitus care home insulin use: with care home use Diabetes mellitus complication status: with other specified complication Qualified Code(s): E11.69 - Type 2 diabetes mellitus with other specified complication; Z79.4 - [facility] (current) use of insulin Category: Medical Code(s): E11.9 - Type 2 diabetes mellitus without complications (11) Diabetic foot Start date: 02/17/21 Status: Acute Category: Medical Code(s): E11.8 - Type 2 diabetes mellitus with unspecified complications (12) History of amputation of lesser toe of left foot Start date: 02/17/21 Status: Acute Category: Surgical Code(s): Z89.422 - Acquired absence of other left toe(s) (13) Edema of left foot Start date: 02/17/21 Status: Acute Category: Medical Code(s): R60.0 - Localized edema (14) Pain in left foot Start date: 02/17/21 Status: Acute Category: Medical Code(s): M79.672 - Pain in left foot (15) Status post foot surgery Start date: 02/17/21 Status: Acute Category: Surgical Code(s): Z98.890 - Other specified postprocedural states The patient's infection
--- NOTE | 2021-02-22 15:48 | DIET.NUTRFU ---
Addendum entered by Shireen Encarnacion 02/27/21 15:08: No changes/concerns. BG avg. 160. Continuing to monitor. Original Note: PO intakes 75-100%, BG moderate- avg. 160. Pt has received diet edu for DM. No nutritional concerns, continuing to monitor.
[2021-02-22 16:18] LABS: POC Glucose,Bedside 206 (70-110)
[2021-02-22 16:18] LABS: POC Glucose,Bedside 231 (70-110)
--- NOTE | 2021-02-22 16:38 | PC.NURSE ---
This Rn took over pt at this time.
[2021-02-22 20:53] LABS: POC Glucose,Bedside 251 (70-110)
[2021-02-23] VITALS (7 sets, daily range): BP systolic 102–113; BP diastolic 59–79; PULSE 91–95; RESP 16–18; TEMP 36.5–36.7; O2SAT 96–100; BMI 27.9
[2021-02-23 05:51] LABS: POC Glucose,Bedside 170 (70-110)
--- NOTE | 2021-02-23 06:10 | PC.NURSE ---
shift summary pts lung sounds are clear with sats 90% or above on room air, with a rate ranging from 16-18. pt is alert and oriented X4. pt is able to get up and walk to bathroom unassisted. pt complained of pain twice last night which was relieved with pain meds. pt denies any nausea, vomiting, or diarrhea.
--- NOTE | 2021-02-23 09:05 | SW/DCPLANNER ---
ACTIVITY NOTE: WENT IN TO SEE PATIENT THIS AM, HE WAS SITTING UP IN THE BED AND WAS PLEASANT..HE CONTINUES TO DO WELL WITH HIS ANTIBIOTICS AND WOUND CARE...HE WAS UP BY INSURANCE COMPANY TO BE REVIEWED FOR CONTINUED STAY..HAVE NOT HEARD TO WHETHER THEY ARE GOING TO ALLOW HIM TO STAY ADDITIONAL DAYS FOR HE WILL NEED TO DISCHARGE. HE CONTINUES TO HAVE IN AROOM ACTIVITIES AT BEDSIDE, HE HAD A VISITOR FROM [facility] LAST EVENING AND HE STATED HE ENJOYED HIS EVENING.. HE ALSO ENJOYS HIS TV AND HIS PHONE.. DAILY VISITS ARE MADE AND THE PLAN IS FOR HIM TO DISCHARGE BACK HOME ONCE HE HAS COMPLETED HIS SWING BED STAY. ANY SERVICES THAT HE MAY NEED AT TIME OF DISPOSITION WILL BE SET UP....
[2021-02-23 11:44] LABS: POC Glucose,Bedside 184 (70-110)
[2021-02-23 17:32] LABS: POC Glucose,Bedside 189 (70-110)
--- NOTE | 2021-02-23 18:59 | PC.NURSE ---
pt has remained in bed most of the shift. he is alert and oriented x3, has c/o pain twice this shift. dressings changed by Podiatry. lungs are clear bowels are active. nad noted.
[2021-02-23 20:33] LABS: POC Glucose,Bedside 238 (70-110)
--- NOTE | 2021-02-24 04:29 | PC.NURSE ---
shift summary pts lung sounds are clear with sats 90% or above on room air, with a rate ranging from 16-18. pt is alert and oriented X4. pt is able to get up and walk to bathroom unassisted. pt complained of pain once last night which was relieved with pain meds. pt denies any nausea, vomiting, or diarrhea.
[2021-02-24 05:00] VITALS: BMI 28.0
[2021-02-24 05:08] LABS: POC Glucose,Bedside 227 (70-110)
--- NOTE | 2021-02-24 07:20 | SW/DCPLANNER ---
ACTIVITY NOTE: WENT IN TO SEE PATIENT THIS MORNING, HE WAS SITTING UP IN BED AND JUST FINISHED BREAKFAST.. HE SEEMS TO FEEL GOOD AND WAS MOST COMPLIMENTARY OF THE CARE HE HAS RECEIVED DURING HIS STAY.. WE DISCUSSED HIM POSSIBLY GOING HOME NEXT WEEK AND I TOLD HIM TO BE THINKING ABOUT HIS DISCHARGE PLANS AND IF HE SHOULD NEED ANYTHING TO LET US KNOW.. HE IS PROBABLY GOING TO NEED HOME HEALTH SERVICES, I THINK TRANSPORTATION IS AN ISSUE FOR HIM TO GET BACK TO OUR OUTPATIENT DEPT..WILL CONTINUE WITH DAILY ROOM VISITS, OFFER ANY ASSISTANCE TO ANY ACTIVITY OF INTEREST AND ALLOW PATIENT TO DO HIS OWN INROOM TOLERATED..
[2021-02-24 07:39] LABS: Blood Urea Nitrogen 17 mg/dl (9-20); Calcium 9.9 mg/dl (8.4-10.2); Carbon Dioxide 31 mmol/L (22.0-30.0); Chloride 104 mmol/L (98-107); Creatinine Clearance Estimated 129 mL/min (50-200); Estimated Glomerular Filt Rate 75 ml/min (>60); GFR (African American) 91 ML/MIN (>60); Glucose 112 mg/dl (74-100); Sodium 142 mmol/L (136-145)
[2021-02-24 07:40] LABS: Basophils % 0.4 % (0.1-2.0); Eosinophils # 0.2 K/mm3 (0.0-0.4); Eosinophils % 2.6 % (0.1-12.0); Hematocrit 35.2 % (42.0-52.0); Lymphocytes # 2.7 K/mm3 (0.7-4.5); Lymphocytes % 38.9 % (10-50); Mean Corpuscular HGB Conc 31.1 g/dL (31.8-35.4); Mean Corpuscular Hemoglobin 25.6 pg (27.0-31.2); Mean Corpuscular Volume 82.2 fl (80-94); Mean Platelet Volume 7.7 fl (7.4-10.4); Monocytes # 0.3 K/mm3 (0.1-1.0); Neutrophils # 3.7 K/mm3 (1.8-7.8); Neutrophils % 54.1 % (37.0-80.0); Platelet Count 216 K/mm3 (142-424); Red Blood Count 4.29 M/mm3 (4.60-6.20); Red Cell Distribution Width 14.7 % (11.5-17.5); White Blood Count 6.8 K/mm3 (4.8-10.8)
--- NOTE | 2021-02-24 08:35 | HMH.ORTHPN ---
Subjective Date: 02/24/21 Time: 08:00 Principal diagnosis: Swing bed for L foot Cellulitis (TMA), RF DM ulcer Interval history: Patient doing very well this morning denies any pain with bilateral feet. There is scant amount of drainaged noted in the tubing of VIDHYA drain and none in the bulb, I dc'd the drain from the lateral side of the incision. The sites all look good, without any drainage, erythema or edema. I will proceed with dressing changes this morning. Patient finished breakfast and denies any nausea vomiting, fever, chills or shortness of breath. PN: Obj Ex Vital signs: Temp Pulse Resp BP Pulse Ox 98.0 F 95 H 16 102/59 L 97 02/23/21 20:00 02/23/21 20:00 02/23/21 20:00 02/23/21 20:00 02/23/21 20:00 - Constitutional no acute distress - Routine HEENT Exam Head: Present: normocephalic Eye: Present: EOMI ENT: Present: mucous membranes moist - Routine Neck Exam Present: full ROM, trachea midline - Routine Chest/Breast/Axilla Exam Chest wall: Absent: tenderness - Routine Respiratory Exam Absent: respiratory distress - Routine Cardiovascular Exam Present: RRR - Routine Abdominal Exam Present: soft - Routine Extremities Exam Present: pulses intact, normal capillary refill, amputation (L TMA) - Detailed Lower Extremity Exam Bottom foot image: 1 - S/P Right excision of ulcer, delayed primary closure, Right 1st metatarsal bone biospy, Right toenail debridement x5. Sutures are intact, no drainage noted today. No edema, no erythema noted. Site was cleaned with Betadine, dressed with xeroform, Betadine soaked 4 x 4, dry 4 x 4 and Memo wrap. 2 - S/P 02/14/21- Left TMA revision, foot irrigation and debridement, Left foot/metatarsal bone biopsy, Left foot lateral side the VIDHYA drain was removed today. Site improving with much less edema and erythema today. Sutures and janie are intact. There was no drainage noted to site when compressed. Site cleaned with Betadine, Applied xerofrm,Betadine soaked 4 x 4, dry 4 x 4, Kerlix and Memo wrap - Routine Back/Spine/Pelvis Exam Back/Spine: Present: full ROM - Routine Skin Exam Present: dry, wounds (L foot TMA, RF excision of ulcer.) - Routine Neurological Exam Present: alert, oriented X3, normal reflexes, normal tone, vision grossly intact, hearing grossly intact, normal speech - Routine Psychiatric Exam Present: normal affect, cooperative Progress Note: A&P (1) MRSA infection Status: Acute (2) Osteomyelitis Status: Acute (3) Chronic osteomyelitis of left foot Status: Acute (4) Pseudomonas aeruginosa infection Status: Acute (5) Infection due to Bacillus cereus Status: Acute (6) Cellulitis of left foot Status: Acute (7) Diabetic foot infection Status: Acute (8) Ulcer of right foot due to type 2 diabetes mellitus Status: Acute (9) Encounter for wound care Status: Acute (10) Type 2 diabetes mellitus Status: Acute (11) Diabetic foot Status: Acute (12) History of amputation of lesser toe of left foot Status: Acute (13) Edema of left foot Status: Acute (14) Pain in left foot Status: Acute (15) Status post foot surgery Status: Acute Assessment and Plan for All Diagnoses:: Assessment and Plan for All Diagnoses:: Sx: 02/14/21, s/p Left foot revision of TMA, foot irrigation and debridement, foot/metatarsal bone biopsy , application of VIDHYA drain S/p right excision of ulcer, delayed primary closure, right 1st metatarsal bone biospy, right toenail debridement x5 02/14/21, Intra-op Specimens: Cultures: Right 1st metatarsal bone culture: NG x24 Right foot ulcer, tissue culture: NG x24 Left 1st metatarsal bone culture: NG x24 Pathology: Right 1st metatarsal bone path: pending Left 1st metatarsal margin bone path Left 2-5th metatarsal bone path Left foot gross path 02/13/21, Ha1c 7.5% 02/14/21, wound culture lef
[2021-02-24 08:46] VITALS: BP 116/77; PULSE 90; RESP 18; TEMP 36.4; O2SAT 100
--- NOTE | 2021-02-24 08:50 | HMH.ACPN2 ---
Internal Medicine - PN: Subj *Date: 02/24/21 *Time: 11:26 Interval history: 35-year-old male patient sitting up in bed resting quietly he denies any chest pain or shortness of breath during the night. He reports pain is at a tolerable level, dressings to bilateral feet clean dry and intact VIDHYA drain intact to left foot. He denies any concerns or needs at present Exam Vital signs and Labs for Last 24 Hours: Temp Pulse Resp BP Pulse Ox 97.6 F 90 18 116/77 100 02/24/21 08:46 02/24/21 08:46 02/24/21 08:46 02/24/21 08:46 02/24/21 08:46 Laboratory Results - last 24 hr 02/23/21 11:30: POC Glucose 184 H 02/23/21 17:08: POC Glucose 189 H 02/23/21 20:20: POC Glucose 238 H 02/24/21 04:56: POC Glucose 227 H 02/24/21 07:12: WBC 6.8, RBC 4.29 L, Hgb 11.0 L, Hct 35.2 L, MCV 82.2, MCH 25.6 L, MCHC 31.1 L, RDW 14.7, Plt Count 216, MPV 7.7, Neut % (Auto) 54.1, Lymph % (Auto) 38.9, [place] % (Auto) 4.0, Eos % (Auto) 2.6, Baso % (Auto) 0.4, Neut # (Auto) 3.7, Lymph # (Auto) 2.7, [place] # (Auto) 0.3, Eos # (Auto) 0.2, Baso # (Auto) 0.0 02/24/21 07:12: Sodium 142, Potassium 4.0, Chloride 104, Carbon Dioxide 31 H, Anion Gap 11.0, BUN 17, Creatinine 1.10 D, Estimated Creat Clear 129, Estimated GFR 75, Est GFR ( Amer) 91 D, Glucose 112 H, Calcium 9.9 I & O for Last 24 hours: Intake & Output 02/21/21 02/22/21 02/23/21 02/24/21 23:59 23:59 23:59 23:59 Intake Total 1450 / 1450 720 / 720 1680 / 1680 960 / 960 Output Total 10 0 / 0 Balance 1440 / 1440 720 / 720 1680 / 1680 960 / 960 Weight 224 lb 220 lb 218 lb 219 lb - Constitutional no acute distress - *Routine HEENT Exam Head: Present: normocephalic Eye: Present: EOMI ENT: Present: mucous membranes moist - *Routine Neck Exam Present: trachea midline. Absent: tracheal deviation - *Routine Respiratory Exam Present: CTA bilaterally. Absent: accessory muscle use - *Routine Cardiovascular Exam Present: RRR - *Routine Abdominal Exam Present: soft, normoactive bowel sounds. Absent: tenderness, firm - *Routine Extremities Exam Present: edema, amputation. Absent: cyanosis, clubbing, calf tenderness - *Routine Skin Exam Present: dry, warm, wounds. Absent: intact, cyanosis Comments: Dressing to bilateral feet clean dry and intact VIDHYA drain intact to left foot wound Assessment and Plan (1) MRSA infection Start date: 02/17/21 Status: Acute Category: Medical Code(s): A49.02 - Methicillin resistant Staphylococcus aureus infection, unspecified site (2) Osteomyelitis Start date: 02/17/21 Status: Acute Qualifiers: Osteomyelitis type: unspecified type Osteomyelitis location: foot Laterality: left Qualified Code(s): M86.9 - Osteomyelitis, unspecified Category: Medical Code(s): M86.9 - Osteomyelitis, unspecified (3) Chronic osteomyelitis of left foot Status: Acute Category: Medical Code(s): M86.672 - Other chronic osteomyelitis, left ankle and foot (4) Pseudomonas aeruginosa infection Start date: 02/17/21 Status: Acute Category: Medical Code(s): A49.8 - Other bacterial infections of unspecified site (5) Infection due to Bacillus cereus Start date: 02/17/21 Status: Acute Category: Medical Code(s): A49.8 - Other bacterial infections of unspecified site (6) Cellulitis of left foot Start date: 02/17/21 Status: Acute Category: Medical Code(s): L03.116 - Cellulitis of left lower limb (7) Diabetic foot infection Start date: 02/17/21 Status: Acute Category: Medical Code(s): E11.628 - Type 2 diabetes mellitus with other skin complications; L08.9 - Local infection of the skin and subcutaneous tissue, unspecified (8) Ulcer of right foot due to type 2 diabetes mellitus Start date: 02/17/21 Status: Acute Category: Medical Code(s): E11.621 - Type 2 diabetes mellitus with foot ulcer; L97.519 - Non-pressure chronic ulcer of other part of right foot with unspecified severity
[2021-02-24 11:42] LABS: POC Glucose,Bedside 92 (70-110)
--- NOTE | 2021-02-24 16:11 | PC.NURSE ---
Addendum entered by Earle Garcia RN 02/26/21 17:26: THIS RN REMOVED OLD DRESSING FROM FEET. INCISIONS CLEANED WITH BETADINE, VASELING GAUZE PLACED OVER INCISION. BETADINE SOAKED 4X4 PLACE, DRY 4X4 PLACE, WRAPPED IN KERLIX AND MELL BANDAGE. PATIENT TOLERATED WELL. Original Note: PATIENT A&O X4, LUNGS ARE CLEAR, PULES ARE EQUAL. BANDAGES ON FEET ARE CLEAN, DRY AND INTACT. NO NEW CONCERNS AT THIS TIME.
[2021-02-24 16:18] LABS: POC Glucose,Bedside 140 (70-110)
[2021-02-24 20:00] VITALS: BP 117/73; PULSE 74; RESP 16; TEMP 36.4; O2SAT 99
[2021-02-24 20:57] LABS: POC Glucose,Bedside 218 (70-110)
[2021-02-24 22:00] VITALS: O2SAT 95
[2021-02-25] VITALS: O2SAT 95
[2021-02-25 04:00] VITALS: O2SAT 95
[2021-02-25 05:00] VITALS: BMI 28.3
[2021-02-25 05:56] LABS: POC Glucose,Bedside 167 (70-110)
[2021-02-25 06:00] VITALS: O2SAT 96
[2021-02-25 11:27] LABS: POC Glucose,Bedside 95 (70-110)
[2021-02-25 16:30] LABS: POC Glucose,Bedside 153 (70-110)
[2021-02-25 19:41] VITALS: BP 108/64; PULSE 87; RESP 18; TEMP 36.8; O2SAT 97
[2021-02-25 21:55] LABS: POC Glucose,Bedside 291 (70-110)
--- NOTE | 2021-02-26 03:44 | PC.NURSE ---
Patient VSS, shows no s/s of acute distress. Bed at lowest level for safety, call light within reach, will continue to monitor.
[2021-02-26 03:49] VITALS: BP 106/64; PULSE 78; RESP 16; TEMP 36.4; O2SAT 97
[2021-02-26 05:00] VITALS: BMI 28.6
[2021-02-26 06:47] LABS: POC Glucose,Bedside 176 (70-110)
[2021-02-26 07:39] LABS: Vancomycin,Trough 14.2 ug/mL (5.0-10.0)
[2021-02-26 08:00] VITALS: O2SAT 99
[2021-02-26 08:39] VITALS: BP 128/81; PULSE 96; RESP 18; TEMP 36.7; O2SAT 99
--- NOTE | 2021-02-26 10:48 | HMH.PHACONS ---
- Pharmacy Consult Date: 02/26/21 Time: 10:48 Referring provider: DR. MESA Reason for Consult:: VANCOMYCIN TROUGH LEVEL Allergies and ADEs:: Allergies Allergy/AdvReac Type Severity Reaction Status Date / Time No Known Allergies Allergy Verified 01/30/21 09:16 Home Medications:: Home Medications Medication Instructions Recorded Confirmed Type insulin glargine 100 unit/mL 20 unit SQ HS ml 10/18/20 02/17/21 History subcutaneous solution Aspirin [Low Dose Aspirin EC] 81 mg PO DAILY 01/03/21 02/17/21 History metformin 1,000 mg tablet 1,000 mg PO BID #180 tab 01/23/21 02/17/21 Rx glipiZIDE [Glucotrol 5mg tablet] 5 mg PO DAILY 02/13/21 02/17/21 History lisinopriL [Lisinopril 2.5mg Tab] 2.5 mg PO DAILY 02/13/21 02/17/21 History Pravastatin Sodium [Pravachol 20mg 10 mg PO HS 02/17/21 02/17/21 History Tablet] Height: 1.88 m Weight: 101.151 kg Laboratory Results:: Laboratory Results - last 24 hr 02/25/21 11:19: POC Glucose 95 02/25/21 16:23: POC Glucose 153 H 02/25/21 19:45: POC Glucose 291 H 02/26/21 06:36: POC Glucose 176 H 02/26/21 07:00: Vancomycin Trough 14.2 H Medical History: Reports:: Diabetes Mellitus Type 2, Hyperlipidemia Denies:: Diabetes Mellitus Type 1, Internal Pacemaker, MRSA, Seizures Comment Only: Cancer (NON HODGKINS LYMPHOMA) Assessment and Plan (1) MRSA infection Start date: 02/17/21 Status: Acute Category: Medical Code(s): A49.02 - Methicillin resistant Staphylococcus aureus infection, unspecified site (2) Osteomyelitis Start date: 02/17/21 Status: Acute Qualifiers: Osteomyelitis type: unspecified type Osteomyelitis location: foot Laterality: left Qualified Code(s): M86.9 - Osteomyelitis, unspecified Category: Medical Code(s): M86.9 - Osteomyelitis, unspecified (3) Chronic osteomyelitis of left foot Status: Acute Category: Medical Code(s): M86.672 - Other chronic osteomyelitis, left ankle and foot (4) Pseudomonas aeruginosa infection Start date: 02/17/21 Status: Acute Category: Medical Code(s): A49.8 - Other bacterial infections of unspecified site (5) Infection due to Bacillus cereus Start date: 02/17/21 Status: Acute Category: Medical Code(s): A49.8 - Other bacterial infections of unspecified site (6) Cellulitis of left foot Start date: 02/17/21 Status: Acute Category: Medical Code(s): L03.116 - Cellulitis of left lower limb (7) Diabetic foot infection Start date: 02/17/21 Status: Acute Category: Medical Code(s): E11.628 - Type 2 diabetes mellitus with other skin complications; L08.9 - Local infection of the skin and subcutaneous tissue, unspecified (8) Ulcer of right foot due to type 2 diabetes mellitus Start date: 02/17/21 Status: Acute Category: Medical Code(s): E11.621 - Type 2 diabetes mellitus with foot ulcer; L97.519 - Non-pressure chronic ulcer of other part of right foot with unspecified severity (9) Encounter for wound care Start date: 02/17/21 Status: Acute Category: Medical Code(s): Z51.89 - Encounter for other specified aftercare (10) Type 2 diabetes mellitus Start date: 02/17/21 Status: Acute Qualifiers: Diabetes mellitus skilled nursing insulin use: with intermodal customer service use Diabetes mellitus complication status: with other specified complication Qualified Code(s): E11.69 - Type 2 diabetes mellitus with other specified complication; Z79.4 - emt intermediate (current) use of insulin Category: Medical Code(s): E11.9 - Type 2 diabetes mellitus without complications (11) Diabetic foot Start date: 02/17/21 Status: Acute Category: Medical Code(s): E11.8 - Type 2 diabetes mellitus with unspecified complications (12) History of amputation of lesser toe of left foot Start date: 02/17/21 Status: Acute Category: Surgical Code(s): Z89.422 - Acquired absence of other left toe(s) (13) Edema of left foot Start date: 02/17/21 Status: Acute
[2021-02-26 12:10] LABS: POC Glucose,Bedside 139 (70-110)
[2021-02-26 16:00] VITALS: O2SAT 97
[2021-02-26 16:03] LABS: POC Glucose,Bedside 251 (70-110)
--- NOTE | 2021-02-26 17:31 | INFXCTL.NOTE ---
THIS RN REMOVED OLD DRESSING FROM FEET. INCISIONS CLEANED WITH BETADINE, VASELING GAUZE PLACED OVER INCISION. BETADINE SOAKED 4X4 PLACE, DRY 4X4 PLACE, WRAPPED IN KERLIX AND MELL BANDAGE. PATIENT TOLERATED WELL.
[2021-02-26 19:29] VITALS: BP 99/62; PULSE 84; RESP 18; TEMP 36.8; O2SAT 97
--- NOTE | 2021-02-26 20:56 | PC.NURSE ---
He continues in contact precautions r/t MRSA. DSGs intact on bilateral feet. He received PRN medication for reports of left foot pain and rated 8/10. He is A&Ox3. He is a RUE limb alert r/t to PICC. PICC DSG changed via sterile technique.
[2021-02-26 21:40] LABS: POC Glucose,Bedside 208 (70-110)
[2021-02-27] VITALS (10 sets, daily range): BP systolic 106–107; BP diastolic 53–70; PULSE 84–90; RESP 16–18; TEMP 36.3–36.8; O2SAT 97–98; BMI 28.5
[2021-02-27 05:58] LABS: POC Glucose,Bedside 160 (70-110)
[2021-02-27 06:50] LABS: C-Reactive Protein 2.3 mg/L (0-4)
[2021-02-27 07:43] LABS: Erythrocyte Sedimentation Rate 70 mm/hr (0-15)
[2021-02-27 07:47] LABS: Basophils % 0.5 % (0.1-2.0); Eosinophils # 0.2 K/mm3 (0.0-0.4); Eosinophils % 3.4 % (0.1-12.0); Hematocrit 33.8 % (42.0-52.0); Hemoglobin 11.1 g/dL (14.1-18.0); Lymphocytes # 2.5 K/mm3 (0.7-4.5); Lymphocytes % 39.5 % (10-50); Mean Corpuscular HGB Conc 32.8 g/dL (31.8-35.4); Mean Corpuscular Hemoglobin 26.2 pg (27.0-31.2); Mean Corpuscular Volume 79.7 fl (80-94); Mean Platelet Volume 8.1 fl (7.4-10.4); Monocytes # 0.3 K/mm3 (0.1-1.0); Monocytes % 4.5 % (1.7-9.3); Neutrophils # 3.3 K/mm3 (1.8-7.8); Neutrophils % 52.2 % (37.0-80.0); Platelet Count 220 K/mm3 (142-424); Red Blood Count 4.24 M/mm3 (4.60-6.20); Red Cell Distribution Width 14.8 % (11.5-17.5); White Blood Count 6.3 K/mm3 (4.8-10.8)
[2021-02-27 07:53] LABS: Alanine Aminotransferase 33 U/L (12-78); Albumin/Globulin Ratio 1.2 (1.1-1.8); Alkaline Phosphatase 70 U/L (38-126); Anion Gap 8.1 mEq/L (5-15); Aspartate Amino Transferase 31 U/L (17-59); Bilirubin,Total 0.5 mg/dl (0.2-1.3); Blood Urea Nitrogen 16 mg/dl (9-20); Calcium 9.7 mg/dl (8.4-10.2); Carbon Dioxide 28 mmol/L (22.0-30.0); Chloride 105 mmol/L (98-107); Creatinine Clearance Estimated 144 mL/min (50-200); Estimated Glomerular Filt Rate 84 ml/min (>60); GFR (African American) 102 ML/MIN (>60); Globulin 3.3 g/dL (1.3-3.2); Glucose 152 mg/dl (74-100); Potassium 4.1 mmoL/L (3.5-5.1); Sodium 137 mmol/L (136-145); Total Protein,Serum 7.3 g/dl (6.3-8.2)
--- NOTE | 2021-02-27 08:09 | XR_ITS ---
PROCEDURE: XR FOOT RT MIN 3V CLINICAL INDICATION: Ulcer COMPARISON: CR XR FOOT LT MIN 3V from 01/04/2021 CR XR FOOT RT MIN 3V from 02/14/2021 CR XR FOOT RT MIN 3V from 02/14/2021 CR XR FOOT LT MIN 3V from 02/14/2021 FINDINGS: No fracture or dislocation. No lytic or blastic change. There is normal mineralization. Osteoarthritic changes are present at the calcaneocuboid joint with bony hypertrophy and a small ununited area of ossification center at this region. Other findings:Soft tissue gas noted between the proximal phalanx of the 1st and 2nd toe and along the plantar aspect with some soft tissue swelling at this area. No obvious bony destruction. IMPRESSION: Soft tissue gas between the 1st and 2nd toe along the plantar aspect and may be related to the area of ulceration or soft tissue infection. No obvious bony destruction that would indicate osteomyelitis. Dictated by: Brayan Welch MD 02/27/2021 10:20 Brayan Welch MD in [facility] 02/27/2021 10:20
--- NOTE | 2021-02-27 08:09 | XR_ITS ---
PROCEDURE: XR FOOT LT MIN 3V CLINICAL INDICATION: Post op amp, MRSA Follow-up amputation COMPARISON: CR XR FOOT LT MIN 3V from 01/04/2021 CR XR FOOT RT MIN 3V from 02/14/2021 CR XR FOOT RT MIN 3V from 02/14/2021 CR XR FOOT LT MIN 3V from 02/14/2021 FINDINGS: Status post transmetatarsal amputation. Skin clips are present at this region. The surgical drain is been removed. No obvious bony destruction. Other findings:Surgical dressing is been removed. IMPRESSION: Status post transmetatarsal amputation with skin clips present Dictated by: Brayan Welch MD 02/27/2021 10:21 Brayan Welch MD in [facility] 02/27/2021 10:21
--- NOTE | 2021-02-27 08:32 | HMH.ORTHPN ---
Subjective Date: 02/27/21 <Yisel Mcghee - 02/27/21 08:35> Time: 08:32 <Yisel Mcghee 02/27/21 08:35> Principal diagnosis: Swing bed for L foot Cellulitis (TMA), RF DM ulcer <Yisel Mcghee - 02/27/21 08:35> Interval history: Patient doing very well this morning denies any pain with bilateral feet. Patient stated that the right plantar incision was starting to open some, he denies any drainage or pain from the site. The sutures are all intact. The sites all look good, without any drainage, erythema or edema. I was able to apply dermabond to the small opening on the right plantar incision to close it. DSD was then applied to this foot. I will proceed with dressing changes this morning. Patient finished breakfast and denies any nausea vomiting, fever, chills or shortness of breath. <Yisel Mcghee 02/27/21 09:15> PN: Obj Ex Vital signs: Temp Pulse Resp BP Pulse Ox 97.3 F L 84 18 107/53 L 98 02/27/21 09:00 02/27/21 09:00 02/27/21 09:00 02/27/21 09:00 02/27/21 11:34 <Essence Benavides - 02/27/21 15:19> Temp Pulse Resp BP Pulse Ox 98.3 F 84 18 99/62 L 98 02/26/21 19:29 02/26/21 19:29 02/26/21 19:29 02/26/21 19:29 02/27/21 06:00 <Yisel Mcghee - 02/27/21 08:35> - Constitutional no acute distress <Yisel Mcghee - 02/27/21 10:19> - Routine HEENT Exam Head: Present: normocephalic <Yisel Mcghee 02/27/21 10:19> Eye: Present: EOMI <Yisel Mcghee - 02/27/21 10:19> ENT: Present: mucous membranes moist <Yisel Mcghee - 02/27/21 10:19> - Routine Neck Exam Present: full ROM, trachea midline <Yisel Mcghee 02/27/21 10:19> - Routine Chest/Breast/Axilla Exam Chest wall: Absent: tenderness <Yisel Mcghee 02/27/21 10:19> - Routine Respiratory Exam Absent: accessory muscle use, respiratory distress <Yisel Mcghee 02/27/21 10:19> - Routine Cardiovascular Exam Present: RRR <Yisel Mcghee 02/27/21 10:19> - Routine Extremities Exam Present: pulses intact, normal capillary refill, amputation (L TMA). Absent: calf tenderness <Yisel Mcghee 02/27/21 10:19> - Detailed Lower Extremity Exam Bottom foot image: 1 - S/P Right excision of ulcer, delayed primary closure, Right 1st metatarsal bone biospy, Right toenail debridement x5.There was a small area in the center 0.3x0.1x0cm that was starting to open, no drainaged noted when compressed. Sutures are intact, No edema, no erythema noted. Site was cleaned with Betadine, Then dermabond used to close the site, vaseline gauze and DSD applied. The left site was cleaned with betadine and dressed with xeroform, Betadine soaked 4 x 4, dry 4 x 4 and Emmo wrap. 2 - S/P 02/14/21- Left TMA revision, foot irrigation and debridement, Left foot/metatarsal bone biopsy, Site improving with much less edema and erythema today. Sutures and janie are intact. There was no drainage noted to site when compressed. Site cleaned with Betadine, Applied xerofrm,Betadine soaked 4 x 4, dry 4 x 4, Kerlix and Memo wrap <Yisel Mcghee 02/27/21 10:19> - Routine Back/Spine/Pelvis Exam Back/Spine: Present: full ROM <Yisel Mcghee 02/27/21 10:19> - Routine Skin Exam Present: dry, wounds (L TMA, RF excision of ulcer) <LitzyNuYisel L 02/27/21 10:19> - Routine Neurological Exam Present: alert, oriented X3, normal reflexes, normal tone, vision grossly intact, hearing grossly intact, normal speech <Yisel Mcghee 02/27/21 10:19> - Routine Psychiatric Exam Present: normal affect, cooperative <Yisel Mcghee 02/27/21 10:19> Progress Note: A&P (1) MRSA infection Status: Acute (2) Osteomyelitis Status: Acute (3) Chronic osteomyelitis of left foot Status: Acute (4) Pseudomonas aeruginosa infection Status: Acute (5) Infection due to Bacillus cereus Status: Acute (6) Cellulitis of left foot S
--- NOTE | 2021-02-27 09:33 | HMH.ACPN2 ---
Internal Medicine - PN: Subj *Date: 02/27/21 *Time: 09:33 Interval history: pt laying in bed without c/o. Exam Vital signs and Labs for Last 24 Hours: Temp Pulse Resp BP Pulse Ox 97.3 F L 84 18 107/53 L 97 02/27/21 09:00 02/27/21 09:00 02/27/21 09:00 02/27/21 09:00 02/27/21 09:00 Laboratory Results - last 24 hr 02/26/21 12:03: POC Glucose 139 H 02/26/21 15:54: POC Glucose 251 H 02/26/21 19:53: POC Glucose 208 H 02/27/21 05:16: POC Glucose 160 H 02/27/21 05:24: WBC 6.3, RBC 4.24 L, Hgb 11.1 L, Hct 33.8 L, MCV 79.7 L, MCH 26.2 L, MCHC 32.8, RDW 14.8, Plt Count 220, MPV 8.1, Neut % (Auto) 52.2, Lymph % (Auto) 39.5, [place] % (Auto) 4.5, Eos % (Auto) 3.4, Baso % (Auto) 0.5, Neut # (Auto) 3.3, Lymph # (Auto) 2.5, [place] # (Auto) 0.3, Eos # (Auto) 0.2, Baso # (Auto) 0.0 02/27/21 05:24: Sodium 137, Potassium 4.1, Chloride 105, Carbon Dioxide 28, Anion Gap 8.1, BUN 16, Creatinine 1.00, Estimated Creat Clear 144, Estimated GFR 84, Est GFR ( Amer) 102, Glucose 152 H, Calcium 9.7, Total Bilirubin 0.5, AST 31, ALT 33, Alkaline Phosphatase 70, Total Protein 7.3, Albumin 4.0, Globulin 3.3 H, Albumin/Globulin Ratio 1.2 02/27/21 05:27: ESR 70 H 02/27/21 05:27: C-Reactive Protein 2.3 I & O for Last 24 hours: Intake & Output 02/24/21 02/25/21 02/26/21 02/27/21 11:59 11:59 11:59 11:59 Intake Total 1920 / 1920 1540 / 1540 1560 / 1560 1460 / 1460 Balance 1920 / 1920 1540 / 1540 1560 / 1560 1460 / 1460 Weight 219 lb 221 lb 223 lb 222 lb - Constitutional no acute distress - *Routine HEENT Exam Head: Present: normocephalic Eye: Present: PERRL ENT: Present: mucous membranes moist - *Routine Neck Exam Present: supple. Absent: lymphadenopathy - *Routine Respiratory Exam Present: CTA bilaterally - *Routine Cardiovascular Exam Present: RRR - *Routine Abdominal Exam Present: soft, normoactive bowel sounds. Absent: tenderness - *Routine Extremities Exam Present: amputation. Absent: cyanosis, clubbing, edema Comments: left partial foot amp rt 2nd toe - *Routine Skin Exam Present: warm, wounds. Absent: rash Comments: dressing to jorge feet - *Routine Neurological Exam Present: alert, oriented X3 - Routine Psychiatric Exam Present: normal affect Assessment and Plan (1) MRSA infection Start date: 02/17/21 Status: Acute Category: Medical Code(s): A49.02 - Methicillin resistant Staphylococcus aureus infection, unspecified site (2) Osteomyelitis Start date: 02/17/21 Status: Acute Qualifiers: Osteomyelitis type: unspecified type Osteomyelitis location: foot Laterality: left Qualified Code(s): M86.9 - Osteomyelitis, unspecified Category: Medical Code(s): M86.9 - Osteomyelitis, unspecified (3) Chronic osteomyelitis of left foot Status: Acute Category: Medical Code(s): M86.672 - Other chronic osteomyelitis, left ankle and foot (4) Pseudomonas aeruginosa infection Start date: 02/17/21 Status: Acute Category: Medical Code(s): A49.8 - Other bacterial infections of unspecified site (5) Infection due to Bacillus cereus Start date: 02/17/21 Status: Acute Category: Medical Code(s): A49.8 - Other bacterial infections of unspecified site (6) Cellulitis of left foot Start date: 02/17/21 Status: Acute Category: Medical Code(s): L03.116 - Cellulitis of left lower limb (7) Diabetic foot infection Start date: 02/17/21 Status: Acute Category: Medical Code(s): E11.628 - Type 2 diabetes mellitus with other skin complications; L08.9 - Local infection of the skin and subcutaneous tissue, unspecified (8) Ulcer of right foot due to type 2 diabetes mellitus Start date: 02/17/21 Status: Acute Category: Medical Code(s): E11.621 - Type 2 diabetes mellitus with foot ulcer; L97.519 - Non-pressure chronic ulcer of other part of right foot with unspecified severity (9) Encounter for wound care Start date: 02/17/21 Status:
--- NOTE | 2021-02-27 11:25 | PC.NURSE ---
patient will need a rolling walker over a cane due to gait and mobility issues related to amputations, and surgical healing of feet.
[2021-02-27 12:43] LABS: POC Glucose,Bedside 142 (70-110)
[2021-02-27 22:06] LABS: POC Glucose,Bedside 193 (70-110)
[2021-02-28 02:19] LABS: POC Glucose,Bedside 254 (70-110)
--- NOTE | 2021-02-28 04:39 | PC.NURSE ---
No acute changes noted. Pt has rested well this shift. C/O discomfort to Bilateral feet x2. Medicated per dec. IV antibiotic administered early in shift. VSS. Lungs are CTA. BS active. DSGs to bilateral feet are intact. No other concerns. Will continue to monitor.
[2021-02-28 04:55] VITALS: BMI 28.6
[2021-02-28 06:27] LABS: POC Glucose,Bedside 147 (70-110)
[2021-02-28 07:38] VITALS: BP 102/59; PULSE 90; RESP 19; TEMP 36.9; O2SAT 98
--- NOTE | 2021-02-28 08:23 | HMH.ORTHPN ---
Subjective Date: 02/28/21 <Yisel Mcghee - 02/28/21 09:27> Time: 08:23 <Yisel Mcghee - 02/28/21 09:27> Principal diagnosis: Swing bed for L foot Cellulitis (TMA), RF DM ulcer <Yisel Mcghee - 02/28/21 09:27> Interval history: Patient is doing very well. Patient is to have labs drawn this morning and if improved he should be okay to go home. The sites looks good this morning, no drainage from either site. The dressings was changed and redressed as before. Patient finished breakfast and denies any nausea vomiting, fever, chills or shortness of breath. <Yisel Mcghee - 02/28/21 09:27> PN: Obj Ex Vital signs: Temp Pulse Resp BP Pulse Ox 98.4 F 90 19 102/59 L 98 02/28/21 07:38 02/28/21 07:38 02/28/21 07:38 02/28/21 07:38 02/28/21 07:38 <Essence Benavides - 02/28/21 11:35> Temp Pulse Resp BP Pulse Ox 98.4 F 90 19 102/59 L 98 02/28/21 07:38 02/28/21 07:38 02/28/21 07:38 02/28/21 07:38 02/28/21 07:38 <Yisel Mcghee - 02/28/21 09:27> - Constitutional no acute distress <Yisel Mcghee - 02/28/21 10:08> - Routine HEENT Exam Head: Present: normocephalic <Yisel Mcghee - 02/28/21 10:08> Eye: Present: EOMI <Yisel Mcghee - 02/28/21 10:08> ENT: Present: mucous membranes moist <Yisel Mcghee - 02/28/21 10:08> - Routine Neck Exam Present: supple, trachea midline <Yisel Mcghee - 02/28/21 10:08> - Routine Respiratory Exam Absent: respiratory distress <Yisel Mcghee - 02/28/21 10:08> - Routine Cardiovascular Exam Present: RRR <Yisel Mcghee 02/28/21 10:08> - Routine Extremities Exam Present: pulses intact, normal capillary refill, amputation (L TMA ). Absent: calf tenderness <Yisel Mcghee 02/28/21 10:08> - Detailed Lower Extremity Exam Bottom foot image: 1 - S/P Right excision of ulcer, delayed primary closure, Right 1st metatarsal bone biospy, Right toenail debridement x5. Sutures are intact, No edema, no erythema noted. Site was cleaned with Betadine, Dermabond intact, no opening in the site noted. Vaseline gauze and DSD applied. The left site was cleaned with betadine and dressed with xeroform, Betadine soaked 4 x 4, dry 4 x 4 and Memo wrap. 2 - S/P 02/14/21- Left TMA revision, foot irrigation and debridement, Left foot/metatarsal bone biopsy, Site improving with much less edema and erythema today. Sutures and janie are intact. There was no drainage noted to site when compressed. Site cleaned with Betadine, Applied xerofrm,Betadine soaked 4 x 4, dry 4 x 4, Kerlix and Memo wrap <Yisel Mcghee 02/28/21 10:08> - Routine Back/Spine/Pelvis Exam Back/Spine: Present: full ROM <Yisel Mcghee 02/28/21 10:08> - Routine Skin Exam Present: dry, wounds (L TMA, RF excision of ulcer) <Yisel Mcghee 02/28/21 10:08> - Routine Neurological Exam Present: alert, oriented X3, moving all extremities, normal tone, vision grossly intact, hearing grossly intact, normal speech <Yisel Mcghee 02/28/21 10:08> - Routine Psychiatric Exam Present: normal affect, cooperative <Yisel Mcghee 02/28/21 10:08> Progress Note: A&P (1) MRSA infection Status: Acute (2) Osteomyelitis Status: Acute (3) Chronic osteomyelitis of left foot Status: Acute (4) Pseudomonas aeruginosa infection Status: Acute (5) Infection due to Bacillus cereus Status: Acute (6) Cellulitis of left foot Status: Acute (7) Diabetic foot infection Status: Acute (8) Ulcer of right foot due to type 2 diabetes mellitus Status: Acute (9) Encounter for wound care Status: Acute (10) Type 2 diabetes mellitus Status: Acute (11) Diabetic foot Status: Acute (12) History of amputation of lesser toe of left foot Status: Acute (13) Edema of left foot Status: Acute (14) Pain in left foot Status: Acute (15) Status post
[2021-02-28 08:43] LABS: Basophils % 0.6 % (0.1-2.0); Eosinophils # 0.2 K/mm3 (0.0-0.4); Eosinophils % 2.9 % (0.1-12.0); Hematocrit 34.6 % (42.0-52.0); Hemoglobin 11.5 g/dL (14.1-18.0); Lymphocytes # 2.6 K/mm3 (0.7-4.5); Lymphocytes % 38.4 % (10-50); Mean Corpuscular HGB Conc 33.2 g/dL (31.8-35.4); Mean Corpuscular Hemoglobin 26.1 pg (27.0-31.2); Mean Corpuscular Volume 78.8 fl (80-94); Mean Platelet Volume 7.4 fl (7.4-10.4); Monocytes # 0.3 K/mm3 (0.1-1.0); Monocytes % 3.9 % (1.7-9.3); Neutrophils # 3.6 K/mm3 (1.8-7.8); Neutrophils % 54.3 % (37.0-80.0); Platelet Count 214 K/mm3 (142-424); Red Blood Count 4.39 M/mm3 (4.60-6.20); Red Cell Distribution Width 14.7 % (11.5-17.5); White Blood Count 6.7 K/mm3 (4.8-10.8)
--- NOTE | 2021-02-28 08:51 | HMH.DCSUM ---
General - General Admission date:: 02/17/21 Discharge date: 02/28/21 HPI HPI: Patient is a 35-year-old diabetic male who underwent a left transmetatarsal amputation on 01/04/2021. Patient went out of town this past week and missed several wound care appointments. He reports swelling. States he did not change the dressing and over week. He presented to the ED 02/13/2021 with complaints of increased swelling and concern of infection. Patient denies nausea vomiting, fever chills, shortness of breath or chest pain. Given patient's history of infection cellulitis and osteomyelitis and multidrug-resistant organisms in the last few wound and bone cultures, patient would benefit from PICC with IV antibiotics. Patient needs to continue [facility] wound care center. Patient has been noncompliant with office and wound care visits so doubt his compliance with daily infusions at the hospital. Home health care in the past has proven not to be successful as twice weekly dressing changes without [facility] wound care/debridement were not enough. Patient needs to be seen several times weekly for debridements, dressing changes. Will discuss with PCP, if patient qualifies he would benefit from 4-6 weeks at a SNF or rehab for IV antibiotics for recurrent and multi-drug resistant osteomyelitis. Bilateral foot dressings are clean dry and intact. Sutures clean dry and intact to both feet. Aide and VIDHYA drain intact to the left foot with 20 cc of bloody output. No purulence or ascending cellulitis noted to either foot. Both surgical sites was cleaned with Betadine, then dressed Vaseline gauze applied to sutures and aide, along with Betadine soaked 4x4, dry 4 x4, Kerlix, Memo wrap. 1. Dressing changed as above 2. Continue IV abx: Vanco and cefepime 3. PICC placement for IV abx 4. NWB to LLE, PWB to right heel in post op shoes with walker 5. VIDHYA drain management 6. Discussed with Helen Mendoza. Plan for swing bed for 2 weeks IV abx and dressing changes. Hospital Course Hospital Course: Patient is a 35-year-old diabetic male who underwent a left transmetatarsal amputation on 01/04/2021. Patient went out of town this past week and missed several wound care appointments. He reports swelling. States he did not change the dressing and over week. He presented to the ED 02/13/2021 with complaints of increased swelling and concern of infection. Patient denies nausea vomiting, fever chills, shortness of breath or chest pain Given patient's history of infection cellulitis and osteomyelitis and multidrug-resistant organisms in the last few wound and bone cultures, patient would benefit from PICC with IV antibiotics. 02/17/21 CXR: FINDINGS: The cardiomediastinal silhouette and pulmonary vascularity are within normal limits. The lungs are clear without infiltrates, suspicious nodules, or pleural effusions. Right subclavian PICC line with its tip in the distal SVC is, low in position. Visualized osseous structures are unremarkable. IMPRESSION: PICC line is low in position. Withdrawing the PICC line 4-5 centimeters is recommended. Dictated by: Radha Garg 02/27/21 L Foot XR: FINDINGS: No fracture or dislocation. No lytic or blastic change. There is normal mineralization. Osteoarthritic changes are present at the calcaneocuboid joint with bony hypertrophy and a small ununited area of ossification center at this region. Other findings:Soft tissue gas noted between the proximal phalanx of the 1st and 2nd toe and along the plantar aspect with some soft tissue swelling at this area. No obvious bony destruction. IMPRESSION: Soft tissue gas between the 1st and 2nd toe along the plantar aspect and may be related to the area of ulceration or soft tissue infection. No obvious bony destruction that would indicate osteomyelitis. Dictated by: Brayan Welch MD 02/27/21 R Foot XR: FINDINGS:
[2021-02-28 08:52] LABS: Chloride 102 mmol/L (98-107); Sodium 139 mmol/L (136-145)
[2021-02-28 08:55] LABS: Blood Urea Nitrogen 17 mg/dl (9-20); Calcium 9.5 mg/dl (8.4-10.2); Carbon Dioxide 28 mmol/L (22.0-30.0); Creatinine Clearance Estimated 145 mL/min (50-200); Estimated Glomerular Filt Rate 84 ml/min (>60); GFR (African American) 102 ML/MIN (>60); Glucose 122 mg/dl (74-100)
[2021-02-28 09:00] LABS: C-Reactive Protein 2.4 mg/L (0-4)
[2021-02-28 11:04] LABS: Erythrocyte Sedimentation Rate > 140 mm/hr (0-15)
== END 2021-02-28 11:55 | disposition home or self-care (01) | DRG 565 ==
PROVIDERS: Nurse Practitioner; Nurse Practitioner Family; Podiatrist; Admitting Provider Emergency Medicine; PCP Emergency Medicine; Visit Provider Emergency Medicine
DX: T87.81 Dehiscence of amputation stump (principal); M86.672 Other chronic osteomyelitis, left ankle and foot; L03.116 Cellulitis of left lower limb; Z20.822 Contact with and (suspected) exposure to COVID-19; E11.621 Type 2 diabetes mellitus with foot ulcer; L97.511 Non-pressure chronic ulcer of other part of right foot limited to breakdown of skin; E11.69 Type 2 diabetes mellitus with other specified complication; B96.5 Pseudomonas (aeruginosa) (mallei) (pseudomallei) as the cause of diseases classified elsewhere; Z79.4 Long term (current) use of insulin; F17.210 Nicotine dependence, cigarettes, uncomplicated; A49.02 Methicillin resistant Staphylococcus aureus infection, unspecified site; E11.628 Type 2 diabetes mellitus with other skin complications; B96.89 Other specified bacterial agents as the cause of diseases classified elsewhere; Z91.19 Patient's noncompliance with other medical treatment and regimen
CPT/HCPCS: 36415; 36569; 71045; 73630; 80048; 80053; 80202; 82962; 85025; 85651; 86140; 86580; 97165; 97530; J0692; J3370

== ENCOUNTER → 2021-02-17 12:31 | Outpatient (CLI) | payer MEDICARE, MEDICAID, SELFPAY | PROVIDERS: PCP Emergency Medicine; Visit Provider Emergency Medicine | DX: T87.81 Dehiscence of amputation stump (principal); M86.672 Other chronic osteomyelitis, left ankle and foot; L03.116 Cellulitis of left lower limb | CPT/HCPCS: 36569; C1751 ==

== ENCOUNTER → 2021-03-08 15:56 | Outpatient (CLI) | payer MEDICARE, MEDICAID, SELFPAY ==
--- NOTE | 2021-03-08 16:14 | XR_ITS ---
PROCEDURE: XR FOOT WT BEARING RT 3V CLINICAL INDICATION: foot pain Right foot ulcer COMPARISON: CR XR FOOT RT MIN 3V from 02/14/2021 CR XR FOOT LT MIN 3V from 02/14/2021 CR XR FOOT RT MIN 3V from 02/27/2021 CR XR FOOT LT MIN 3V from 02/27/2021 FINDINGS: No fracture or dislocation. No lytic or blastic change. There is normal mineralization. Soft tissue gas is present at the medial aspect of the 1st MTP joint. No obvious bony destructive changes. Other findings:None. IMPRESSION: Soft tissue gas at the medial aspect of the 1st MTP joint which could be related to recent debridement, soft tissue ulceration, or soft tissue infection without obvious bony destruction Dictated by: Brayan Welch MD 03/08/2021 18:18 Baryan Welch MD in [place] 03/08/2021 18:18
--- NOTE | 2021-03-08 16:14 | XR_ITS ---
PROCEDURE: XR FOOT WT BEARING LT 3V CLINICAL INDICATION: post op Follow-up surgery COMPARISON: CR XR FOOT RT MIN 3V from 02/14/2021 CR XR FOOT LT MIN 3V from 02/14/2021 CR XR FOOT RT MIN 3V from 02/27/2021 CR XR FOOT LT MIN 3V from 02/27/2021 FINDINGS: Status post transmetatarsal amputation. Skin clips remain present along with a bandage at the amputation stump. No obvious bony destructive changes of the metatarsals at the amputation site. The joint spaces are well-preserved. No significant degenerative/arthritic changes. No erosive changes evident. Other findings:None. IMPRESSION: No change status post transmetatarsal amputation Dictated by: Brayan Welch MD 03/08/2021 18:19 Brayan Welch MD in [place] 03/08/2021 18:19
[2021-03-08 17:01] LABS: Basophils # 0.1 K/mm3 (0-0.2); Basophils % 0.7 % (0.1-2.0); Eosinophils # 0.2 K/mm3 (0.0-0.4); Eosinophils % 1.8 % (0.1-12.0); Hematocrit 38.1 % (42.0-52.0); Hemoglobin 12.7 g/dL (14.1-18.0); Lymphocytes # 2.5 K/mm3 (0.7-4.5); Lymphocytes % 26.4 % (10-50); Mean Corpuscular HGB Conc 33.3 g/dL (31.8-35.4); Mean Corpuscular Hemoglobin 26.3 pg (27.0-31.2); Mean Corpuscular Volume 79.1 fl (80-94); Monocytes # 0.3 K/mm3 (0.1-1.0); Monocytes % 3.6 % (1.7-9.3); Neutrophils # 6.4 K/mm3 (1.8-7.8); Neutrophils % 67.5 % (37.0-80.0); Platelet Count 279 K/mm3 (142-424); Red Blood Count 4.82 M/mm3 (4.60-6.20); Red Cell Distribution Width 15.3 % (11.5-17.5); White Blood Count 9.5 K/mm3 (4.8-10.8)
[2021-03-08 17:09] LABS: Alanine Aminotransferase 39 U/L (12-78); Albumin Level 4.6 g/dl (3.5-5.0); Albumin/Globulin Ratio 1.5 (1.1-1.8); Alkaline Phosphatase 76 U/L (38-126); Anion Gap 13.5 mEq/L (5-15); Aspartate Amino Transferase 27 U/L (17-59); Bilirubin,Total 0.6 mg/dl (0.2-1.3); Blood Urea Nitrogen 16 mg/dl (9-20); Carbon Dioxide 23 mmol/L (22.0-30.0); Chloride 108 mmol/L (98-107); Estimated Glomerular Filt Rate 84 ml/min (>60); GFR (African American) 102 ML/MIN (>60); Globulin 3.1 g/dL (1.3-3.2); Glucose 90 mg/dl (74-100); Potassium 4.5 mmoL/L (3.5-5.1); Sodium 140 mmol/L (136-145); Total Protein,Serum 7.7 g/dl (6.3-8.2)
[2021-03-08 17:15] LABS: C-Reactive Protein 1.3 mg/L (0-4)
[2021-03-08 19:17] LABS: Erythrocyte Sedimentation Rate 27 mm/hr (0-15)
== END ==
PROVIDERS: PCP Nurse Practitioner Family; Visit Provider Nurse Practitioner
DX: M25.559 Pain in unspecified hip (principal); Z98.890 Other specified postprocedural states; E11.621 Type 2 diabetes mellitus with foot ulcer; L97.519 Non-pressure chronic ulcer of other part of right foot with unspecified severity; Z79.4 Long term (current) use of insulin
CPT/HCPCS: 36415; 73630; 80053; 85025; 85651; 86140; 87070; 87077; 87186; 87205

== ENCOUNTER → 2021-03-28 15:50 | Outpatient (CLI) | payer MEDICARE, MEDICAID, SELFPAY ==
--- NOTE | 2021-03-28 15:59 | XR_ITS ---
PROCEDURE: XR FOOT WT BEARING RT 3V CLINICAL INDICATION: non-healing wound COMPARISON: CR XR FOOT RT MIN 3V from 02/27/2021 CR XR FOOT LT MIN 3V from 02/27/2021 CR XR FOOT WT BEARING RT 3V from 03/08/2021 CR XR FOOT WT BEARING LT 3V from 03/08/2021 FINDINGS: No acute fracture or dislocation. A lucency is noted at the distal aspect of the calcaneus on the AP view chronic in nature consistent with an ununited ossification center. Soft tissue swelling is present at the 1st metatarsophalangeal junction. No bony erosive change evident that would indicate acute osteomyelitis. The joint spaces are well-preserved. No significant degenerative/arthritic changes. No erosive changes evident. Other findings:None. IMPRESSION: Soft tissue swelling of the great toe otherwise negative Dictated by: Brayan Welch MD 03/28/2021 17:12 Brayan Welch MD in [place] 03/28/2021 17:12
[2021-03-28 16:12] LABS: Basophils % 0.3 % (0.1-2.0); Eosinophils # 0.2 K/mm3 (0.0-0.4); Eosinophils % 2.3 % (0.1-12.0); Hematocrit 37.2 % (42.0-52.0); Hemoglobin 12.5 g/dL (14.1-18.0); Lymphocytes # 2.2 K/mm3 (0.7-4.5); Lymphocytes % 24.8 % (10-50); Mean Corpuscular HGB Conc 33.5 g/dL (31.8-35.4); Mean Corpuscular Hemoglobin 26.2 pg (27.0-31.2); Mean Corpuscular Volume 78.4 fl (80-94); Mean Platelet Volume 7.3 fl (7.4-10.4); Monocytes # 0.3 K/mm3 (0.1-1.0); Monocytes % 3.6 % (1.7-9.3); Neutrophils # 6.1 K/mm3 (1.8-7.8); Platelet Count 255 K/mm3 (142-424); Red Blood Count 4.74 M/mm3 (4.60-6.20); Red Cell Distribution Width 16.1 % (11.5-17.5); White Blood Count 8.9 K/mm3 (4.8-10.8)
[2021-03-28 16:30] LABS: Chloride 104 mmol/L (98-107); Sodium 141 mmol/L (136-145)
[2021-03-28 16:32] LABS: Blood Urea Nitrogen 21 mg/dl (9-20); Estimated Glomerular Filt Rate 75 ml/min (>60); GFR (African American) 91 ML/MIN (>60)
[2021-03-28 16:33] LABS: Alanine Aminotransferase 28 U/L (12-78); Albumin Level 4.1 g/dl (3.5-5.0); Albumin/Globulin Ratio 1.3 (1.1-1.8); Alkaline Phosphatase 91 U/L (38-126); Aspartate Amino Transferase 25 U/L (17-59); Calcium 9.3 mg/dl (8.4-10.2); Carbon Dioxide 28 mmol/L (22.0-30.0); Globulin 3.2 g/dL (1.3-3.2); Glucose 191 mg/dl (74-100); Total Protein,Serum 7.3 g/dl (6.3-8.2)
[2021-03-28 17:06] LABS: Erythrocyte Sedimentation Rate 70 mm/hr (0-15)
== END ==
PROVIDERS: Visit Provider Nurse Practitioner
DX: Z98.890 Other specified postprocedural states (principal); E11.621 Type 2 diabetes mellitus with foot ulcer; L97.519 Non-pressure chronic ulcer of other part of right foot with unspecified severity; Z79.4 Long term (current) use of insulin
CPT/HCPCS: 36415; 73630; 80053; 85025; 85651; 86140

== ENCOUNTER 2021-04-05 16:33 | Emergency (ER) | payer MEDICARE, MEDICAID, SELFPAY ==
--- NOTE | 2021-04-05 16:47 | ECG_ITS ---
APPROVED REPORT Exam: Resting ECG HR:104 bpm ECG Measurements Heart Rate 104 AXES NM 144 P 64 QRSd 74 QRS 94 QT 338 T 22 QTc 444 Conclusion Sinus tachycardia Rightward axis Borderline ECG Electronically signed by : Facundo Ponce, 04/06/2021 17:01:21
[2021-04-05 16:49] VITALS: BP 127/84; PULSE 111; RESP 16; TEMP 36.6; O2SAT 98; BMI 27.6
--- NOTE | 2021-04-05 16:58 | XR_ITS ---
PROCEDURE: XR FOOT LT MIN 3V CLINICAL INDICATION: PAIN COMPARISON: CR XR FOOT LT MIN 3V from 02/27/2021 CR XR FOOT WT BEARING RT 3V from 03/08/2021 CR XR FOOT WT BEARING LT 3V from 03/08/2021 CR XR FOOT WT BEARING RT 3V from 03/28/2021 FINDINGS: Status post transmetatarsal amputation. Surgical clips have been removed. No bony erosive changes evident. The joint spaces are well-preserved. No significant degenerative/arthritic changes. No erosive changes evident. Other findings:None. IMPRESSION: No acute finding status post transmetatarsal amputation Dictated by: Brayan Welch MD 04/05/2021 17:26 Brayan Welch MD in [place] 04/05/2021 17:26
--- NOTE | 2021-04-05 16:58 | XR_ITS ---
PROCEDURE: XR FOOT RT MIN 3V CLINICAL INDICATION: PAIN COMPARISON: CR XR FOOT LT MIN 3V from 02/27/2021 CR XR FOOT WT BEARING RT 3V from 03/08/2021 CR XR FOOT WT BEARING LT 3V from 03/08/2021 CR XR FOOT WT BEARING RT 3V from 03/28/2021 FINDINGS: No fracture or dislocation. No lytic or blastic change. There is normal mineralization. Minimal bony hypertrophy involving the anterior aspect of the navicular and talar neck Other findings:None. IMPRESSION: No acute findings. Dictated by: Brayan Welch MD 04/05/2021 17:25 Brayan Welch MD in [place] 04/05/2021 17:25
[2021-04-05 17:05] LABS: Basophils % 0.5 % (0.1-2.0); Eosinophils # 0.2 K/mm3 (0.0-0.4); Eosinophils % 2.1 % (0.1-12.0); Hematocrit 39.8 % (42.0-52.0); Lymphocytes # 2.4 K/mm3 (0.7-4.5); Lymphocytes % 27.5 % (10-50); Mean Corpuscular HGB Conc 32.6 g/dL (31.8-35.4); Mean Corpuscular Hemoglobin 26.1 pg (27.0-31.2); Mean Platelet Volume 7.6 fl (7.4-10.4); Monocytes # 0.3 K/mm3 (0.1-1.0); Monocytes % 3.5 % (1.7-9.3); Neutrophils # 5.9 K/mm3 (1.8-7.8); Neutrophils % 66.5 % (37.0-80.0); Platelet Count 288 K/mm3 (142-424); Red Blood Count 4.98 M/mm3 (4.60-6.20); White Blood Count 8.8 K/mm3 (4.8-10.8)
[2021-04-05 17:11] LABS: Chloride 108 mmol/L (98-107); Potassium 4.5 mmoL/L (3.5-5.1); Sodium 145 mmol/L (136-145)
[2021-04-05 17:14] LABS: Alanine Aminotransferase 30 U/L (12-78); Albumin Level 4.7 g/dl (3.5-5.0); Albumin/Globulin Ratio 1.3 (1.1-1.8); Alkaline Phosphatase 95 U/L (38-126); Anion Gap 14.5 mEq/L (5-15); Aspartate Amino Transferase 29 U/L (17-59); Bilirubin,Total 0.9 mg/dl (0.2-1.3); Blood Urea Nitrogen 17 mg/dl (9-20); Carbon Dioxide 27 mmol/L (22.0-30.0); Creatinine Clearance Estimated 140 mL/min (50-200); Estimated Glomerular Filt Rate 84 ml/min (>60); GFR (African American) 102 ML/MIN (>60); Globulin 3.7 g/dL (1.3-3.2); Total Protein,Serum 8.4 g/dl (6.3-8.2)
--- NOTE | 2021-04-05 17:14 | HMH.EDGENADL ---
ED Disposition Clinical Impression: Diabetic foot ulcer, Weakness Disposition: Home, Self-Care Condition on Discharge: Good Additional Instructions: Continue home medications. Continue current care for the right foot. Follow-up with primary care physician. Return to the emergency room for any new symptoms. Referrals: Toñito Christopher MD [Primary Care Provider] - - Critical Care Critical Care Time: No Attestation: On 04/05/21, the high probability of a clinically significant, sudden or life threatening deterioration of the following system(s) required my full and direct attention, intervention and personal management. The time I documented below is in addition to time spent performing reported procedures but includes the following listed in this critical care notation. Medical Decision Making - Medical Records MR Comment: EKG was normal with a ventricular rate 104. No ST changes. No acute findings. His blood sugar 108 he does not have any anion gap. Procalcitonin is normal. No leukocytosis. No signs of any signs of infection of the right foot. - Dylon Inquiry Pt receiving controlled substance: No Dylon was queried for this patient: No Vital Signs: 04/05/21 16:49 04/05/21 19:13 Temperature 98 F 98 F Temperature Source Oral Pulse Rate 86 Pulse Rate [Radial] 111 H Respiratory Rate 16 18 Blood Pressure 126/86 Blood Pressure [Right Arm] 127/84 Blood Pressure Mean [Right Arm] 98 Blood Pressure Position [Right Arm] Sitting 02 Sat by Pulse Oximetry 98 Oxygen Delivery Method Room Air Room Air - Lab Data Lab Results 04/05/21 16:52: WBC 8.8, RBC 4.98, Hgb 13.0 L, Hct 39.8 L, MCV 80.0, MCH 26.1 L, MCHC 32.6, RDW 16.0, Plt Count 288, MPV 7.6, Neut % (Auto) 66.5, Lymph % (Auto) 27.5, [place] % (Auto) 3.5, Eos % (Auto) 2.1, Baso % (Auto) 0.5, Neut # (Auto) 5.9, Lymph # (Auto) 2.4, [place] # (Auto) 0.3, Eos # (Auto) 0.2, Baso # (Auto) 0.0 04/05/21 16:52: Sodium 145, Potassium 4.5, Chloride 108 H, Carbon Dioxide 27, Anion Gap 14.5, BUN 17, Creatinine 1.00, Estimated Creat Clear 140, Estimated GFR 84, Est GFR ( Amer) 102, Glucose 107 H, Calcium 10.0, Total Bilirubin 0.9, AST 29, ALT 30, Alkaline Phosphatase 95, Total Protein 8.4 H, Albumin 4.7, Globulin 3.7 H, Albumin/Globulin Ratio 1.3 04/05/21 17:08: Lactate 1.4 04/05/21 17:08: Procalcitonin 0.078 04/05/21 17:08: Acetone Level None detected 04/05/21 17:41: VBG pH 7.32, VBG pCO2 47.9, VBG pO2 47.2 H, VBG HCO3 24.1, VBG Total CO2 25.5, VBG O2 Saturation 78.8 H, VBG Base Excess -2.0 Result diagrams: 04/05/21 16:52 04/05/21 16:52 Orders (Tests/Meds): ED MEDICATIONS Discontinued Medications Generic Name Dose Route Start Last Admin Trade Name Tyrelq PRN Reason Stop Dose Admin Sodium Chloride 1,000 mls @ 999 mls/hr 04/05/21 17:15 04/05/21 17:41 Sod Chlor 0.9% 1000ml Bag IV 04/05/21 18:15 999 mls/hr .Q1H1M TAMAR Administration ORDERS Category Date Time Status Blood Culture Stat Micro 04/05/21 17:08 Results General Adult HPI - General Chief complaint: Weakness Stated complaint: DIAB/ ulcer on R Foot,Lab work elav Time Seen by Provider: 04/05/21 17:14 Mode of Arrival: Ambulatory Source of Information: Patient Limitations: No Limitations Description of Symptoms (Recalled from ER Triage Doc. by RN): to ed per pvt car with c/o not feeling well hx of IDDM states BS at home of 300's last several days. pt with hx of lt partial foot amputation in december and currently sees clinic for rt foot infection. [facility] came to house today and changed dressing telling pt that site is progressively getting worse. pt currently taking po antibiotics. - History of Present Illness HPI narrative: Patient is a 35-year-old male with a history of insulin-dependent diabetes and chronic ulceration of the right foot. He said today he does not feel good and his blood sugar was high. And he has increased pain in the right foot. He has 1 inch
[2021-04-05 17:15] LABS: Glucose 107 mg/dl (74-100)
[2021-04-05 17:37] LABS: Lactic Acid 1.4 mmol/L (0.7-2.1)
[2021-04-05 17:40] LABS: VBG HCO3 24.1 mmol/L (23-30); VBG Oxygen Saturation 78.8 % (50-70); VBG PCO2 47.9 mmol/L (35-51); VBG PH 7.32 mmol/L (7.31-7.41); VBG PO2 47.2 mmol/L (28-40); VBG Total CO2 25.5 mmol/L (23-27)
[2021-04-05 17:58] LABS: Procalcitonin 0.078 ng/mL (0.0-2.0)
[2021-04-05 18:21] LABS: Acetone, Serum (Rapid) None Detected (None Detect)
[2021-04-05 19:13] VITALS: BP 126/86; PULSE 86; RESP 18; TEMP 36.6; O2SAT 98
== END 2021-04-05 19:17 | disposition home or self-care (01) ==
PROVIDERS: Emergency Provider Internal Medicine; PCP Emergency Medicine
DX: E11.621 Type 2 diabetes mellitus with foot ulcer (principal); E78.5 Hyperlipidemia, unspecified; F12.10 Cannabis abuse, uncomplicated; F17.210 Nicotine dependence, cigarettes, uncomplicated; Z89.422 Acquired absence of other left toe(s)
CPT/HCPCS: 73630; 80053; 82009; 82803; 83605; 84145; 85025; 87040; 93005; 96365; 99283; 99284

== ENCOUNTER → 2021-04-11 16:57 | Outpatient (CLI) | payer MEDICARE, MEDICAID, SELFPAY | PROVIDERS: Visit Provider Nurse Practitioner | DX: E11.621 Type 2 diabetes mellitus with foot ulcer (principal); L97.519 Non-pressure chronic ulcer of other part of right foot with unspecified severity; Z79.4 Long term (current) use of insulin | CPT/HCPCS: 87070; 87077; 87186; 87205 ==

== ENCOUNTER → 2021-04-25 10:59 | Outpatient (CLI) | payer MEDICARE, MEDICAID, SELFPAY ==
[2021-04-25 11:43] LABS: Basophils # 0.1 K/mm3 (0-0.2); Basophils % 0.7 % (0.1-2.0); Eosinophils # 0.2 K/mm3 (0.0-0.4); Eosinophils % 2.3 % (0.1-12.0); Hematocrit 39.3 % (42.0-52.0); Lymphocytes # 2.7 K/mm3 (0.7-4.5); Lymphocytes % 31.4 % (10-50); Mean Corpuscular Hemoglobin 25.6 pg (27.0-31.2); Mean Corpuscular Volume 77.5 fl (80-94); Mean Platelet Volume 7.2 fl (7.4-10.4); Monocytes # 0.3 K/mm3 (0.1-1.0); Monocytes % 3.4 % (1.7-9.3); Neutrophils # 5.2 K/mm3 (1.8-7.8); Neutrophils % 62.2 % (37.0-80.0); Platelet Count 229 K/mm3 (142-424); Red Blood Count 5.07 M/mm3 (4.60-6.20); Red Cell Distribution Width 15.9 % (11.5-17.5); White Blood Count 8.4 K/mm3 (4.8-10.8)
[2021-04-25 11:57] LABS: Alanine Aminotransferase 24 U/L (12-78); Albumin Level 4.4 g/dl (3.5-5.0); Albumin/Globulin Ratio 1.4 (1.1-1.8); Alkaline Phosphatase 84 U/L (38-126); Anion Gap 15.3 mEq/L (5-15); Aspartate Amino Transferase 20 U/L (17-59); Bilirubin,Total 0.6 mg/dl (0.2-1.3); Blood Urea Nitrogen 13 mg/dl (9-20); Carbon Dioxide 26 mmol/L (22.0-30.0); Chloride 105 mmol/L (98-107); Estimated Glomerular Filt Rate 75 ml/min (>60); GFR (African American) 91 ML/MIN (>60); Globulin 3.2 g/dL (1.3-3.2); Glucose 149 mg/dl (74-100); Potassium 5.3 mmoL/L (3.5-5.1); Sodium 141 mmol/L (136-145); Total Protein,Serum 7.6 g/dl (6.3-8.2)
[2021-04-25 12:02] LABS: C-Reactive Protein 4.6 mg/L (0-4)
[2021-04-25 15:59] LABS: Erythrocyte Sedimentation Rate 100 mm/hr (0-15)
== END ==
PROVIDERS: Visit Provider Podiatrist
DX: E11.621 Type 2 diabetes mellitus with foot ulcer (principal); L97.519 Non-pressure chronic ulcer of other part of right foot with unspecified severity; Z51.89 Encounter for other specified aftercare; L97.529 Non-pressure chronic ulcer of other part of left foot with unspecified severity; Z79.4 Long term (current) use of insulin
CPT/HCPCS: 36415; 80053; 85025; 85651; 86140

== ENCOUNTER → 2021-05-16 15:41 | Outpatient (CLI) | payer MEDICARE, MEDICAID, SELFPAY ==
[2021-05-16 17:39] LABS: Basophils # 0.1 K/mm3 (0-0.2); Basophils % 0.6 % (0.1-2.0); Eosinophils # 0.2 K/mm3 (0.0-0.4); Eosinophils % 2.5 % (0.1-12.0); Hematocrit 35.9 % (42.0-52.0); Hemoglobin 11.6 g/dL (14.1-18.0); Lymphocytes # 2.9 K/mm3 (0.7-4.5); Lymphocytes % 34.2 % (10-50); Mean Corpuscular HGB Conc 32.2 g/dL (31.8-35.4); Mean Corpuscular Hemoglobin 25.8 pg (27.0-31.2); Mean Platelet Volume 7.5 fl (7.4-10.4); Monocytes # 0.3 K/mm3 (0.1-1.0); Monocytes % 3.8 % (1.7-9.3); Neutrophils # 4.9 K/mm3 (1.8-7.8); Neutrophils % 58.8 % (37.0-80.0); Platelet Count 281 K/mm3 (142-424); Red Blood Count 4.49 M/mm3 (4.60-6.20); Red Cell Distribution Width 16.5 % (11.5-17.5); White Blood Count 8.4 K/mm3 (4.8-10.8)
[2021-05-16 18:46] LABS: Alanine Aminotransferase 24 U/L (12-78); Albumin/Globulin Ratio 1.3 (1.1-1.8); Alkaline Phosphatase 93 U/L (38-126); Anion Gap 12.7 mEq/L (5-15); Aspartate Amino Transferase 23 U/L (17-59); Bilirubin,Total 0.8 mg/dl (0.2-1.3); Blood Urea Nitrogen 14 mg/dl (9-20); Calcium 9.6 mg/dl (8.4-10.2); Carbon Dioxide 27 mmol/L (22.0-30.0); Chloride 105 mmol/L (98-107); Estimated Glomerular Filt Rate 95 ml/min (>60); GFR (African American) 115 ML/MIN (>60); Globulin 3.2 g/dL (1.3-3.2); Glucose 80 mg/dl (74-100); Potassium 4.7 mmoL/L (3.5-5.1); Sodium 140 mmol/L (136-145); Total Protein,Serum 7.2 g/dl (6.3-8.2)
[2021-05-16 19:36] LABS: Erythrocyte Sedimentation Rate 34 mm/hr (0-15)
== END ==
PROVIDERS: Visit Provider Podiatrist
DX: Z51.89 Encounter for other specified aftercare (principal); M25.559 Pain in unspecified hip
CPT/HCPCS: 36415; 80053; 85025; 85651; 86140

== ENCOUNTER 2021-06-12 18:51 | Emergency (ER) | payer MEDICARE, MEDICAID, SELFPAY ==
[2021-06-12 18:51] VITALS: BP 126/87; PULSE 100; RESP 16; TEMP 36.8; O2SAT 98; BMI 28.2
--- NOTE | 2021-06-12 18:58 | HMH.EDBACK ---
ED Disposition Clinical Impression: Sciatica associated with disorder of lumbar spine Disposition: Home, Self-Care Condition on Discharge: Fair Additional Instructions: Take [id number] ibuprofen in combination with the muscle relaxer prescribed today. Follow-up with your primary care physician in about 3 to 4 days if you do not improve. Return to the emergency department if you worsen in any way. Prescriptions: Cyclobenzaprine HCl [Flexeril 10mg tablet] 10 mg PO BID PRN 30 Days #60 tab PRN Reason: Back pain Transmission Status: Pending to [id number] Referrals: Toñito Christopher MD [Primary Care Provider] - 3 days - Critical Care Critical Care Time: No Attestation: On , the high probability of a clinically significant, sudden or life threatening deterioration of the following system(s) required my full and direct attention, intervention and personal management. The time I documented below is in addition to time spent performing reported procedures but includes the following listed in this critical care notation. Medical Decision Making - Medical Records Medical records reviewed: Yes: I reviewed the patient's medical records. - Dylon Inquiry Pt receiving controlled substance: No Medical Decision Narrative: The patient presents to the emergency department complaining of low back pain radiating down the left leg. On physical examination there is no evidence of ischemia. There is no evidence of infection in the left lower extremity. The patient has a positive straight leg raise. All these findings are consistent with acute sciatica. The patient is a diabetic who has already lost his distal foot to diabetes. Therefore, steroids will not be prescribed. The patient will receive a prescription for Flexeril and has been advised to take it in combination with ibuprofen for his symptoms and to follow-up with his primary care physician if he does not improve in the next few days. Back Pain HPI - General Stated Complaint: back pain no accident Time Seen by Provider: 06/12/21 18:58 Mode of Arrival: Ambulatory Source of Information: Patient - History of Present Illness HPI Narrative: The patient presents to the emergency department complaining of left-sided low back pain radiating down the back of his leg down to his ankle. He states that he has never had this problem before. However, he has had amputation of all 5 left toes and has been walking differently causing him to develop an infection on his right foot. He is now in a orthopedic boot on his right foot. Denies any fevers, nausea, vomiting MD Complaint: back pain Onset (ago): day(s) Similar Symptoms Previously: No - Related Data Previous Rx's Medication Instructions Recorded glipizide 5 mg tablet 5 mg PO DAILY #90 tab 03/08/21 insulin glargine 100 unit/mL 20 unit SQ HS #10 ml 03/08/21 subcutaneous solution lisinopril 2.5 mg tablet 2.5 mg PO DAILY #90 tab 03/08/21 pravastatin 20 mg tablet 10 mg PO HS #90 tab 03/08/21 metformin 1,000 mg tablet 1,000 mg PO BID #180 tab 04/17/21 blood sugar diagnostic See Rx Instructions .ROUTE 04/19/21 .MEDSUPPLY #50 each blood-glucose meter See Rx Instructions .ROUTE 04/19/21 .MEDSUPPLY #1 each lancets 30 gauge See Rx Instructions .ROUTE 04/19/21 .MEDSUPPLY #200 each minocycline 100 mg capsule 100 mg PO BID 14 Days #28 cap 05/23/21 sulfamethoxazole 800 1 tab PO BID 14 Days #28 tab 05/23/21 mg-trimethoprim 160 mg tablet aspirin 81 mg tablet,delayed See Rx Instructions .ROUTE 06/05/21 release .COMPLEX #30 tab Cyclobenzaprine HCl [Flexeril 10mg 10 mg PO BID PRN 30 Days #60 tab 06/12/21 tablet] Allergies Allergy/AdvReac Type Severity Reaction Status Date / Time No Known Allergies Allergy Verified 06/08/21 15:06 [facility] History - Hepatitis A Screen Drug use history?: No Attestation statement:: This patient has been screened for Hepatitis A risk factors. I have reviewed the megan
[2021-06-12 19:14] VITALS: BP 120/73; PULSE 94; RESP 16; TEMP 36.8; O2SAT 98
== END 2021-06-12 19:15 | disposition home or self-care (01) ==
LOC: ER 19:09
PROVIDERS: Emergency Provider Emergency Medicine; PCP Emergency Medicine
DX: M54.32 Sciatica, left side (principal); E11.9 Type 2 diabetes mellitus without complications; E78.5 Hyperlipidemia, unspecified; F17.210 Nicotine dependence, cigarettes, uncomplicated
CPT/HCPCS: 99281